=== PATIENT | male | born 1940 | race Caucasian/White ===

== ENCOUNTER 2023-12-04 11:04 | Inpatient (IN) | payer MEDICARE, OTHER, SELFPAY ==
[2023-12-04] VITALS (12 sets, daily range): BP systolic 99–134; BP diastolic 45–92; BMI 30.1
--- NOTE | 2023-12-04 07:52 | ED.GENMED ---
History of Present Illness
General
Chief Complaint: Change in Mental Status
Source: patient and ambulance crew
Exam Limitations: none
Time Seen by Provider: 12/04/23 07:31
Nursing documentation reviewed up to this point in time: agreed with
Travel History
Have you had any contact with someone who has COVID-19?: No
Do you have any symptoms of coronavirus? Fever > 100 degrees, chills, cough, shortness of breath, sore throat, loss of taste or smell, muscle aches, or headache?: No
History of Present Illness
History of Present Illness:
Patient presents to ED from home secondary to confusion noted by his upon waking up this morning. Upon arrival to ED, patient states that he 'feels better'. Denies fever. Denies recent illness. Denies coughing. Denies vomiting or diarrhea.
Denies sick contact. Denies recent travel or surgery. Patient has history of chronic urinary retention, for which he performs self-catheterization at home. In addition, patient takes Coumadin due to previous history of pulmonary embolism.
Past History
Past History
ED Past Medical History: CAD, HTN, Hypercholesterolemia, Seizures, Other (PE, DVT, UTI, BPH) and Other (Self catheterizes his bladder)
ED Past Surgical History: Appendectomy, Orthopedic, Tonsilectomy and Urological
Social History
Tobacco: Non-smoker
Alcohol: None
Drug: None
Personal:
Living: with family
Employment: Retired
Family History
Family History: Hypertension
Review of Systems
Review of Systems
Allergies reviewed?: Yes
All Other Systems: ROS reviewed and negative except as documented in HPI and ROS
Constitutional: Reports no symptoms
EENT: Reports no symptoms
Respiratory: Reports no symptoms
Cardiac: Reports no symptoms
ABD/GI: Reports no symptoms
: Reports no symptoms
Musculoskeletal: Reports no symptoms
Skin: Reports no symptoms
Neurological: Reports no symptoms
Phy Exam
Physical Exam
Physical Exam:
Physical Exam
General: no apparent distress, not acutely ill. afebrile
Head: nc/at. eomi
Neck: supple. no meningeal signs.
Heart: s1/s2 regular rate and rhythm, no murmur. equal radial pulses.
Lungs: no acute respiratory distress. clear bilaterally
Abdomen: normal bowel sounds. not tender.
Neuro: alert and oriented. no focal neurological deficits
Skin: ecchymosis noted over right posterior thigh. scab noted over left patella with surrounding erythema with warmth. no active drainage/bleeding.
Psychiatric: well kept. interactive and cooperative
Extremities: no edema. no calf tenderness.
Course
Orders/Labs/Results
Orders:
Orders
12/04/23 Breakfast
Regular
At Your Request: Full Participation
Does patient need a safe tray?: No
12/04/23 07:45
Straight cath- Treatment ONCE
12/04/23 07:48
Complete Blood Count/With Diff Urgent
Comprehensive Metabolic Panel Urgent
Urinalysis Reflex To Culture Urgent
Date Specimen was Collected: 12/04/23
Time Specimen was Collected: 07:47
Urine Microscopic Reflex Cult Urgent
Vitamin B12 Urgent
Comment: ADD ON
Urine Culture Urgent
SIMONE Source: U
Specimen Description:
Date Specimen was Collected: 12/04/23
Time Specimen was Collected: 07:47
12/04/23 07:56
Lactic Acid Q4H
Comment: CANCEL 2nd LACTIC ACID IF 1st LACTIC ACID IS LESS THAN 2
PTT Urgent
Prothrombin Time Urgent
Blood Culture Q30M
SIMONE Source: Blood/Venous
Specimen Description:
Blood Culture Q30M
SIMONE Source: Blood/Venous
Specimen Description:
12/04/23 08:31
Electrocardiogram (*1) Urgent
Reason for Study: QTc Monitoring
EKG- Treatment ONCE
12/04/23 08:33
0.9% Sodium Chloride 1000 ml [Nss] 1,000 ml IV BOLUS
12/04/23 08:35
CefTRIAXone [Rocephin] 1,000 mg IV NOW STA
12/04/23 08:37
Sodium Zirconium Cyclosilicate [Lokelma] 10 gram PO NOW STA
12/04/23 09:05
Vancomycin [Vancocin] 1,500 mg 0.9% Sodium Chloride [Nss] 20 ml 0.9% Sodium Chloride 250 ml [Nss] 250 ml IV NOW
12/04/23 10:41
Lamotrigine [Lamictal] 150 mg PO NOW STA
12/04/23 10:42
Admit/Transfer Patient As Directed
Co-Sign Provider:
Level of Care: Inpatient admission
Assign to:: Telemetry
Physician / Group: hospitalist
Diagnosis: Cellulitis, UTI
Reason for Telemetry: Other
Other Reason for Telemetry: Vimpat
Date to Stop Telemetry: 12/06/23
Time to Stop Telemetry: 11:00
Reason for Hospitalization: Cellulitis, UTI
Expected length of stay greater than two midnights?: Yes
ELOS- Estimated Length of Stay in days: 2
I certify the patient meets the requirements for IP care: Yes
Lacosamide [Vimpat] 50 mg PO NOW STA
12/04/23 10:45
Code Status As Directed
Resuscitation Status: Full Code
12/04/23 10:53
Straight Cath As Directed
Frequency: q6h
Patient may straight cath themselves: Yes: pls provide supplies and help
12/04/23 12:20
Lactic Acid Q4H
Comment: CANCEL 2nd LACTIC ACID IF 1st LACTIC ACID IS LESS THAN 2
12/04/23 15:08
Add On- LAB Routine
Tests Added?: b12
Activity As Directed
Activity Level: Ambulate
Precautions As Directed
Type of Precautions: Other
Comment: fall
Vital Signs As Directed
Frequency: Per unit guidelines
Ot Eval And Treat Routine
Pt Eval And Treat Routine
Activity Level: Encourage Progressive Amb
12/04/23 20:00
Carvedilol [Coreg] 25 mg PO BID
Lacosamide [Vimpat] 50 mg PO BID
Lamotrigine [Lamictal] 150 mg PO BID
12/04/23 22:00
Aspirin Low Dose EC [Aspir Low (Enteric Coated)] 81 mg PO HS
Atorvastatin [Lipitor] 40 mg PO HS
Warfarin [Coumadin] 2 mg PO SUTUWETHSA@0
12/05/23 07:02
Basic Metabolic Panel IN AM
Complete Blood Count/With Diff IN AM
Magnesium IN AM
12/05/23 08:00
Calcitriol [Rocaltrol] 0.5 mcg PO Q48H
ISOSORBIDE MONOnitrate ER [Imdur (Extended Release)] 30 mg PO DAILY
12/05/23 18:00
CefTRIAXone [Rocephin] 2,000 mg IV Q24H
12/06/23 11:00
DC Protocol for Telemetry ONCE
12/06/23 22:00
Warfarin [Coumadin] 1 mg PO MOFR@2199
Abnormal Lab Results
12/04/23 12/04/23
07:48 07:56
WBC 18.0 H 10^3/uL
(4.8-10.8)
MCHC 32.8 L g/dL
(33.0-37.0)
RDW 15.4 H %
(11.5-14.5)
Abs Immat Gran (auto) 0.1 H 10^3/uL
(0-0.05)
Absolute Neuts (auto) 16.4 H 10^3/uL
(1.4-6.5)
Absolute Lymphs (auto) 0.5 L 10^3/uL
(1.2-3.4)
Absolute Monos (auto) 0.8 H 10^3/uL
(0.1-0.6)
Immature Gran % 0.8 H %
(0-0.5)
Neutrophils % 91.4 H %
(42.2-75.2)
Lymphocytes % 2.9 L %
(20.5-51.1)
PT 24.5 H Sec
(11.4-14.6)
APTT 37.9 H Sec
(23.4-35.0)
Potassium 5.5 H mmol/L
(3.5-5.1)
BUN 43 H mg/dl
(9-20)
Creatinine 3.0 H mg/dL
(0.7-1.3)
Glucose 144 H mg/dl
(70-99)
Lactic Acid 2.4 H mmol/L
(0.7-2.0)
Ur Occult Blood Reflex 1+ A
(Negative)
Urine Nitrite (Reflex) Positive A
(Negative)
Leukocyte Esterase Rfl 2+ A
(Negative)
Urine WBC (Reflex) >100 A /HPF
(0-5)
Urine Bacteria (Reflex) Many A
(Negative)
12/04/23 07:48
12/04/23 07:48
Vital Signs
Initial and Last Documented VS:
Initial Vital Signs
Temp Pulse Resp BP Pulse Ox
97.6 F 84 18 114/45 96
12/04/23 07:34 12/04/23 07:34 12/04/23 07:34 12/04/23 07:34 12/04/23 07:34
Last Documented Vital Signs
Temp Pulse Resp BP Pulse Ox
98 F 87 17 128/68 98
12/05/23 08:17 12/05/23 09:05 12/05/23 08:17 12/05/23 09:05 12/05/23 08:17
MDM/Problems Addressed
MDM/Problems Addressed:
History and exam concerning for sepsis, likely secondary to lower leg cellulitis. Initial UA noted, which is also concerning for urinary tract infection as well. As such, patient will be admitted for iv abx and further evaluation, with concern for
development of bacteremia.
Blood cx and urine cx pending
Hyperkalemia noted, without EKG changes. Will start Lokelma only.
*Critical Care Note
Total Time (30-74mins, 75-104mins- exclusive of procedures): Not Applicable
ED Attending Note
-
Portions of this chart may have been created with voice recognition software.� Occasional wrong word or��sound alike� substitutions may have occurred due to the inherent limitations of voice recognition software.
Discharge Plan
Departure
Patient Disposition: Admit
Date of Disposition: 12/04/23
Time of Disposition: 08:36
Presentation/result/management discussed w/ accepting MD/DO: Hospitalist
Condition: Fair
Discharge Problem:
Sepsis, Cellulitis of leg, Acute UTI, Hyperkalemia
Interventions
Interventions:
*Risk Screen - Suicide Last Done: 12/04/23 07:34
*General Assessment Last Done: 12/04/23 07:34
*Neglect/Abuse Screening Last Done: 12/04/23 07:34
ED- Fall Risk Assessment Last Done: 12/04/23 15:41
*ED COVID-19 Vaccine History Last Done: 12/04/23 07:34
*Nursing Disposition Last Done: 12/04/23 15:41
ED- Pulmonary Assessment Last Done: 12/04/23 09:45
ED- Neurological Assessment Last Done: 12/04/23 09:45
ED- Cardiac Assessment Last Done: 12/04/23 09:45
ED Swallowing Screen Last Done: 12/04/23 09:45
Discharge Date and Time
Discharge Date/Time: 12/04/23 15:41
[2023-12-04 07:59] LABS: % Basophils 0.3 % (0-2); % Immature Granulocytes 0.8 % (0-0.5); % Lymphocytes 2.9 % (20.5-51.1); % Monocytes 4.6 % (1.7-9.3); % Neutrophils 91.4 % (42.2-75.2); Absolute Basophils 0.1 10^3/uL (0-0.2); Absolute Immature Granulocytes 0.1 10^3/uL (0-0.05); Absolute Lymphocytes 0.5 10^3/uL (1.2-3.4); Absolute Monocytes 0.8 10^3/uL (0.1-0.6); Absolute Neutrophils 16.4 10^3/uL (1.4-6.5); Hematocrit 40.2 % (39.0-52.0); Hemoglobin 13.2 g/dL (13.0-18.0); Mean Corp Hgb Conc. 32.8 g/dL (33.0-37.0); Mean Corpuscular Hgb 27.5 pg (27.0-31.0); Mean Corpuscular Volume 83.8 fL (80.0-94.0); Mean Platelet Volume 9.2 fL (7.4-10.4); Nucleated Red Blood Cells % 0 % (-); Platelet Count 227 10^3/uL (130-400); Red Cell Dist. Width 15.4 % (11.5-14.5)
[2023-12-04 08:16] LABS: Urine Albumin Trace (Neg - Trace); Urine Bilirubin Negative (Negative); Urine Character Slightly Cloudy (Clear); Urine Color Yellow; Urine Glucose Negative (Negative); Urine Ketone Negative (Negative); Urine Leukocyte 2+ (Negative); Urine Nitrite Positive (Negative); Urine Occult Blood 1+ (Negative); Urine Urobilinogen Negative (Neg - 1+)
[2023-12-04 08:23] LABS: APTT 37.9 Sec (23.4-35.0); INR 2.18; PT 24.5 Sec (11.4-14.6)
[2023-12-04 08:23] LABS: ALT (SGPT) 17 U/L (0-50); AST (SGOT) 24 U/L (17-59); Albumin 3.6 g/dl (3.5-5.0); Alkaline Phosphatase 72 U/L (38-126); Blood Urea Nitrogen 43 mg/dl (9-20); Calcium 8.7 mg/dl (8.4-10.2); Carbon Dioxide 25 mmol/L (22-30); Chloride 107 mmol/L (98-107); Estimated Creatinine Clearance 22 ml/min; Glucose 144 mg/dl (70-99); Potassium 5.5 mmol/L (3.5-5.1); Sodium 139 mmol/L (135-145); Total Bilirubin 1.2 mg/dl (0.2-1.3); Total Protein 6.6 g/dl (6.3-8.2); eGFR 19.98
[2023-12-04 08:24] LABS: Lactic Acid 2.4 mmol/L (0.7-2.0)
[2023-12-04] MEDS: NSS 1000 IV (09:15)
[2023-12-04] MEDS: ROCEPHIN 1000 MG IV ×2 (09:15→17:51)
[2023-12-04] MEDS: LOKELMA 10 GRAM PO (09:16)
[2023-12-04] MEDS: VANCOCIN 300 ML IV (09:18)
[2023-12-04] MEDS: VANCOCIN 300 MG IV (09:18)
[2023-12-04 09:30] LABS: Urine Mucus Moderate
[2023-12-04 09:33] LABS: Urine Red Blood Cell 0-2 /HPF (0-2); Urine Squamous Cell 0-2 /LPF (Few)
[2023-12-04 09:34] LABS: Urine Bacteria Many (Negative); Urine White Cell >100 /HPF (0-5)
--- NOTE | 2023-12-04 09:52 | HPS.HSE ---
Family Physician
-
Family Physician: Matthew Ingram
Chief Complaint
-
Mental status change
History of Present Illness
Patient was noted to have some confusion upon waking up this morning. noted. Does not have any vomiting or diarrhea. No cough or sick contacts. He self catheterizes at home patient also noticed that he had some redness in the left lower
extremity today. He had some falls at home that he had an ablation of this left knee and dorsal medial toes both sides.
He was not feeling well for the past few days and contacted Dr. Tobin who had cut back on the Vimpat from 100 twice daily to 50 mg twice daily which he started last night.
Medical History
Past Medical History
Past Medical History: Reports Other
Additional Past Medical History:
History of seizures, history of PE with RV thrombus 2010, history of DVT, hypertension hyperlipidemia, near syncope chronic urinary retention with self-catheterization, hyperparathyroidism, history of obstructive uropathy CKD stage IV benign
prostatic hypertrophy
Past Surgical History: Reports Other
Additional Past Surgical History:
IVC filter placement, history of wrist fracture, appendectomy, tonsillectomy, robotic prostatectomy, cardiac catheterization, pacemaker
Social History
Tobacco: Non-smoker
Alcohol: None
Drug: None
Personal:
Living: With Family
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
Family History
Family History: Not pertinent
Allergies / Home Medications
Allergies reflects when Allergies were last updated in [facility].
Home Medications with original date entered in [facility]
Allergy/Medication List:
Allergies
Allergy/AdvReac Type Severity Reaction Status Date / Time
furosemide [From Lasix] Allergy Unknown Verified 12/04/23 07:33
ciprofloxacin [From Cipro] AdvReac chills;general Verified 12/04/23 07:33
malaise
Home Medications
aspirin 81 mg tablet,delayed release 81 mg PO HS Blood clot prevention/tx 02/21/23
atorvastatin 40 mg tablet 40 mg PO HS High cholesterol 02/21/23
isosorbide mononitrate 30 mg tablet,extended release 24 hr 30 mg PO DAILY Heart disease/condition 02/21/23
calcitriol 0.5 mcg capsule 0.5 mcg PO Q48H@0800 Kidney Disease 08/14/23
lamotrigine 100 mg tablet 150 mg PO BID 11/06/23
warfarin 2 mg tablet 1 mg PO MOFR@219911/06/23
warfarin 2 mg tablet 2 mg PO SUTUWETHSA@219911/06/23
acetaminophen 325 mg tablet (Tylenol) 650 mg PO ONCE PRN mild pain 12/04/23
carvedilol 25 mg tablet 25 mg PO BID 12/04/23
lacosamide 50 mg tablet 50 mg PO BID 12/04/23
Review of Systems
-
A 12 point ROS was completed and negative except as noted: Yes
Constitutional: Reports Fatigue and Other (falls)
Respiratory: Denies Cough or Trouble Breathing
Cardiac: Denies Chest Pain
Abdomen/GI: Denies Abdominal Pain, Nausea or Vomiting
: Denies Dysuria
Skin: Reports See HPI and Other (redness)
Neurological: Reports Weakness; Denies Headache
Physical Exam
Vital Signs
Vital Signs
Temp Pulse Resp BP Pulse Ox
97.6 F 92 29 123/47 91
12/04/23 07:34 12/04/23 09:30 12/04/23 09:30 12/04/23 09:00 12/04/23 09:30
Physical Exam
General: No Apparent Distress and Conversant
Respiratory: Clear
Cardiac: S1/S2 and Regular Rhythm
GI: Soft, Non Tender and Normal Bowel Sounds
Musculoskeletal: Edema, Left Lower Extremity (With redness)
Skin: Other (Abrasion healing on the left knee, small abrasion/ulcers on the dorsal middle toes on bilateral feet. Redness whole left leg till knee)
Neuro: AO x 3 and No Motor Deficits
Psych: Intact Judgment/Insight
Laboratory Results
-
12/04/23 07:48
12/04/23 07:48
Laboratory Results
PT 24.5 Sec (11.4-14.6) H 12/04/23 07:56
INR 2.18 12/04/23 07:56
APTT 37.9 Sec (23.4-35.0) H 12/04/23 07:56
Lactic Acid 2.4 mmol/L (0.7-2.0) H 12/04/23 07:56
Total Bilirubin 1.2 mg/dl (0.2-1.3) 12/04/23 07:48
AST 24 U/L (17-59) 12/04/23 07:48
ALT 17 U/L (0-50) 12/04/23 07:48
Alkaline Phosphatase 72 U/L (38-126) 12/04/23 07:48
Data Reviewed
-
CT Scan: Report Reviewed by me (CT of the head no acute changes, mild atrophy, mild periventricular small vessel disease)
Medical Tests (Nuc Med, Echo, EKG etc): Image Personally Visualized and interpreted (EKG-normal sinus rhythm, right bundle branch block)
Impression/Plan
-
IMPRESSION/PLAN:
# TME
leukocytosis
likely has UTI secondary to self-catheterization
Also left lower extremity cellulitis as a source
Continue ceftriaxone and await cultures
# Ulcers are traumatic on the left knee, dorsal middle toes on bilateral feet
# Hyperkalemia-ordered Lokelma
# Mild lactic acidosis-follow
# CKD stage IV
continue calcitriol
# History of tachybradycardia syndrome with pacemaker placement
# History of seizures-Lamictal 150 twice daily, Vimpat 50 milligram twice daily
He was on Keppra at 1 point it was stopped because it was not working.
contacted Dr. Tobin recently and Vimpat was changed to 50 mg twice a day as of 12/03/2023 evening
Continue
# Hyperlipidemia-continue statin
# History of DVT, PE with RV thrombus 2010
History of IVC filter placement
# Neurogenic bladder with self-catheterization
# History of prostatic hypertrophy with TURP
# Hyperparathyroidism-on calcitriol
# DVT prophylaxis-on Coumadin
# CODE STATUS-full code
Discussed with at bedside
[2023-12-04] MEDS: LAMICTAL 150 MG PO ×2 (11:17→20:08)
[2023-12-04] MEDS: VIMPAT 50 MG PO ×2 (11:18→20:09)
[2023-12-04 12:46] LABS: Lactic Acid 2.2 mmol/L (0.7-2.0)
[2023-12-04] MEDS: ZOFRAN 4 MG IV (14:10)
--- NOTE | 2023-12-04 16:11 | PTCARENOTE ---
pt admitted from ed AOx1, at bedside to answer admission questions. Lungs diminished B/L on RA. Pacer present. +bs x4 abd soft non tender. pt cont of bowel but strictly straight caths QID. trace edema noted LLE. Left knee scab R/T recent fall,
left LE red and warm to the touch. +PP B/L
[2023-12-04 16:40] LABS: Lactic Acid 1.3 mmol/L (0.7-2.0)
[2023-12-04] MEDS: STERILE WATER FOR INJECTION 10 ML IV (17:51)
[2023-12-04 18:07] LABS: Vitamin B12 399 pg/ml (239-931)
[2023-12-04] MEDS: COREG 25 MG PO (20:08)
[2023-12-04] MEDS: ASPIR LOW (ENTERIC COATED) 81 MG PO (21:18)
[2023-12-04] MEDS: COUMADIN 2 MG PO (21:18)
[2023-12-04] MEDS: LIPITOR 40 MG PO (21:19)
[2023-12-05] VITALS (7 sets, daily range): BP systolic 101–134; BP diastolic 39–74; PULSE 79; O2SAT 94
[2023-12-05 07:37] LABS: % Basophils 0.3 % (0-2); % Immature Granulocytes 0.5 % (0-0.5); % Lymphocytes 4.7 % (20.5-51.1); % Monocytes 5.3 % (1.7-9.3); % Neutrophils 89.2 % (42.2-75.2); Absolute Basophils 0.1 10^3/uL (0-0.2); Absolute Immature Granulocytes 0.1 10^3/uL (0-0.05); Absolute Lymphocytes 0.8 10^3/uL (1.2-3.4); Absolute Monocytes 0.9 10^3/uL (0.1-0.6); Absolute Neutrophils 15.5 10^3/uL (1.4-6.5); Hematocrit 39.5 % (39.0-52.0); Hemoglobin 12.8 g/dL (13.0-18.0); Mean Corp Hgb Conc. 32.4 g/dL (33.0-37.0); Mean Corpuscular Hgb 27.5 pg (27.0-31.0); Mean Corpuscular Volume 84.8 fL (80.0-94.0); Mean Platelet Volume 9.5 fL (7.4-10.4); Nucleated Red Blood Cells % 0 % (-); Platelet Count 213 10^3/uL (130-400); Red Blood Cell Count 4.66 10^6/uL (4.70-6.10); Red Cell Dist. Width 15.8 % (11.5-14.5); White Blood Cell Count 17.4 10^3/uL (4.8-10.8)
[2023-12-05 07:42] LABS: Blood Urea Nitrogen 45 mg/dl (9-20); Calcium 7.9 mg/dl (8.4-10.2); Carbon Dioxide 24 mmol/L (22-30); Chloride 107 mmol/L (98-107); Estimated Creatinine Clearance 22 ml/min; Glucose 106 mg/dl (70-99); Magnesium 1.9 mg/dl (1.6-2.3); Potassium 4.6 mmol/L (3.5-5.1); Sodium 136 mmol/L (135-145); eGFR 19.21
[2023-12-05] MEDS: ROCALTROL 0.5 MCG PO (09:04)
[2023-12-05] MEDS: DESENEX/MITRAZOL/ZEASORB 1 APPLIC TOPICAL ×2 (09:05→20:58)
[2023-12-05] MEDS: COREG 25 MG PO ×2 (09:05→20:52)
[2023-12-05] MEDS: IMDUR (EXTENDED RELEASE) 30 MG PO (09:05)
[2023-12-05] MEDS: VIMPAT 50 MG PO ×2 (09:06→20:56)
[2023-12-05] MEDS: LAMICTAL 150 MG PO ×2 (09:06→20:56)
[2023-12-05] MEDS: NSS 1000 IV (13:10)
[2023-12-05] MEDS: ROCEPHIN 2000 MG IV (13:11)
[2023-12-05] MEDS: STERILE WATER FOR INJECTION 20 ML IV (13:11)
--- NOTE | 2023-12-05 13:13 | CON.NEURO4 ---
Consultation - Neurology 4
-
CONSULTING PHYSICIAN: Deejay Tobin
REFERRING PHYSICIAN: Hospitalist
DICTATED BY: Deejay Tobin
DATE/TIME OF REQUEST: 12/05/23
DATE/TIME OF CONSULTATION: 12/05/23
Reason for Consultation: Lethargy
History of Present Illness:
Patient is an 83-year-old man well-known to me for history of epilepsy presented to hospital because of lethargy and found to have bacteremia.
In discussions with the patient's over about the course of the past week the patient has had some lethargy for about the past 1 to 2 weeks, his is also noted some redness on the left leg, there has not been any obvious dysuria or
suprapubic or abdominal pain or vomiting.
Patient's last seizure was approximately 11/21. He was started on lacosamide on 11/21 at 50 mg twice a day and increase to 100 mg twice daily, but due to the lethargy I recommended decreasing him back to 50 mg twice daily over the phone earlier this
week.
Patient's current seizure medication regimen is lacosamide 50 mg twice daily and lamotrigine 150 mg twice daily.
At this time patient is drowsy but arousable, feels malaise, denies any headache or abdominal pain.
Past Medical History: Epilepsy, hyperlipidemia, history DVT/PE s/p IVC, neurogenic bladder, CKD
Surgical History: IVC filter placement, history of wrist fracture, appendectomy, tonsillectomy, robotic prostatectomy, cardiac catheterization, pacemaker
Family History: Non-contributory
Social History: and lives with his , has grown children, retired, no alcohol or tobacco
Allergies: Furosemide and Ciprofloxacin
Review of Symptoms:
Patient denies any fever, headache, chest pain, shortness of breath, GI or symptoms.
Physical Exam:
Elderly man, ill-appearing but no acute distress no signs of head or neck trauma eyes are clear and anicteric neck with no it is no neck masses oropharynx is dry, heart rate regular breathing unlabored abdomen soft nontender, left leg erythema at
the lower extremities noted no pain to palpation, very mild edema on left leg
Neurologic Examination:
Patient has eyes closed and will open them to voice and command and will obey simple commands and engage in short conversation but is drowsy. No aphasia is present.
Resting gaze is midline pupils are 3 mm equal round react light bilaterally extraocular's are full with no pathologic nystagmus seen, minimal dysarthria, smile symmetric, tongue is midline
No tremor or parkinsonism seen no pronator drift no rigidity normal muscle tone, strength is 4/5 bilaterally and arm abduction and flexion hip flexion
Intact to light touch and ox stimulation throughout
Reflexes diminished equal throughout
No ataxia on finger-nose testing bilateral
Gait examination deferred
Neuro Imaging: CT head non contrast no acute abnormalities
Impressions
1. Sepsis due to bacteremia suspected either due to cellulitis versus urinary tract infection
2. Toxic metabolic encephalopathy. Contributory factors are sepsis and bacteremia, additionally he is on 2 antiseizure medications which can produce drowsiness although I do not suspect overt lamotrigine or lacosamide toxicity based on his
examination and other factor explaining encephalopathy in the form of sepsis
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
Recommendations:
1. Although low yield we will check routine EEG given bacteremia and sepsis may lower seizure threshold
2. Will check lamotrigine blood level
3. Continue lamotrigine 150 mg twice a day and lacosamide 50 mg twice a day
4. Basic neurologic checks and seizure precaution
5. Noncontrast CT head is sufficient for brain imaging
6. Continue treating infection, antibiotics, follow blood cultures
7. Tylenol PRN for fever which may lower seizure threshold
Will follow peripherally call with questions or concerns
Discussed patient care with: Patient nad his
--- NOTE | 2023-12-05 13:38 | W.PN.HOSP.TC ---
Today's Communication/Plan
-
Head of bed elevation
IV fluids
Check INR
Continue antibiotics
ID evaluation
Repeat cultures ordered
Assessment / Plan
Assessment / Plan
Patient appears to be lethargic. Arousable
Left lower extremity redness not much better
Abrasions stable
Cardiovascular system S1-S2 appreciated
Chest clear to auscultation
Abdomen soft and nontender
Neuroexam-lethargic but nonfocal exam no neck stiffness
# TME
Cellulitis
Gram-positive bacteremia
Meets criteria for sepsis with a fever and source of infection white count
Gentle IV fluids with the patient CKD
Leukocytosis-slightly better
Sources left lower extremity cellulitis
Leg looks same
Continue ceftriaxone
ID evaluation requested
# Ulcers are traumatic on the left knee, dorsal middle toes on bilateral feet
Cellulitis of left lower extremity
# Abnormal urinalysis-unclear if this is colonization because of the patient's straight cath versus UTI
Continue antibiotics and follow cultures
# Hyperkalemia-ordered Lokelma
# Mild lactic acidosis-follow
# CKD stage IV
continue calcitriol
# History of tachybradycardia syndrome with pacemaker placement
# History of seizures-Lamictal 150 twice daily, Vimpat 50 milligram twice daily
He was on Keppra at 1 point it was stopped because it was not working.
contacted Dr. Tobin recently and Vimpat was changed to 50 mg twice a day as of 12/03/2023 evening
Continue
Requested neurology evaluation given patient's TME
Also get a CT of the head- No Bleed
# Hyperlipidemia-continue statin
# History of DVT, PE with RV thrombus 2010
History of IVC filter placement
Coumadin
Check INR
# Neurogenic bladder with self-catheterization
# History of prostatic hypertrophy with TURP
# Hyperparathyroidism-on calcitriol
# DVT prophylaxis-on Coumadin
# CODE STATUS-full code
Discussed with at bedside, all questions answered.
Discussed with nursing
Anticipated Discharge: > 48 hours
Subjective/Interval History
-
Date of Service: December 05, 2023
Objective Data
-
Labs:
Laboratory Results
12/05/23
07:02
WBC 17.4 H
Hgb 12.8 L
Hct 39.5
Plt Count 213
Sodium 136
Potassium 4.6
Chloride 107
Carbon Dioxide 24
BUN 45 H
Creatinine 3.1 H
Glucose 106 H
Calcium 7.9 L
Vital Signs:
Vital Signs
Temp Pulse Resp BP Pulse Ox
98.1 F 79 16 134/72 98
12/05/23 12:00 12/05/23 12:00 12/05/23 12:00 12/05/23 12:00 12/05/23 12:00
I&O
12/04/23 12/05/23 12/06/23
06:59 06:59 06:59
Intake Total 340 / 340
Output Total 1080 / 1080 300 / 300
Balance -740 / -740 -300 / -300
--- NOTE | 2023-12-05 14:40 | CM ---
Reviewed chart. Met with patient's who was in patient's room at bedside while patient was at a test. Patient's stated that patient lives with her in a two story home with one step to enter and a full flight between steps. Patient's
stated that she is thinking of getting a stair glide.
She described patient has in the past few weeks beeb, dependent/assist with all ADLs, personal care, dressing and bathing as he has been very weak. She supervises him in the shower.
Patient's does all the cooking, cleaning, medication technician and laundry. She stated that she is thinking of hiring some assistance. Her son lives in [place] and is coming in for the weekend. She described him as supportive.
Patient does not drive but his gets him to all his appointments and does all the shopping.
He has had VN services in the past through [facility]. He has been to [facility] in the past recently.
He has a prescription plan and uses the [facility] in [place] for all of his medications. His PCP is Dr. Matthew Nolan.
Patient's stated that she would like to take patient home when he is medically stable for discharge. She confirmed that she can accommodate the scope of patient's needs. Will make recommendations regarding discharge planning based on
indications of medical staff. She stated that she will remain agreeable.
Plan: Case management will continue to follow and assist with discharge planning. Very tentative plan is for patient to return home with his .
--- NOTE | 2023-12-05 15:01 | EEG.RPT ---
Electroencephalogram Report
Recording
Date of EE12/05/23
Type of EEG: Routine
Length of EEG recordin minutes
Patient Status: Inpatient
Recording Conditions: Awake and Drowsy
Hyperventilation Performed: No
Photic Stimulation Performed: Yes
Hand Dominance: Right
Report
LESS THAN 1 HOUR EEG REPORT
METHODS:
A 21 channel digitized electroencephalogram (EEG) was performed in the [facility]. The 10/20 international system of electrode placement was used with ECG and lateral/vertical eye movements recorded. �Video was recorded.
Study lasted 29 minutes.
ELECTROENCEPHALOGRAPHER IMPRESSION(S):
Quality of study
Good
Background
Unremarkable, well maintained, anterior-posterior voltage gradient
Mixed medium amplitude theta and alpha frequencies
Normal posterior dominant rhythm seen at 9 ahz
With eye opening the background activity changed to a low voltage mixture of frequencies.
Sleep
Drowsiness present
Hyperventilation
Not performed
Photic Stimulation
Failed to activate the record
ECG
Unremarkable
Abnormalities
Rare left temporal (T3 maximal) sharp waves are seen representing interictal epileptiform discharges, no seizures seen
LESS THAN 1 HOUR EEG INTERPRETATION:
Moderately abnormal EEG showing left temporal interictal epileptiform discharges, otherwise unremarkable
CLINICAL CORRELATION:
This EEG supports an area on the left temporal lobe with increased susceptibility to seizures, in correct clinical context may be compatible with diagnosis of focal epilepsy. No seizures seen.
--- NOTE | 2023-12-05 16:16 | CON.ID ---
Consultation
-
Date/Time Consultation Requested: 12/05/2023 1235
Date/Time Consultation Performed: 12/05/2023 1600
Requesting Provider: Dr. Katz
Performing Provider: Dr. Rhodes
Reason for Consultation: Bacteremia
Chief Complaint / Past History
History of Present Illness
Madhu Clements is an 83-year-old man with a significant past medical history of CAD and HTN being evaluated at the request of Dr. Katz regarding bacteremia. History is obtained from chart review, along with patient interview. The patient
presented to [facility] ER on 12/04/23 after he was found to be confused upon waking up yesterday morning. In the ER, he reported 'feeling better' denied any fevers or recent illness. According to history he has chronic urinary retention
and performs self-catheterization at home.
Workup in the ER included blood cultures, which are now positive for group A strep. Additionally a urine culture is growing Gram-Negative Rods. Infectious Diseases asked to manage further antibiotics.
At this time he denies any pain. He denies any current fevers or chills. He denies any cough. He denies any lower extremity pain. He denies any groin pain.
Past History
Additional Past Medical History:
CAD
HTN
Dyslipidemia
Seizure disorder
DVT/PE
Hx UTI
Urinary retention with chronic self-catheterization
BPH
Additional Past Surgical History:
Appendectomy
Tonsils surgery
Urologic surgery
Allergy History:
furosemide [From Lasix] Allergy (Verified 12/04/23 07:33)
Unknown
ciprofloxacin [From Cipro] Adverse Reaction (Verified 12/04/23 07:33)
chills;general malaise
Medications Reviewed: Yes
Current Antibiotics:
Rocephin
Social History
Tobacco: Non-Smoker
Alcohol: None
Drug: None
Personal:
Living: With Family
Employment: Retired
Family History
Family History: Not Pertinent
Review of Systems
Vital Signs
Temp Pulse Resp BP Pulse Ox
98.1 F 79 16 134/72 98
12/05/23 12:00 12/05/23 12:00 12/05/23 12:00 12/05/23 12:00 12/05/23 12:00
Physical Exam
Physical Exam
Constitutional: Comfortable, Acutely Ill, Chronically Ill and Non-toxic
Head: Normocephalic
Eyes: Pupils Equal, Pupils Round, No Conjunctival Hemorrhage and Sclera Anicteric
Oral: No Thrush and No Ulcers
Cardiovascular: Regular Rate and S1/S2; Negative S3/S4 or Murmur
Pulmonary: Clear; Negative Wheezes, Rales or Rhonchi
Gastrointestinal: Soft, Non Tender, Non Distended, Normal Bowel Sounds, No Rebound and No Guarding
Genito-Urinary: Negative Rendon
Extremities: Other (Left lower extremity with marked erythema, along with 2+ edema. Positive significant warmth.)
Musculoskeletal: Negative Joint Swelling or Joint Effusion
Neurological: Awake and Other (Lethargic); Negative Meningeal Signs
Psychological: Calm
.
Lab / Diagnostic Study Results
12/05/23 07:02
12/05/23 07:02
Abs Immat Gran (auto) 0.1 10^3/uL (0-0.05) H 12/05/23 07:02
Absolute Neuts (auto) 15.5 10^3/uL (1.4-6.5) H 12/05/23 07:02
Absolute Lymphs (auto) 0.8 10^3/uL (1.2-3.4) L 12/05/23 07:02
Absolute Monos (auto) 0.9 10^3/uL (0.1-0.6) H 12/05/23 07:02
Absolute Basos (auto) 0.1 10^3/uL (0-0.2) 12/05/23 07:02
Immature Gran % 0.5 % (0-0.5) 12/05/23 07:02
Neutrophils % 89.2 % (42.2-75.2) H 12/05/23 07:02
Lymphocytes % 4.7 % (20.5-51.1) L 12/05/23 07:02
Monocytes % 5.3 % (1.7-9.3) 12/05/23 07:02
Eosinophils % 0.0 % (0-6) 12/05/23 07:02
Basophils % 0.3 % (0-2) 12/05/23 07:02
PT 24.5 Sec (11.4-14.6) H 12/04/23 07:56
INR 2.18 12/04/23 07:56
Lactic Acid 1.3 mmol/L (0.7-2.0) 12/04/23 16:16
Ur Squamous Epith Cells 0-2 /LPF (Few) 12/04/23 07:48
Microbiology Results
Micro:
12/04/23 07:56 Blood Culture - Preliminary
Blood/Venous Streptococcus pyogenes
Gram Stain - Preliminary
12/04/23 07:56 Blood Culture - Preliminary
Blood/Venous Streptococcus pyogenes
Gram Stain - Final
12/05/23 12:43 Blood Culture - Pending
Blood/Venous
12/04/23 07:48 Urine Culture - Preliminary
Urine Gram negative bacilli
Assessment / Plan
Invasive group A strep infection (bacteremia)
Left lower extremity cellulitis; likely source of bacteremia
Bacteriuria
-Not clear if infection versus colonization, as patient performs self-catheterization and bacteriuria would not be unexpected.
Leukocytosis
Renal insufficiency
CAD
HTN
Dyslipidemia
Seizure disorder
DVT/PE
Hx UTI
Urinary retention with chronic self-catheterization
BPH
Recommendations:
Continue ceftriaxone.
Lower extremity elevation. Apply Tubigrip.
Repeat blood cultures have been ordered; follow to confirm clearance of bacteremia
Trend white count and temperature curve.
Await final culture data to guide further antimicrobial selection and de-escalation.
[2023-12-05 17:11] LABS: INR 3.19; PT 33.1 Sec (11.4-14.6)
[2023-12-05] MEDS: COUMADIN 2 MG PO (21:08)
[2023-12-05] MEDS: ASPIR LOW (ENTERIC COATED) 81 MG PO (21:08)
[2023-12-05] MEDS: LIPITOR 40 MG PO (21:10)
[2023-12-06 03:40] VITALS: BP 172/82
[2023-12-06] MEDS: NSS 1000 IV (06:09)
[2023-12-06 06:54] LABS: Hematocrit 37.3 % (39.0-52.0); Hemoglobin 12.2 g/dL (13.0-18.0); Mean Corp Hgb Conc. 32.7 g/dL (33.0-37.0); Mean Corpuscular Hgb 27.5 pg (27.0-31.0); Mean Platelet Volume 9.1 fL (7.4-10.4); Platelet Count 194 10^3/uL (130-400); Red Blood Cell Count 4.44 10^6/uL (4.70-6.10); Red Cell Dist. Width 15.8 % (11.5-14.5); White Blood Cell Count 14.4 10^3/uL (4.8-10.8)
[2023-12-06 07:05] LABS: INR 3.03; PT 31.8 Sec (11.4-14.6)
[2023-12-06 07:30] VITALS: BP 152/81
[2023-12-06 07:31] LABS: Blood Urea Nitrogen 52 mg/dl (9-20); Calcium 7.9 mg/dl (8.4-10.2); Carbon Dioxide 25 mmol/L (22-30); Chloride 105 mmol/L (98-107); Estimated Creatinine Clearance 22 ml/min; Glucose 111 mg/dl (70-99); Potassium 4.6 mmol/L (3.5-5.1); Sodium 140 mmol/L (135-145); eGFR 19.21
[2023-12-06] MEDS: LAMICTAL 150 MG PO ×2 (07:38→21:43)
[2023-12-06] MEDS: VIMPAT 50 MG PO ×2 (07:38→21:42)
[2023-12-06] MEDS: COREG 25 MG PO ×2 (07:38→21:42)
[2023-12-06] MEDS: IMDUR (EXTENDED RELEASE) 30 MG PO (07:38)
[2023-12-06] MEDS: DESENEX/MITRAZOL/ZEASORB 1 APPLIC TOPICAL ×2 (07:41→21:43)
[2023-12-06 11:25] VITALS: BP 147/72
--- NOTE | 2023-12-06 11:40 | W.PN.ID1 ---
Date of Service
Date of Service: December 06, 2023
Today's Communication
continue ceftriaxone
add linezolid x24 hours
Assessment / Plan
Invasive group A strep infection (bacteremia)
Left lower extremity cellulitis; likely source of bacteremia
Bacteriuria
-Not clear if infection versus colonization, as patient performs self-catheterization and bacteriuria would not be unexpected.
Leukocytosis
Renal insufficiency
CAD
HTN
Dyslipidemia
Seizure disorder
DVT/PE
Hx UTI
Urinary retention with chronic self-catheterization
BPH
Recommendations:
Continue ceftriaxone
Add linezolid x24 hrs
Lower extremity elevation. Apply Tubigrip.
Repeat blood cultures have been ordered; follow to confirm clearance of bacteremia - no growth to date
Trend white count and temperature curve.
Await final culture data to guide further antimicrobial selection and de-escalation.
Chief Complaint
-: Bacteremia
Subjective / Review of Systems
afebrile
bp stable
leukocytosis declining
cr stable
s pyogenes bacteremia
Vital Signs / Physical Exam
Vital Signs
Vital Signs
Temp Pulse Resp BP Pulse Ox
97.4 F 77 18 147/72 95
12/06/23 11:25 12/06/23 11:25 12/06/23 11:25 12/06/23 11:25 12/06/23 11:25
Physical Exam
Constitutional: No Acute Distress
Cardiovascular: Regular Rate and S1/S2; Negative Murmur or Rub
Pulmonary: Clear and Symmetric; Negative Wheezes or Rales
Gastrointestinal: Soft, Non Tender, Non Distended and Normal Bowel Sounds
Skin: Warm, Dry and Rash (persits, mildly warm); Negative Jaundice
Objective Data
Lab Data
Lab Results
12/06/23 06:43
02/02/24 06:43
PT 31.8 Sec (11.4-14.6) H 12/06/23 06:43
INR 3.03 12/06/23 06:43
APTT 37.9 Sec (23.4-35.0) H 12/04/23 07:56
Estimated Creat Clear 22 ml/min 12/06/23 06:43
Lactic Acid 1.3 mmol/L (0.7-2.0) 12/04/23 16:16
Total Bilirubin 1.2 mg/dl (0.2-1.3) 12/04/23 07:48
AST 24 U/L (17-59) 12/04/23 07:48
ALT 17 U/L (0-50) 12/04/23 07:48
Alkaline Phosphatase 72 U/L (38-126) 12/04/23 07:48
Most recent labs reviewed.
Micro Results:
12/04/23 07:48 Urine Culture - Final
Urine Klebsiella pneumoniae
12/06/23 06:43 Blood Culture - Pending
Blood/Venous
12/04/23 07:56 Blood Culture - Preliminary
Blood/Venous Streptococcus pyogenes
Gram Stain - Preliminary
12/04/23 07:56 Blood Culture - Preliminary
Blood/Venous Streptococcus pyogenes
Gram Stain - Final
12/05/23 12:43 Blood Culture - Pending
Blood/Venous
[2023-12-06 12:29] VITALS: BP 125/71
[2023-12-06] MEDS: ZYVOX 600 MG PO ×2 (12:50→21:42)
--- NOTE | 2023-12-06 12:51 | W.PN.HOSP.TC ---
Today's Communication/Plan
-
Continue IV AB
Await Repeat BC
PT OT
May need rehab
Assessment / Plan
Assessment / Plan
Patient appears to be lethargic. Arousable
Left lower extremity redness
Abrasions stable
Cardiovascular system S1-S2 appreciated
Chest clear to auscultation
Abdomen soft and nontender
Neuroexam-lethargic but nonfocal exam no neck stiffness
# TME
Cellulitis
Strep Pyogens bacteremia
Meets criteria for sepsis with a fever and source of infection white count
Leukocytosis-slightly better
Source left lower extremity cellulitis
Rpt Cx pnding
Continue ceftriaxone
ID evaluation requested
# Ulcers are traumatic on the left knee, dorsal middle toes on bilateral feet
Cellulitis of left lower extremity
# Abnormal urinalysis-unclear if this is colonization because of the patient's straight cath versus UTI
Continue antibiotics and follow cultures
# Hyperkalemia-ordered Lokelma
# Mild lactic acidosis-follow
# CKD stage IV
continue calcitriol
# History of tachybradycardia syndrome with pacemaker placement
# History of seizures-Lamictal 150 twice daily, Vimpat 50 milligram twice daily
He was on Keppra at 1 point it was stopped because it was not working.
contacted Dr. Tobin recently and Vimpat was changed to 50 mg twice a day as of 12/03/2023 evening
Continue
Neurology evaluation appreciated
CT of the head- No Bleed
# Hyperlipidemia-continue statin
# History of DVT, PE with RV thrombus 2010
History of IVC filter placement
Coumadin
INR 3.0
i mg Coumadin tonight
# Neurogenic bladder with self-catheterization
# History of prostatic hypertrophy with TURP
# Hyperparathyroidism-on calcitriol
# DVT prophylaxis-on Coumadin
# CODE STATUS-full code
Discussed with at bedside, all questions answered.
D/W Neurology
Discussed with nursing
Anticipated Discharge: > 48 hours
Subjective/Interval History
-
Date of Service: December 06, 2023
Objective Data
-
Labs:
Laboratory Results
12/06/23
06:43
WBC 14.4 H
Hgb 12.2 L
Hct 37.3 L
Plt Count 194
PT 31.8 H
INR 3.03
Sodium 140
Potassium 4.6
Chloride 105
Carbon Dioxide 25
BUN 52 H
Creatinine 3.1 H
Glucose 111 H
Calcium 7.9 L
Vital Signs:
Vital Signs
Temp Pulse Resp BP Pulse Ox
97.4 F 77 18 147/72 95
12/06/23 11:25 12/06/23 11:25 12/06/23 11:25 12/06/23 11:25 12/06/23 11:25
I&O
12/05/23 12/06/23 12/07/23
06:59 06:59 06:59
Intake Total 340 / 340 480 / 480
Output Total 1080 / 1080 1850 / 1850
Balance -740 / -740 -1370 / -1370
[2023-12-06] MEDS: STERILE WATER FOR INJECTION 20 ML IV (14:47)
[2023-12-06] MEDS: ROCEPHIN 2000 MG IV (14:47)
[2023-12-06 15:30] VITALS: BP 169/85
[2023-12-06 19:11] VITALS: BP 160/89
[2023-12-06] MEDS: ASPIR LOW (ENTERIC COATED) 81 MG PO (21:42)
[2023-12-06] MEDS: LIPITOR 40 MG PO (21:42)
[2023-12-06] MEDS: COUMADIN 1 MG PO (21:48)
[2023-12-07 00:11] VITALS: BP 134/69
[2023-12-07] MEDS: NSS 1000 IV (00:11)
[2023-12-07 03:28] VITALS: BP 114/63
[2023-12-07 07:12] VITALS: BP 170/93
[2023-12-07 07:31] LABS: Hematocrit 35.9 % (39.0-52.0); Hemoglobin 11.9 g/dL (13.0-18.0); Mean Corp Hgb Conc. 33.1 g/dL (33.0-37.0); Mean Corpuscular Hgb 27.7 pg (27.0-31.0); Mean Corpuscular Volume 83.5 fL (80.0-94.0); Mean Platelet Volume 9.9 fL (7.4-10.4); Platelet Count 212 10^3/uL (130-400); Red Cell Dist. Width 15.8 % (11.5-14.5); White Blood Cell Count 8.5 10^3/uL (4.8-10.8)
[2023-12-07 07:39] LABS: PT 38.3 Sec (11.4-14.6)
--- NOTE | 2023-12-07 07:39 | W.PN.HOSP.TC ---
Today's Communication/Plan
-
hold warfarin
daily INR
cont abx
follow cultures
Assessment / Plan
Assessment / Plan
Physical Exam
Genera: no acute distress appears comfortable at this time
Cardiovascular system S1-S2 appreciated
Chest clear to auscultation
Abdomen soft and nontender
Ext: LLE erythema significantly improved well below demarcation line
Neuro exam-AOx3
# TME
Cellulitis
Strep Pyogens bacteremia
Meets criteria for sepsis with a fever and source of infection white count
Leukocytosis- resolved
Source left lower extremity cellulitis
Rpt Cx NGTD
ID evaluation appreciated cont ceftriaxone and short course linezolid
# Ulcers are traumatic on the left knee, dorsal middle toes on bilateral feet
Cellulitis of left lower extremity
# Abnormal urinalysis-unclear if this is colonization because of the patient's straight cath versus UTI
Continue antibiotics and follow cultures
# Hyperkalemia-ordered Lokelma
# Mild lactic acidosis- resolved
# NAYLA on CKD stage IV
continue calcitriol
Cr improving from peak 3.1 to recent 2.5
# History of tachybradycardia syndrome with pacemaker placement
# History of seizures-Lamictal 150 twice daily, Vimpat 50 milligram twice daily
He was on Keppra at 1 point it was stopped because it was not working.
contacted Dr. Tobin recently and Vimpat was changed to 50 mg twice a day as of 12/03/2023 evening
Continue
Neurology evaluation appreciated
CT of the head- No Bleed
# Hyperlipidemia-continue statin
# History of DVT, PE with RV thrombus 2010
History of IVC filter placement
Coumadin
INR supratherapeutic >3, warfarin on hold for now
# Neurogenic bladder with self-catheterization
# History of prostatic hypertrophy with TURP
# Hyperparathyroidism-on calcitriol
# DVT prophylaxis-on Coumadin
# CODE STATUS-full code
PT/OT appreciated Acute vs SNF rehab
I spent a total of 55 minutes with the patient or on the floor. More than 50% of this time involved counseling and coordination of care.
Anticipated Discharge: > 48 hours
Subjective/Interval History
-
Date of Service: December 07, 2023
Cellulitis improving. Denies new acute issues at this time.
Objective Data
-
Labs:
Laboratory Results
12/07/23
06:57
WBC Pending
Hgb Pending
Hct Pending
Plt Count Pending
PT Pending
INR Pending
Sodium Pending
Potassium Pending
Chloride Pending
Carbon Dioxide Pending
BUN Pending
Creatinine Pending
Glucose Pending
Calcium Pending
Vital Signs:
Vital Signs
Temp Pulse Resp BP Pulse Ox
98.3 F 66 16 114/63 95
12/07/23 03:28 12/07/23 03:28 12/07/23 03:28 12/07/23 03:28 12/07/23 03:28
I&O
12/06/23 12/07/23 12/08/23
06:59 06:59 06:59
Intake Total 480 / 480 760 / 760
Output Total 1850 / 1850 2600 / 2600
Balance -1370 / -1370 -1840 / -1840
--- NOTE | 2023-12-07 07:51 | W.PN.NEURO.1 ---
Today's Communication / Plan
-
- Pending lamotrigine level this may take some time, unlikely patient has overt toxicity of lamotrigine based on his exam lack of nystagmus
-Continue lacosamide 50 mg twice daily and lamotrigine 150 mg twice daily
-Treating infection
-Minimize sedating medications
-Follow mental status, seizure precaution
Will follow peripherally
Neuro Assessment/Plan
Assessment
83-year-old male with a past medical history of epilepsy, DVT PE presented to hospital with lethargy and found to have bacteremia suspected either due to UTI chronic need for intermittent catheterization cellulitis of the left leg.
I have been managing the patient as an outpatient who has had difficult to control seizures, more recently was started on lacosamide 11/21 which she did show some response to last clear seizure event had been 11/21.
EEG here demonstrated left temporal interictal sharp waves similar to an ambulatory EEG done in the outpatient setting, both studies highly suggestive of a left temporal lobe source of seizures. EEG study here did not show nonconvulsive seizure
activity.
Combination of bacteremia and sepsis producing toxic metabolic encephalopathy in addition to some degree of to seizure medications producing drowsiness
Subjective/Objective
Subjective Data
Date of Service: December 07, 2023
No acute events, no typical seizure events seen, remains on antibiotics, feels like he looks a bit more wakeful and interactive
Objective Data
Vital Signs
Temp Pulse Resp BP Pulse Ox
98.3 F 66 16 114/63 95
12/07/23 03:28 12/07/23 03:28 12/07/23 03:28 12/07/23 03:28 12/07/23 03:28
PT 38.3 Sec (11.4-14.6) H 12/07/23 06:57
INR 3.90 12/07/23 06:57
APTT 37.9 Sec (23.4-35.0) H 12/04/23 07:56
Sodium 140 mmol/L (135-145) 12/06/23 06:43
Potassium 4.6 mmol/L (3.5-5.1) 12/06/23 06:43
BUN 52 mg/dl (9-20) H 12/06/23 06:43
Glucose 111 mg/dl (70-99) H 12/06/23 06:43
Calcium 7.9 mg/dl (8.4-10.2) L 12/06/23 06:43
Vitamin B12 399 pg/ml (239-931) 12/04/23 07:48
Patient Allergies
furosemide [From Lasix] Allergy (Verified 12/04/23 07:33)
Unknown
ciprofloxacin [From Cipro] Adverse Reaction (Verified 12/04/23 07:33)
chills;general malaise
Review of Systems
-
History Source: Patient
All other systems: Reviewed and negative
Constitutional: Fatigue
EENT: No Symptoms Reported
Respiratory: No Symptoms
Cardiac: No Symptoms
Abdomen/GI: No Symptoms
Musculoskeletal: No Symptoms
Skin: No Symptoms
Neuro: See existing Neuro Note
Endocrine: No Symptoms
Hematologic / Lymphatic: No Symptoms
Allergy / Immunology: No Symptoms
Physical Exam
-
General: No Apparent Distress, Comfortable and Appears Stated Age
Eyes: No Ptosis
HEENT: Atraumatic and Moist Mucous Membranes
Neck: Full Range of Motion
Respiratory: No Dyspnea
Cardiac: Regular Rhythm and No Murmur
GI: Soft and Non-tender
Skin: Unremarkable, Warm and Dry; Negative Rash
Extremities: No Edema
Extended Neurological Exam
Attention Span & Concentration: Other (Says its July 2020, knows melvi is president, asks where he is, recognizes , difficulty with complex tasks and inattentive)
Memory: Reduced
Tremor: Hand Tremor Absent
Involuntary Movement: None
Speech: Dysarthric; Negative Expressive Aphasia or Receptive Aphasia
Cranial Nerve II: Left Eye: Pupillary Reactivity Unremarkable and Pupillary Size Unremarkable
Cranial Nerve II: Right Eye: Pupillary Reactivity Unremarkable and Pupillary Size Unremarkable
Cranial Nerves III, IV, : Extraocular Movement: Extraocular Movement Full in all Directions
Cranial Nerve VII: Facial Symmetry: Normal Facial Symmetry
Cranial Nerve XII: Tongue Protusion: Midline
Muscle Strength, Overall: Full Throughout
Muscle Bulk & Tone: Bulk Unremarkable
Pronator Drift: No Drift in Upper Extremities
Deep Tendon Reflexes: Trace Throughout
Touch Sensation: Withdrawal to Pain
Coordination: Reaches for Objects without Difficulty
Babinski Sign: Absent Bilaterally
Modified Lily Score (MRS)
-
MRS Score:
Data Reviewed
-
CT Head: Report Reviewed and Image Reviewed
EEG: Report Reviewed
[2023-12-07 08:02] LABS: Blood Urea Nitrogen 43 mg/dl (9-20); Calcium 7.2 mg/dl (8.4-10.2); Carbon Dioxide 20 mmol/L (22-30); Chloride 110 mmol/L (98-107); Estimated Creatinine Clearance 27 ml/min; Glucose 89 mg/dl (70-99); Potassium 4.2 mmol/L (3.5-5.1); Sodium 139 mmol/L (135-145); eGFR 24.87
[2023-12-07] MEDS: LAMICTAL 150 MG PO ×2 (08:40→21:10)
[2023-12-07] MEDS: IMDUR (EXTENDED RELEASE) 30 MG PO (08:40)
[2023-12-07] MEDS: ZYVOX 600 MG PO (08:40)
[2023-12-07] MEDS: COREG 25 MG PO ×2 (08:40→21:09)
[2023-12-07] MEDS: ROCALTROL 0.5 MCG PO (08:40)
[2023-12-07] MEDS: VIMPAT 50 MG PO ×2 (08:41→21:10)
[2023-12-07] MEDS: DESENEX/MITRAZOL/ZEASORB 1 APPLIC TOPICAL ×2 (08:43→21:09)
--- NOTE | 2023-12-07 09:46 | W.PN.ID1 ---
Date of Service
Date of Service: December 07, 2023
Today's Communication
Continue ceftriaxone and shor course linezolid.
Assessment / Plan
Invasive group A strep infection (bacteremia)
Left lower extremity cellulitis; likely source of bacteremia
Bacteriuria
-Not clear if infection versus colonization, as patient performs self-catheterization and bacteriuria would not be unexpected.
Leukocytosis - [id number]
Renal insufficiency
CAD
HTN
Dyslipidemia
Seizure disorder
DVT/PE
Hx UTI
Urinary retention with chronic self-catheterization
BPH
Recommendations:
Continue ceftriaxone
Continue linezolid x24 hrs
Lower extremity elevation. Apply Tubigrip.
Repeat blood cultures - no growth to date
Chief Complaint
-: Bacteremia
Vital Signs / Physical Exam
Vital Signs
Vital Signs
Temp Pulse Resp BP Pulse Ox
98.7 F 78 17 170/93 98
12/07/23 07:12 12/07/23 07:12 12/07/23 07:12 12/07/23 07:12 12/07/23 07:12
Physical Exam
Constitutional: Comfortable
Pulmonary: Clear
Gastrointestinal: Soft, Non Tender and Non Distended
Extremities: Edema (LLE 2+) and Erythema (LLE patchy pink erythema armendariz past knee, + scab over knee)
Objective Data
Lab Data
Lab Results
12/07/23 06:57
12/07/23 06:57
PT 38.3 Sec (11.4-14.6) H 12/07/23 06:57
INR 3.90 12/07/23 06:57
APTT 37.9 Sec (23.4-35.0) H 12/04/23 07:56
Estimated Creat Clear 27 ml/min 12/07/23 06:57
Lactic Acid 1.3 mmol/L (0.7-2.0) 12/04/23 16:16
Total Bilirubin 1.2 mg/dl (0.2-1.3) 12/04/23 07:48
AST 24 U/L (17-59) 12/04/23 07:48
ALT 17 U/L (0-50) 12/04/23 07:48
Alkaline Phosphatase 72 U/L (38-126) 12/04/23 07:48
Most recent labs reviewed.
Micro Results:
12/04/23 07:56 Blood Culture - Preliminary
Blood/Venous Streptococcus pyogenes
Streptococcus species
Gram Stain - Final
12/04/23 07:56 Blood Culture - Preliminary
Blood/Venous Streptococcus pyogenes
Gram Stain - Preliminary
12/06/23 06:43 Blood Culture - Preliminary
Blood/Venous No Growth in 24 hours- Final report to follow
12/05/23 12:43 Blood Culture - Preliminary
Blood/Venous No Growth in 24 hours- Final report to follow
12/04/23 07:48 Urine Culture - Final
Urine Klebsiella pneumoniae
[2023-12-07 11:25] VITALS: BP 128/71
[2023-12-07] MEDS: NSS IV (11:39)
[2023-12-07] MEDS: STERILE WATER FOR INJECTION 20 ML IV (14:25)
[2023-12-07] MEDS: ROCEPHIN 2000 MG IV (14:25)
[2023-12-07 15:08] VITALS: BP 147/93
[2023-12-07] MEDS: ASPIR LOW (ENTERIC COATED) 81 MG PO (21:27)
[2023-12-07] MEDS: LIPITOR 40 MG PO (21:27)
[2023-12-07 21:59] LABS: Lamotrigine (Lamictal) 10.3 ug/mL (3.0-15.0)
[2023-12-07 23:46] VITALS: BP 141/75
[2023-12-08 07:00] VITALS: BP 192/112
[2023-12-08 07:45] LABS: Hematocrit 39.3 % (39.0-52.0); Hemoglobin 12.9 g/dL (13.0-18.0); Mean Corp Hgb Conc. 32.8 g/dL (33.0-37.0); Mean Corpuscular Hgb 26.5 pg (27.0-31.0); Mean Corpuscular Volume 80.9 fL (80.0-94.0); Mean Platelet Volume 9.3 fL (7.4-10.4); Platelet Count 208 10^3/uL (130-400); Red Blood Cell Count 4.86 10^6/uL (4.70-6.10); Red Cell Dist. Width 15.5 % (11.5-14.5); White Blood Cell Count 7.8 10^3/uL (4.8-10.8)
--- NOTE | 2023-12-08 07:50 | W.PN.HOSP.TC ---
Today's Communication/Plan
-
cont abx as per ID
PT/OT
PMR eval upcoming week
bowel regimen
Assessment / Plan
Assessment / Plan
Physical Exam
Genera: no acute distress appears comfortable at this time
Cardiovascular system S1-S2 appreciated
Chest clear to auscultation
Abdomen soft and nontender
Ext: LLE erythema significantly improved well below demarcation line
Neuro exam-AOx3
# TME
Cellulitis
Strep Pyogens bacteremia
Meets criteria for sepsis with a fever and source of infection white count
Leukocytosis- resolved
Source left lower extremity cellulitis
Rpt Cx NGTD
ID evaluation appreciated cont ceftriaxone, short course linezolid completed, clindamycin added 12/08
# Ulcers are traumatic on the left knee, dorsal middle toes on bilateral feet
Cellulitis of left lower extremity
# Abnormal urinalysis-unclear if this is colonization because of the patient's straight cath versus UTI
Continue antibiotics and follow cultures
# Hyperkalemia-ordered Lokelma
# Mild lactic acidosis- resolved
# NAYLA on CKD stage IV
continue calcitriol
Cr improving from peak 3.1 to recent 2.5
# History of tachybradycardia syndrome with pacemaker placement
# History of seizures-Lamictal 150 twice daily, Vimpat 50 milligram twice daily
He was on Keppra at 1 point it was stopped because it was not working.
contacted Dr. Tobin recently and Vimpat was changed to 50 mg twice a day as of 12/03/2023 evening
Continue
Neurology evaluation appreciated
CT of the head- No Bleed
# Hyperlipidemia-continue statin
# History of DVT, PE with RV thrombus 2010
History of IVC filter placement
Coumadin
INR supratherapeutic >3, warfarin on hold for now
#Constipation
bowel regimen miralax senna docusate
# Neurogenic bladder with self-catheterization
# History of prostatic hypertrophy with TURP
# Hyperparathyroidism-on calcitriol
# DVT prophylaxis-on Coumadin
# CODE STATUS-full code
PT/OT appreciated Acute vs SNF rehab will request PMR eval upcoming week (not available over weekend)
I spent a total of 55 minutes with the patient or on the floor. More than 50% of this time involved counseling and coordination of care.
Anticipated Discharge: 24 - 48 hours
Subjective/Interval History
-
Date of Service: December 08, 2023
No acute distress sitting up comfortably in bed. Denies any new acute issues at this time. present during evaluation
Objective Data
-
Labs:
Laboratory Results
12/08/23
07:13
WBC 7.8
Hgb 12.9 L
Hct 39.3
Plt Count 208
PT Pending
INR Pending
Sodium Pending
Potassium Pending
Chloride Pending
Carbon Dioxide Pending
BUN Pending
Creatinine Pending
Glucose Pending
Calcium Pending
Vital Signs:
Vital Signs
Temp Pulse Resp BP Pulse Ox
97.8 F 73 16 141/75 97
12/07/23 23:46 12/07/23 23:46 12/07/23 23:46 12/07/23 23:46 12/07/23 23:46
I&O
12/07/23 12/08/23 12/09/23
06:59 06:59 06:59
Intake Total 760 / 760 1860 / 1860
Output Total 2600 / 2600 3050 / 3050 710 / 710
Balance -1840 / -1840 -1190 / -1190 -710 / -710
[2023-12-08 07:55] LABS: INR 3.77; PT 37.2 Sec (11.4-14.6)
[2023-12-08] MEDS: IMDUR (EXTENDED RELEASE) 30 MG PO (07:58)
[2023-12-08] MEDS: LAMICTAL 150 MG PO ×2 (07:58→20:21)
[2023-12-08] MEDS: COREG 25 MG PO ×2 (07:59→20:19)
[2023-12-08] MEDS: VIMPAT 50 MG PO ×2 (07:59→20:22)
[2023-12-08] MEDS: DESENEX/MITRAZOL/ZEASORB 1 APPLIC TOPICAL ×2 (08:06→20:20)
[2023-12-08 08:20] LABS: Blood Urea Nitrogen 37 mg/dl (9-20); Carbon Dioxide 22 mmol/L (22-30); Chloride 108 mmol/L (98-107); Estimated Creatinine Clearance 29 ml/min; Glucose 103 mg/dl (70-99); Sodium 140 mmol/L (135-145); eGFR 27.49
--- NOTE | 2023-12-08 09:40 | W.PN.ID1 ---
Date of Service
Date of Service: December 08, 2023
Today's Communication
Add clindamycin to ceftriaxone.
Assessment / Plan
Invasive group A strep infection (bacteremia)
Left lower extremity cellulitis; likely source of bacteremia
Bacteriuria
-Not clear if infection versus colonization, as patient performs self-catheterization and bacteriuria would not be unexpected.
Leukocytosis - resolved
Renal insufficiency
CAD
HTN
Dyslipidemia
Seizure disorder
DVT/PE
Hx UTI
Urinary retention with chronic self-catheterization
BPH
Recommendations:
LLE cellulitis without improvement despite ceftriaxone (d4) and s/p 24h linezolid.
Add clindamycin 900mg IV q8 x 6 doses as toxin inhibitor.
Continue ceftriaxone
Lower extremity elevation and Tubigrip.
Repeat blood cultures - no growth to date
Chief Complaint
-: Bacteremia
Subjective / Review of Systems
Pt wants to go home. bedside.
Vital Signs / Physical Exam
Vital Signs
Vital Signs
Temp Pulse Resp BP Pulse Ox
97.5 F 84 18 192/112 96
12/08/23 07:00 12/08/23 07:00 12/08/23 07:00 12/08/23 07:00 12/08/23 07:00
Physical Exam
Constitutional: Comfortable
Extremities: Edema (LLE 3+ ) and Erythema (LLE distal armendariz still with significant erythema and warmth, pink erythema over knee and thigh stable)
Objective Data
Lab Data
Lab Results
12/08/23 07:13
12/08/23 07:13
PT 37.2 Sec (11.4-14.6) H 12/08/23 07:13
INR 3.77 12/08/23 07:13
APTT 37.9 Sec (23.4-35.0) H 12/04/23 07:56
Estimated Creat Clear 29 ml/min 12/08/23 07:13
Lactic Acid 1.3 mmol/L (0.7-2.0) 12/04/23 16:16
Total Bilirubin 1.2 mg/dl (0.2-1.3) 12/04/23 07:48
AST 24 U/L (17-59) 12/04/23 07:48
ALT 17 U/L (0-50) 12/04/23 07:48
Alkaline Phosphatase 72 U/L (38-126) 12/04/23 07:48
Most recent labs reviewed.
Micro Results:
12/06/23 06:43 Blood Culture - Preliminary
Blood/Venous No Growth in 48 hours- Final report to follow
12/05/23 12:43 Blood Culture - Preliminary
Blood/Venous No Growth in 48 hours- Final report to follow
12/04/23 07:56 Blood Culture - Preliminary
Blood/Venous Streptococcus pyogenes
Streptococcus species
Gram Stain - Final
12/04/23 07:56 Blood Culture - Preliminary
Blood/Venous Streptococcus pyogenes
Gram Stain - Preliminary
12/04/23 07:48 Urine Culture - Final
Urine Klebsiella pneumoniae
[2023-12-08] MEDS: CLEOCIN 50 IV ×2 (10:28→17:47)
[2023-12-08] MEDS: MIRALAX 17 GRAMS PO (13:14)
[2023-12-08] MEDS: SENOKOT-S 1 TABLET PO ×2 (13:14→20:22)
[2023-12-08] MEDS: STERILE WATER FOR INJECTION 20 ML IV (13:42)
[2023-12-08] MEDS: ROCEPHIN 2000 MG IV (13:42)
[2023-12-08 15:00] VITALS: BP 166/84
[2023-12-08] MEDS: ASPIR LOW (ENTERIC COATED) 81 MG PO (21:28)
[2023-12-08] MEDS: LIPITOR 40 MG PO (21:28)
[2023-12-08 21:40] VITALS: BP 120/67
[2023-12-08 23:10] VITALS: BP 149/72
[2023-12-09] MEDS: CLEOCIN 50 IV ×3 (02:09→17:00)
[2023-12-09 06:46] LABS: Hematocrit 40.4 % (39.0-52.0); Hemoglobin 13.2 g/dL (13.0-18.0); Mean Corp Hgb Conc. 32.7 g/dL (33.0-37.0); Mean Corpuscular Hgb 26.9 pg (27.0-31.0); Mean Corpuscular Volume 82.3 fL (80.0-94.0); Mean Platelet Volume 8.9 fL (7.4-10.4); Platelet Count 231 10^3/uL (130-400); Red Blood Cell Count 4.91 10^6/uL (4.70-6.10); Red Cell Dist. Width 15.4 % (11.5-14.5); White Blood Cell Count 7.2 10^3/uL (4.8-10.8)
[2023-12-09 06:59] LABS: INR 4.28; PT 41.2 Sec (11.4-14.6)
[2023-12-09 07:00] VITALS: BP 180/101
--- NOTE | 2023-12-09 07:01 | W.PN.HOSP.TC ---
Today's Communication/Plan
-
cont IV abx as per ID
PMR eval for potential benefit Acute rehab
monitor orthostatic vitals
cont bowel regimen
Assessment / Plan
Assessment / Plan
Physical Exam
Genera: no acute distress appears comfortable at this time
Cardiovascular system S1-S2 appreciated
Chest clear to auscultation
Abdomen soft and nontender
Ext: LLE erythema significantly improved well below demarcation line
Neuro exam- Lethargic but arousable oriented x 3
# TME
Cellulitis
Strep Pyogens bacteremia
Meets criteria for sepsis with a fever and source of infection white count
Leukocytosis- resolved
Source left lower extremity cellulitis
Rpt Cx NGTD
ID evaluation appreciated cont ceftriaxone, short course linezolid completed, clindamycin added 12/08
#Episode hypotension systolic 80's 12/09 following activity with PT and sitting up in chair with associate lethargy
resolved with 500 cc bolus and bedrest
monitor Orthostatic vitals
# Ulcers are traumatic on the left knee, dorsal middle toes on bilateral feet
Cellulitis of left lower extremity
# Abnormal urinalysis-unclear if this is colonization because of the patient's straight cath versus UTI
Continue antibiotics and follow cultures
# Hyperkalemia-ordered Lokelma
# Mild lactic acidosis- resolved
# NAYLA on CKD stage IV
continue calcitriol
Cr improving from peak 3.1 to recent 2.5
# History of tachybradycardia syndrome with pacemaker placement
# History of seizures-Lamictal 150 twice daily, Vimpat 50 milligram twice daily
He was on Keppra at 1 point it was stopped because it was not working.
contacted Dr. Tobin recently and Vimpat was changed to 50 mg twice a day as of 12/03/2023 evening
Continue
Neurology evaluation appreciated
CT of the head- No Bleed
# Hyperlipidemia-continue statin
# History of DVT, PE with RV thrombus 2010
History of IVC filter placement
Coumadin
INR supratherapeutic >3, warfarin on hold for now
#Constipation
bowel regimen miralax senna docusate
# Neurogenic bladder with self-catheterization
# History of prostatic hypertrophy with TURP
# Hyperparathyroidism-on calcitriol
# DVT prophylaxis-on Coumadin
# CODE STATUS-full code
PT/OT appreciated Acute vs SNF rehab will request PMR eval upcoming week (not available over weekend)
discussed with patient and his Jessica
I spent a total of 55 minutes with the patient or on the floor. More than 50% of this time involved counseling and coordination of care.
Anticipated Discharge: > 48 hours
Subjective/Interval History
-
Date of Service: December 09, 2023
Hypotensive this morning after activity with physical therapy and sitting up in chair with associate lethargy. Resolved with rest and small IVF bolus.
Objective Data
-
Labs:
Laboratory Results
12/09/23
06:23
WBC 7.2
Hgb 13.2
Hct 40.4
Plt Count 231
PT 41.2 H
INR 4.28
Sodium Pending
Potassium Pending
Chloride Pending
Carbon Dioxide Pending
BUN Pending
Creatinine Pending
Glucose Pending
Calcium Pending
Vital Signs:
Vital Signs
Temp Pulse Resp BP Pulse Ox
98.2 F 72 17 149/72 98
12/08/23 23:10 12/08/23 23:10 12/08/23 23:10 12/08/23 23:10 12/08/23 23:10
I&O
12/08/23 12/09/23 12/10/23
06:59 06:59 06:59
Intake Total 1860 / 1860 1410 / 1410
Output Total 3050 / 3050 2835 / 2835
Balance -1190 / -1190 -1425 / -1425
[2023-12-09 07:08] LABS: Blood Urea Nitrogen 30 mg/dl (9-20); Calcium 7.7 mg/dl (8.4-10.2); Carbon Dioxide 26 mmol/L (22-30); Chloride 107 mmol/L (98-107); Estimated Creatinine Clearance 29 ml/min; Glucose 98 mg/dl (70-99); Magnesium 2.2 mg/dl (1.6-2.3); Phosphorus 3.9 mg/dl (2.5-4.5); Sodium 139 mmol/L (135-145); eGFR 27.49
[2023-12-09] MEDS: LAMICTAL 150 MG PO ×2 (07:49→19:41)
[2023-12-09] MEDS: COREG 25 MG PO ×2 (07:53→19:42)
[2023-12-09] MEDS: VIMPAT 50 MG PO ×2 (07:54→19:41)
[2023-12-09] MEDS: ROCALTROL 0.5 MCG PO (07:54)
[2023-12-09] MEDS: MIRALAX 17 GRAMS PO (07:54)
[2023-12-09] MEDS: IMDUR (EXTENDED RELEASE) 30 MG PO (07:54)
[2023-12-09] MEDS: SENOKOT-S 1 TABLET PO ×2 (07:56→19:41)
[2023-12-09] MEDS: DESENEX/MITRAZOL/ZEASORB 1 APPLIC TOPICAL ×2 (08:02→19:44)
[2023-12-09 09:44] VITALS: BP 108/57; BP 120/59; PULSE 71
[2023-12-09 09:46] VITALS: BP 108/57; BP 120/59; PULSE 71; O2SAT 96
[2023-12-09] MEDS: NSS 500 IV (10:49)
--- NOTE | 2023-12-09 12:01 | CM ---
Spoke with Tyra in admissions at [facility] who stated that she may be able to accept patient if he is not on abx (IV) at discharge. TT attending to ask if he will switch to PO.
Attending stated that he has to await final ID decision and that at the moment patient is being recommended for acute. PMR to evaluate patient. Will review notes and make subsequent referrals based on advisements.
Plan: Case management will continue to follow and assist with discharge planning. Acute vrs SNF rehab at discharge.
[2023-12-09 12:31] VITALS: BP 135/78
--- NOTE | 2023-12-09 13:10 | W.PN.ID1 ---
Date of Service
Date of Service: December 09, 2023
Today's Communication
Continue current antibiotics.
Assessment / Plan
Invasive group A strep infection (bacteremia)
Left lower extremity cellulitis; likely source of bacteremia
Bacteriuria
-Not clear if infection versus colonization, as patient performs self-catheterization and bacteriuria would not be unexpected.
Leukocytosis - resolved
Renal insufficiency
CAD
HTN
Dyslipidemia
Seizure disorder
DVT/PE
Hx UTI
Urinary retention with chronic self-catheterization
BPH
Recommendations:
LLE cellulitis without improvement despite ceftriaxone (d4) and s/p 24h linezolid.
Add clindamycin 900mg IV q8 x 6 doses as toxin inhibitor.
Continue ceftriaxone
Lower extremity elevation + Tubigrip + CAILIN.
Repeat blood cultures - no growth to date
Chief Complaint
-: Bacteremia
Subjective / Review of Systems
Patient seen and examined. Denies leg pain. Denies fevers or chills.
Review of Systems: No Fever and No Chills
Vital Signs / Physical Exam
Vital Signs
Vital Signs
Temp Pulse Resp BP Pulse Ox
97.8 F 68 17 135/78 97
12/09/23 07:00 12/09/23 12:31 12/09/23 07:00 12/09/23 12:31 12/09/23 07:00
Physical Exam
Constitutional: No Acute Distress, Comfortable and Non-toxic
Eyes: Sclera Anicteric
Pulmonary: Non Labored
Extremities: Other (Left leg with continued erythema. Tubigrip in place, but still with some edema. No tenderness.)
Neurological: Awake and Alert
Psychological: Calm
Objective Data
Lab Data
Lab Results
12/09/23 06:23
12/09/23 06:23
PT 41.2 Sec (11.4-14.6) H 12/09/23 06:23
INR 4.28 12/09/23 06:23
APTT 37.9 Sec (23.4-35.0) H 12/04/23 07:56
Estimated Creat Clear 29 ml/min 12/09/23 06:23
Lactic Acid 1.3 mmol/L (0.7-2.0) 12/04/23 16:16
Total Bilirubin 1.2 mg/dl (0.2-1.3) 12/04/23 07:48
AST 24 U/L (17-59) 12/04/23 07:48
ALT 17 U/L (0-50) 12/04/23 07:48
Alkaline Phosphatase 72 U/L (38-126) 12/04/23 07:48
Most recent labs reviewed.
Micro Results:
12/05/23 12:43 Blood Culture - Preliminary
Blood/Venous No Growth in 4 days- Final report to follow
12/06/23 06:43 Blood Culture - Preliminary
Blood/Venous No Growth in 72 hours- Final report to follow
12/04/23 07:56 Blood Culture - Preliminary
Blood/Venous Streptococcus pyogenes
Gram Stain - Preliminary
12/04/23 07:56 Blood Culture - Final
Blood/Venous Streptococcus pyogenes
Streptococcus species
Gram Stain - Final
12/04/23 07:48 Urine Culture - Final
Urine Klebsiella pneumoniae
[2023-12-09] MEDS: ROCEPHIN 2000 MG IV (13:55)
[2023-12-09] MEDS: STERILE WATER FOR INJECTION 20 ML IV (13:55)
[2023-12-09 15:00] VITALS: BP 116/81
--- NOTE | 2023-12-09 17:45 | CON.MD ---
Documented by User: Tiffanie Vallejo PA-C 12/12/23 13:48
Consultation - Medical
-
Referring Provider:
Chief Complaint: Debility, Sepsis
History of Present Illness: 83-year-old male with PMH of (seizures, history of PE with RV thrombus 2010, history of DVT, hypertension hyperlipidemia, near syncope, CAD, chronic urinary retention with self-catheterization, hyperparathyroidism,
history of obstructive uropathy CKD stage IV, BPH, Tachybradycardia syndrome with pacemaker placement) with prior admission to for episodes of seizures presented to the ED on 12/04/2023 secondary to confusion noted by his . Patient has history
of chronic urinary retention, for which he performs self-catheterization at home.�Patient on Coumadin for history of pulmonary embolism. He was admitted to the hospital for IV antibiotics for further evaluation for concern of sepsis, likely
secondary to lower leg cellulitis and urinary tract infection. Being treated with Keflex. Patient with labile blood pressure. Had an episode of unresponsiveness in PT due to hypotension. Corrected with IV fluid.
EK12/04/23 Right bundle branch block. Abnormal EKG, when compared with EKG from 11-20-2023 nonspecific T wave abnormality no longer evident in lateral leads.
TTE- 12/10/2023: Normal biventricular size and systolic function without regional wall motion abnormality. Estimated LVEF 55-60%.
�Mild concentric left ventricular hypertrophy. Aortic sclerosis without stenosis. Compared to 08/19/23: no significant change.
Past Medical History: seizures, history of PE with RV thrombus 2010, history of DVT, hypertension hyperlipidemia, near syncope, CAD, chronic urinary retention with self-catheterization, hyperparathyroidism, history of obstructive uropathy CKD stage
IV, BPH
Procedure History: IVC filter placement, history of wrist fracture, appendectomy, tonsillectomy, robotic prostatectomy, cardiac catheterization, pacemaker
Family History: non contributory
Social History:
Functional Level Premorbidly: Assisted, PLOF independent with ADLs and functional mobility with rolling walker
Functional Level Currently: Max assist with bed mobility, blood bank assistant needed for legs and trunk, cues needed for technique to log roll to assist with sitting on side of bed, static supported sitting�supervision once feet flat on floor and when cued to
lean forward as patient has tendency for posterior lean, transfer�max assist of 2, ambulation not assessed due to safety issues
Tobacco: Denies
Alcohol: Denies
Drug use: Denies
Lives with: Family
24-hour assistance available:
Number of floors: 2
# steps to enter: -
# steps to second floor: Has been staying on the 2nd floor due to mobility
Potential First floor set up:
Driving: no
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
�
Allergies:
Allergy/AdvReac Type Severity Reaction Status Date / Time
furosemide [From Lasix] Allergy Unknown Verified 12/04/23 07:33
ciprofloxacin [From Cipro] AdvReac chills;general Verified 12/04/23 07:33
malaise
Review of Systems:
Constitutional: (x) Normal _
Eye: (x) Normal _
Ear/Nose/Throat: (x) Normal _
Respiratory: (x) Normal _
Cardiovascular: (x) Normal _
Gastrointestinal: (x) Normal _
Genitourinary: (x) self catheterization, UTI
Musculoskeletal: (x) Normal _
Integumentary: (x) Cellulitis
Neurologic: (x) seizure
Psychiatric: (x) Normal _
Endocrine: (x) Normal _
Hematologic/Lymphatic: (x) Normal _
Allergic/Immunologic: (x) Normal _
Medications:
Active Current Visit Medication List
Category Date Time Status
Aspirin Low Dose EC [Aspir Low (Enteric Coated)] Med 12/04/23 22:00 Active
81 mg PO HS
Atorvastatin [Lipitor] Med 12/04/23 22:00 Active
40 mg PO HS
Calcitriol [Rocaltrol] Med 12/05/23 08:00 Active
0.5 mcg PO Q48H
Carvedilol [Coreg] Med 12/04/23 20:00 Active
25 mg PO BID
Cephalexin Monohydrate [Keflex] Med 12/11/23 16:00 Active
500 mg PO TID
Docusate W/Senna [Senokot-S] Med 12/08/23 13:00 Active
1 tablet PO BID
Flush (0.9% Sodium Chloride) [Flush (Nss)] Med 12/04/23 15:00 Active
See Dose Instructions IV PER PROTOCOL
HydrALAZINE [Apresoline] Med 12/12/23 10:54 Once
25 mg PO NOW ONE
HydrALAZINE [Apresoline] Med 12/12/23 16:00 Ordered
25 mg PO TID
HydrALAZINE [Apresoline] Med 12/07/23 21:16 Active
5 mg IV Q4HPRN PRN
ISOSORBIDE MONOnitrate ER [Imdur (Extended Release)] Med 12/05/23 08:00 Active
30 mg PO DAILY
Lacosamide [Vimpat] Med 12/04/23 20:00 Active
50 mg PO BID
Lamotrigine [Lamictal] Med 12/04/23 20:00 Active
150 mg PO BID
Miconazole Nitrate [Desenex/Mitrazol/Zeasorb] Med 12/05/23 08:00 Active
See Dose Instructions TOPICAL BID
Ondansetron Injectable [Zofran] Med 12/04/23 13:56 Active
4 mg IV Q6HPRN PRN
Polyethylene Glycol Powder [Miralax] Med 12/12/23 10:57 Ordered
17 grams PO DAILYPRN PRN
Vitals:
Temp Pulse Resp BP Pulse Ox
97.8 F 85 17 170/80 97
12/12/23 07:00 12/12/23 07:00 12/12/23 07:00 12/12/23 08:45 12/12/23 07:00
Height 5 ft 11 in
Actual Weight 98 kg
Body Mass Index (BMI) 30.1
Physical Exam:
General Appearance/Observation: Well-developed, well-nourished individual in no apparent distress.
Pain/Comfort Assessment: Denies
Mood/Affect: Appropriate
Integumentary/Operative Site:
�� Pressure Ulcer Evaluation: absent over heels. Has heel pad bilaterally, dry skin
��
�� Other Type of Wound: cellulitis of LLE. Scab over left knee
��
Eyes: Conjunctiva/Lids: normal ��� Pupils: pupils equal round and reactive to light and Accommodation
Ears/Nose/Throat: oral mucosa moist,� throat clear.������������ Lips/Teeth/Gums: normal
Neck: No muscle spasm or tenderness
Cardiovascular: Heart: regular, no murmur
Pulses: dorsalis pedis 1+ bilaterally
Respiratory: Respiratory Effort/Chest Expansion: normal ������ Auscultation: Clear to auscultation bilaterally
Gastrointestinal: abdomen not tender, no distension, hyperactive abdominal bowel sounds
Genitourinary: No Rendon
Extremities: Edema: LLE with redness Cyanosis: None Trophic changes: None
Neurology Exam:
Orientation: Alert, Oriented to self, not place, year or season
Memory: Impaired
Higher cortical function
Repetition: Intact. Able to count to 10, name months in order
Comprehension: slow processing
Two step command: Intact
Naming: impaired
Cranial Nerves:
�� CNII: Pupillary light reflex: Intact���
�� CN III, IV, : Extraocular muscles: Intact
�� CN V: Facial Sensation at Forehead: Intact, Maxilla: Intact, Mandible: Intact
�� CN VII: Facial movement: Symmetric
�� CN VIII: Hearing: Normal
�� CN IX/X: Speech & swallow: Normal, Position of Uvula: Midline
�� CN XI: Shoulder shrug: Symmetric
�� CN XII: Tongue protrusion: Midline
Sensory:
�� Light touch: Intact in bilateral upper and lower extremities
��
Reflexes:
�� Biceps: 2+ bilaterally
�� Brachioradialis: 2+ bilaterally
�� Triceps: 2+ bilaterally
�� Patellar: 2+ bilaterally
�� Achilles: absent bilaterally
�� Babinski: Down going bilaterally
�� Christi: Negative bilaterally
Musculoskeletal:
Motor: (Manual muscle scale 0-5)
Muscle SA EF WE EE FF FA HF KE DF EHL PF
Right� 5 5 5 5 5 5 5 5 5
Left 5 5 5 5 5 5 5 5 5
Tone: Normal in all extremities
Range of Motion: Passively within normal limits in all extremities
Lab Results
Labs
WBC 8.2 10^3/uL (4.8-10.8) 12/10/23 07:14
RBC 4.92 10^6/uL (4.70-6.10) 12/10/23 07:14
Hgb 13.3 g/dL (13.0-18.0) 12/10/23 07:14
Hct 40.8 % (39.0-52.0) 12/10/23 07:14
MCV 82.9 fL (80.0-94.0) 12/10/23 07:14
MCH 27.0 pg (27.0-31.0) 12/10/23 07:14
MCHC 32.6 g/dL (33.0-37.0) L 12/10/23 07:14
RDW 15.3 % (11.5-14.5) H 12/10/23 07:14
Plt Count 264 10^3/uL (130-400) 12/10/23 07:14
MPV 9.3 fL (7.4-10.4) 12/10/23 07:14
Abs Immat Gran (auto) 0.1 10^3/uL (0-0.05) H 12/05/23 07:02
Absolute Neuts (auto) 15.5 10^3/uL (1.4-6.5) H 12/05/23 07:02
Absolute Lymphs (auto) 0.8 10^3/uL (1.2-3.4) L 12/05/23 07:02
Absolute Monos (auto) 0.9 10^3/uL (0.1-0.6) H 12/05/23 07:02
Absolute Eos (auto) 0.0 10^3/uL (0-0.7) 12/05/23 07:02
Absolute Basos (auto) 0.1 10^3/uL (0-0.2) 12/05/23 07:02
Immature Gran % 0.5 % (0-0.5) 12/05/23 07:02
Neutrophils % 89.2 % (42.2-75.2) H 12/05/23 07:02
Lymphocytes % 4.7 % (20.5-51.1) L 12/05/23 07:02
Monocytes % 5.3 % (1.7-9.3) 12/05/23 07:02
Eosinophils % 0.0 % (0-6) 12/05/23 07:02
Basophils % 0.3 % (0-2) 12/05/23 07:02
Nucleated RBC % 0 % (-) 12/05/23 07:02
PT 31.2 Sec (11.4-14.6) H 12/10/23 07:14
INR 3.01 12/10/23 07:14
APTT 37.9 Sec (23.4-35.0) H 12/04/23 07:56
Sodium 138 mmol/L (135-145) 12/10/23 07:14
Potassium 4.1 mmol/L (3.5-5.1) 12/10/23 07:14
Chloride 105 mmol/L (98-107) 12/10/23 07:14
Carbon Dioxide 26 mmol/L (22-30) 12/10/23 07:14
BUN 29 mg/dl (9-20) H 12/10/23 07:14
Creatinine 2.3 mg/dL (0.7-1.3) H 12/10/23 07:14
Estimated Creat Clear 29 ml/min 02/06/24 07:14
eGFR 27.49 12/10/23 07:14
Glucose 99 mg/dl (70-99) 12/10/23 07:14
Lactic Acid 1.3 mmol/L (0.7-2.0) 12/04/23 16:16
Calcium 7.5 mg/dl (8.4-10.2) L 12/10/23 07:14
Phosphorus 3.8 mg/dl (2.5-4.5) 12/10/23 07:14
Magnesium 2.1 mg/dl (1.6-2.3) 12/10/23 07:14
Total Bilirubin 1.2 mg/dl (0.2-1.3) 12/04/23 07:48
AST 24 U/L (17-59) 12/04/23 07:48
ALT 17 U/L (0-50) 12/04/23 07:48
Alkaline Phosphatase 72 U/L (38-126) 12/04/23 07:48
Total Protein 6.6 g/dl (6.3-8.2) 12/04/23 07:48
Albumin 3.6 g/dl (3.5-5.0) 12/04/23 07:48
Vitamin B12 399 pg/ml (239-931) 12/04/23 07:48
Urine Color Yellow 12/04/23 07:48
Urine Clarity Slightly cloudy (Clear) 12/04/23 07:48
Urine pH 5.0 (5.0-9.0) 12/04/23 07:48
Ur Specific [place] 1.010 (<1.030) 12/04/23 07:48
Urine Ketones Negative (Negative) 12/04/23 07:48
Ur Occult Blood Reflex 1+ (Negative) A 12/04/23 07:48
Urine Nitrite (Reflex) Positive (Negative) A 12/04/23 07:48
Urine Bilirubin Negative (Negative) 12/04/23 07:48
Urine Urobilinogen Negative (Neg - 1+) 12/04/23 07:48
Leukocyte Esterase Rfl 2+ (Negative) A 12/04/23 07:48
Urine RBC 0-2 /HPF (0-2) 12/04/23 07:48
Urine WBC (Reflex) >100 /HPF (0-5) A 12/04/23 07:48
Ur Squamous Epith Cells 0-2 /LPF (Few) 12/04/23 07:48
Urine Bacteria (Reflex) Many (Negative) A 12/04/23 07:48
Urine Mucus Moderate 12/04/23 07:48
Urine Glucose Negative (Negative) 12/04/23 07:48
Urine Albumin (Reflex) Trace (Neg - Trace) 12/04/23 07:48
Lamotrigine 10.3 ug/mL (3.0-15.0) 12/06/23 06:43
POC Glucose 98 mg/dl (70-99) 12/10/23 07:56
�
Diagnostic Results: as per HPI
Assessment 83-year-old male with PMH of (seizures, history of PE with RV thrombus 2010, history of DVT, hypertension hyperlipidemia, near syncope, CAD, chronic urinary retention with self-catheterization, hyperparathyroidism, history of obstructive
uropathy CKD stage IV, BPH, Tachybradycardia syndrome with pacemaker placement) He was admitted to the hospital secondary to lower leg cellulitis and urinary tract infection. Being treated with Keflex. Patient with labile blood pressure. Had an
episode of unresponsiveness in PT due to hypotension. Corrected with IV fluid.
Plan
PT/OT to increase independence with ADLs, improve balance, coordination, endurance, strength, mobility, community reintegration, decreased burden of care on others and family education.
Debility/cognitive impairment: due to UTI/Sepsis. Would benefit from PT/OT once stable
Seizures: Continue Vimpat 50 mg bid, Lamictal 150 mg twice daily. monitor. seizure precautions
Sepsis: Streptococcus pyogenes cellulitis/bacteremia. ABX per ID. cephalexin.
UTI: Invasive group A strep infection (bacteremia). Cont Keflex 500mg tid
HTN: Carvedilol 25mg bid, Imdur 30mg qd, Hydralazine IV prn.Monitor for hypotension
CKD: Monitor. Creatinine and bun increasing
HLD: Atorvastatin 40mg
Hyperparathyroidism: calcitriol
Coronary artery disease : Aspirin, statin, beta-jennifer
Psych: Psychology consult.� Monitor mood, adjust medications as needed.
Skin: monitor for pressure sores/rashes/lesions.
Pain: acetaminophen as needed.
Bowel: Colace and Senna, PRN bisacodyl.
Bladder: Time void, PVRs, PRN straight cath. (self cath at home due to complications from prostatectomy)
GI Prophylaxis: Pantoprazole
DVT Prophylaxis: Mechanical. Warfarin was placed on hold due to elevated INR. Resume when indicated
h/o PE:Lupus anticoagulant (hypercoagulable state) with DVT/PE,-currently not on warfarin
Pulmonary: Incentive spirometry
Safety: Continue to reinforce assistance with all transfers.
Code Status:� Full code
Dispo (date/plan/equipment needs): Home with family care.� Social history reviewed.
Functional and Medical Goals: Modified Independent with ADL�s, ambulation, transfers
Discharge Destination: Acute Inpatient Rehabilitation once medically and blood pressure stable
Summary of recommendations: Would benefit from PT/OT to increase independence with ADLs back to baseline, improve balance, coordination, endurance, strength, mobility, community reintegration, decreased burden of care on others and family.
Discharge Destination: Acute Inpatient Rehabilitation once medically and blood pressure stable
Debility/cognitive impairment: being treated for UTI/Sepsis. Would benefit from PT/OT once medically stable
Seizures: Continue Vimpat 50 mg bid, Lamictal 150 mg twice daily per neurology protocol. monitor. seizure precautions
Sepsis: Streptococcus pyogenes cellulitis/bacteremia. ABX per ID. cephalexin.
UTI: Invasive group A strep infection (bacteremia). Cont Keflex 500mg tid
HTN: Carvedilol 25mg bid, Imdur 30mg qd, Hydralazine IV prn. Blood pressure needs to be stable. Blood pressure must be less than 180 systolic and 100 diastolic for 24 hours before being stable for transfer to acute rehab and IV
medicine need to be converted to PO.
CKD: Monitor. Creatinine and bun increasing
Pulmonary: Incentive spirometry
DVT Prophylaxis: Mechanical, aspirin. Currently not on anticoagulation. Warfarin was held due to elevated INR. INR as of (12/12) 2.00. To resume by primary team if no contraindications
Thank you for allowing me to care for your patient. Please contact me with any questions or concerns.
This note was dictated using a voice recognition system. Please excuse any typographical errors from accounting reconciliation clerk. If you believe there are any discrepancies, please notify our office.

Documented by User: Madhu Joseph MD 12/12/23 20:00
Consultation - Medical
-
Referring Provider: Tracy Gamboa
Chief Complaint: Debility, Sepsis
History of Present Illness: 83-year-old male with PMH of (seizures, history of PE with RV thrombus 2010, history of DVT, hypertension hyperlipidemia, near syncope, CAD, chronic urinary retention with self-catheterization, hyperparathyroidism,
history of obstructive uropathy CKD stage IV, BPH, Tachybradycardia syndrome with pacemaker placement) with prior admission to for episodes of seizures presented to the ED on 12/04/2023 secondary to confusion noted by his . Patient has history
of chronic urinary retention, for which he performs self-catheterization at home.�Patient on Coumadin for history of pulmonary embolism. He was admitted to the hospital for IV antibiotics for further evaluation for concern of sepsis, likely
secondary to lower leg cellulitis and urinary tract infection. Being treated with Keflex. Patient with labile blood pressure. Had an episode of unresponsiveness in PT due to hypotension. Corrected with IV fluid.
EK12/04/23 Right bundle branch block. Abnormal EKG, when compared with EKG from 11-20-2023 nonspecific T wave abnormality no longer evident in lateral leads.
TTE- 12/10/2023: Normal biventricular size and systolic function without regional wall motion abnormality. Estimated LVEF 55-60%.
�Mild concentric left ventricular hypertrophy. Aortic sclerosis without stenosis. Compared to 08/19/23: no significant change.
Past Medical History: seizures, history of PE with RV thrombus 2010, history of DVT, hypertension hyperlipidemia, near syncope, CAD, chronic urinary retention with self-catheterization, hyperparathyroidism, history of obstructive uropathy CKD stage
IV, BPH
Procedure History: IVC filter placement, history of wrist fracture, appendectomy, tonsillectomy, robotic prostatectomy, cardiac catheterization, pacemaker
Family History: non contributory
Social History:
Functional Level Premorbidly: Assisted, PLOF independent with ADLs and functional mobility with rolling walker
Functional Level Currently: Max assist with bed mobility, blood bank assistant needed for legs and trunk, cues needed for technique to log roll to assist with sitting on side of bed, static supported sitting�supervision once feet flat on floor and when cued to
lean forward as patient has tendency for posterior lean, transfer�max assist of 2, ambulation not assessed due to safety issues
Tobacco: Denies
Alcohol: Denies
Drug use: Denies
Lives with: Family
24-hour assistance available:
Number of floors: 2
# steps to enter: Full flight
# steps to second floor: Has been staying on the 2nd floor due to mobility
Potential First floor set up:
Driving: no
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
�
Allergies:
Allergy/AdvReac Type Severity Reaction Status Date / Time
furosemide [From Lasix] Allergy Unknown Verified 12/04/23 07:33
ciprofloxacin [From Cipro] AdvReac chills;general Verified 12/04/23 07:33
malaise
Review of Systems:
Constitutional: (x) Normal _
Eye: (x) Normal _
Ear/Nose/Throat: (x) Normal _
Respiratory: (x) Normal _
Cardiovascular: (x) Normal _
Gastrointestinal: (x) Normal _
Genitourinary: (x) self catheterization, UTI
Musculoskeletal: (x) Normal _
Integumentary: (x) Cellulitis
Neurologic: (x) seizure
Psychiatric: (x) Normal _
Endocrine: (x) Normal _
Hematologic/Lymphatic: (x) Normal _
Allergic/Immunologic: (x) Normal _
Medications:
Active Current Visit Medication List
Category Date Time Status
Aspirin Low Dose EC [Aspir Low (Enteric Coated)] Med 12/04/23 22:00 Active
81 mg PO HS
Atorvastatin [Lipitor] Med 12/04/23 22:00 Active
40 mg PO HS
Calcitriol [Rocaltrol] Med 12/05/23 08:00 Active
0.5 mcg PO Q48H
Carvedilol [Coreg] Med 12/04/23 20:00 Active
25 mg PO BID
Cephalexin Monohydrate [Keflex] Med 12/11/23 16:00 Active
500 mg PO TID
Docusate W/Senna [Senokot-S] Med 12/08/23 13:00 Active
1 tablet PO BID
Flush (0.9% Sodium Chloride) [Flush (Nss)] Med 12/04/23 15:00 Active
See Dose Instructions IV PER PROTOCOL
HydrALAZINE [Apresoline] Med 12/12/23 10:54 Once
25 mg PO NOW ONE
HydrALAZINE [Apresoline] Med 12/12/23 16:00 Ordered
25 mg PO TID
HydrALAZINE [Apresoline] Med 12/07/23 21:16 Active
5 mg IV Q4HPRN PRN
ISOSORBIDE MONOnitrate ER [Imdur (Extended Release)] Med 12/05/23 08:00 Active
30 mg PO DAILY
Lacosamide [Vimpat] Med 12/04/23 20:00 Active
50 mg PO BID
Lamotrigine [Lamictal] Med 12/04/23 20:00 Active
150 mg PO BID
Miconazole Nitrate [Desenex/Mitrazol/Zeasorb] Med 12/05/23 08:00 Active
See Dose Instructions TOPICAL BID
Ondansetron Injectable [Zofran] Med 12/04/23 13:56 Active
4 mg IV Q6HPRN PRN
Polyethylene Glycol Powder [Miralax] Med 12/12/23 10:57 Ordered
17 grams PO DAILYPRN PRN
Vitals:
Temp Pulse Resp BP Pulse Ox
97.8 F 85 17 170/80 97
12/12/23 07:00 12/12/23 07:00 12/12/23 07:00 12/12/23 08:45 12/12/23 07:00
Height 5 ft 11 in
Actual Weight 98 kg
Body Mass Index (BMI) 30.1
Physical Exam:
General Appearance/Observation: Well-developed, well-nourished individual in no apparent distress.
Pain/Comfort Assessment: Denies
Mood/Affect: Appropriate
Integumentary/Operative Site:
�� Pressure Ulcer Evaluation: absent over heels. Has heel pad bilaterally, dry skin
��
�� Other Type of Wound: cellulitis of LLE. Scab over left knee
��
Eyes: Conjunctiva/Lids: normal ��� Pupils: pupils equal round and reactive to light and Accommodation
Ears/Nose/Throat: oral mucosa moist,� throat clear.������������ Lips/Teeth/Gums: normal
Neck: No muscle spasm or tenderness
Cardiovascular: Heart: regular, no murmur
Pulses: dorsalis pedis 1+ bilaterally
Respiratory: Respiratory Effort/Chest Expansion: normal ������ Auscultation: Clear to auscultation bilaterally
Gastrointestinal: abdomen not tender, no distension, hyperactive abdominal bowel sounds
Genitourinary: No Rendon
Extremities: Edema: LLE with redness Cyanosis: None Trophic changes: None
Neurology Exam:
Orientation: Alert, Oriented to self, not place, year or season
Memory: Impaired
Repetition: Intact. Able to count to 10, name months in order
Comprehension: slow processing
Two step command: Intact
Naming: impaired
Cranial Nerves:
�� CNII: Pupillary light reflex: Intact���
�� CN III, IV, : Extraocular muscles: Intact
�� CN V: Facial Sensation at Forehead: Intact, Maxilla: Intact, Mandible: Intact
�� CN VII: Facial movement: Symmetric
�� CN VIII: Hearing: Normal
�� CN IX/X: Speech & swallow: Normal, Position of Uvula: Midline
�� CN XI: Shoulder shrug: Symmetric
�� CN XII: Tongue protrusion: Midline
Sensory:
�� Light touch: Intact in bilateral upper and lower extremities
��
Reflexes:
�� Biceps: 2+ bilaterally
�� Brachioradialis: 2+ bilaterally
�� Triceps: 2+ bilaterally
�� Patellar: 2+ bilaterally
�� Achilles: absent bilaterally
�� Babinski: Down going bilaterally
�� Christi: Negative bilaterally
Musculoskeletal: Motor: (Manual muscle scale 0-5)
Muscle SA EF WE EE FF FA HF KE DF EHL PF
Right� 5 5 5 5 5 5 5 5 5 5
Left 5 5 5 5 5 5 5 5 5 5
Tone: Normal in all extremities
Range of Motion: Passively within normal limits in all extremities
Lab Results
Labs
WBC 8.2 10^3/uL (4.8-10.8) 12/10/23 07:14
RBC 4.92 10^6/uL (4.70-6.10) 12/10/23 07:14
Hgb 13.3 g/dL (13.0-18.0) 12/10/23 07:14
Hct 40.8 % (39.0-52.0) 12/10/23 07:14
MCV 82.9 fL (80.0-94.0) 12/10/23 07:14
MCH 27.0 pg (27.0-31.0) 12/10/23 07:14
MCHC 32.6 g/dL (33.0-37.0) L 12/10/23 07:14
RDW 15.3 % (11.5-14.5) H 12/10/23 07:14
Plt Count 264 10^3/uL (130-400) 12/10/23 07:14
MPV 9.3 fL (7.4-10.4) 12/10/23 07:14
Abs Immat Gran (auto) 0.1 10^3/uL (0-0.05) H 12/05/23 07:02
Absolute Neuts (auto) 15.5 10^3/uL (1.4-6.5) H 12/05/23 07:02
Absolute Lymphs (auto) 0.8 10^3/uL (1.2-3.4) L 12/05/23 07:02
Absolute Monos (auto) 0.9 10^3/uL (0.1-0.6) H 12/05/23 07:02
Absolute Eos (auto) 0.0 10^3/uL (0-0.7) 12/05/23 07:02
Absolute Basos (auto) 0.1 10^3/uL (0-0.2) 12/05/23 07:02
Immature Gran % 0.5 % (0-0.5) 12/05/23 07:02
Neutrophils % 89.2 % (42.2-75.2) H 12/05/23 07:02
Lymphocytes % 4.7 % (20.5-51.1) L 12/05/23 07:02
Monocytes % 5.3 % (1.7-9.3) 12/05/23 07:02
Eosinophils % 0.0 % (0-6) 12/05/23 07:02
Basophils % 0.3 % (0-2) 12/05/23 07:02
Nucleated RBC % 0 % (-) 12/05/23 07:02
PT 31.2 Sec (11.4-14.6) H 12/10/23 07:14
INR 3.01 12/10/23 07:14
APTT 37.9 Sec (23.4-35.0) H 12/04/23 07:56
Sodium 138 mmol/L (135-145) 12/10/23 07:14
Potassium 4.1 mmol/L (3.5-5.1) 12/10/23 07:14
Chloride 105 mmol/L (98-107) 12/10/23 07:14
Carbon Dioxide 26 mmol/L (22-30) 12/10/23 07:14
BUN 29 mg/dl (9-20) H 12/10/23 07:14
Creatinine 2.3 mg/dL (0.7-1.3) H 12/10/23 07:14
Estimated Creat Clear 29 ml/min 12/10/23 07:14
eGFR 27.49 12/10/23 07:14
Glucose 99 mg/dl (70-99) 12/10/23 07:14
Lactic Acid 1.3 mmol/L (0.7-2.0) 12/04/23 16:16
Calcium 7.5 mg/dl (8.4-10.2) L 12/10/23 07:14
Phosphorus 3.8 mg/dl (2.5-4.5) 12/10/23 07:14
Magnesium 2.1 mg/dl (1.6-2.3) 12/10/23 07:14
Total Bilirubin 1.2 mg/dl (0.2-1.3) 12/04/23 07:48
AST 24 U/L (17-59) 12/04/23 07:48
ALT 17 U/L (0-50) 12/04/23 07:48
Alkaline Phosphatase 72 U/L (38-126) 12/04/23 07:48
Total Protein 6.6 g/dl (6.3-8.2) 12/04/23 07:48
Albumin 3.6 g/dl (3.5-5.0) 12/04/23 07:48
Vitamin B12 399 pg/ml (239-931) 12/04/23 07:48
Urine Color Yellow 12/04/23 07:48
Urine Clarity Slightly cloudy (Clear) 12/04/23 07:48
Urine pH 5.0 (5.0-9.0) 12/04/23 07:48
Ur Specific [place] 1.010 (<1.030) 12/04/23 07:48
Urine Ketones Negative (Negative) 12/04/23 07:48
Ur Occult Blood Reflex 1+ (Negative) A 12/04/23 07:48
Urine Nitrite (Reflex) Positive (Negative) A 12/04/23 07:48
Urine Bilirubin Negative (Negative) 12/04/23 07:48
Urine Urobilinogen Negative (Neg - 1+) 12/04/23 07:48
Leukocyte Esterase Rfl 2+ (Negative) A 12/04/23 07:48
Urine RBC 0-2 /HPF (0-2) 12/04/23 07:48
Urine WBC (Reflex) >100 /HPF (0-5) A 12/04/23 07:48
Ur Squamous Epith Cells 0-2 /LPF (Few) 12/04/23 07:48
Urine Bacteria (Reflex) Many (Negative) A 12/04/23 07:48
Urine Mucus Moderate 12/04/23 07:48
Urine Glucose Negative (Negative) 12/04/23 07:48
Urine Albumin (Reflex) Trace (Neg - Trace) 12/04/23 07:48
Lamotrigine 10.3 ug/mL (3.0-15.0) 12/06/23 06:43
POC Glucose 98 mg/dl (70-99) 12/10/23 07:56
�
Diagnostic Results: as per HPI
Assessment 83-year-old male with PMH of (seizures, history of PE with RV thrombus 2010, history of DVT, hypertension hyperlipidemia, near syncope, CAD, chronic urinary retention with self-catheterization, hyperparathyroidism, history of obstructive
uropathy CKD stage IV, BPH, Tachybradycardia syndrome with pacemaker placement) He was admitted to the hospital secondary to lower leg cellulitis and urinary tract infection. Being treated with Keflex. Patient with labile blood pressure. Had an
episode of unresponsiveness in PT due to hypotension. Corrected with IV fluid.
Plan
PT/OT to increase independence with ADLs, improve balance, coordination, endurance, strength, mobility, community reintegration, decreased burden of care on others and family education.
Debility/cognitive impairment: due to UTI/Sepsis. Would benefit from PT/OT once stable
Seizures: Continue Vimpat 50 mg bid, Lamictal 150 mg twice daily. monitor. seizure precautions
Sepsis: Streptococcus pyogenes cellulitis/bacteremia. ABX per ID. cephalexin.
UTI: Invasive group A strep infection (bacteremia). Cont Keflex 500mg tid
HTN: Carvedilol 25mg bid, Imdur 30mg qd, Hydralazine IV prn.Monitor for hypotension
CKD: Monitor. Creatinine and bun increasing
HLD: Atorvastatin 40mg
Hyperparathyroidism: calcitriol
Coronary artery disease : Aspirin, statin, beta-jennifer
Psych: Psychology consult.� Monitor mood, adjust medications as needed.
Skin: monitor for pressure sores/rashes/lesions.
Pain: acetaminophen as needed.
Bowel: Colace and Senna, PRN bisacodyl.
Bladder: self cath at home due to complications from prostatectomy
GI Prophylaxis: Pantoprazole
DVT Prophylaxis: Mechanical. Warfarin was placed on hold due to elevated INR. Resume when indicated
h/o PE:Lupus anticoagulant (hypercoagulable state) with DVT/PE,-currently not on warfarin
Pulmonary: Incentive spirometry
Safety: Continue to reinforce assistance with all transfers.
Code Status:� Full code
Dispo (date/plan/equipment needs): Home with family care.� Social history reviewed.
Functional and Medical Goals: Modified Independent with ADL�s, ambulation, transfers
Discharge Destination: Acute Inpatient Rehabilitation once medically and blood pressure stable
Summary of recommendations:
Discharge Destination: Acute Inpatient Rehabilitation once medically and blood pressure stable
Debility/cognitive impairment: being treated for UTI/Sepsis. Would benefit from PT/OT once medically stable
Seizures: Continue Vimpat 50 mg bid, Lamictal 150 mg twice daily per neurology protocol. monitor. seizure precautions
Sepsis: Streptococcus pyogenes cellulitis/bacteremia. ABX per ID. cephalexin.
UTI: Invasive group A strep infection (bacteremia). Cont Keflex 500mg tid
HTN: Carvedilol 25mg bid, Imdur 30mg qd, Hydralazine IV prn. Blood pressure needs to be stable. Blood pressure must be less than 180 systolic and 100 diastolic for 24 hours before being stable for transfer to acute rehab and IV
medicine need to be converted to PO.
CKD: Monitor. Creatinine and bun increasing
Pulmonary: Incentive spirometry
DVT Prophylaxis: Mechanical, aspirin. Currently not on anticoagulation. Warfarin was held due to elevated INR. INR as of (12/12) 2.00. To resume by primary team if no contraindications
Attending Statement:
I saw and examined the patient today.� Reviewed care plan with patient, therapy, nursing, and physician blood bank assistant.� I agree with the above subjective and physical exam, and plan as documented.
Thank you for allowing me to care for your patient. Please contact me with any questions or concerns.
[2023-12-09 22:01] LABS: Glucose - Point of Care 90 mg/dl (70-99)
[2023-12-09] MEDS: LIPITOR 40 MG PO (22:35)
[2023-12-09] MEDS: ASPIR LOW (ENTERIC COATED) 81 MG PO (22:35)
[2023-12-09 23:15] VITALS: BP 143/93
[2023-12-10] VITALS (9 sets, daily range): BP systolic 75–204; BP diastolic 51–111
[2023-12-10] MEDS: CLEOCIN 50 IV (02:18)
--- NOTE | 2023-12-10 06:54 | PTCARENOTE ---
Pt became very forgetful, agitated and uncooperative overnight and needed to be restraints. Pt was making threats towards RN's including trying to punch and kick RN's for trying to calm him and administer his antibiotics. ASSET ANALYST contacted for restraint
order due to patient being a risk to himself as well as others. Pt placed on BL soft wrist restraints at 03:01, and by 05:30 was able to apologize and assured RN he would 'behave'. RN took pt off restraints around 05:30, and pt cooperative/pleasant
since.
--- NOTE | 2023-12-10 07:09 | W.PN.HOSP.TC ---
Today's Communication/Plan
-
hold imdur
bedrest for today 12/10
Cardio eval
cont abx as per ID
Assessment / Plan
Assessment / Plan
Physical Exam
Genera: no acute distress appears comfortable at this time
Cardiovascular system S1-S2 appreciated
Chest clear to auscultation
Abdomen soft and nontender
Ext: LLE erythema significantly improved well below demarcation line
Neuro exam- Lethargic but arousable oriented x 2 disoriented to time
# TME
Cellulitis
Strep Pyogens bacteremia
Meets criteria for sepsis with a fever and source of infection white count
Leukocytosis- resolved
Source left lower extremity cellulitis
Rpt Cx NGTD
ID evaluation appreciated cont ceftriaxone, short course linezolid completed, clindamycin added 12/08
#Episode hypotension systolic 80's 12/09 following activity with PT and sitting up in chair with associate lethargy
resolved with 500 cc bolus and bedrest
monitor Orthostatic vitals
#Repeat episode 12/10 following morning meds more severe with associate unresponsiveness minimal reaction to sternal rub prompting rapid response
Eventually resolved with trendelenburg and IVF bolus 500 cc x2
Suspect Imdur Side effect, placed on hold and cardio eval requested
environmental monitoring specialist started
recommending bedrest for rest of today 12/10 discussed with patient, his , and nurse
# Ulcers are traumatic on the left knee, dorsal middle toes on bilateral feet
Cellulitis of left lower extremity
# Abnormal urinalysis-unclear if this is colonization because of the patient's straight cath versus UTI
Continue antibiotics and follow cultures
# Hyperkalemia-ordered Lokelma
# Mild lactic acidosis- resolved
# NAYLA on CKD stage IV
continue calcitriol
Cr improved from peak 3.1 to recent 2.5
# History of tachybradycardia syndrome with pacemaker placement
# History of seizures-Lamictal 150 twice daily, Vimpat 50 milligram twice daily
He was on Keppra at 1 point it was stopped because it was not working.
contacted Dr. Tobin recently and Vimpat was changed to 50 mg twice a day as of 12/03/2023 evening
Continue
Neurology evaluation appreciated
CT of the head- No Bleed
# Hyperlipidemia-continue statin
# History of DVT, PE with RV thrombus 2010
History of IVC filter placement
Coumadin
INR supratherapeutic >3, warfarin on hold for now
#Constipation
bowel regimen miralax senna docusate
# Neurogenic bladder with self-catheterization
# History of prostatic hypertrophy with TURP
# Hyperparathyroidism-on calcitriol
# DVT prophylaxis-supratherapeutic INR Coumadin on hold
# CODE STATUS-full code
PT/OT appreciated Acute vs SNF rehab PMR eval requested
discussed with patient and his Jessica
I spent a total of 65 minutes with the patient or on the floor. More than 50% of this time involved counseling and coordination of care.
Anticipated Discharge: 24 - 48 hours
Subjective/Interval History
-
Date of Service: December 10, 2023
Rapid response this morning due to hypotension unresponsiveness, minimal reaction to sternal rub, following morning meds. Suspect Imdur side effect since placed on hold. Patient eventually improved with Trendelenburg and IVF bolus 500 cc x2. AOx2
disoriented to time hypotension resolved from systolic 70s 60s to recent 110s
Objective Data
-
Labs:
Laboratory Results
12/10/23
06:00
WBC Pending
Hgb Pending
Hct Pending
Plt Count Pending
PT Pending
INR Pending
Sodium Pending
Potassium Pending
Chloride Pending
Carbon Dioxide Pending
BUN Pending
Creatinine Pending
Glucose Pending
Calcium Pending
Vital Signs:
Vital Signs
Temp Pulse Resp BP Pulse Ox
97.7 F 71 18 143/93 97
12/09/23 23:15 12/09/23 23:15 12/09/23 23:15 12/09/23 23:15 12/09/23 23:15
I&O
12/09/23 12/10/23 12/11/23
06:59 06:59 06:59
Intake Total 1410 / 1410 1050 / 1050
Output Total 2835 / 2835 2049 / 2049
Balance -1425 / -1425 -1000 / -1000
[2023-12-10] MEDS: VIMPAT 50 MG PO ×2 (07:55→20:19)
[2023-12-10] MEDS: LAMICTAL 150 MG PO ×2 (07:56→20:19)
[2023-12-10] MEDS: DESENEX/MITRAZOL/ZEASORB 1 APPLIC TOPICAL ×2 (07:56→20:20)
[2023-12-10] MEDS: COREG 25 MG PO ×2 (07:56→20:19)
[2023-12-10] MEDS: SENOKOT-S 1 TABLET PO ×2 (07:56→20:19)
[2023-12-10] MEDS: MIRALAX 17 GRAMS PO (07:56)
[2023-12-10] MEDS: IMDUR (EXTENDED RELEASE) 30 MG PO (07:56)
[2023-12-10 07:58] LABS: Glucose - Point of Care 98 mg/dl (70-99)
[2023-12-10 08:18] LABS: Hematocrit 40.8 % (39.0-52.0); Hemoglobin 13.3 g/dL (13.0-18.0); Mean Corp Hgb Conc. 32.6 g/dL (33.0-37.0); Mean Corpuscular Volume 82.9 fL (80.0-94.0); Mean Platelet Volume 9.3 fL (7.4-10.4); Platelet Count 264 10^3/uL (130-400); Red Blood Cell Count 4.92 10^6/uL (4.70-6.10); Red Cell Dist. Width 15.3 % (11.5-14.5); White Blood Cell Count 8.2 10^3/uL (4.8-10.8)
[2023-12-10 08:31] LABS: INR 3.01; PT 31.2 Sec (11.4-14.6)
[2023-12-10 08:46] LABS: Blood Urea Nitrogen 29 mg/dl (9-20); Calcium 7.5 mg/dl (8.4-10.2); Carbon Dioxide 26 mmol/L (22-30); Chloride 105 mmol/L (98-107); Estimated Creatinine Clearance 29 ml/min; Glucose 99 mg/dl (70-99); Magnesium 2.1 mg/dl (1.6-2.3); Phosphorus 3.8 mg/dl (2.5-4.5); Potassium 4.1 mmol/L (3.5-5.1); Sodium 138 mmol/L (135-145); eGFR 27.49
[2023-12-10] MEDS: NSS 500 IV ×2 (09:04→09:35)
[2023-12-10 09:20] LABS: Glucose - Point of Care 168 mg/dl (70-99)
[2023-12-10 09:46] LABS: B.E. -1.8 mmol/L; HCO3 21.9 mmol/L (21-28); O2 Saturation % 99.7 % (94-98); PCO2 33 mmHg (35-48); PO2 171 mmHg (83-108); pH 7.43 (7.35-7.45)
--- NOTE | 2023-12-10 09:52 | RR ---
A Rapid Response was called on this patient, please see Rapid Response form.
Pt found to be lethargic. bp 75/51. bolus ordered and given. pt now only responsive to sternal rub. doctor notified and arrived at pt bedside. rapid called. another bolus given. labs drawn, ekg and blood sugar obtained. pt becoming more alert and bp
normalizing. (see MAR and vitals). Pt placed on tele will continue to monitor.
--- NOTE | 2023-12-10 09:59 | CON.CAR ---
Addendum entered and electronically signed by Jesse Vizcaino MD 12/10/23 12:26:
83 yo male with PMH of CAD, HTN, CKD4 admitted with sepsis. Had episode of hypotension/syncope after PT. Responded to IVF. Feels better today: no chest pain.Exam with RRR, no murmurs, no edema. Cr 2.3.
Hypotension. Perhaps related to his sepsis. Imdur is on hold: will assess to resume tomorrow. Check echo.
Original Note:
Consultation
Consultation Request
Date/Time Consultation Requested: 12/10/23 09:45
Date/Time Consultation Performed: 12/10/23 10:30
Requesting Provider: Dr. Gamboa
Performing Provider: NERI Orellana for Dr. Vizcaino
Reason for Consultation: Hypotension
Medical History
-
Chief Complaint: Confusion
History of Present Illness:
Madhu Clements is an 83-year-old male (known to Dr. Domínguez, his primary help desk associate), with CAD (unamenable to PCI), hypertension, dyslipidemia, CKD IV, seizure disorder, hyperparathyroidism, and lupus anticoagulant (on warfarin), who presented to
the emergency department with a chief complaint of confusion. He woke up on 12/04/2023 and his noted confusion. She reports he also had some falls at home. He endorsed not feeling well and prior to admission his Vimpat was decreased by his
neurologist, Dr. Tobin. Since admission, he was found to have Klebsiella in his urine but he self catheterizes. He had 2 blood cultures positive for Streptococcus pyogenes. The source of his bacteremia is believed to be left lower extremity
cellulitis. Yesterday, he had an episode of hypotension after physical therapy. He had some lethargy with his systolic in the 80s. He was given a 500 mL bolus with improvement. Today he had an episode of unresponsiveness with minimal reaction to
sternal rub. A rapid response was called by the nursing staff. He was placed in Trendelenburg and received 500 mL x 2. Cardiology was consulted.
Past Medical History
Past Medical History: CAD, HTN, Hypercholesterolemia and Renal Failure (CKD4)
Past Surgical History: Appendectomy, Orthopedic and Tonsilectomy
Social History
Tobacco: Non-Smoker
Alcohol: None
Drug: None
Personal:
Living: With Family
Employment: Retired
Family History
Family History: Reviewed & Not Pertinent
Allergies / Home Medications
Allergy/AdvReac Type Severity Reaction Status Date / Time
furosemide [From Lasix] Allergy Unknown Verified 12/04/23 07:33
ciprofloxacin [From Cipro] AdvReac chills;general Verified 12/04/23 07:33
malaise
Medication Instructions Recorded Confirmed Type
aspirin 81 mg tablet,delayed 81 mg PO HS Blood clot 02/21/23 12/04/23 History
release prevention/tx
atorvastatin 40 mg tablet 40 mg PO HS High cholesterol 02/21/23 12/04/23 History
isosorbide mononitrate 30 mg 30 mg PO DAILY Heart 02/21/23 12/04/23 History
tablet,extended release 24 hr disease/condition
calcitriol 0.5 mcg capsule 0.5 mcg PO Q48H@0800 Kidney Disease 08/14/23 12/04/23 History
lamotrigine 100 mg tablet 150 mg PO BID Seizures 11/06/23 12/04/23 History
warfarin 2 mg tablet 1 mg PO MOFR@2200 Blood Clot 11/06/23 12/04/23 History
Prevention/Tx
warfarin 2 mg tablet 2 mg PO SUTUWETHSA@2200 Blood Clot 11/06/23 12/04/23 History
Prevention/Tx
acetaminophen 325 mg tablet 650 mg PO ONCE PRN mild pain 12/04/23 12/04/23 History
(Tylenol)
carvedilol 25 mg tablet 25 mg PO BID Blood Pressure 12/04/23 12/04/23 History
lacosamide 50 mg tablet 50 mg PO BID Seizures 12/04/23 12/04/23 History
Review of Systems
-
History Source: Patient
All other systems: Negative unless noted
Respiratory: No Symptoms
Cardiac: No Symptoms
Neurological: Other (confusion)
Physical Exam
Vital Signs
Temp Pulse Resp BP Pulse Ox
97.5 F 69 20 116/62 100
12/10/23 08:05 12/10/23 09:42 12/10/23 08:05 12/10/23 09:42 12/10/23 09:42
Lab Results
12/10/23 07:14
12/10/23 07:14
Physical Exam
General: Well Developed, Well Nourished, No Apparent Distress and Comfortable
HEENT: Normocephalic, Anicteric and Moist Mucous Membranes
Respiratory: Clear and Non Labored Respirations
Cardiac: S1/S2 and Regular Rhythm
Breast: Deferred by me
GI: Soft, Non Tender, Non Distended and Normal Bowel Sounds
Rectal: Deferred by Provider
Genito-urinary: No Costovertebral Tender
Musculoskeletal: No Clubbing and No Cyanosis
Skin: Warm and Dry
Neuro: AO x 3
Hematologic/Lymphatic: No Lymphadenopathy
Psych: Calm and Confused
Impression / Plan
-
Sepsis, in the setting of strep pyogenes bacteremia
-Meets crtieria with lactic acidosis, febrile, & leukocytosis
-Source appears to be LLE cellulitis
TME, in the setting of sepsis
Hypertension, now with hypotension
-Hypotensive episode post PT 12/09 then unresponsiveness in bed this morning with resolution S/P IVF 500mL x 2
-Imdur on hold
CAD, stable without chest pain, LAD with stenosis & ASSISTANT GROCERY to RCA, unamenable to PCI
HFpEF, chronic, he does not appear to be in acute/decompensated HF
Symptomatic sinus node dysfunction s/p PPM, followed in device clinic, stable on most recent device check
CKD stage IV
Seizure disorder
Neurogenic bladder with self-catheterization
Lupus anticoagulant (hypercoagulable state) with DVT/PE, on warfarin
Dyslipidemia, on atorvastatin
Hyperparathyroidism, on calcitriol
Data Reviewed
-
EKG: Report Reviewed by me (Sinus rhythm, RBBB, rate 74)
CT Scan: Report Reviewed by me (Head: No acute intracranial abnormalities. Findings again seen compatible with diffuse cortical atrophy with nonspecific white matter changes.)
Medical Tests (Nuc Med, Echo etc): Report Reviewed by me (TTE 08/2023: LV ejection fraction is 60-65% . Trace mitral regurgitation. Trace tricuspid regurgitation. Aortic sclerosis without stenosis.)
Labs: Labs Reviewed by me
Old Records: Reviewed
[2023-12-10 11:03] LABS: Troponin I 0.013 ng/ml
[2023-12-10 12:26] LABS: Glucose - Point of Care 92 mg/dl (70-99)
[2023-12-10] MEDS: ROCEPHIN 2000 MG IV (13:25)
[2023-12-10] MEDS: STERILE WATER FOR INJECTION 20 ML IV (13:26)
--- NOTE | 2023-12-10 14:34 | W.PN.ID1 ---
Date of Service
Date of Service: December 10, 2023
Today's Communication
Continue antibiotics.
Assessment / Plan
Invasive group A strep infection (bacteremia)
Severe left lower extremity cellulitis (likely source of bacteremia)
Bacteriuria
-Not clear if infection versus colonization, as patient performs self-catheterization and bacteriuria would not be unexpected.
Leukocytosis - resolved
Renal insufficiency
CAD
HTN
Dyslipidemia
Seizure disorder
DVT/PE
Hx UTI
Urinary retention with chronic self-catheterization
BPH
Recommendations:
Leg overall looks somewhat improved today.
Continue ceftriaxone. If continued improvement, may be able to transition to an oral regimen in the next 24 to 48 hours.
Lower extremity elevation + Tubigrip + CAILIN.
Repeat blood cultures - no growth to date
����������������������������������������������������������
Chief Complaint
-: Bacteremia
Subjective / Review of Systems
Review of Systems: No Fever and No Chills
Vital Signs / Physical Exam
Vital Signs
Vital Signs
Temp Pulse Resp BP Pulse Ox
97.4 F 64 14 158/88 100
12/10/23 11:28 12/10/23 11:28 12/10/23 11:28 12/10/23 11:28 12/10/23 09:42
Physical Exam
Constitutional: No Acute Distress, Comfortable and Non-toxic
Eyes: Sclera Anicteric
Cardiovascular: S1/S2; Negative S3/S4
Pulmonary: Non Labored
Gastrointestinal: Soft, Non Tender and Non Distended
Extremities: Other (Left lower extremity with slightly decreased erythema. Overall decreased edema. Little tenderness with palpation.)
Neurological: Awake and Alert
Psychological: Calm
Objective Data
Lab Data
Lab Results
12/10/23 07:14
12/10/23 07:14
PT 31.2 Sec (11.4-14.6) H 12/10/23 07:14
INR 3.01 12/10/23 07:14
APTT 37.9 Sec (23.4-35.0) H 12/04/23 07:56
Estimated Creat Clear 29 ml/min 12/10/23 07:14
Lactic Acid 1.3 mmol/L (0.7-2.0) 12/04/23 16:16
Total Bilirubin 1.2 mg/dl (0.2-1.3) 12/04/23 07:48
AST 24 U/L (17-59) 12/04/23 07:48
ALT 17 U/L (0-50) 12/04/23 07:48
Alkaline Phosphatase 72 U/L (38-126) 12/04/23 07:48
Most recent labs reviewed.
Micro Results:
12/05/23 12:43 Blood Culture - Final
Blood/Venous No Growth - Final Report
12/06/23 06:43 Blood Culture - Preliminary
Blood/Venous No Growth in 4 days- Final report to follow
12/04/23 07:56 Blood Culture - Preliminary
Blood/Venous Streptococcus pyogenes
Gram Stain - Preliminary
12/04/23 07:56 Blood Culture - Final
Blood/Venous Streptococcus pyogenes
Streptococcus species
Gram Stain - Final
12/04/23 07:48 Urine Culture - Final
Urine Klebsiella pneumoniae
[2023-12-10] MEDS: LIPITOR 40 MG PO (20:19)
[2023-12-10] MEDS: ASPIR LOW (ENTERIC COATED) PO (20:20)
[2023-12-11] VITALS (10 sets, daily range): BP systolic 98–181; BP diastolic 42–114; PULSE 69–115; O2SAT 97
[2023-12-11 06:56] LABS: Hemoglobin 13.3 g/dL (13.0-18.0); Mean Corp Hgb Conc. 32.4 g/dL (33.0-37.0); Mean Corpuscular Hgb 27.1 pg (27.0-31.0); Mean Corpuscular Volume 83.5 fL (80.0-94.0); Mean Platelet Volume 8.7 fL (7.4-10.4); Platelet Count 278 10^3/uL (130-400); Red Blood Cell Count 4.91 10^6/uL (4.70-6.10); Red Cell Dist. Width 15.3 % (11.5-14.5); White Blood Cell Count 8.3 10^3/uL (4.8-10.8)
[2023-12-11 07:02] LABS: INR 3.31; PT 33.6 Sec (11.4-14.6)
[2023-12-11 07:17] LABS: Blood Urea Nitrogen 26 mg/dl (9-20); Calcium 7.6 mg/dl (8.4-10.2); Carbon Dioxide 27 mmol/L (22-30); Chloride 108 mmol/L (98-107); Estimated Creatinine Clearance 29 ml/min; Glucose 95 mg/dl (70-99); Magnesium 2.1 mg/dl (1.6-2.3); Phosphorus 4.1 mg/dl (2.5-4.5); Potassium 4.4 mmol/L (3.5-5.1); Sodium 139 mmol/L (135-145); eGFR 27.49
--- NOTE | 2023-12-11 07:26 | W.PN.HOSP.TC ---
Today's Communication/Plan
-
antibiotics converted to Keflex as per ID
PT/OT
PMR eval pending
discharge planning Acute Rehab
Assessment / Plan
Assessment / Plan
Physical Exam
Genera: no acute distress appears comfortable at this time
Cardiovascular system S1-S2 appreciated
Chest clear to auscultation
Abdomen soft and nontender
Ext: LLE erythema significantly improved well below demarcation line
Neuro exam- Lethargic but arousable oriented x 2 disoriented to time
# TME
Cellulitis
Strep Pyogens bacteremia
Meets criteria for sepsis with a fever and source of infection white count
Leukocytosis- resolved
Source left lower extremity cellulitis
Rpt Cx NGTD
ID evaluation appreciated cont ceftriaxone, short course linezolid completed, clindamycin added 12/08 with subsequent improvement 8 days of abx, switched to PO Keflex 500 mg Q8H for 7 more days
#Episode hypotension systolic 80's 12/09 following activity with PT and sitting up in chair with associate lethargy
resolved with 500 cc bolus and bedrest
monitor Orthostatic vitals
#Repeat episode 12/10 following morning meds more severe with associate unresponsiveness minimal reaction to sternal rub prompting rapid response
Eventually resolved with trendelenburg and IVF bolus 500 cc x2
Suspect Imdur Side effect
cardio eval appreciated
monitor on telemetry
No further hypotensive episodes so far
# Ulcers are traumatic on the left knee, dorsal middle toes on bilateral feet
Cellulitis of left lower extremity
# Abnormal urinalysis-unclear if this is colonization because of the patient's straight cath versus UTI
Continue antibiotics and follow cultures
# Hyperkalemia-ordered Lokelma, since resolved
# Mild lactic acidosis- resolved
# NAYLA on CKD stage IV
continue calcitriol
Cr improved from peak 3.1 to 2.3 and remains stable
# History of tachybradycardia syndrome with pacemaker placement
# History of seizures-Lamictal 150 twice daily, Vimpat 50 milligram twice daily
He was on Keppra at 1 point it was stopped because it was not working.
contacted Dr. Tobin recently and Vimpat was changed to 50 mg twice a day as of 12/03/2023 evening
Continue
Neurology evaluation appreciated
CT of the head- No Bleed
# Hyperlipidemia-continue statin
# History of DVT, PE with RV thrombus 2010
History of IVC filter placement
Coumadin
INR supratherapeutic >3, warfarin on hold for now
#Constipation
bowel regimen miralax senna docusate
# Neurogenic bladder with self-catheterization
# History of prostatic hypertrophy with TURP
# Hyperparathyroidism-on calcitriol
# DVT prophylaxis-supratherapeutic INR Coumadin on hold
# CODE STATUS-full code
PT/OT appreciated Acute vs SNF rehab PMR eval requested
discussed with patient and his Jessica
I spent a total of 50 minutes with the patient or on the floor. More than 50% of this time involved counseling and coordination of care.
Anticipated Discharge: 24 - 48 hours
Subjective/Interval History
-
Date of Service: December 11, 2023
No acute distress sitting up comfortably in bed. comfortable. Labile blood pressures but asymptomatic
Objective Data
-
Labs:
Laboratory Results
12/11/23
06:40
WBC 8.3
Hgb 13.3
Hct 41.0
Plt Count 278
PT 33.6 H
INR 3.31
Sodium 139
Potassium 4.4
Chloride 108 H
Carbon Dioxide 27
BUN 26 H
Creatinine 2.3 H
Glucose 95
Calcium 7.6 L
Vital Signs:
Vital Signs
Temp Pulse Resp BP Pulse Ox
97.5 F 74 18 168/114 99
12/11/23 03:00 12/11/23 03:00 12/11/23 03:00 12/11/23 03:00 12/11/23 03:00
I&O
12/10/23 12/11/23 12/12/23
06:59 06:59 06:59
Intake Total 1050 / 1050 1020 / 1020
Output Total 2049 2675 / 2675
Balance -1000 / -1000 -1655 / -1655
[2023-12-11] MEDS: MIRALAX 17 GRAMS PO (08:09)
[2023-12-11] MEDS: COREG 25 MG PO ×2 (08:10→19:44)
[2023-12-11] MEDS: LAMICTAL 150 MG PO ×2 (08:10→19:44)
[2023-12-11] MEDS: VIMPAT 50 MG PO ×2 (08:10→19:44)
[2023-12-11] MEDS: SENOKOT-S 1 TABLET PO ×2 (08:10→19:44)
[2023-12-11] MEDS: DESENEX/MITRAZOL/ZEASORB 1 APPLIC TOPICAL ×2 (08:19→19:50)
[2023-12-11] MEDS: ROCALTROL 0.5 MCG PO (08:19)
--- NOTE | 2023-12-11 08:41 | W.PN.CD ---
Today's Communication / Plan
-
Blood pressure control.
Consider hydralazine 25 mg TID if BP control needed. I would favor letting his BP run on the higher side as he recovers from sepsis. BP can be treated as an outpatient.
Currently compensated from a heart failure perspective.
Impression / Plan
-
Impression/Plan: 83 y/o male with CAD, history of HFpEF, HTN, CKD4, HLD and hypercoagulable state (lupus anticoagulant) admitted with LLE cellulitis and group A streptococcus bacteremia, complicated by orthostatic hypotension after PT.
#Sepsis
-Febrile to 38.2 on 12/05/2023.
-In the setting of streptococcus pyogenes cellulitis/bacteremia.
-Meets criteria with lactic acidosis, febrile, & leukocytosis.
-ABX per ID.
-Echo does not show any significant valvulopathy.
-Currently stable from a cardiovascular perspective.
#Toxic metabolic encephalopathy
-Acute in the setting of sepsis.
-Improving.
#Hypertension
-Chronic, uncontrolled.
-Hypotensive episode post PT 12/09 then unresponsiveness in bed this morning with resolution S/P IVF 500mL x 2.
-Continue carvedilol 25 mg BID.
-Restart isosorbide mononitrate.
-Consider hydralazine if needed (would be potentially beneficial for HF in combination with isosorbide mononitrate in the context of CKD4).
#CAD
-Stable without chest pain, LAD with stenosis & COPPER MINER to RCA, unamenable to PCI.
#HFpEF
-Chronic, compensated.
#Symptomatic sinus node dysfunction s/p PPM.
#CKD stage IV (back at baseline Cr of 2.3).
#Seizure disorder
#Neurogenic bladder with self-catheterization
#Lupus anticoagulant (hypercoagulable state) with DVT/PE, on warfarin
#Dyslipidemia, on atorvastatin
#Hyperparathyroidism, on calcitriol
Subjective/Interval History:
Weight (none since 12/04/2023) is down 7 kg from prior.
Rapid response called yesterday for hypotension after PT. Antihypertensive medications held.
Volume resuscitated with improved BP.
BP has now become hypertensive (one episode of 204/111).
BCx positive for Streptococcus pyogenes on 12/04/2023, negative on 12/05/2023.
DATA:
TTE, 12/10/2023:
CONCLUSIONS
�Normal biventricular size and systolic function without regional wall motion
�abnormality. Estimated LVEF 55-60%.
�Mild concentric left ventricular hypertrophy.
�Aortic sclerosis without stenosis.
�
�Compared to 08/19/23: no significant change.
Physical Exam
Vital Signs/Labs
Vital Signs
Temp Pulse Resp BP Pulse Ox
36.7 C 80 18 181/104 97
12/11/23 07:00 12/11/23 08:10 12/11/23 07:00 12/11/23 08:10 12/11/23 07:00
12/11/23 06:40
12/11/23 06:40
PT 33.6 Sec (11.4-14.6) H 12/11/23 06:40
INR 3.31 12/11/23 06:40
APTT 37.9 Sec (23.4-35.0) H 12/04/23 07:56
Magnesium 2.1 mg/dl (1.6-2.3) 12/11/23 06:40
LAB Results
12/10/23
09:45
Troponin I 0.013
Physical Exam
Constitutional: No acute distress and Comfortable
EENT: Anicteric and Moist mucous membranes
Cardiovascular: Rhythm & rate is regular, Pedal edema is absent, JVD pressure is normal, S1S2 is normal and Murmur/rub/gallop absent
Respiratory: Respiratory effort normal, Lungs clear to auscul., Wheeze Absent, Crackles Absent and Rhonchi Absent
GI: Soft, Distention absent, Flat, Non tender and Normal bowel sounds
Neuro/Psych: AO x 3
Data Reviewed
-
Date of Service: December 11, 2023
Medical Decision Making: Reviewed Test Results, Independent Historian Assessment, Test Interpretation and Review of Case with other Provider
EKG: Tracing Personally Visualized and interpreted and Report Reviewed by me
Echo: Tracing Personally Visualized and interpreted and Report Reviewed by me
X-Ray/CT/US/MRI/NUC/PET: Image Personally Visualized and interpreted and Report Reviewed by me
Medical Tests (PFT, Pathology etc): Image Personally Visualized and interpreted and Report Reviewed by me
Labs: Labs Reviewed by me
Old Records: Reviewed
--- NOTE | 2023-12-11 10:08 | CM ---
Reviewed chart, patient was a rapid yesterday. Patient still in need of acute care. Spoke with family yesterday who are all agreeable to [place] at discharge.
Plan: Case management will continue to follow and assist with discharge planning. PRHC when stable.
--- NOTE | 2023-12-11 10:56 | PTCARENOTE ---
Called into pt's room @ this time by [email or web address] who saw pt slumped over in chair. at bedside. Pt very drowsy, arousable to loud auditory stimuli, opens his eyes and able to state his name when asked and follow simple commands, but then appears
to fall asleep. BP 112/42 HR 67, w/ assistance pt able to stand pivot back to bed w/ max assist. Pt states, 'oh that's better' when back to bed. Will plan to recheck VS. Pt appears comfortable.
[2023-12-11] MEDS: STERILE WATER FOR INJECTION 20 ML IV (13:30)
[2023-12-11] MEDS: ROCEPHIN 2000 MG IV (13:30)
--- NOTE | 2023-12-11 14:16 | W.PN.ID1 ---
Date of Service
Date of Service: December 11, 2023
Today's Communication
Change to oral cephalexin.
Assessment / Plan
Invasive group A strep infection (bacteremia)
Severe left lower extremity cellulitis (likely source of bacteremia)
Bacteriuria
-Not clear if infection versus colonization, as patient performs self-catheterization and bacteriuria would not be unexpected.
Leukocytosis - resolved
Renal insufficiency
CAD
HTN
Dyslipidemia
Seizure disorder
DVT/PE
Hx UTI
Urinary retention with chronic self-catheterization
BPH
Recommendations:
Improved in appearance of leg today. Currently day #8 of antibiotics.
Can switch to oral Keflex 500 mg q8h for an additional 7 days.
Continue with lower extremity elevation + Tubigrip + CAILIN.
����������������������������������������������������������
Chief Complaint
-: Cellulitis and Bacteremia
Subjective / Review of Systems
Review of Systems: No Fever and No Chills
Vital Signs / Physical Exam
Vital Signs
Vital Signs
Temp Pulse Resp BP Pulse Ox
98.3 F 64 18 123/63 99
12/11/23 11:52 12/11/23 11:30 12/11/23 11:30 12/11/23 11:34 12/11/23 11:30
Physical Exam
Constitutional: No Acute Distress, Comfortable and Non-toxic
Eyes: Sclera Anicteric
Cardiovascular: S1/S2; Negative S3/S4
Pulmonary: Non Labored
Gastrointestinal: Non Tender
Extremities: Edema (Left lower extremity; decreased) and Erythema (Left lower extremity; decreased)
Neurological: Awake and Alert
Psychological: Calm
Objective Data
Lab Data
Lab Results
12/11/23 06:40
12/11/23 06:40
PT 33.6 Sec (11.4-14.6) H 12/11/23 06:40
INR 3.31 12/11/23 06:40
APTT 37.9 Sec (23.4-35.0) H 12/04/23 07:56
Estimated Creat Clear 29 ml/min 12/11/23 06:40
Lactic Acid 1.3 mmol/L (0.7-2.0) 12/04/23 16:16
Total Bilirubin 1.2 mg/dl (0.2-1.3) 12/04/23 07:48
AST 24 U/L (17-59) 12/04/23 07:48
ALT 17 U/L (0-50) 12/04/23 07:48
Alkaline Phosphatase 72 U/L (38-126) 12/04/23 07:48
Most recent labs reviewed.
Micro Results:
12/04/23 07:56 Blood Culture - Final
Blood/Venous Streptococcus pyogenes
Gram Stain - Final
12/06/23 06:43 Blood Culture - Final
Blood/Venous No Growth - Final Report
12/05/23 12:43 Blood Culture - Final
Blood/Venous No Growth - Final Report
12/04/23 07:56 Blood Culture - Final
Blood/Venous Streptococcus pyogenes
Streptococcus species
Gram Stain - Final
12/04/23 07:48 Urine Culture - Final
Urine Klebsiella pneumoniae
Care Review
Plan reviewed with: Physician (Hospitalist)
[2023-12-11] MEDS: KEFLEX 500 MG PO ×2 (16:07→21:16)
[2023-12-11] MEDS: LIPITOR 40 MG PO (21:16)
[2023-12-11] MEDS: ASPIR LOW (ENTERIC COATED) 81 MG PO (21:16)
[2023-12-11] MEDS: APRESOLINE 5 MG IV (23:33)
[2023-12-12] VITALS (12 sets, daily range): BP systolic 72–191; BP diastolic 45–110; PULSE 70–77
[2023-12-12 06:57] LABS: Hematocrit 42.9 % (39.0-52.0); Hemoglobin 14.5 g/dL (13.0-18.0); Mean Corp Hgb Conc. 33.8 g/dL (33.0-37.0); Mean Corpuscular Hgb 27.6 pg (27.0-31.0); Mean Corpuscular Volume 81.6 fL (80.0-94.0); Mean Platelet Volume 8.8 fL (7.4-10.4); Platelet Count 307 10^3/uL (130-400); Red Blood Cell Count 5.26 10^6/uL (4.70-6.10); Red Cell Dist. Width 15.2 % (11.5-14.5); White Blood Cell Count 9.1 10^3/uL (4.8-10.8)
[2023-12-12 07:03] LABS: PT 22.8 Sec (11.4-14.6)
--- NOTE | 2023-12-12 07:25 | W.PN.HOSP.TC ---
Today's Communication/Plan
-
Hold Imdur given associate hypotensive unresponsive events (12/10 and 12/12)
Hydralazine as per Cardio, maintain holding parameters SBP<120
cont abx as per ID
cont sz medications as per neuro
PMR eval pending
Assessment / Plan
Assessment / Plan
Physical Exam
Genera: no acute distress appears comfortable at this time
Cardiovascular system S1-S2 appreciated
Chest clear to auscultation
Abdomen soft and nontender
Ext: LLE erythema significantly improved well below demarcation line
Neuro exam- Lethargic but arousable oriented x 2 disoriented to time
# TME
Cellulitis
Strep Pyogens bacteremia
Meets criteria for sepsis with a fever and source of infection white count
Leukocytosis- resolved
Source left lower extremity cellulitis
Rpt Cx NGTD
ID evaluation appreciated cont ceftriaxone, short course linezolid completed, clindamycin added 12/08 with subsequent improvement 8 days of abx, switched to PO Keflex 500 mg Q8H for 7 more days
#Episode hypotension systolic 80's 12/09 following activity with PT and sitting up in chair with associate lethargy
resolved with 500 cc bolus and bedrest
monitor Orthostatic vitals
#Repeat episode 12/10 following morning meds more severe with associate unresponsiveness minimal reaction to sternal rub prompting rapid response
Eventually resolved with trendelenburg and IVF bolus 500 cc x2
Suspect Imdur Side effect
cardio eval appreciated
monitor on telemetry
No further hypotensive episodes 12/11
12/12 Imdur resumed, again patient had hypotensive unresponsive episode 74/45 slowly responded to trendelenburg and 500 cc IVF bolus once
consideration possible post-ictal sz related, unlikely as per neuro, no change in sz medication recommended or EEG
suggested possible delirium related however does not explain severe hypotension as above
Would continue to hold imdur at this time and observe
#HTN
cont home Coreg with holding parameters
Hydralazine prn, 25mg TID added as per cardio, maintain holding parameters SBP<120
# Ulcers are traumatic on the left knee, dorsal middle toes on bilateral feet
Cellulitis of left lower extremity
# Abnormal urinalysis-unclear if this is colonization because of the patient's straight cath versus UTI
Continue antibiotics and follow cultures
# Hyperkalemia-ordered Lokelma, since resolved
# Mild lactic acidosis- resolved
# NAYLA on CKD stage IV
continue calcitriol
Cr improved from peak 3.1 to 2.3 and remains stable
# History of tachybradycardia syndrome with pacemaker placement
# History of seizures-Lamictal 150 twice daily, Vimpat 50 milligram twice daily
He was on Keppra at 1 point it was stopped because it was not working.
contacted Dr. Tobin recently and Vimpat was changed to 50 mg twice a day as of 12/03/2023 evening
Continue
Neurology evaluation appreciated
CT of the head- No Bleed
# Hyperlipidemia-continue statin
# History of DVT, PE with RV thrombus 2010
History of IVC filter placement
Coumadin
INR supratherapeutic >3, warfarin on hold for now
#Constipation
bowel regimen miralax senna docusate
# Neurogenic bladder with self-catheterization
# History of prostatic hypertrophy with TURP
# Hyperparathyroidism-on calcitriol
# DVT prophylaxis-supratherapeutic INR Coumadin on hold
# CODE STATUS-full code
PT/OT appreciated Acute vs SNF rehab PMR eval requested/remains pending
discussed with patient and his Jessica
I spent a total of 50 minutes with the patient or on the floor. More than 50% of this time involved counseling and coordination of care.
Anticipated Discharge: 24 - 48 hours
Subjective/Interval History
-
Date of Service: December 12, 2023
Imdur resumed. Repeat episode hypotension unresponsiveness eventually resolved slowly with trendelenburg and one IVF bolus.
Objective Data
-
Labs:
Laboratory Results
12/12/23
06:45
WBC 9.1
Hgb 14.5
Hct 42.9
Plt Count 307
PT 22.8 H
INR 2.00
Sodium Pending
Potassium Pending
Chloride Pending
Carbon Dioxide Pending
BUN Pending
Creatinine Pending
Glucose Pending
Calcium Pending
Vital Signs:
Vital Signs
Temp Pulse Resp BP Pulse Ox
98.4 F 70 18 149/94 99
12/12/23 03:00 12/12/23 03:00 12/12/23 03:00 12/12/23 04:29 12/12/23 03:00
I&O
12/11/23 12/12/23 12/13/23
06:59 06:59 06:59
Intake Total 1020 / 1020 960 / 960
Output Total 2675 / 2675 2300 / 2300
Balance -1655 / -1655 -1340 / -1340
[2023-12-12 08:15] LABS: Blood Urea Nitrogen 28 mg/dl (9-20); Calcium 7.8 mg/dl (8.4-10.2); Carbon Dioxide 26 mmol/L (22-30); Chloride 104 mmol/L (98-107); Estimated Creatinine Clearance 28 ml/min; Glucose 97 mg/dl (70-99); Phosphorus 3.7 mg/dl (2.5-4.5); Potassium 4.5 mmol/L (3.5-5.1); Sodium 137 mmol/L (135-145); eGFR 26.12
[2023-12-12] MEDS: LAMICTAL 150 MG PO ×2 (08:44→20:17)
[2023-12-12] MEDS: MIRALAX PO (08:45)
[2023-12-12] MEDS: KEFLEX 500 MG PO ×3 (08:45→22:21)
[2023-12-12] MEDS: SENOKOT-S PO ×2 (08:45→20:17)
[2023-12-12] MEDS: IMDUR (EXTENDED RELEASE) 30 MG PO (08:45)
[2023-12-12] MEDS: COREG 25 MG PO ×2 (08:45→20:16)
[2023-12-12] MEDS: VIMPAT 50 MG PO ×2 (08:46→20:18)
[2023-12-12] MEDS: DESENEX/MITRAZOL/ZEASORB 1 APPLIC TOPICAL ×2 (08:46→20:17)
--- NOTE | 2023-12-12 09:35 | W.PN.CD ---
Addendum entered and electronically signed by Trevor Chavez MD 12/12/23 14:05:
I saw and examined the patient.
The [employer]'s note was reviewed and I agree with the note.
Comment: he is feeling well, c/f possible seizure this am, but being evauated by neuro and medicine. Meanwhile, no cp or pressure. BP has remained elevated with prn hydral dose. RRR no n/r/g/, lungs cta. Agree with adding a standing hydralizine.
Remaining as below.
Original Note:
Today's Communication / Plan
-
BP remains elevated and patient required a dose of IV hydralazine overnight- add standing PO hydralazine and monitor
Impression / Plan
-
Impression/Plan: 83 y/o male with CAD, history of HFpEF, HTN, CKD4, HLD and hypercoagulable state (lupus anticoagulant) admitted with LLE cellulitis and group A streptococcus bacteremia, complicated by orthostatic hypotension after PT.
#Sepsis:
-In the setting of streptococcus pyogenes cellulitis/bacteremia.
-ABX per ID
#Toxic metabolic encephalopathy
-in the setting of sepsis.
-Improved
#Hypertension
-Chronic, uncontrolled.
-Hypotensive episode post PT 12/09 then unresponsiveness in bed 12/10/23 with resolution S/P IVF 500mL x 2.
-Continue carvedilol 25 mg BID and imdur 30 mg daily.
-may add hydralazine if needed
#CAD
-Stable without chest pain
#HFpEF
-Chronic, compensated.
#Symptomatic sinus node dysfunction s/p PPM.
#CKD stage IV (back at baseline Cr of 2.3).
#Seizure disorder
#Neurogenic bladder with self-catheterization
#Lupus anticoagulant (hypercoagulable state) with DVT/PE, on warfarin
#Dyslipidemia, on atorvastatin
#Hyperparathyroidism, on calcitriol
Subjective/Interval History:
Feeling improved
Denies any CP, SOB, dizziness, or palpitations
DATA:
TTE, 12/10/2023:
CONCLUSIONS
�Normal biventricular size and systolic function without regional wall motion
�abnormality. Estimated LVEF 55-60%.
�Mild concentric left ventricular hypertrophy.
�Aortic sclerosis without stenosis.
�
�Compared to 08/19/23: no significant change.
Physical Exam
Vital Signs/Labs
Vital Signs
Temp Pulse Resp BP Pulse Ox
97.8 F 85 17 170/80 97
12/12/23 07:00 12/12/23 07:00 12/12/23 07:00 12/12/23 08:45 12/12/23 07:00
12/12/23 06:45
12/12/23 06:45
PT 22.8 Sec (11.4-14.6) H 12/12/23 06:45
INR 2.00 12/12/23 06:45
APTT 37.9 Sec (23.4-35.0) H 12/04/23 07:56
Magnesium 2.0 mg/dl (1.6-2.3) 12/12/23 06:45
LAB Results
12/10/23
09:45
Troponin I 0.013
Physical Exam
Constitutional: No acute distress
EENT: Anicteric
Cardiovascular: Rhythm & rate is regular
Respiratory: Respiratory effort normal and Lungs clear to auscul.
GI: Soft, Non tender and Normal bowel sounds
Neuro/Psych: AO x 3
Other: Skin (warm and dry)
Data Reviewed
-
Date of Service: December 12, 2023
EKG: Other (tele, SR PAC's)
[2023-12-12] MEDS: NSS 500 IV (11:30)
--- NOTE | 2023-12-12 14:22 | W.PN.ID1 ---
Date of Service
Date of Service: December 12, 2023
Today's Communication
Continue abx.
Assessment / Plan
Invasive group A strep infection (bacteremia)
Severe left lower extremity cellulitis (likely source of bacteremia)
Bacteriuria
-Not clear if infection versus colonization, as patient performs self-catheterization and bacteriuria would not be unexpected.
Leukocytosis - resolved
Renal insufficiency
CAD
HTN
Dyslipidemia
Seizure disorder
DVT/PE
Hx UTI
Urinary retention with chronic self-catheterization
BPH
Recommendations:
Continue Keflex 500 mg q8h for an additional 6 days.
Continue with lower extremity elevation + Tubigrip + CAILIN.
����������������������������������������������������������
Chief Complaint
-: Cellulitis and Bacteremia
Subjective / Review of Systems
Patient seen and examined. Denies left lower extremity pain
Review of Systems: No Fever and No Chills
Vital Signs / Physical Exam
Vital Signs
Vital Signs
Temp Pulse Resp BP Pulse Ox
97.6 F 74 18 108/64 100
12/12/23 12:10 12/12/23 12:10 12/12/23 12:10 12/12/23 12:23 12/12/23 12:10
Physical Exam
Constitutional: No Acute Distress, Comfortable and Non-toxic
Pulmonary: Non Labored
Extremities: Edema (2+ left lower extremity edema) and Erythema (Slightly decreased left lower extremity erythema)
Neurological: Awake and Alert
Psychological: Calm
Objective Data
Lab Data
Lab Results
12/12/23 06:45
12/12/23 06:45
PT 22.8 Sec (11.4-14.6) H 12/12/23 06:45
INR 2.00 12/12/23 06:45
APTT 37.9 Sec (23.4-35.0) H 12/04/23 07:56
Estimated Creat Clear 28 ml/min 12/12/23 06:45
Lactic Acid 1.3 mmol/L (0.7-2.0) 12/04/23 16:16
Total Bilirubin 1.2 mg/dl (0.2-1.3) 12/04/23 07:48
AST 24 U/L (17-59) 12/04/23 07:48
ALT 17 U/L (0-50) 12/04/23 07:48
Alkaline Phosphatase 72 U/L (38-126) 12/04/23 07:48
Most recent labs reviewed.
Micro Results:
12/04/23 07:56 Blood Culture - Final
Blood/Venous Streptococcus pyogenes
Gram Stain - Final
12/06/23 06:43 Blood Culture - Final
Blood/Venous No Growth - Final Report
12/05/23 12:43 Blood Culture - Final
Blood/Venous No Growth - Final Report
12/04/23 07:56 Blood Culture - Final
Blood/Venous Streptococcus pyogenes
Streptococcus species
Gram Stain - Final
12/04/23 07:48 Urine Culture - Final
Urine Klebsiella pneumoniae
[2023-12-12] MEDS: APRESOLINE PO ×2 (16:07→22:21)
--- NOTE | 2023-12-12 16:08 | W.PN.NEURO.1 ---
Today's Communication / Plan
-
-Would keep the existing seizure regimen the same given this morning's events did not have his typical signs of seizure (yawning) and may reflect still some persistent delirium
-Notify us if further events occur
-Not seeing indication for repeated EEG or continous EEG with mental status on my exam
Will follow as needed call with questions and concerns
Neuro Assessment/Plan
Assessment
83-year-old male with a past medical history of epilepsy, DVT PE presented to hospital with lethargy and found to have bacteremia suspected either due to UTI chronic need for intermittent catheterization cellulitis of the left leg.
I have been managing the patient as an outpatient who has had difficult to control seizures, more recently was started on lacosamide 11/21 which she did show some response to last clear seizure event had been 11/21.
EEG here demonstrated left temporal interictal sharp waves similar to an ambulatory EEG done in the outpatient setting, both studies highly suggestive of a left temporal lobe source of seizures. EEG study here did not show nonconvulsive seizure
activity.
Combination of bacteremia and sepsis producing toxic metabolic encephalopathy in addition to some degree of to seizure medications producing drowsiness
Event on 12/12 does not seem clearly to be a seizure as he did not have the typical yawning but generally proceed to seizure where he has yawning and then aphasia. Strong possibility this is a manifestation of still some lasting delirium producing
difficult to arouse. Cannot completely rule out seizure but it does seem that his seizure frequency has significantly improved with recent medication changes.
Subjective/Objective
Subjective Data
Date of Service: December 12, 2023
Patient noted by hospitalist to have lethargy, hospitalist concerned over potential post ictal state. had witnessed this, she did not see the typical yawning that usually preceeds his seizures. No overt convulsive movements seen.
Objective Data
Vital Signs
Temp Pulse Resp BP Pulse Ox
97.7 F 51 18 94/55 96
12/12/23 15:00 12/12/23 15:00 12/12/23 15:00 12/12/23 15:00 12/12/23 15:00
Lab Results
12/12/23 06:45
12/12/23 06:45
PT 22.8 Sec (11.4-14.6) H 12/12/23 06:45
INR 2.00 12/12/23 06:45
APTT 37.9 Sec (23.4-35.0) H 12/04/23 07:56
Sodium 137 mmol/L (135-145) 12/12/23 06:45
Potassium 4.5 mmol/L (3.5-5.1) 12/12/23 06:45
BUN 28 mg/dl (9-20) H 12/12/23 06:45
Glucose 97 mg/dl (70-99) 12/12/23 06:45
Calcium 7.8 mg/dl (8.4-10.2) L 12/12/23 06:45
Phosphorus 3.7 mg/dl (2.5-4.5) 12/12/23 06:45
Vitamin B12 399 pg/ml (239-931) 12/04/23 07:48
Patient Allergies
furosemide [From Lasix] Allergy (Verified 12/04/23 07:33)
Unknown
ciprofloxacin [From Cipro] Adverse Reaction (Verified 12/04/23 07:33)
chills;general malaise
Review of Systems
-
History Source: Patient
All other systems: Reviewed and negative
Constitutional: No Symptoms
EENT: No Symptoms Reported
Respiratory: No Symptoms
Cardiac: No Symptoms
Abdomen/GI: No Symptoms
Genitourinary: No Symptoms
Musculoskeletal: No Symptoms
Skin: No Symptoms
Neuro: See existing Neuro Note
Endocrine: No Symptoms
Hematologic / Lymphatic: No Symptoms
Allergy / Immunology: No Symptoms
Physical Exam
-
General: Comfortable
Eyes: No Ptosis
HEENT: Normocephalic
Neck: No Bruits Bilaterally
Respiratory: Clear to Auscultation
Cardiac: Regular Rhythm
GI: Normal Bowel Sounds
Skin: Unremarkable
Extremities: No Clubbing
Psych: Confused
Extended Neurological Exam
Attention Span & Concentration: Awake, Alert, Interactive and Other (Disoriented, difficulty with multi step commands, mild drowsiness but awake and conversational, impaired attention)
Memory: Reduced
Tremor: Hand Tremor Absent
Involuntary Movement: None
Speech: Negative Expressive Aphasia, Receptive Aphasia or Dysarthric
Cranial Nerve II: Left Eye: Pupillary Reactivity Unremarkable and Pupillary Size Unremarkable
Cranial Nerve II: Right Eye: Pupillary Reactivity Unremarkable and Pupillary Size Unremarkable
Cranial Nerves III, IV, : Extraocular Movement: Extraocular Movement Full in all Directions
Muscle Strength, Overall: Full Throughout
Modified Lily Score (MRS)
-
MRS Score:
Data Reviewed
-
EEG: Report Reviewed
[2023-12-12] MEDS: ASPIR LOW (ENTERIC COATED) 81 MG PO (22:21)
[2023-12-12] MEDS: LIPITOR 40 MG PO (22:21)
[2023-12-12] MEDS: NSS 250 IV (22:25)
[2023-12-13] VITALS (9 sets, daily range): BP systolic 111–204; BP diastolic 59–103; PULSE 74; BMI 31.0
[2023-12-13 06:51] LABS: Hemoglobin 11.9 g/dL (13.0-18.0); Mean Corp Hgb Conc. 33.1 g/dL (33.0-37.0); Mean Corpuscular Hgb 27.4 pg (27.0-31.0); Mean Corpuscular Volume 82.9 fL (80.0-94.0); Mean Platelet Volume 8.6 fL (7.4-10.4); Platelet Count 283 10^3/uL (130-400); Red Blood Cell Count 4.34 10^6/uL (4.70-6.10); Red Cell Dist. Width 15.3 % (11.5-14.5); White Blood Cell Count 7.4 10^3/uL (4.8-10.8)
[2023-12-13 07:01] LABS: INR 1.75; PT 20.6 Sec (11.4-14.6)
[2023-12-13 07:14] LABS: Blood Urea Nitrogen 34 mg/dl (9-20); Calcium 7.5 mg/dl (8.4-10.2); Carbon Dioxide 27 mmol/L (22-30); Chloride 104 mmol/L (98-107); Estimated Creatinine Clearance 26 ml/min; Glucose 91 mg/dl (70-99); Phosphorus 4.6 mg/dl (2.5-4.5); Potassium 4.3 mmol/L (3.5-5.1); Sodium 137 mmol/L (135-145); eGFR 23.73
[2023-12-13] MEDS: SENOKOT-S PO (08:22)
[2023-12-13] MEDS: LAMICTAL 150 MG PO ×2 (08:23→19:51)
[2023-12-13] MEDS: COREG 25 MG PO ×2 (08:23→19:52)
[2023-12-13] MEDS: ROCALTROL 0.5 MCG PO (08:23)
[2023-12-13] MEDS: VIMPAT 50 MG PO ×2 (08:23→19:53)
[2023-12-13] MEDS: DESENEX/MITRAZOL/ZEASORB 1 APPLIC TOPICAL ×2 (08:24→19:54)
[2023-12-13] MEDS: KEFLEX 500 MG PO ×3 (08:24→22:41)
--- NOTE | 2023-12-13 10:05 | W.PN.CD ---
Today's Communication / Plan
-
- cont hydralazine and coreg BPs appear more stable
- component of autonomic dysfunction?
Impression / Plan
-
Impression/Plan: 83 y/o male with CAD, history of HFpEF, HTN, CKD4, HLD and hypercoagulable state (lupus anticoagulant) admitted with LLE cellulitis and group A streptococcus bacteremia, complicated by orthostatic hypotension after PT. He has
labile BPs and I wonder if there is a component of autonomic dysfunction.
#Sepsis:
-In the setting of streptococcus pyogenes cellulitis/bacteremia.
-ABX per ID
#Toxic metabolic encephalopathy
-in the setting of sepsis.
-Improved
#Hypertension
-Chronic, better controlled yesterday, although this AM was high --> component of autonomic dysfunction?
-Hypotensive episode post PT 12/09 then unresponsiveness in bed 12/10/23 with resolution S/P IVF 500mL x 2.
-Continue carvedilol 25 mg BID and imdur 30 mg now on hold given 2 episodes of hypotension
-Hydralazine 25 mg tid appears to better control it
#CAD
-Stable without chest pain
#HFpEF
-Chronic, compensated.
#Symptomatic sinus node dysfunction s/p PPM.
#CKD stage IV (back at baseline Cr of 2.3).
#Seizure disorder
#Neurogenic bladder with self-catheterization
#Lupus anticoagulant (hypercoagulable state) with DVT/PE, on warfarin
#Dyslipidemia, on atorvastatin
#Hyperparathyroidism, on calcitriol
Subjective/Interval History:
continues to feel improved
Denies any CP, SOB, dizziness, or palpitations
DATA:
TTE, 12/10/2023:
CONCLUSIONS
�Normal biventricular size and systolic function without regional wall motion
�abnormality. Estimated LVEF 55-60%.
�Mild concentric left ventricular hypertrophy.
�Aortic sclerosis without stenosis.
�
�Compared to 08/19/23: no significant change.
Physical Exam
Vital Signs/Labs
Vital Signs
Temp Pulse Resp BP Pulse Ox
97.8 F 76 14 148/76 97
12/13/23 07:35 12/13/23 09:45 12/13/23 07:35 12/13/23 09:45 12/13/23 07:35
12/13/23 06:35
12/13/23 06:35
PT 20.6 Sec (11.4-14.6) H 12/13/23 06:35
INR 1.75 12/13/23 06:35
APTT 37.9 Sec (23.4-35.0) H 12/04/23 07:56
Magnesium 2.0 mg/dl (1.6-2.3) 12/13/23 06:35
LAB Results
12/10/23
09:45
Troponin I 0.013
Physical Exam
Constitutional: No acute distress
EENT: Anicteric
Cardiovascular: Rhythm & rate is regular
Respiratory: Respiratory effort normal and Lungs clear to auscul.
GI: Soft
Neuro/Psych: Alert and Oriented
Data Reviewed
-
Date of Service: December 13, 2023
EKG: Report Reviewed by me
Echo: Report Reviewed by me
Labs: Labs Reviewed by me
[2023-12-13] MEDS: APRESOLINE 25 MG PO ×3 (10:08→22:42)
--- NOTE | 2023-12-13 12:53 | W.PN.ID1 ---
Date of Service
Date of Service: December 13, 2023
Today's Communication
Continue current course of Keflex.
Assessment / Plan
Invasive group A strep infection (bacteremia)
Severe left lower extremity cellulitis (likely source of bacteremia)
Bacteriuria
-Not clear if infection versus colonization, as patient performs self-catheterization and bacteriuria would not be unexpected.
Leukocytosis - resolved
Renal insufficiency
CAD
HTN
Dyslipidemia
Seizure disorder
DVT/PE
Hx UTI
Urinary retention with chronic self-catheterization
BPH
Recommendations:
Continue Keflex 500 mg q8h for an additional 5 days.
Continue with lower extremity elevation + Tubigrip + CAILIN.
����������������������������������������������������������
Chief Complaint
-: Cellulitis and Bacteremia
Subjective / Review of Systems
Review of Systems: No Fever and No Chills
Vital Signs / Physical Exam
Vital Signs
Vital Signs
Temp Pulse Resp BP Pulse Ox
98.1 F 67 16 114/63 96
12/13/23 11:48 12/13/23 11:48 12/13/23 11:48 12/13/23 11:48 12/13/23 11:48
Physical Exam
Constitutional: No Acute Distress, Comfortable and Non-toxic
Eyes: Sclera Anicteric
Pulmonary: Non Labored
Extremities: Edema (2+ left lower extremity), Erythema (Mild) and Other (No significant left lower extremity tenderness.)
Neurological: Awake and Alert
Psychological: Calm
Objective Data
Lab Data
Lab Results
12/13/23 06:35
12/13/23 06:35
PT 20.6 Sec (11.4-14.6) H 12/13/23 06:35
INR 1.75 12/13/23 06:35
APTT 37.9 Sec (23.4-35.0) H 12/04/23 07:56
Estimated Creat Clear 26 ml/min 12/13/23 06:35
Lactic Acid 1.3 mmol/L (0.7-2.0) 12/04/23 16:16
Total Bilirubin 1.2 mg/dl (0.2-1.3) 12/04/23 07:48
AST 24 U/L (17-59) 12/04/23 07:48
ALT 17 U/L (0-50) 12/04/23 07:48
Alkaline Phosphatase 72 U/L (38-126) 12/04/23 07:48
Most recent labs reviewed.
Micro Results:
12/04/23 07:56 Blood Culture - Final
Blood/Venous Streptococcus pyogenes
Gram Stain - Final
12/06/23 06:43 Blood Culture - Final
Blood/Venous No Growth - Final Report
12/05/23 12:43 Blood Culture - Final
Blood/Venous No Growth - Final Report
12/04/23 07:56 Blood Culture - Final
Blood/Venous Streptococcus pyogenes
Streptococcus species
Gram Stain - Final
12/04/23 07:48 Urine Culture - Final
Urine Klebsiella pneumoniae
--- NOTE | 2023-12-13 14:40 | W.PN.HOSP.TC ---
Today's Communication/Plan
-
Adjust antihypertensives
Seperate Coreg and Hydralazine
Or consider changing hydralazine to alternate meds
Imdur remains on hold
Assessment / Plan
Assessment / Plan
CVS: S1-S2 normal
Chest: CTA B/L
Abdomen: Soft, NT / Bowel sounds present
Extremities: No edema, redness much better LLE. Only brown discoloration
BEDSPREAD FOLDER: Non focal exam
# TME
Cellulitis
Strep Pyogens bacteremia
Meets criteria for sepsis with a fever and source of infection white count
Leukocytosis- resolved
Source left lower extremity cellulitis
Rpt Cx NGTD
ID evaluation appreciated cont ceftriaxone, short course linezolid completed, clindamycin added 12/08 with subsequent improvement 8 days of abx, switched to PO Keflex 500 mg Q8H for 7 more days
#Episode hypotension systolic 80's 12/09 following activity with PT and sitting up in chair with associate lethargy
resolved with 500 cc bolus and bedrest
monitor Orthostatic vitals
-Repeat episode 12/10 following morning meds more severe with associate unresponsiveness minimal reaction to sternal rub prompting rapid response
Eventually resolved with trendelenburg and IVF bolus 500 cc x2
Suspect Imdur Side effect
cardio eval appreciated
monitor on telemetry
No further hypotensive episodes 12/11
12/12 Imdur resumed, again patient had hypotensive unresponsive episode 74/45 slowly responded to trendelenburg and 500 cc IVF bolus once
consideration possible post-ictal sz related, unlikely as per neuro, no change in sz medication recommended or EEG
suggested possible delirium related however does not explain severe hypotension as above
Would continue to hold Imdur at this time
Got Coreg and Hydralazine today as BP stable
Renal eval requested.
#HTN
cont home Coreg with holding parameters
Hydralazine prn, 25mg TID added as per cardio, maintain holding parameters SBP<120
# Ulcers are traumatic on the left knee, dorsal middle toes on bilateral feet
Cellulitis of left lower extremity
# Abnormal urinalysis-unclear if this is colonization because of the patient's straight cath versus UTI
Continue antibiotics and follow cultures
# Hyperkalemia-ordered Lokelma, since resolved
# Mild lactic acidosis- resolved
# NAYLA on CKD stage IV
continue calcitriol
Cr improved from peak 3.1 to 2.3 and remains stable
# History of tachybradycardia syndrome with pacemaker placement
# History of seizures-Lamictal 150 twice daily, Vimpat 50 milligram twice daily
He was on Keppra at 1 point it was stopped because it was not working.
contacted Dr. Tobin recently and Vimpat was changed to 50 mg twice a day as of 12/03/2023 evening
Continue
Neurology evaluation appreciated
CT of the head- No Bleed
# Hyperlipidemia-continue statin
# History of DVT, PE with RV thrombus 2010
History of IVC filter placement
INR subtherapeutic
Coumadin 2.5 mg today
#Constipation
bowel regimen miralax senna docusate
# Neurogenic bladder with self-catheterization
# History of prostatic hypertrophy with TURP
# Hyperparathyroidism-on calcitriol
# DVT prophylaxis-supratherapeutic INR Coumadin on hold
# CODE STATUS-full code
discussed with patient and his Jessica
D/W Cards
D/W Renal
Anticipated Discharge: 24 - 48 hours
Subjective/Interval History
-
Date of Service: December 13, 2023
Objective Data
-
Labs:
Laboratory Results
12/13/23
06:35
WBC 7.4
Hgb 11.9 L
Hct 36.0 L
Plt Count 283
PT 20.6 H
INR 1.75
Sodium 137
Potassium 4.3
Chloride 104
Carbon Dioxide 27
BUN 34 H
Creatinine 2.6 H
Glucose 91
Calcium 7.5 L
Vital Signs:
Vital Signs
Temp Pulse Resp BP Pulse Ox
98.1 F 67 16 114/63 96
12/13/23 11:48 12/13/23 11:48 12/13/23 11:48 12/13/23 11:48 12/13/23 11:48
I&O
12/12/23 12/13/23 12/14/23
06:59 06:59 06:59
Intake Total 960 / 960 720 / 720
Output Total 2300 / 2300 1300 / 1300 300 / 300
Balance -1340 / -1340 -580 / -580 -300 / -300
--- NOTE | 2023-12-13 15:13 | CM ---
Reviewed chart, patient will most likely be here through the weekend per attending note. Bed is still available at [facility]. Will call to update and confirm that they can still take patient, no auth is needed for transfer.
Plan: Case management will continue to follow and assist with discharge planning/transfer to [place] when stable.
--- NOTE | 2023-12-13 16:49 | PTCARENOTE ---
Pt is alert and oriented x2-3 today. Denies any pain. Tolerating diet well. Pt continues to be straight cath'd q 6 hours as ordered. Blood pressures have been stable today. Pt up to sit on the side of the bed and on the commode heavy assist of 2-3.
Pt with no other complaints at this time. Bed alarm on. Medsitter on. Call burciaga is within reach.
[2023-12-13] MEDS: COUMADIN 2.5 MG PO (17:18)
--- NOTE | 2023-12-13 17:49 | W.CON.NEPH ---
Consultation
-
Date/Time Consultation Requested: 12/13/2307/28/1750
Date/Time Consultation Performed: 12/13/2023 1600
Requesting Provider: Dr. Katz
Performing Provider: Dr. Flannery
Reason for Consultation: Hypertension
Medical History
-
Chief Complaint: Hypertension
History of Present Illness:
This is a 83-year-old gentleman who was seen by Dr. Brian Zayas in our office for CKD 4. His baseline creatinine runs approximately 2.5 at baseline. He has known atrophic right kidney likely due to obstructive uropathy in the past. He has had
well-controlled hypertension for the most part controlled with 2 medications. He has known secondary hyperparathyroidism on calcitriol therapy which is stable. He also has history of DVT due to hypercoagulable state from lupus anticoagulant on
Coumadin therapy. He was admitted at the end of November with confusion. There is also report of falls at home. More recently during his hospitalization, he was noted to have variable blood pressures as high as 200 systolic and as low as 78
systolic. Is for this and we are asked to assist with management of. Reportedly, he had symptoms with the low blood pressure and did respond to saline infusion.
Past Medical History
Pulmonary embolism, hyperlipidemia, hypertension, right ventricular thrombus, IVC filter, DVT bilateral, lupus anticoagulant, hypercoagulable state, CKD 4, ischemic nephropathy with right atrophic kidney, hypertension, secondary hyperparathyroidism,
history of obstructive uropathy, BPH, adynamic bladder, osteoarthritis, BPH, coronary artery disease, pacemaker, seizure disorder, TURP, robotic prostatectomy, appendectomy, tonsillectomy, right wrist fracture repair
Social History
No tobacco, negligible alcohol
Family History
Coronary artery disease, breast cancer
Allergies / Home Medications
Allergy/AdvReac Type Severity Reaction Status Date / Time
furosemide [From Lasix] Allergy Unknown Verified 12/04/23 07:33
ciprofloxacin [From Cipro] AdvReac chills;general Verified 12/04/23 07:33
malaise
Medication Instructions Recorded Confirmed Type
aspirin 81 mg tablet,delayed 81 mg PO HS Blood clot 02/21/23 12/04/23 History
release prevention/tx
atorvastatin 40 mg tablet 40 mg PO HS High cholesterol 02/21/23 12/04/23 History
isosorbide mononitrate 30 mg 30 mg PO DAILY Heart 02/21/23 12/04/23 History
tablet,extended release 24 hr disease/condition
calcitriol 0.5 mcg capsule 0.5 mcg PO Q48H@0800 Kidney Disease 08/14/23 12/04/23 History
lamotrigine 100 mg tablet 150 mg PO BID Seizures 11/06/23 12/04/23 History
warfarin 2 mg tablet 1 mg PO MOFR@2200 Blood Clot 11/06/23 12/04/23 History
Prevention/Tx
warfarin 2 mg tablet 2 mg PO SUTUWETHSA@2200 Blood Clot 11/06/23 12/04/23 History
Prevention/Tx
acetaminophen 325 mg tablet 650 mg PO ONCE PRN mild pain 12/04/23 12/04/23 History
(Tylenol)
carvedilol 25 mg tablet 25 mg PO BID Blood Pressure 12/04/23 12/04/23 History
lacosamide 50 mg tablet 50 mg PO BID Seizures 12/04/23 12/04/23 History
Review of Systems
-
No chest pain or shortness of breath. No abdominal pain. No issues with urine output. No vision change. No headache. The remainder of the complete review of systems was negative.
Physical Exam
Vital Signs
Vital Signs
Temp Pulse Resp BP Pulse Ox
97.8 F 81 16 154/64 96
12/13/23 15:11 12/13/23 15:26 12/13/23 15:11 12/13/23 15:26 12/13/23 15:11
Lab Results
WBC 7.4 10^3/uL (4.8-10.8) 02/09/24 06:35
RBC 4.34 10^6/uL (4.70-6.10) L 12/13/23 06:35
Hgb 11.9 g/dL (13.0-18.0) L 12/13/23 06:35
Hct 36.0 % (39.0-52.0) L 12/13/23 06:35
Plt Count 283 10^3/uL (130-400) 12/13/23 06:35
Sodium 137 mmol/L (135-145) 12/13/23 06:35
Potassium 4.3 mmol/L (3.5-5.1) 12/13/23 06:35
Chloride 104 mmol/L (98-107) 12/13/23 06:35
Carbon Dioxide 27 mmol/L (22-30) 12/13/23 06:35
BUN 34 mg/dl (9-20) H 12/13/23 06:35
Creatinine 2.6 mg/dL (0.7-1.3) H 12/13/23 06:35
eGFR 23.73 12/13/23 06:35
Glucose 91 mg/dl (70-99) 12/13/23 06:35
Calcium 7.5 mg/dl (8.4-10.2) L 12/13/23 06:35
Phosphorus 4.6 mg/dl (2.5-4.5) H 12/13/23 06:35
Albumin 3.6 g/dl (3.5-5.0) 12/04/23 07:48
Physical Exam
General: AOx3
HEENT: PERRL, EOMI, Ear/Nose Intact, Hearing Normal, Oropharynx Clear/Moist, Neck Supple, Trachea Midline and No Thyromegaly
Respiratory: Clear
Cardiac: Regular Rate/Rhythm
Abdomen: Soft, Nontender, Normal Bowel Sounds and No Hepatosplenomegaly
Skin: No Rash and Normal Turgor
Psych: Mood/afflect pleasant and Insight/judgement good
Assessment/Plan
-
Assessment:
-Hypertension, labile
-CKD 4
-Seizure disorder
-Hypercoagulable state
-Hyperlipidemia
-BPH with urinary retention history
Plan
-Check blood pressures and right arm sitting only.
-Secondary hypertensive workup ordered. This includes ARR, evaluation for pheochromocytoma, renal artery duplex
-Follow BMP, his CKD is otherwise stable.
-We will leave his antihypertensive regimen the same for the time being until more blood pressure readings are obtained.
-This was discussed with the patient as well as his on the phone.
Data Reviewed
-
CT Scan: Report Reviewed by me
Medical Tests (Nuc Med, Echo etc): Image Personally Visualized and interpreted (EKG on 12/10/2023 by my reading shows normal sinus rhythm with right bundle branch block)
Labs: Labs Reviewed by me (WBC 7.4, hemoglobin 11.9, platelets 283, INR 1.75, sodium 137, potassium 4.3, BUN 34, creatinine 2.6, magnesium 2.0, calcium 7.5)
Old Records: Reviewed (Records reviewed in [facility])
[2023-12-13] MEDS: SENOKOT-S 1 TABLET PO (19:53)
[2023-12-13] MEDS: LIPITOR 40 MG PO (22:41)
[2023-12-13] MEDS: ASPIR LOW (ENTERIC COATED) 81 MG PO (22:41)
[2023-12-14] VITALS (11 sets, daily range): BP systolic 85–170; BP diastolic 42–91; PULSE 86–90
[2023-12-14 06:58] LABS: Hematocrit 39.3 % (39.0-52.0); Hemoglobin 12.9 g/dL (13.0-18.0); Mean Corp Hgb Conc. 32.8 g/dL (33.0-37.0); Mean Corpuscular Hgb 27.6 pg (27.0-31.0); Mean Platelet Volume 8.9 fL (7.4-10.4); Platelet Count 313 10^3/uL (130-400); Red Blood Cell Count 4.68 10^6/uL (4.70-6.10); Red Cell Dist. Width 15.4 % (11.5-14.5)
[2023-12-14 07:08] LABS: INR 1.57; PT 18.6 Sec (11.4-14.6)
[2023-12-14 07:13] LABS: Blood Urea Nitrogen 33 mg/dl (9-20); Calcium 7.8 mg/dl (8.4-10.2); Carbon Dioxide 26 mmol/L (22-30); Chloride 106 mmol/L (98-107); Estimated Creatinine Clearance 27 ml/min; Glucose 94 mg/dl (70-99); Magnesium 1.9 mg/dl (1.6-2.3); Phosphorus 4.2 mg/dl (2.5-4.5); Potassium 4.6 mmol/L (3.5-5.1); Sodium 137 mmol/L (135-145); eGFR 24.87
[2023-12-14] MEDS: DESENEX/MITRAZOL/ZEASORB 1 APPLIC TOPICAL ×2 (08:59→19:44)
[2023-12-14] MEDS: COREG 25 MG PO (08:59)
[2023-12-14] MEDS: KEFLEX 500 MG PO ×3 (08:59→21:50)
[2023-12-14] MEDS: SENOKOT-S 1 TABLET PO ×2 (08:59→19:45)
[2023-12-14] MEDS: VIMPAT 50 MG PO ×2 (09:06→19:45)
[2023-12-14] MEDS: LAMICTAL 150 MG PO ×2 (09:06→19:45)
--- NOTE | 2023-12-14 10:13 | W.PN.CD ---
Addendum entered and electronically signed by Jesse Vizcaino MD 12/14/23 13:23:
BP dropped again after imdur resumed: stop this medication permanently
continue coreg and hydralazine
Original Note:
Today's Communication / Plan
-
resume imdur 30mg daily
continue hydralazine 25mg tid and coreg 25mg bid
please call us back with additional questions
Impression / Plan
-
Impression/Plan: 83 y/o male with CAD, history of HFpEF, HTN, CKD4, HLD and hypercoagulable state (lupus anticoagulant) admitted with LLE cellulitis and group A streptococcus bacteremia, complicated by orthostatic hypotension after PT. He has
labile BPs and I wonder if there is a component of autonomic dysfunction.
#Sepsis: improved
-In the setting of streptococcus pyogenes cellulitis/bacteremia.
-ABX per ID
#Hypertension
-labile
-resume imdur 30mg daily
-continue hydralazine 25mg tid and coreg 25mg bid
#CAD
-Stable without chest pain
#HFpEF
-Chronic, compensated.
#Symptomatic sinus node dysfunction s/p PPM.
#CKD stage IV
#Seizure disorder
#Neurogenic bladder with self-catheterization
#Lupus anticoagulant (hypercoagulable state) with DVT/PE, on warfarin
#Dyslipidemia, on atorvastatin
#Hyperparathyroidism, on calcitriol
Subjective/Interval History:
No CP/SOB/dizziness.
DATA:
TTE, 12/10/2023:
CONCLUSIONS
�Normal biventricular size and systolic function without regional wall motion
�abnormality. Estimated LVEF 55-60%.
�Mild concentric left ventricular hypertrophy.
�Aortic sclerosis without stenosis.
�
�Compared to 08/19/23: no significant change.
Physical Exam
Vital Signs/Labs
Vital Signs
Temp Pulse Resp BP Pulse Ox
98.1 F 77 18 142/72 98
12/14/23 07:00 12/14/23 07:00 12/14/23 07:00 12/14/23 08:58 12/14/23 07:00
12/13/23 12/14/23 12/15/23
06:59 06:59 06:59
Actual Weight 100.839 kg
12/14/23 06:42
12/14/23 06:42
PT 18.6 Sec (11.4-14.6) H 12/14/23 06:42
INR 1.57 12/14/23 06:42
APTT 37.9 Sec (23.4-35.0) H 12/04/23 07:56
Magnesium 1.9 mg/dl (1.6-2.3) 12/14/23 06:42
Physical Exam
Constitutional: No acute distress and Comfortable
EENT: Moist mucous membranes
Cardiovascular: Rhythm & rate is regular, Pedal edema is absent, JVD pressure is normal and Systolic murmur absent
Respiratory: Respiratory effort normal and Lungs clear to auscul.
GI: Soft, Distention absent and Flat
Neuro/Psych: AO x 3
Data Reviewed
-
Date of Service: December 14, 2023
EKG: Other (Tele: SR 70s)
Labs: Labs Reviewed by me
[2023-12-14] MEDS: APRESOLINE 25 MG PO ×2 (10:36→22:16)
[2023-12-14] MEDS: IMDUR (EXTENDED RELEASE) 30 MG PO (10:36)
--- NOTE | 2023-12-14 12:34 | W.PN.NEPH.PH ---
Today's Communication / Plan
-
observe on current anti-htns
secondary work up in progress
Assessment/Plan
-
Assessment:
-Hypertension, labile
-CKD 4
-Seizure disorder
-Hypercoagulable state
-Hyperlipidemia
-BPH with urinary retention history
-right renal atrophy
Plan
-Check blood pressures and right arm sitting only.
-Secondary hypertensive workup ordered. This includes ARR, evaluation for pheochromocytoma, renal artery duplex
-Follow BMP, his CKD is otherwise stable.
-We will leave his antihypertensive regimen the same for the time being until more blood pressure readings are obtained.
-This was discussed with the patient as well as his on the phone.
-
-
Date of Service: December 14, 2023
CC / HPI / ROS
-
Chief Complaint:
HTN/CKD
History of Present Illness:
bp reasonable stable over past 24hr
creatinine at baseline 2.5
Review of Systems:
Labs
-
Labs:
Sodium 137 mmol/L (135-145) 12/14/23 06:42
Potassium 4.6 mmol/L (3.5-5.1) 12/14/23 06:42
Chloride 106 mmol/L (98-107) 12/14/23 06:42
Carbon Dioxide 26 mmol/L (22-30) 12/14/23 06:42
BUN 33 mg/dl (9-20) H 12/14/23 06:42
Creatinine 2.5 mg/dL (0.7-1.3) H 12/14/23 06:42
eGFR 24.87 12/14/23 06:42
Glucose 94 mg/dl (70-99) 12/14/23 06:42
Calcium 7.8 mg/dl (8.4-10.2) L 12/14/23 06:42
Phosphorus 4.2 mg/dl (2.5-4.5) 12/14/23 06:42
Albumin 3.6 g/dl (3.5-5.0) 12/04/23 07:48
Physical Exam
-
Vital Signs:
Vital Signs
Temp Pulse Resp BP Pulse Ox
98.2 F 68 18 149/69 96
12/14/23 11:00 12/14/23 11:00 12/14/23 11:00 12/14/23 11:00 12/14/23 11:00
Cardiovascular:: Regular rate and rhythm
Respiratory:: Bilateral: Coarse
Lung Excursion:: Normal
Abdomen:: Nontender and Soft
Bowel Sounds:: Normal
Extremity Edema:: None: Bilateral:
Rendon Catheter: No
--- NOTE | 2023-12-14 13:18 | W.PN.HOSP.TC ---
Today's Communication/Plan
-
Watch closely
Bolus
Stop Imdur
Heparin gtt
Coumadin 3 mg
Assessment / Plan
Assessment / Plan
CVS: S1-S2 normal
Chest: CTA B/L
Abdomen: Soft, NT / Bowel sounds present
Extremities: No edema, redness much better LLE. Only brown discoloration
2 visits to the room today earlier when I visited the patient patient was bright awake alert and oriented and on her send
Went back to see him as he was drowsy lethargic after half an hour.
# Episode of drowsiness and unresponsiveness
Suspect secondary to Imdur.
Imdur stopped
Cardiology made aware
blood pressure low give 250 mL of fluid bolus
IF BP doesn't improve give another bolus
# TME
Cellulitis
Strep Pyogens bacteremia
Meets criteria for sepsis with a fever and source of infection white count
Leukocytosis- resolved
Source left lower extremity cellulitis
Rpt Cx NGTD
ID evaluation appreciated cont ceftriaxone, short course linezolid completed, clindamycin added 12/08 with subsequent improvement 8 days of abx, switched to PO Keflex 500 mg Q8H for 7 more days
#Episode hypotension systolic 80's 12/09 following activity with PT and sitting up in chair with associate lethargy
resolved with 500 cc bolus and bedrest
monitor Orthostatic vitals
-Repeat episode 12/10 following morning meds more severe with associate unresponsiveness minimal reaction to sternal rub prompting rapid response
Eventually resolved with trendelenburg and IVF bolus 500 cc x2
Suspect Imdur Side effect
cardio eval appreciated
monitor on telemetry
No further hypotensive episodes 12/11
12/12 Imdur resumed, again patient had hypotensive unresponsive episode 74/45 slowly responded to trendelenburg and 500 cc IVF bolus once
consideration possible post-ictal sz related, unlikely as per neuro, no change in sz medication recommended or EEG
suggested possible delirium related however does not explain severe hypotension as above
Imdur Restarted today with same presentation
Got Coreg and Hydralazine today with holding parameters
#HTN
cont home Coreg with holding parameters
Hydralazine prn, 25mg TID added as per cardio, maintain holding parameters SBP<120
Stop Imdur and do not resume
# Ulcers are traumatic on the left knee, dorsal middle toes on bilateral feet
Cellulitis of left lower extremity
# Abnormal urinalysis-unclear if this is colonization because of the patient's straight cath versus UTI
Continue antibiotics and follow cultures
# Hyperkalemia-ordered Lokelma, since resolved
# Mild lactic acidosis- resolved
# NAYLA on CKD stage IV
continue calcitriol
Cr improved from peak 3.1 to 2.5 and remains stable
# History of tachybradycardia syndrome with pacemaker placement
# History of seizures-Lamictal 150 twice daily, Vimpat 50 milligram twice daily
He was on Keppra at 1 point it was stopped because it was not working.
contacted Dr. Tobin recently and Vimpat was changed to 50 mg twice a day as of 12/03/2023 evening
Continue
Neurology evaluation appreciated
CT of the head- No Bleed
# Hyperlipidemia-continue statin
# History of DVT, PE with RV thrombus 2010
History of IVC filter placement
INR subtherapeutic
Coumadin 3 mg today
Heparin gtt
#Constipation
bowel regimen miralax senna docusate
# Neurogenic bladder with self-catheterization
# History of prostatic hypertrophy with TURP
# Hyperparathyroidism-on calcitriol
# DVT prophylaxis-supratherapeutic INR Coumadin on hold
# CODE STATUS-full code
discussed with patient and his Jessica at bed side
D/W Cards
D/W Renal
D/W RN
Total time with 2 visits 55 min
Anticipated Discharge: 24 - 48 hours
Subjective/Interval History
-
Date of Service: December 14, 2023
Objective Data
-
Labs:
Laboratory Results
12/14/23 12/14/23
06:42 12:22
WBC 9.0 Cancelled
Hgb 12.9 L Cancelled
Hct 39.3 Cancelled
Plt Count 313 Cancelled
PT 18.6 H
INR 1.57
APTT 41.0 H
Sodium 137
Potassium 4.6
Chloride 106
Carbon Dioxide 26
BUN 33 H
Creatinine 2.5 H
Glucose 94
Calcium 7.8 L
Vital Signs:
Vital Signs
Temp Pulse Resp BP Pulse Ox
98.2 F 68 18 149/69 96
12/14/23 11:00 12/14/23 11:00 12/14/23 11:00 12/14/23 11:00 12/14/23 11:00
I&O
12/13/23 12/14/23 12/15/23
06:59 06:59 06:59
Intake Total 720 / 720 1160 / 1160
Output Total 1300 / 1300 2825 / 2825
Balance -580 / -580 -1665 / -1665
[2023-12-14] MEDS: HEPARIN 25000 UNITS/250 ML IV (14:33)
[2023-12-14] MEDS: NSS 500 IV (14:38)
--- NOTE | 2023-12-14 15:11 | CM ---
Patient seen with also at bedside. Patient asking about patient going to [facility]. CM sent referral via all scripts. CM will continue to follow for discharge planning needs.
Plan;[facility]
[2023-12-14] MEDS: APRESOLINE PO (15:13)
[2023-12-14] MEDS: NSS 250 IV (15:29)
[2023-12-14] MEDS: COUMADIN 3 MG PO (18:02)
[2023-12-14] MEDS: COREG PO (20:12)
[2023-12-14 21:32] LABS: APTT > 200 Sec (23.4-35.0)
[2023-12-14] MEDS: LIPITOR 40 MG PO (21:50)
[2023-12-14] MEDS: ASPIR LOW (ENTERIC COATED) 81 MG PO (21:50)
[2023-12-15] VITALS (12 sets, daily range): BP systolic 123–203; BP diastolic 59–104; PULSE 80–86; O2SAT 96
[2023-12-15 04:27] LABS: Hematocrit 35.8 % (39.0-52.0); Mean Corp Hgb Conc. 33.5 g/dL (33.0-37.0); Mean Corpuscular Hgb 27.6 pg (27.0-31.0); Mean Corpuscular Volume 82.3 fL (80.0-94.0); Platelet Count 314 10^3/uL (130-400); Red Blood Cell Count 4.35 10^6/uL (4.70-6.10); Red Cell Dist. Width 15.6 % (11.5-14.5); White Blood Cell Count 8.3 10^3/uL (4.8-10.8)
[2023-12-15 04:52] LABS: Blood Urea Nitrogen 35 mg/dl (9-20); Calcium 7.6 mg/dl (8.4-10.2); Carbon Dioxide 24 mmol/L (22-30); Chloride 109 mmol/L (98-107); Estimated Creatinine Clearance 26 ml/min; Glucose 86 mg/dl (70-99); Potassium 4.8 mmol/L (3.5-5.1); Sodium 136 mmol/L (135-145); eGFR 23.73
[2023-12-15] MEDS: HEPARIN 25000 UNITS/250 ML IV (07:25)
[2023-12-15] MEDS: VIMPAT 50 MG PO ×2 (07:46→20:16)
[2023-12-15] MEDS: DESENEX/MITRAZOL/ZEASORB 1 APPLIC TOPICAL ×2 (07:46→20:22)
[2023-12-15] MEDS: ROCALTROL 0.5 MCG PO (07:46)
[2023-12-15] MEDS: LAMICTAL 150 MG PO ×2 (07:46→20:16)
[2023-12-15] MEDS: SENOKOT-S 1 TABLET PO ×2 (07:46→20:16)
[2023-12-15] MEDS: COREG 25 MG PO ×2 (07:46→20:16)
[2023-12-15] MEDS: KEFLEX 500 MG PO ×2 (07:49→17:19)
[2023-12-15] MEDS: APRESOLINE PO (10:21)
[2023-12-15 10:41] LABS: INR 1.97; PT 22.3 Sec (11.4-14.6)
[2023-12-15 10:48] LABS: APTT 179.9 Sec (23.4-35.0)
--- NOTE | 2023-12-15 11:34 | W.PN.NEPH.PH ---
Today's Communication / Plan
-
follow bmp
monitor bp
Assessment/Plan
-
Assessment:
-Hypertension, labile
-CKD 4
-Seizure disorder
-Hypercoagulable state
-Hyperlipidemia
-BPH with urinary retention history( straight cath chronic)
-right renal atrophy
Plan
-Check blood pressures and right arm sitting only.
-bp remains labile
-Secondary hypertensive workup ordered. This includes ARR, evaluation for pheochromocytoma, renal artery duplex
-creatinine up to 2.6
-Imdur discontinued by cardiology remains on carvedilol hydralazine
-This was discussed with the patient as well as his on the phone.
-
-
Date of Service: December 15, 2023
CC / HPI / ROS
-
Chief Complaint:
HTN/CKD
History of Present Illness:
bp reasonable labile over past 24hr
creatinine at baseline 2.6
Review of Systems:
Labs
-
Labs:
WBC 8.3 10^3/uL (4.8-10.8) 12/15/23 04:04
RBC 4.35 10^6/uL (4.70-6.10) L 12/15/23 04:04
Hgb 12.0 g/dL (13.0-18.0) L 12/15/23 04:04
Hct 35.8 % (39.0-52.0) L 12/15/23 04:04
Plt Count 314 10^3/uL (130-400) 12/15/23 04:04
Sodium 136 mmol/L (135-145) 12/15/23 04:04
Potassium 4.8 mmol/L (3.5-5.1) 12/15/23 04:04
Chloride 109 mmol/L (98-107) H 12/15/23 04:04
Carbon Dioxide 24 mmol/L (22-30) 12/15/23 04:04
BUN 35 mg/dl (9-20) H 12/15/23 04:04
Creatinine 2.6 mg/dL (0.7-1.3) H 12/15/23 04:04
eGFR 23.73 12/15/23 04:04
Glucose 86 mg/dl (70-99) 12/15/23 04:04
Calcium 7.6 mg/dl (8.4-10.2) L 12/15/23 04:04
Phosphorus 4.2 mg/dl (2.5-4.5) 12/14/23 06:42
Albumin 3.6 g/dl (3.5-5.0) 12/04/23 07:48
Physical Exam
-
Vital Signs:
Vital Signs
Temp Pulse Resp BP Pulse Ox
99.0 F 84 16 115/64 97
12/15/23 07:20 12/15/23 07:20 12/15/23 07:20 12/15/23 10:21 12/15/23 07:20
Cardiovascular:: Regular rate and rhythm
Respiratory:: Bilateral: Coarse
Lung Excursion:: Normal
Abdomen:: Nontender and Soft
Bowel Sounds:: Normal
Extremity Edema:: +1: Bilateral:
Rendon Catheter: No
--- NOTE | 2023-12-15 15:19 | W.PN.HOSP.TC ---
Today's Communication/Plan
-
Discharge planning
Change Hydralazine to 25 BID
Assessment / Plan
Assessment / Plan
CVS: S1-S2 normal
Chest: CTA B/L
Abdomen: Soft, NT / Bowel sounds present
Extremities: No edema, redness much better LLE. Only brown discoloration
2 visits to the room today earlier when I visited the patient patient was bright awake alert and oriented and on her send
Went back to see him as he was drowsy lethargic after half an hour.
# Episode of drowsiness and unresponsiveness
Suspect secondary to Imdur.
Imdur stopped
No more episodes
# TME
Cellulitis
Strep Pyogens bacteremia
Meets criteria for sepsis with a fever and source of infection white count
Leukocytosis- resolved
Source left lower extremity cellulitis
Rpt Cx NGTD
ID evaluation appreciated cont ceftriaxone, short course linezolid completed, clindamycin added 12/08 with subsequent improvement 8 days of abx, switched to PO Keflex 500 mg Q8H for 7 more days
#Episode hypotension systolic 80's 12/09 following activity with PT and sitting up in chair with associate lethargy
resolved with 500 cc bolus and bedrest
monitor Orthostatic vitals
-Repeat episode 12/10 following morning meds more severe with associate unresponsiveness minimal reaction to sternal rub prompting rapid response
Eventually resolved with trendelenburg and IVF bolus 500 cc x2
Suspect Imdur Side effect
cardio eval appreciated
monitor on telemetry
No further hypotensive episodes 12/11
12/12 Imdur resumed, again patient had hypotensive unresponsive episode 74/45 slowly responded to trendelenburg and 500 cc IVF bolus once
consideration possible post-ictal sz related, unlikely as per neuro, no change in sz medication recommended or EEG
suggested possible delirium related however does not explain severe hypotension as above
Imdur Restarted today with same presentation
Got Coreg and Hydralazine today with holding parameters
#HTN
cont home Coreg with holding parameters
Hydralazine prn, 25mg TID added as per cardio, maintain holding parameters SBP<120
Stopped Imdur and do not resume
# Ulcers are traumatic on the left knee, dorsal middle toes on bilateral feet
Cellulitis of left lower extremity
# Abnormal urinalysis-unclear if this is colonization because of the patient's straight cath versus UTI
Continue antibiotics and follow cultures
# Hyperkalemia-ordered Lokelma, since resolved
# Mild lactic acidosis- resolved
# NAYLA on CKD stage IV
continue calcitriol
Cr improved from peak 3.1 to 2.6 and remains stable
# History of tachybradycardia syndrome with pacemaker placement
# History of seizures-Lamictal 150 twice daily, Vimpat 50 milligram twice daily
He was on Keppra at 1 point it was stopped because it was not working.
contacted Dr. Tobin recently and Vimpat was changed to 50 mg twice a day as of 12/03/2023 evening
Continue
Neurology evaluation appreciated
CT of the head- No Bleed
# Hyperlipidemia-continue statin
# History of DVT, PE with RV thrombus 2010
History of IVC filter placement
INR subtherapeutic
Coumadin 2.5 mg today
Heparin gtt
#Constipation
bowel regimen miralax senna docusate
# Neurogenic bladder with self-catheterization
# History of prostatic hypertrophy with TURP
# Hyperparathyroidism-on calcitriol
# DVT prophylaxis-supratherapeutic INR Coumadin on hold
# CODE STATUS-full code
D/W RN
D/W PT
D/W Cards
D/W Renal
Anticipated Discharge: Within 24 hours
Subjective/Interval History
-
Date of Service: December 15, 2023
Objective Data
-
Labs:
Laboratory Results
12/15/23 12/15/23 12/15/23
04:04 10:24 10:24
WBC 8.3
Hgb 12.0 L
Hct 35.8 L
Plt Count 314
PT Cancelled 22.3 H
INR Cancelled
APTT 121.0 H
Sodium 136
Potassium 4.8
Chloride 109 H
Carbon Dioxide 24
BUN 35 H
Creatinine 2.6 H
Glucose 86
Calcium 7.6 L
12/15/23 12/15/23
10:24 19:00
WBC
Hgb
Hct
Plt Count
PT
INR 1.97
APTT 179.9 H* Pending
Sodium
Potassium
Chloride
Carbon Dioxide
BUN
Creatinine
Glucose
Calcium
Vital Signs:
Vital Signs
Temp Pulse Resp BP Pulse Ox
97.7 F 68 16 123/59 97
12/15/23 11:39 12/15/23 11:39 12/15/23 11:39 12/15/23 11:39 12/15/23 11:39
I&O
12/14/23 12/15/23 12/16/23
06:59 06:59 06:59
Intake Total 1160 / 1160 720 / 720
Output Total 2825 / 2825 1600 / 1600 500 / 500
Balance -1665 / -1665 -880 / -880 -500 / -500
[2023-12-15] MEDS: COUMADIN 2.5 MG PO (17:19)
[2023-12-15 19:34] LABS: APTT 89.7 Sec (23.4-35.0)
[2023-12-15] MEDS: APRESOLINE 25 MG PO (21:16)
--- NOTE | 2023-12-15 21:50 | PTCARENOTE ---
Pt became combative and uncooperative taking off IV and getting off bed. After educating pt of the importance of keeping IV running and risk fall, pt became verbally and physically aggressive toward staff. MILITARY TECHNICIAN made aware and renew order for soft
limb restrains - L&R wrist/four rails. IV Lorazepam 0.5 mg is ordered and given too. Pt is now resting comfortably. Will continue to monitor.
[2023-12-15] MEDS: ATIVAN 0.5 MG IV (22:18)
[2023-12-15] MEDS: LIPITOR PO (22:54)
[2023-12-15] MEDS: ASPIR LOW (ENTERIC COATED) PO (22:54)
[2023-12-15] MEDS: KEFLEX PO (22:54)
[2023-12-16] VITALS (8 sets, daily range): BP systolic 93–217; BP diastolic 48–115; BMI 30.7
[2023-12-16 01:33] LABS: Hematocrit 36.1 % (39.0-52.0); Hemoglobin 12.2 g/dL (13.0-18.0); Mean Corp Hgb Conc. 33.8 g/dL (33.0-37.0); Mean Corpuscular Hgb 27.7 pg (27.0-31.0); Mean Platelet Volume 8.7 fL (7.4-10.4); Platelet Count 293 10^3/uL (130-400); Red Cell Dist. Width 15.5 % (11.5-14.5)
[2023-12-16 01:44] LABS: INR 2.13; PT 23.7 Sec (11.4-14.6)
[2023-12-16 01:46] LABS: APTT 101.8 Sec (23.4-35.0)
--- NOTE | 2023-12-16 01:50 | W.PN.UPDATE ---
Update Note
Progress Note Update
At 2200 RN notified NUTRITION TECHNICIAN patient is very agitated, trying to get out of bed and unable to redirect. stable Vs. Ativan given, Advised to Bladder scan. Bladder scan done and straight cath'd 900CC. Patient resting in bed at present. Agitation likely due
to urinary retention/bladder spasm
[2023-12-16 01:57] LABS: Blood Urea Nitrogen 33 mg/dl (9-20); Calcium 7.8 mg/dl (8.4-10.2); Carbon Dioxide 26 mmol/L (22-30); Chloride 106 mmol/L (98-107); Estimated Creatinine Clearance 26 ml/min; Glucose 96 mg/dl (70-99); Potassium 4.7 mmol/L (3.5-5.1); Sodium 136 mmol/L (135-145); eGFR 23.73
[2023-12-16] MEDS: APRESOLINE 5 MG IV (05:02)
[2023-12-16 06:42] LABS: APTT 70.9 Sec (23.4-35.0)
[2023-12-16] MEDS: HEPARIN 4000 UNITS IV (07:36)
[2023-12-16] MEDS: LAMICTAL 150 MG PO ×2 (07:50→20:01)
[2023-12-16] MEDS: SENOKOT-S 1 TABLET PO ×2 (07:50→20:02)
[2023-12-16] MEDS: KEFLEX 500 MG PO (07:51)
[2023-12-16] MEDS: VIMPAT 50 MG PO ×2 (07:52→20:03)
[2023-12-16] MEDS: COREG 25 MG PO ×2 (07:52→20:00)
[2023-12-16] MEDS: DESENEX/MITRAZOL/ZEASORB 1 APPLIC TOPICAL ×2 (09:31→20:04)
[2023-12-16] MEDS: APRESOLINE PO ×4 (10:00→22:33)
--- NOTE | 2023-12-16 11:49 | W.PN.NEPH.PH ---
Today's Communication / Plan
-
- initiate nifedipine with hold parameters (hold for systolic <120s)
Assessment/Plan
-
Assessment:
-Hypertension, labile
-CKD 4
-Seizure disorder
-Hypercoagulable state
-Hyperlipidemia
-BPH with urinary retention history( straight cath chronic)
-right renal atrophy
Plan
-Check blood pressures while sitting and on R arm only
-bp remains labile
-Secondary hypertensive workup ordered. This includes ARR, evaluation for pheochromocytoma, renal artery duplex (labs and report pending)
-creatinine up to 2.6 (baseline 2.4)
-Imdur discontinued by cardiology remains on carvedilol hydralazine
-initiate nifedipine 30mg daily
-monitor I/Os if patient continues to retain, will need placement of Rendon
-discussed with patient
-
-
Date of Service: December 16, 2023
CC / HPI / ROS
-
Chief Complaint:
HTN/CKD
History of Present Illness:
bp labile over past 24hr
creatinine at baseline 2.6
initiated nifedipine 30mg daily today
Review of Systems:
Labs
-
Labs:
WBC 9.0 10^3/uL (4.8-10.8) 12/16/23 01:21
RBC 4.40 10^6/uL (4.70-6.10) L 12/16/23 01:21
Hgb 12.2 g/dL (13.0-18.0) L 12/16/23 01:21
Hct 36.1 % (39.0-52.0) L 12/16/23 01:21
Plt Count 293 10^3/uL (130-400) 12/16/23 01:21
Sodium 136 mmol/L (135-145) 12/16/23 01:21
Potassium 4.7 mmol/L (3.5-5.1) 12/16/23 01:21
Chloride 106 mmol/L (98-107) 12/16/23 01:21
Carbon Dioxide 26 mmol/L (22-30) 12/16/23 01:21
BUN 33 mg/dl (9-20) H 12/16/23 01:21
Creatinine 2.6 mg/dL (0.7-1.3) H 12/16/23 01:21
eGFR 23.73 12/16/23 01:21
Glucose 96 mg/dl (70-99) 12/16/23 01:21
Calcium 7.8 mg/dl (8.4-10.2) L 12/16/23 01:21
Phosphorus 4.2 mg/dl (2.5-4.5) 12/14/23 06:42
Albumin 3.6 g/dl (3.5-5.0) 12/04/23 07:48
Physical Exam
-
Vital Signs:
Vital Signs
Temp Pulse Resp BP Pulse Ox
97.4 F 72 16 89/49 96
12/16/23 07:30 12/16/23 10:01 12/16/23 07:30 12/16/23 10:01 12/16/23 07:30
Cardiovascular:: Regular rate and rhythm
Respiratory:: Bilateral: CTA
Lung Excursion:: Normal
Abdomen:: Nontender and Soft
Bowel Sounds:: Normal
Extremity Edema:: None: Bilateral:
Rendon Catheter: No
[2023-12-16] MEDS: PROCARDIA XL (EXTENDED RELEASE) 30 MG PO (12:22)
--- NOTE | 2023-12-16 13:40 | W.PN.HOSP.TC ---
Today's Communication/Plan
-
Duplex - Non diagnostic
If renal OK will discharge pt tomorrow
Case management working on rehab placement.
Assessment / Plan
Assessment / Plan
CVS: S1-S2 normal
Chest: CTA B/L
Abdomen: Soft, NT / Bowel sounds present
Extremities: No edema, redness much better LLE. Only brown discoloration
ACCOUNTS RECEIVABLE BOOKKEEPER AA, following directions
# TME
Resolved.
Cellulitis
Strep Pyogens bacteremia
Meets criteria for sepsis with a fever and source of infection white count
Leukocytosis- resolved
Source left lower extremity cellulitis
Rpt Cx NGTD
ID evaluation appreciated cont ceftriaxone, short course linezolid completed, clindamycin added 12/08 with subsequent improvement 8 days of abx, switched to PO Keflex 500 mg Q8H for 7 more days till 12/18/23.
#Episode hypotension systolic 80's 12/09 following activity with PT and sitting up in chair with associate lethargy
resolved with 500 cc bolus and bedrest
monitor Orthostatic vitals
-Repeat episode 12/10 following morning meds more severe with associate unresponsiveness minimal reaction to sternal rub prompting rapid response
Eventually resolved with trendelenburg and IVF bolus 500 cc x2
Suspect Imdur Side effect
cardio eval appreciated
monitor on telemetry
No further hypotensive episodes 12/11
12/12 Imdur resumed, again patient had hypotensive unresponsive episode 74/45 slowly responded to trendelenburg and 500 cc IVF bolus once
consideration possible post-ictal sz related, unlikely as per neuro, no change in sz medication recommended or EEG
suggested possible delirium related however does not explain severe hypotension as above
Imdur Restarted today with same presentation
Got Coreg and Hydralazine today with holding parameters
#HTN
cont home Coreg with holding parameters
Hydralazine prn, 25mg TID added as per cardio, maintain holding parameters SBP<120
Stopped Imdur and do not resume
# Ulcers are traumatic on the left knee, dorsal middle toes on bilateral feet
Cellulitis of left lower extremity
# Abnormal urinalysis-unclear if this is colonization because of the patient's straight cath versus UTI
Continue antibiotics and follow cultures
# Hyperkalemia-ordered Lokelma, since resolved
# Mild lactic acidosis- resolved
# NAYLA on CKD stage IV
continue calcitriol
Cr improved from peak 3.1 to 2.6 and remains stable
# History of tachybradycardia syndrome with pacemaker placement
# History of seizures-Lamictal 150 twice daily, Vimpat 50 milligram twice daily
He was on Keppra at 1 point it was stopped because it was not working.
contacted Dr. Tobin recently and Vimpat was changed to 50 mg twice a day as of 12/03/2023 evening
Continue
Neurology evaluation appreciated
CT of the head- No Bleed
# Hyperlipidemia-continue statin
# History of DVT, PE with RV thrombus 2010
History of IVC filter placement
INR therapeutic
Coumadin 2 mg today
Stopped Heparin gtt
#Constipation
bowel regimen miralax senna docusate
# Neurogenic bladder with self-catheterization
# History of prostatic hypertrophy with TURP
# Hyperparathyroidism-on calcitriol
# DVT prophylaxis-coumadin
# CODE STATUS-full code
D/W RN
D/W case management
D/W at bed side
D/W
Anticipated Discharge: Within 24 hours
Subjective/Interval History
-
Date of Service: December 16, 2023
Objective Data
-
Labs:
Laboratory Results
12/16/23 12/16/23 12/16/23
01:21 01:21 01:21
PT 23.7 H Cancelled
INR 2.13 Cancelled
APTT 101.8 H
Sodium 136
Potassium 4.7
Chloride 106
Carbon Dioxide 26
BUN 33 H
Creatinine 2.6 H
Glucose 96
Calcium 7.8 L
12/16/23 12/16/23
06:14 12:14
PT
INR
APTT 70.9 H Cancelled
Sodium
Potassium
Chloride
Carbon Dioxide
BUN
Creatinine
Glucose
Calcium
Vital Signs:
Vital Signs
Temp Pulse Resp BP Pulse Ox
97.4 F 76 18 143/88 96
12/16/23 12:21 12/16/23 12:22 12/16/23 12:21 12/16/23 12:22 12/16/23 12:21
I&O
12/15/23 12/16/23 12/17/23
06:59 06:59 06:59
Intake Total 720 / 720 600 / 600
Output Total 1600 / 1600 2300 / 2300 950 / 950
Balance -880 / -880 -1700 / -1700 -950 / -950
--- NOTE | 2023-12-16 14:08 | W.PN.ID1 ---
Date of Service
Date of Service: December 16, 2023
Today's Communication
Sign off.
Assessment / Plan
Invasive group A strep infection (bacteremia)
Severe left lower extremity cellulitis (likely source of bacteremia)
Bacteriuria
-Not clear if infection versus colonization, as patient performs self-catheterization and bacteriuria would not be unexpected.
Leukocytosis - resolved
Renal insufficiency
CAD
HTN
Dyslipidemia
Seizure disorder
DVT/PE
Hx UTI
Urinary retention with chronic self-catheterization
BPH
Recommendations:
D/C further abx.
Continue with lower extremity elevation + Tubigrip + CAILIN.
Little more to offer from an Infectious Disease standpoint.
Will see again at your request.
����������������������������������������������������������
Chief Complaint
-: Cellulitis and Bacteremia
Subjective / Review of Systems
Review of Systems: No Fever
Vital Signs / Physical Exam
Vital Signs
Vital Signs
Temp Pulse Resp BP Pulse Ox
97.4 F 76 18 143/88 96
12/16/23 12:21 12/16/23 12:22 12/16/23 12:21 12/16/23 12:22 12/16/23 12:21
Physical Exam
Constitutional: No Acute Distress, Comfortable and Non-toxic
Cardiovascular: S1/S2; Negative S3/S4
Pulmonary: Non Labored
Gastrointestinal: Non Distended
Extremities: Edema (1+ LE's) and Erythema (mild LLE erythema)
Skin: Warm and Dry; Negative Rash or Jaundice
Objective Data
Lab Data
Lab Results
12/16/23 01:21
12/16/23 01:21
PT 23.7 Sec (11.4-14.6) H 12/16/23 01:21
PT Cancelled 12/16/23 01:21
INR 2.13 02/12/24 01:21
INR Cancelled 12/16/23 01:21
APTT Cancelled 12/16/23 12:14
Estimated Creat Clear 26 ml/min 12/16/23 01:21
Lactic Acid 1.3 mmol/L (0.7-2.0) 12/04/23 16:16
Total Bilirubin 1.2 mg/dl (0.2-1.3) 12/04/23 07:48
AST 24 U/L (17-59) 12/04/23 07:48
ALT 17 U/L (0-50) 12/04/23 07:48
Alkaline Phosphatase 72 U/L (38-126) 12/04/23 07:48
Most recent labs reviewed.
Micro Results:
12/04/23 07:56 Blood Culture - Final
Blood/Venous Streptococcus pyogenes
Gram Stain - Final
12/06/23 06:43 Blood Culture - Final
Blood/Venous No Growth - Final Report
12/05/23 12:43 Blood Culture - Final
Blood/Venous No Growth - Final Report
12/04/23 07:56 Blood Culture - Final
Blood/Venous Streptococcus pyogenes
Streptococcus species
Gram Stain - Final
12/04/23 07:48 Urine Culture - Final
Urine Klebsiella pneumoniae
--- NOTE | 2023-12-16 14:30 | CM ---
Addendum entered by VENTURA Louis 12/16/23 16:48:
Received return call from Marylu who stated that once patient is seen by Physiatry and rehab one more time, she will accept patient. Will send notes as they become available.
Original Note:
Placed a call to Marylu at [facility] in admissions to determine potential acceptance. Had to leave a voice mail message. Will await return call.
Plan: Case management will continue to follow and assist with discharge planning. Hopeful transition to acute rehab or SNF
[2023-12-16] MEDS: COUMADIN 2 MG PO (17:17)
[2023-12-16] MEDS: ASPIR LOW (ENTERIC COATED) 81 MG PO (22:33)
[2023-12-16] MEDS: LIPITOR 40 MG PO (22:33)
[2023-12-17] VITALS (8 sets, daily range): BP systolic 78–145; BP diastolic 49–95; PULSE 80–88; O2SAT 95; BMI 30.4
[2023-12-17 07:17] LABS: INR 2.96; PT 30.8 Sec (11.4-14.6)
[2023-12-17] MEDS: PROCARDIA XL (EXTENDED RELEASE) 30 MG PO (08:31)
[2023-12-17] MEDS: VIMPAT 50 MG PO ×2 (08:32→20:39)
[2023-12-17] MEDS: ROCALTROL 0.5 MCG PO (08:32)
[2023-12-17] MEDS: SENOKOT-S 1 TABLET PO ×2 (08:32→20:39)
[2023-12-17] MEDS: DESENEX/MITRAZOL/ZEASORB 1 APPLIC TOPICAL ×2 (08:32→20:41)
[2023-12-17] MEDS: COREG 25 MG PO (08:32)
[2023-12-17] MEDS: LAMICTAL 150 MG PO ×2 (08:32→20:41)
[2023-12-17 09:55] LABS: Aldosterone, Serum 10.5 ng/dL; Aldosterone/Renin Activ Ratio 52.5 ratio (<=25.0); Renin Activity Results 0.2 ng/mL/hr
[2023-12-17] MEDS: APRESOLINE 25 MG PO (10:11)
[2023-12-17 11:25] LABS: Glucose - Point of Care 112 mg/dl (70-99)
--- NOTE | 2023-12-17 11:42 | W.PN.NEPH.PH ---
Addendum entered and electronically signed by Isabel Harris MD 12/17/23 11:46:
okay for d/c from nephrology perspective
please decrease oral hydralazine to 10mg TID
Original Note:
Today's Communication / Plan
-
- continue to trend blood pressures and Cr
Assessment/Plan
-
Assessment:
-Hypertension, labile
-CKD 4
-Seizure disorder
-Hypercoagulable state
-Hyperlipidemia
-BPH with urinary retention history( straight cath chronic)
-right renal atrophy
Plan
-Check blood pressures while sitting and on R arm only
-bp improved with nifedipine administration, some instances of hypotension noted but patient asx
-Secondary hypertensive workup ordered. This includes ARR, evaluation for pheochromocytoma
- renal artery duplex was difficult to read --> inconclusive
-creatinine up to 2.6 (baseline 2.4)
-Imdur discontinued by cardiology remains on carvedilol hydralazine nifedipine
-monitor I/Os if patient continues to retain, will need placement of Rendon
-discussed with patient
-
-
Date of Service: December 17, 2023
CC / HPI / ROS
-
Chief Complaint:
HTN/CKD
History of Present Illness:
bp labile over past 24hr
creatinine at baseline 2.6
initiated nifedipine 30mg daily on 12/16
Review of Systems:
Labs
-
Labs:
WBC 9.0 10^3/uL (4.8-10.8) 12/16/23 01:21
RBC 4.40 10^6/uL (4.70-6.10) L 12/16/23 01:21
Hgb 12.2 g/dL (13.0-18.0) L 12/16/23 01:21
Hct 36.1 % (39.0-52.0) L 12/16/23 01:21
Plt Count 293 10^3/uL (130-400) 12/16/23 01:21
Sodium 136 mmol/L (135-145) 12/16/23 01:21
Potassium 4.7 mmol/L (3.5-5.1) 12/16/23 01:21
Chloride 106 mmol/L (98-107) 12/16/23 01:21
Carbon Dioxide 26 mmol/L (22-30) 12/16/23 01:21
BUN 33 mg/dl (9-20) H 12/16/23 01:21
Creatinine 2.6 mg/dL (0.7-1.3) H 12/16/23 01:21
eGFR 23.73 12/16/23 01:21
Glucose 96 mg/dl (70-99) 12/16/23 01:21
Calcium 7.8 mg/dl (8.4-10.2) L 12/16/23 01:21
Phosphorus 4.2 mg/dl (2.5-4.5) 12/14/23 06:42
Albumin 3.6 g/dl (3.5-5.0) 12/04/23 07:48
Physical Exam
-
Vital Signs:
Vital Signs
Temp Pulse Resp BP Pulse Ox
97.9 F 74 18 105/49 92
12/17/23 11:29 12/17/23 11:29 12/17/23 11:29 12/17/23 11:29 12/17/23 11:29
Cardiovascular:: Regular rate and rhythm
Respiratory:: Bilateral: CTA
Lung Excursion:: Normal
Abdomen:: Nontender and Soft
Bowel Sounds:: Normal
Extremity Edema:: None: Bilateral: (wrapped)
Rendon Catheter: No
--- NOTE | 2023-12-17 13:19 | W.PN.HOSP.TC ---
Today's Communication/Plan
-
Blood pressure drop with physical therapy
Watch another day hopefully blood pressure will be stable with hydralazine being decreased
Needs rehab
Assessment / Plan
Assessment / Plan
CVS: S1-S2 normal
Chest: CTA B/L
Abdomen: Soft, NT / Bowel sounds present
Extremities: No edema, redness much better LLE. Only brown discoloration
NIGHT MONITOR AA, following directions
# TME
Resolved.
Cellulitis
Strep Pyogens bacteremia
Meets criteria for sepsis with a fever and source of infection white count
Leukocytosis- resolved
Source left lower extremity cellulitis
Rpt Cx NGTD
ID evaluation appreciated cont ceftriaxone, short course linezolid completed, clindamycin added 12/08 with subsequent improvement 8 days of abx, switched to PO Keflex 500 mg Q8H for 7 more days till 12/18/23.
#Episode hypotension systolic 80's 12/09 following activity with PT and sitting up in chair with associate lethargy
resolved with 500 cc bolus and bedrest
monitor Orthostatic vitals
-Repeat episode 12/10 following morning meds more severe with associate unresponsiveness minimal reaction to sternal rub prompting rapid response
Eventually resolved with trendelenburg and IVF bolus 500 cc x2
Suspect Imdur Side effect
cardio eval appreciated
monitor on telemetry
No further hypotensive episodes 12/11
12/12 Imdur resumed, again patient had hypotensive unresponsive episode 74/45 slowly responded to trendelenburg and 500 cc IVF bolus once
consideration possible post-ictal sz related, unlikely as per neuro, no change in sz medication recommended or EEG
suggested possible delirium related however does not explain severe hypotension as above
Imdur Restarted with same presentation
#HTN
cont home Coreg with holding parameters
Hydralazine prn, 25mg TID added as per cardio, maintain holding parameters SBP<120
Orthostatic hypotension makes it difficult to treat supine hypertension
Started on nifedipine. Decreasing hydralazine
Stopped Imdur and do not resume
# Ulcers are traumatic on the left knee, dorsal middle toes on bilateral feet
Cellulitis of left lower extremity
# Abnormal urinalysis-unclear if this is colonization because of the patient's straight cath versus UTI
Continue antibiotics and follow cultures
# Hyperkalemia-ordered Lokelma, since resolved
# Mild lactic acidosis- resolved
# NAYLA on CKD stage IV
continue calcitriol
Cr improved from peak 3.1 to 2.6 and remains stable
# History of tachybradycardia syndrome with pacemaker placement
# History of seizures-Lamictal 150 twice daily, Vimpat 50 milligram twice daily
He was on Keppra at 1 point it was stopped because it was not working.
contacted Dr. Tobin recently and Vimpat was changed to 50 mg twice a day as of 12/03/2023 evening
Continue
Neurology evaluation appreciated
CT of the head- No Bleed
# Hyperlipidemia-continue statin
# History of DVT, PE with RV thrombus 2010
History of IVC filter placement
INR therapeutic
Coumadin 2 mg today
Stopped Heparin gtt
#Constipation
bowel regimen miralax senna docusate
# Neurogenic bladder with self-catheterization
# History of prostatic hypertrophy with TURP
# Hyperparathyroidism-on calcitriol
# DVT prophylaxis-Coumadin
# CODE STATUS-full code
D/W RN
Discussed with nephrology
Anticipated Discharge: Within 24 hours
Subjective/Interval History
-
Date of Service: December 17, 2023
Objective Data
-
Labs:
Laboratory Results
12/17/23
06:34
PT 30.8 H
INR 2.96
Vital Signs:
Vital Signs
Temp Pulse Resp BP Pulse Ox
97.9 F 74 18 105/49 92
12/17/23 11:29 12/17/23 11:29 12/17/23 11:29 12/17/23 11:29 12/17/23 11:29
I&O
12/16/23 12/17/23 12/18/23
06:59 06:59 06:59
Intake Total 600 / 600 240 / 240
Output Total 2300 / 2300 1870 / 1870
Balance -1700 / -1700 -1630 / -1630
[2023-12-17] MEDS: COUMADIN 1 MG PO (17:12)
[2023-12-17] MEDS: APRESOLINE 10 MG PO ×2 (17:13→21:58)
[2023-12-17] MEDS: COREG PO (20:12)
[2023-12-17] MEDS: ASPIR LOW (ENTERIC COATED) 81 MG PO (21:57)
[2023-12-17] MEDS: LIPITOR 40 MG PO (21:57)
[2023-12-18] VITALS (9 sets, daily range): BP systolic 95–179; BP diastolic 50–94; PULSE 76–81; O2SAT 96; BMI 30.3
[2023-12-18 07:11] LABS: INR 2.59; PT 27.6 Sec (11.4-14.6)
[2023-12-18 08:05] LABS: Blood Urea Nitrogen 32 mg/dl (9-20); Calcium 8.5 mg/dl (8.4-10.2); Carbon Dioxide 26 mmol/L (22-30); Chloride 106 mmol/L (98-107); Estimated Creatinine Clearance 23 ml/min; Glucose 103 mg/dl (70-99); Sodium 136 mmol/L (135-145); eGFR 20.81
[2023-12-18 08:50] LABS: Potassium 5.1 mmol/L (3.5-5.1)
[2023-12-18] MEDS: LAMICTAL 150 MG PO ×2 (09:15→20:09)
[2023-12-18] MEDS: COREG 25 MG PO (09:15)
[2023-12-18] MEDS: PROCARDIA XL (EXTENDED RELEASE) 30 MG PO (09:15)
[2023-12-18] MEDS: SENOKOT-S 1 TABLET PO ×2 (09:15→20:09)
[2023-12-18] MEDS: VIMPAT 50 MG PO ×2 (09:16→20:09)
--- NOTE | 2023-12-18 09:49 | CM ---
Reviewed chart, spoke with Marylu in admissions at [facility] this am who confirmed acceptance for patient upon medical clearance.
Plan: Case management will continue to follow and assist with discharge planning. Transfer to [facility] when patient is medically stable.
--- NOTE | 2023-12-18 10:01 | W.PN.NEPH.PH ---
Today's Communication / Plan
-
place gunn to see if creatinine improves given ongoing urinary retention
Assessment/Plan
-
Assessment:
-Hypertension, labile
-CKD 4
-Seizure disorder
-Hypercoagulable state
-Hyperlipidemia
-BPH with urinary retention history( straight cath chronic)
-right renal atrophy
Plan
-Check blood pressures while sitting and on R arm only
-bp improved with nifedipine administration, some instances of hypotension noted but patient asx
-Secondary hypertensive workup ordered. This includes ARR, evaluation for pheochromocytoma
- renal artery duplex was difficult to read --> inconclusive
-creatinine up to 2.6 (baseline 2.4)
-Imdur discontinued by cardiology remains on carvedilol hydralazine nifedipine
-monitor I/Os if patient continues to retain, will need placement of Gunn
-aldosterone renin ratio elevated to 52,unfortunately K always elevated
-renal artery duplex negative for renal artery stenosis
-
-
-
Date of Service: December 18, 2023
CC / HPI / ROS
-
Chief Complaint:
HTN/CKD
History of Present Illness:
bp labile over past 24hr
creatinine up to 2.9
initiated nifedipine 30mg daily on 12/16
Review of Systems:
no chest pain or sob
chronic urinary retention with self cath
Labs
-
Labs:
WBC 9.0 10^3/uL (4.8-10.8) 12/16/23 01:21
RBC 4.40 10^6/uL (4.70-6.10) L 12/16/23 01:21
Hgb 12.2 g/dL (13.0-18.0) L 12/16/23 01:21
Hct 36.1 % (39.0-52.0) L 12/16/23 01:21
Plt Count 293 10^3/uL (130-400) 12/16/23 01:21
Sodium 136 mmol/L (135-145) 12/18/23 06:38
Potassium 5.1 mmol/L (3.5-5.1) 12/18/23 06:38
Chloride 106 mmol/L (98-107) 12/18/23 06:38
Carbon Dioxide 26 mmol/L (22-30) 12/18/23 06:38
BUN 32 mg/dl (9-20) H 12/18/23 06:38
Creatinine 2.9 mg/dL (0.7-1.3) H 12/18/23 06:38
eGFR 20.81 12/18/23 06:38
Glucose 103 mg/dl (70-99) H 12/18/23 06:38
Calcium 8.5 mg/dl (8.4-10.2) 12/18/23 06:38
Phosphorus 4.2 mg/dl (2.5-4.5) 12/14/23 06:42
Albumin 3.6 g/dl (3.5-5.0) 12/04/23 07:48
Physical Exam
-
Vital Signs:
Vital Signs
Temp Pulse Resp BP Pulse Ox
98.2 F 100 17 132/76 96
12/18/23 07:59 12/18/23 09:15 12/18/23 07:59 12/18/23 09:15 12/18/23 07:59
Cardiovascular:: Regular rate and rhythm
Respiratory:: Bilateral: Coarse
Lung Excursion:: Normal
Abdomen:: Nontender
Bowel Sounds:: Normal
Extremity Edema:: None: Bilateral:
Gunn Catheter: No
[2023-12-18] MEDS: APRESOLINE PO ×3 (10:22→21:19)
--- NOTE | 2023-12-18 13:48 | W.PN.HOSP.TC ---
Today's Communication/Plan
-
Please make sure that patient gets catheterized every 6 hours or as needed if he feels he needs it.
If creatinine trending down will discharge to rehab tomorrow
Assessment / Plan
Assessment / Plan
CVS: S1-S2 normal
Chest: CTA B/L
Abdomen: Soft, NT / Bowel sounds present
Extremities: No edema, redness much better LLE. Only brown discoloration
SAND TECHNICIAN Awake alert, following directions
# TME
Resolved.
Cellulitis
Strep Pyogens bacteremia
Meets criteria for sepsis with a fever and source of infection white count
Leukocytosis- resolved
Source left lower extremity cellulitis
Rpt Cx NGTD
ID evaluation appreciated cont ceftriaxone, short course linezolid completed, clindamycin added 12/08 with subsequent improvement 8 days of abx, switched to PO Keflex 500 mg Q8H for 7 more days till 12/18/23.
#Episode hypotension systolic 80's 12/09 following activity with PT and sitting up in chair with associate lethargy
resolved with 500 cc bolus and bedrest
monitor Orthostatic vitals
-Repeat episode 12/10 following morning meds more severe with associate unresponsiveness minimal reaction to sternal rub prompting rapid response
Eventually resolved with trendelenburg and IVF bolus 500 cc x2
Suspect Imdur Side effect
cardio eval appreciated
monitor on telemetry
No further hypotensive episodes 12/11
12/12 Imdur resumed, again patient had hypotensive unresponsive episode 74/45 slowly responded to trendelenburg and 500 cc IVF bolus once
consideration possible post-ictal sz related, unlikely as per neuro, no change in sz medication recommended or EEG
suggested possible delirium related however does not explain severe hypotension as above
Imdur Restarted with same presentation
Stopped
#HTN
cont home Coreg with holding parameters
Hydralazine prn, 25mg TID added as per cardio, maintain holding parameters SBP<120
Orthostatic hypotension makes it difficult to treat supine hypertension
Started on nifedipine. Decreasing hydralazine
Stopped Imdur and do not resume
# Ulcers are traumatic on the left knee, dorsal middle toes on bilateral feet
Cellulitis of left lower extremity
# Abnormal urinalysis-unclear if this is colonization because of the patient's straight cath versus UTI
Continue antibiotics and follow cultures
# Hyperkalemia-ordered Lokelma, since resolved
# Mild lactic acidosis- resolved
# NAYLA on CKD stage IV
continue calcitriol
Cr improved from peak 3.1 to 2.6 then upto 2.9
# History of tachybradycardia syndrome with pacemaker placement
# History of seizures-Lamictal 150 twice daily, Vimpat 50 milligram twice daily
He was on Keppra at 1 point it was stopped because it was not working.
contacted Dr. Tobin recently and Vimpat was changed to 50 mg twice a day as of 12/03/2023 evening
Continue
Neurology evaluation appreciated
CT of the head- No Bleed
# Hyperlipidemia-continue statin
# History of DVT, PE with RV thrombus 2010
History of IVC filter placement
INR therapeutic
#Constipation
bowel regimen miralax senna docusate
# Neurogenic bladder with self-catheterization
# History of prostatic hypertrophy with TURP
# Hyperparathyroidism-on calcitriol
# DVT prophylaxis-Coumadin
# CODE STATUS-full code
D/W RN
Discussed with nephrology
Anticipated Discharge: Within 24 hours
Subjective/Interval History
-
Date of Service: December 18, 2023
Objective Data
-
Labs:
Laboratory Results
12/18/23
06:38
PT 27.6 H
INR 2.59
Sodium 136
Potassium 5.1
Chloride 106
Carbon Dioxide 26
BUN 32 H
Creatinine 2.9 H
Glucose 103 H
Calcium 8.5
Vital Signs:
Vital Signs
Temp Pulse Resp BP Pulse Ox
98.1 F 70 18 104/50 98
12/18/23 12:11 12/18/23 12:11 12/18/23 12:11 12/18/23 12:11 12/18/23 12:11
I&O
12/17/23 12/18/23 12/19/23
06:59 06:59 06:59
Intake Total 240 / 240 1440 / 1440
Output Total 1870 / 1870 1700 / 1700 500 / 500
Balance -1630 / -1630 -260 / -260 -500 / -500
[2023-12-18] MEDS: DESENEX/MITRAZOL/ZEASORB TOPICAL (15:47)
[2023-12-18] MEDS: COUMADIN 2 MG PO (17:13)
[2023-12-18] MEDS: COREG PO (20:10)
[2023-12-18] MEDS: DESENEX/MITRAZOL/ZEASORB 1 APPLIC TOPICAL (20:11)
[2023-12-18] MEDS: ASPIR LOW (ENTERIC COATED) 81 MG PO (21:19)
[2023-12-18] MEDS: LIPITOR 40 MG PO (21:19)
[2023-12-19 04:00] VITALS: BP 145/75
[2023-12-19 05:35] VITALS: BMI 30.4
[2023-12-19 06:46] LABS: INR 3.14; PT 32.3 Sec (11.4-14.6)
[2023-12-19 07:07] LABS: Blood Urea Nitrogen 39 mg/dl (9-20); Calcium 8.4 mg/dl (8.4-10.2); Carbon Dioxide 27 mmol/L (22-30); Chloride 102 mmol/L (98-107); Estimated Creatinine Clearance 22 ml/min; Glucose 95 mg/dl (70-99); Potassium 5.2 mmol/L (3.5-5.1); Sodium 138 mmol/L (135-145); eGFR 19.98
[2023-12-19 07:39] VITALS: BP 129/88
[2023-12-19] MEDS: ROCALTROL 0.5 MCG PO (08:56)
[2023-12-19] MEDS: PROCARDIA XL (EXTENDED RELEASE) 30 MG PO (08:57)
[2023-12-19] MEDS: COREG 25 MG PO ×2 (08:57→20:22)
[2023-12-19] MEDS: SENOKOT-S 1 TABLET PO ×2 (08:57→20:21)
[2023-12-19] MEDS: LAMICTAL 150 MG PO ×2 (08:57→20:21)
[2023-12-19] MEDS: DESENEX/MITRAZOL/ZEASORB 1 APPLIC TOPICAL ×2 (08:59→20:22)
[2023-12-19] MEDS: VIMPAT 50 MG PO ×2 (08:59→20:22)
[2023-12-19] MEDS: APRESOLINE PO (09:03)
[2023-12-19 11:40] VITALS: BP 124/80
--- NOTE | 2023-12-19 13:36 | W.PN.HOSP.TC ---
Today's Communication/Plan
-
Rendon
Hold coumadin tonight
Labs in am
Assessment / Plan
Assessment / Plan
CVS: S1-S2 normal
Chest: CTA B/L
Abdomen: Soft, NT / Bowel sounds present
Extremities: No edema, redness much better LLE. Only brown discoloration
CT SCAN TECHNICIAN Awake alert, following directions
# TME
Resolved.
Cellulitis
Strep Pyogens bacteremia
Meets criteria for sepsis with a fever and source of infection white count
Leukocytosis- resolved
Source left lower extremity cellulitis
Rpt Cx NGTD
ID evaluation appreciated cont ceftriaxone, short course linezolid completed, clindamycin added 12/08 with subsequent improvement 8 days of abx, switched to PO Keflex 500 mg Q8H for 7 till 12/18/23.
#Episode hypotension systolic 80's 12/09 following activity with PT and sitting up in chair with associate lethargy
resolved with 500 cc bolus and bedrest
monitor Orthostatic vitals
-Repeat episode 12/10 following morning meds more severe with associate unresponsiveness minimal reaction to sternal rub prompting rapid response
Eventually resolved with trendelenburg and IVF bolus 500 cc x2
Suspect Imdur Side effect
cardio eval appreciated
monitor on telemetry
No further hypotensive episodes 12/11
12/12 Imdur resumed, again patient had hypotensive unresponsive episode 74/45 slowly responded to trendelenburg and 500 cc IVF bolus once
consideration possible post-ictal sz related, unlikely as per neuro, no change in sz medication recommended or EEG
suggested possible delirium related however does not explain severe hypotension as above
Imdur Restarted with same presentation -Stopped
# NAYLA on CKD stage IV
continue calcitriol
Cr improved from peak 3.1 to 2.5 then upto 3.0
Rendon placed per D/W Renal
#HTN
cont home Coreg with holding parameters
Hydralazine prn,
Started on nifedipine. Stop PO Hydralazine
Stopped Imdur and do not resume
# Ulcers are traumatic on the left knee, dorsal middle toes on bilateral feet
Cellulitis of left lower extremity
# Abnormal urinalysis-unclear if this is colonization because of the patient's straight cath versus UTI
# Hyperkalemia-ordered Lokelma, since resolved
# Mild lactic acidosis- resolved
# History of tachybradycardia syndrome with pacemaker placement
# History of seizures-Lamictal 150 twice daily, Vimpat 50 milligram twice daily
He was on Keppra at 1 point it was stopped because it was not working.
contacted Dr. Tobin recently and Vimpat was changed to 50 mg twice a day as of 12/03/2023 evening
Continue
Neurology evaluation appreciated
CT of the head- No Bleed
# Hyperlipidemia-continue statin
# History of DVT, PE with RV thrombus 2010
History of IVC filter placement
INR therapeutic
Hold Coumadin 12/19/23
#Constipation
bowel regimen miralax senna docusate
# Neurogenic bladder with self-catheterization
# History of prostatic hypertrophy with TURP
# Hyperparathyroidism-on calcitriol
# DVT prophylaxis-Coumadin
# CODE STATUS-full code
D/W RN
D/W at bed side
Discussed with nephrology
Anticipated Discharge: Within 24 hours
Subjective/Interval History
-
Date of Service: December 19, 2023
Objective Data
-
Labs:
Laboratory Results
12/19/23
06:13
PT 32.3 H
INR 3.14
Sodium 138
Potassium 5.2 H
Chloride 102
Carbon Dioxide 27
BUN 39 H
Creatinine 3.0 H
Glucose 95
Calcium 8.4
Vital Signs:
Vital Signs
Temp Pulse Resp BP Pulse Ox
98 F 84 16 124/80 97
12/19/23 11:40 12/19/23 11:40 12/19/23 11:40 12/19/23 11:40 12/19/23 11:40
I&O
12/18/23 12/19/23 12/20/23
06:59 06:59 06:59
Intake Total 1440 / 1440 840 / 840
Output Total 1700 / 1700 1350 / 1350
Balance -260 / -260 -510 / -510
--- NOTE | 2023-12-19 14:54 | W.PN.NEPH.PH ---
Today's Communication / Plan
-
Rendon catheter placed
Follow BMP
Assessment/Plan
-
Assessment:
-Hypertension, labile
-CKD 4
-Seizure disorder
-Hypercoagulable state
-Hyperlipidemia
-BPH with urinary retention history( straight cath chronic)
-right renal atrophy
Plan
-Check blood pressures while sitting and on R arm only
-bp improved with nifedipine administration, some instances of hypotension noted but patient asx
-Remains on carvedilol
-Secondary hypertensive workup ordered. This includes ARR, evaluation for pheochromocytoma
- renal artery duplex was difficult to read --> inconclusive
-creatinine up to 3 (baseline 2.4) , Rendon catheter placed today to rule out obstructive process
-Imdur discontinued by cardiology remains on carvedilol hydralazine nifedipine
-aldosterone renin ratio elevated to 52,unfortunately K always elevated
-renal artery duplex negative for renal artery stenosis
-
-
-
Date of Service: December 19, 2023
CC / HPI / ROS
-
Chief Complaint:
HTN/CKD
History of Present Illness:
bp labile over past 24hr
creatinine up to 3
initiated nifedipine 30mg daily on 12/16
Review of Systems:
no chest pain or sob
chronic urinary retention with self cath
Labs
-
Labs:
WBC 9.0 10^3/uL (4.8-10.8) 12/16/23 01:21
RBC 4.40 10^6/uL (4.70-6.10) L 12/16/23 01:21
Hgb 12.2 g/dL (13.0-18.0) L 12/16/23 01:21
Hct 36.1 % (39.0-52.0) L 12/16/23 01:21
Plt Count 293 10^3/uL (130-400) 12/16/23 01:21
Sodium 138 mmol/L (135-145) 12/19/23 06:13
Potassium 5.2 mmol/L (3.5-5.1) H 12/19/23 06:13
Chloride 102 mmol/L (98-107) 12/19/23 06:13
Carbon Dioxide 27 mmol/L (22-30) 12/19/23 06:13
BUN 39 mg/dl (9-20) H 12/19/23 06:13
Creatinine 3.0 mg/dL (0.7-1.3) H 12/19/23 06:13
eGFR 19.98 12/19/23 06:13
Glucose 95 mg/dl (70-99) 12/19/23 06:13
Calcium 8.4 mg/dl (8.4-10.2) 12/19/23 06:13
Phosphorus 4.2 mg/dl (2.5-4.5) 12/14/23 06:42
Albumin 3.6 g/dl (3.5-5.0) 12/04/23 07:48
Physical Exam
-
Vital Signs:
Vital Signs
Temp Pulse Resp BP Pulse Ox
98 F 84 16 124/80 97
12/19/23 11:40 12/19/23 11:40 12/19/23 11:40 12/19/23 11:40 12/19/23 11:40
Cardiovascular:: Regular rate and rhythm
Respiratory:: Bilateral: Coarse
Lung Excursion:: Normal
Abdomen:: Nontender and Soft
Bowel Sounds:: Normal
Extremity Edema:: +1: Bilateral:
Rendon Catheter: Yes
[2023-12-19 16:09] VITALS: BP 123/67
[2023-12-19] MEDS: LIPITOR 40 MG PO (21:14)
[2023-12-19] MEDS: ASPIR LOW (ENTERIC COATED) 81 MG PO (21:14)
[2023-12-19 23:25] VITALS: BP 112/56; BP 118/65; PULSE 72; PULSE 73
[2023-12-20 00:34] VITALS: BMI 30.4
[2023-12-20 06:41] LABS: Hematocrit 41.8 % (39.0-52.0); Hemoglobin 13.2 g/dL (13.0-18.0); Mean Corp Hgb Conc. 31.6 g/dL (33.0-37.0); Mean Corpuscular Hgb 26.8 pg (27.0-31.0); Mean Corpuscular Volume 84.8 fL (80.0-94.0); Mean Platelet Volume 8.6 fL (7.4-10.4); Platelet Count 359 10^3/uL (130-400); Red Blood Cell Count 4.93 10^6/uL (4.70-6.10); Red Cell Dist. Width 15.5 % (11.5-14.5); White Blood Cell Count 8.7 10^3/uL (4.8-10.8)
[2023-12-20 06:56] LABS: PT 29.1 Sec (11.4-14.6)
[2023-12-20 07:00] VITALS: BP 109/94
[2023-12-20 07:07] LABS: Blood Urea Nitrogen 43 mg/dl (9-20); Calcium 8.8 mg/dl (8.4-10.2); Carbon Dioxide 29 mmol/L (22-30); Chloride 102 mmol/L (98-107); Estimated Creatinine Clearance 22 ml/min; Glucose 109 mg/dl (70-99); Potassium 5.4 mmol/L (3.5-5.1); Sodium 140 mmol/L (135-145); eGFR 19.21
[2023-12-20] MEDS: VIMPAT 50 MG PO ×2 (07:44→19:21)
[2023-12-20] MEDS: SENOKOT-S 1 TABLET PO ×2 (07:44→19:21)
[2023-12-20] MEDS: LAMICTAL 150 MG PO ×2 (07:44→19:20)
[2023-12-20] MEDS: PROCARDIA XL (EXTENDED RELEASE) 30 MG PO (07:54)
[2023-12-20] MEDS: COREG PO (07:54)
[2023-12-20] MEDS: DESENEX/MITRAZOL/ZEASORB 1 APPLIC TOPICAL ×2 (07:54→19:21)
[2023-12-20] MEDS: LOKELMA 5 GRAM PO (10:01)
--- NOTE | 2023-12-20 12:20 | W.PN.HOSP.TC ---
Today's Communication/Plan
-
Has a Rendon now
If patient 's creat coming down will discharge
U/A and urine eosinophil pending.
Assessment / Plan
Assessment / Plan
CVS: S1-S2 normal
Chest: CTA B/L
Abdomen: Soft, NT / Bowel sounds present
Extremities: No edema, redness much better LLE. Only brown discoloration
MID LEVEL PRACTITIONER Awake alert, following directions
# TME
Resolved.
Cellulitis
Strep Pyogens bacteremia
Meets criteria for sepsis with a fever and source of infection white count
Leukocytosis- resolved
Source left lower extremity cellulitis
Rpt Cx NGTD
ID evaluation appreciated cont ceftriaxone, short course linezolid completed, clindamycin added 12/08 with subsequent improvement 8 days of abx, switched to PO Keflex 500 mg Q8H for 7 till 12/18/23.
#Episode hypotension systolic 80's 12/09 following activity with PT and sitting up in chair with associate lethargy
resolved with 500 cc bolus and bedrest
monitor Orthostatic vitals
Repeat episode 12/10 following morning meds more severe with associate unresponsiveness minimal reaction to sternal rub prompting rapid response
Eventually resolved with trendelenburg and IVF bolus 500 cc x2
Suspect Imdur Side effect
cardio eval appreciated
monitor on telemetry
No further hypotensive episodes 12/11
12/12 Imdur resumed, again patient had hypotensive unresponsive episode 74/45 slowly responded to trendelenburg and 500 cc IVF bolus once
consideration possible post-ictal sz related, unlikely as per neuro, no change in sz medication recommended or EEG
suggested possible delirium related however does not explain severe hypotension as above
Imdur Restarted with same presentation -Stopped
# NAYLA on CKD stage IV
continue calcitriol
Cr improved from peak 3.1 to 2.5 then upto 3.0
Rendon placed per D/W Renal
#HTN
Cont home Coreg with holding parameters
Hydralazine prn,
Started on nifedipine. Stopped PO Hydralazine
Stopped Imdur and do not resume
# Ulcers are traumatic on the left knee, dorsal middle toes on bilateral feet
Cellulitis of left lower extremity
# Abnormal urinalysis-unclear if this is colonization because of the patient's straight cath versus UTI
# Hyperkalemia-ordered Lokelma, since resolved
# Mild lactic acidosis- resolved
# History of tachybradycardia syndrome with pacemaker placement
# History of seizures-Lamictal 150 twice daily, Vimpat 50 milligram twice daily
He was on Keppra at 1 point it was stopped because it was not working.
contacted Dr. Tobin recently and Vimpat was changed to 50 mg twice a day as of 12/03/2023 evening
Continue
Neurology evaluation appreciated
CT of the head- No Bleed
# Hyperlipidemia-continue statin
# History of DVT, PE with RV thrombus 2010
History of IVC filter placement
INR therapeutic
Coumadin 1 mg
#Constipation
bowel regimen miralax senna docusate
# Neurogenic bladder with self-catheterization
# History of prostatic hypertrophy with TURP
# Hyperparathyroidism-on calcitriol
# DVT prophylaxis-Coumadin
# CODE STATUS-full code
D/W RN
D/W at bed side
Discussed with nephrology
Anticipated Discharge: Within 24 hours
Subjective/Interval History
-
Date of Service: December 20, 2023
Objective Data
-
Labs:
Laboratory Results
12/20/23
06:28
WBC 8.7
Hgb 13.2
Hct 41.8
Plt Count 359 D
PT 29.1 H
INR 2.70
Sodium 140
Potassium 5.4 H
Chloride 102
Carbon Dioxide 29
BUN 43 H
Creatinine 3.1 H
Glucose 109 H
Calcium 8.8
Vital Signs:
Vital Signs
Temp Pulse Resp BP Pulse Ox
97.8 F 82 16 109/94 96
12/20/23 07:00 12/20/23 07:54 12/20/23 07:00 12/20/23 07:54 12/20/23 07:00
I&O
12/19/23 12/20/23 12/21/23
06:59 06:59 06:59
Intake Total 840 / 840 1020 / 1020
Output Total 1350 / 1350 1275 / 1275
Balance -510 / -510 -255 / -255
[2023-12-20 12:51] LABS: Urine Albumin Trace (Neg - Trace); Urine Bilirubin Negative (Negative); Urine Character Clear (Clear); Urine Color Yellow; Urine Glucose Negative (Negative); Urine Ketone Negative (Negative); Urine Leukocyte 1+ (Negative); Urine Nitrite Negative (Negative); Urine Occult Blood Trace (Negative); Urine Urobilinogen Negative (Neg - 1+)
--- NOTE | 2023-12-20 12:58 | CM ---
Spoke with attending who stated that patient will most likely be cleared for discharge tomorrow 12/21. Placed a call to Marylu in admissions who stated that they can accept patient tomorrow, # for report [phone] and fax# [phone].
Plan: Case management will continue to follow and assist with discharge planning. Miguel when stable.
[2023-12-20 13:05] LABS: Urine Red Blood Cell 0-2 /HPF (0-2); Urine Squamous Cell 0-2 /LPF (Few)
[2023-12-20 13:06] LABS: Urine Bacteria Few (Negative)
[2023-12-20 13:17] VITALS: BP 112/56; BP 116/75; BP 136/85; PULSE 77; O2SAT 97
[2023-12-20 13:50] LABS: Body Fluid for Eosinophils No Eosinophils seen
--- NOTE | 2023-12-20 14:09 | W.PN.NEPH.PH ---
Today's Communication / Plan
-
- continue to trend BMP
- lokelma
- pending UA and urine eos
Assessment/Plan
-
Assessment:
-Hypertension, labile
-CKD 4
-Seizure disorder
-Hypercoagulable state
-Hyperlipidemia
-BPH with urinary retention history( straight cath chronic)
-right renal atrophy
Plan
-Check blood pressures while sitting and on R arm only
-bp improved with nifedipine administration, some instances of hypotension noted but overall patient doing well
-Remains on carvedilol
-Secondary hypertensive workup ordered. This includes ARR, evaluation for pheochromocytoma
- renal artery duplex was difficult to read --> inconclusive
- ARR elevated but K always elevated, unlikely to be hyperaldo
-creatinine up to 3.1 (baseline 2.4) , Rendon catheter in place. Making excellent urine, hopefully this is just ATN from hemodynamic shifts
-Imdur discontinued by cardiology remains on carvedilol, nifedipine
- noted to have worsening hyperK --> given one dose lokelma on 12/20
-
-
-
Date of Service: December 20, 2023
CC / HPI / ROS
-
Chief Complaint:
HTN/CKD
History of Present Illness:
bp labile over past 24hr
creatinine up to 3.1
initiated nifedipine 30mg daily on 12/16
Review of Systems:
no chest pain or sob
chronic urinary retention with self cath
Labs
-
Labs:
WBC 8.7 10^3/uL (4.8-10.8) 12/20/23 06:28
RBC 4.93 10^6/uL (4.70-6.10) 12/20/23 06:28
Hgb 13.2 g/dL (13.0-18.0) 12/20/23 06:28
Hct 41.8 % (39.0-52.0) 12/20/23 06:28
Plt Count 359 10^3/uL (130-400) D 12/20/23 06:28
Sodium 140 mmol/L (135-145) 12/20/23 06:28
Potassium 5.4 mmol/L (3.5-5.1) H 12/20/23 06:28
Chloride 102 mmol/L (98-107) 12/20/23 06:28
Carbon Dioxide 29 mmol/L (22-30) 12/20/23 06:28
BUN 43 mg/dl (9-20) H 12/20/23 06:28
Creatinine 3.1 mg/dL (0.7-1.3) H 12/20/23 06:28
eGFR 19.21 12/20/23 06:28
Glucose 109 mg/dl (70-99) H 12/20/23 06:28
Calcium 8.8 mg/dl (8.4-10.2) 12/20/23 06:28
Phosphorus 4.2 mg/dl (2.5-4.5) 12/14/23 06:42
Albumin 3.6 g/dl (3.5-5.0) 12/04/23 07:48
Physical Exam
-
Vital Signs:
Vital Signs
Temp Pulse Resp BP Pulse Ox
97.8 F 82 16 109/94 96
12/20/23 07:00 12/20/23 07:54 12/20/23 07:00 12/20/23 07:54 12/20/23 07:00
Cardiovascular:: Regular rate and rhythm
Respiratory:: Bilateral: CTA
Lung Excursion:: Normal
Abdomen:: Distended, Nontender and Soft
Bowel Sounds:: Normal
Extremity Edema:: None: Bilateral:
Rendon Catheter: Yes
[2023-12-20 15:00] VITALS: BP 120/63
[2023-12-20] MEDS: COUMADIN 1 MG PO (17:24)
[2023-12-20] MEDS: COREG 25 MG PO (19:21)
[2023-12-20] MEDS: ASPIR LOW (ENTERIC COATED) 81 MG PO (21:04)
[2023-12-20] MEDS: LIPITOR 40 MG PO (21:04)
[2023-12-20 23:08] VITALS: BP 132/62
[2023-12-21 06:00] VITALS: BMI 29.9
[2023-12-21 07:00] VITALS: BP 153/77
[2023-12-21] MEDS: ROCALTROL 0.5 MCG PO (07:28)
[2023-12-21] MEDS: VIMPAT 50 MG PO (07:28)
[2023-12-21] MEDS: SENOKOT-S 1 TABLET PO (07:29)
[2023-12-21] MEDS: LAMICTAL 150 MG PO (07:29)
[2023-12-21] MEDS: DESENEX/MITRAZOL/ZEASORB 1 APPLIC TOPICAL (07:29)
[2023-12-21] MEDS: COREG 25 MG PO (07:29)
[2023-12-21] MEDS: PROCARDIA XL (EXTENDED RELEASE) 30 MG PO (07:29)
[2023-12-21 08:21] LABS: INR 1.93; PT 21.9 Sec (11.4-14.6)
[2023-12-21 08:42] LABS: Blood Urea Nitrogen 38 mg/dl (9-20); Calcium 8.2 mg/dl (8.4-10.2); Carbon Dioxide 27 mmol/L (22-30); Chloride 104 mmol/L (98-107); Estimated Creatinine Clearance 21 ml/min; Glucose 91 mg/dl (70-99); Potassium 4.9 mmol/L (3.5-5.1); Sodium 136 mmol/L (135-145); eGFR 20.81
[2023-12-21 11:14] VITALS: BP 106/62; BP 95/59; PULSE 67; PULSE 69
--- NOTE | 2023-12-21 11:28 | W.PN.NEPH.PH ---
Today's Communication / Plan
-
- Cr improved
- dispo planning
Assessment/Plan
-
Assessment:
-Hypertension, labile
-CKD 4
-Seizure disorder
-Hypercoagulable state
-Hyperlipidemia
-BPH with urinary retention history( straight cath chronic)
-right renal atrophy
Plan
-Check blood pressures while sitting and on R arm only
-bp improved with nifedipine administration, some instances of hypotension noted but overall patient doing well
-Secondary hypertensive workup ordered. This includes ARR, evaluation for pheochromocytoma
- renal artery duplex was difficult to read --> inconclusive
- ARR elevated but K always elevated, unlikely to be hyperaldo
-creatinine improved to 2.9 (peak 3.1, baseline 2.4) , Rendon catheter in place. Making excellent urine, hopefully this is just ATN from hemodynamic shifts
-Imdur discontinued by cardiology remains on carvedilol, nifedipine
-noted to have worsening hyperK --> given one dose lokelma on 12/20. now resolved
-
-
Date of Service: December 21, 2023
CC / HPI / ROS
-
Chief Complaint:
HTN/CKD
History of Present Illness:
bps stabilizing over last 24 hours
creatinine improved to 2.9
initiated nifedipine 30mg daily on 12/16
Review of Systems:
no chest pain or sob
chronic urinary retention with self cath
Labs
-
Labs:
WBC 8.7 10^3/uL (4.8-10.8) 12/20/23 06:28
RBC 4.93 10^6/uL (4.70-6.10) 12/20/23 06:28
Hgb 13.2 g/dL (13.0-18.0) 12/20/23 06:28
Hct 41.8 % (39.0-52.0) 12/20/23 06:28
Plt Count 359 10^3/uL (130-400) D 12/20/23 06:28
Sodium 136 mmol/L (135-145) 12/21/23 07:40
Potassium 4.9 mmol/L (3.5-5.1) 12/21/23 07:40
Chloride 104 mmol/L (98-107) 12/21/23 07:40
Carbon Dioxide 27 mmol/L (22-30) 12/21/23 07:40
BUN 38 mg/dl (9-20) H 12/21/23 07:40
Creatinine 2.9 mg/dL (0.7-1.3) H 12/21/23 07:40
eGFR 20.81 12/21/23 07:40
Glucose 91 mg/dl (70-99) 12/21/23 07:40
Calcium 8.2 mg/dl (8.4-10.2) L 12/21/23 07:40
Phosphorus 4.2 mg/dl (2.5-4.5) 12/14/23 06:42
Albumin 3.6 g/dl (3.5-5.0) 12/04/23 07:48
Physical Exam
-
Vital Signs:
Vital Signs
Temp Pulse Resp BP Pulse Ox
97.9 F 75 19 153/77 98
12/21/23 07:00 12/21/23 07:29 12/21/23 07:00 12/21/23 07:29 12/21/23 07:00
Cardiovascular:: Regular rate and rhythm
Respiratory:: Bilateral: CTA
Lung Excursion:: Normal
Abdomen:: Nontender and Soft
Bowel Sounds:: Normal
Extremity Edema:: None: Bilateral:
Rendon Catheter: Yes
--- NOTE | 2023-12-21 13:48 | W.PN.HOSP.TC ---
Addendum entered and electronically signed by Jayce Katz MD 12/21/23 14:33:
Correction Lamictal 150 BID
Vimpat 50 BID
Addendum entered and electronically signed by Jayce Katz MD 12/21/23 14:31:
Clarification Vimpat 200 MG BID
Original Note:
Today's Communication/Plan
-
Discharge
Assessment / Plan
Assessment / Plan
CVS: S1-S2 normal
Chest: CTA B/L
Abdomen: Soft, NT / Bowel sounds present
Extremities: No edema, redness much better LLE. Only brown discoloration
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
# TME
Resolved.
Cellulitis
Strep Pyogens bacteremia
Meets criteria for sepsis with a fever and source of infection white count
Leukocytosis- resolved
Source left lower extremity cellulitis
Rpt Cx NGTD
ID evaluation appreciated cont ceftriaxone, short course linezolid completed, clindamycin added 12/08 with subsequent improvement 8 days of abx, switched to PO Keflex 500 mg Q8H for 7 till 12/18/23.
#Episode hypotension systolic 80's 12/09 following activity with PT and sitting up in chair with associate lethargy
resolved with 500 cc bolus and bedrest
monitor Orthostatic vitals
Repeat episode 12/10 following morning meds more severe with associate unresponsiveness minimal reaction to sternal rub prompting rapid response
Eventually resolved with trendelenburg and IVF bolus 500 cc x2
Suspect Imdur Side effect
cardio eval appreciated
monitor on telemetry
No further hypotensive episodes 12/11
12/12 Imdur resumed, again patient had hypotensive unresponsive episode 74/45 slowly responded to trendelenburg and 500 cc IVF bolus once
consideration possible post-ictal sz related, unlikely as per neuro, no change in sz medication recommended or EEG
suggested possible delirium related however does not explain severe hypotension as above
Imdur Restarted with same presentation -Stopped
# NAYLA on CKD stage IV
continue calcitriol
Cr improved from peak 3.1 to 2.5 then upto 3.0
Rendon placed per D/W Renal
#HTN
Cont home Coreg and nifedipine.
Stopped PO Hydralazine
Stopped Imdur and do not resume
# Ulcers are traumatic on the left knee, dorsal middle toes on bilateral feet
Cellulitis of left lower extremity
# Abnormal urinalysis-unclear if this is colonization because of the patient's straight cath versus UTI
# Hyperkalemia-ordered Lokelma, since resolved
# Mild lactic acidosis- resolved
# History of tachybradycardia syndrome with pacemaker placement
# History of seizures-Lamictal 150 twice daily, Vimpat 50 milligram twice daily
He was on Keppra at 1 point it was stopped because it was not working.
contacted Dr. Tobin recently and Vimpat was changed to 50 mg twice a day as of 12/03/2023 evening
Continue
Neurology evaluation appreciated
CT of the head- No Bleed
# Hyperlipidemia-continue statin
# History of DVT, PE with RV thrombus 2010
History of IVC filter placement
INR 1.9
Coumadin 2.5 mg tonight
#Constipation
bowel regimen miralax senna docusate
# Neurogenic bladder with self-catheterization
# History of prostatic hypertrophy with TURP
# Hyperparathyroidism-on calcitriol
# DVT prophylaxis-Coumadin
# CODE STATUS-full code
D/W RN
D/W at bed side
Discussed with nephrology
D/W Case management
Discontinue Rendon catheter and go back to chronic intermittent catheterization
Discharge the patient to [facility]
Discharge time 32 min
Anticipated Discharge: Today
Subjective/Interval History
-
Date of Service: December 21, 2023
Objective Data
-
Labs:
Laboratory Results
12/21/23 12/21/23
07:40 07:41
PT 21.9 H
INR 1.93
Sodium 136
Potassium 4.9
Chloride 104
Carbon Dioxide 27
BUN 38 H
Creatinine 2.9 H
Glucose 91
Calcium 8.2 L
Vital Signs:
Vital Signs
Temp Pulse Resp BP Pulse Ox
97.9 F 75 19 153/77 98
12/21/23 07:00 12/21/23 07:29 12/21/23 07:00 12/21/23 07:29 12/21/23 07:00
I&O
12/20/23 12/21/23 12/22/23
06:59 06:59 06:59
Intake Total 1020 / 1020 1480 / 1480
Output Total 1275 / 1275 1100 / 1100
Balance -255 / -255 380 / 380
--- NOTE | 2023-12-21 13:50 | W.DS.TRANS ---
Addendum entered and electronically signed by Jayce Katz MD 12/21/23 14:32:
Dictation-[id number]
Original Note:
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
-
Discharge Instructions:
Discharge Diagnosis/Procedures TME secondary to blood pressure fluctuations,
hypotension after Imdur, cellulitis,
hypertension, CKD stage IV, pacemaker, seizures,
hyperlipidemia, history of DVT and PE,
neurogenic bladder with self-catheterization,
history of prostatic hypertrophy with TURP,
hyperparathyroidism
Diet As tolerated
Activity As tolerated,With assistance
Driving Restrictions No driving
Blood Work inr and BMP 2 days,
Other Services PT,OT
Stop these medications: Stop Imdur
Instructions:
Stand-Alone Forms:
Changes to Home Medications: Yes
Discharge Medications:
DC Medications w/original date entered in [facility]
aspirin 81 mg tablet,delayed release 81 mg PO HS Blood clot prevention/tx 02/21/23
atorvastatin 40 mg tablet 40 mg PO HS High cholesterol 02/21/23
calcitriol 0.5 mcg capsule 0.5 mcg PO Q48H@0800 Kidney Disease 08/14/23
lamotrigine 100 mg tablet 150 mg PO BID Seizures 11/06/23
warfarin 2 mg tablet 1 mg PO MOFR@2200 Blood Clot Prevention/Tx 11/06/23
warfarin 2 mg tablet 2 mg PO SUTUWETHSA@2200 Blood Clot Prevention/Tx 11/06/23
acetaminophen 325 mg tablet (Tylenol) 650 mg PO ONCE PRN mild pain 12/04/23
carvedilol 25 mg tablet 25 mg PO BID Blood Pressure 12/04/23
lacosamide 50 mg tablet 50 mg PO BID Seizures 12/04/23
polyethylene glycol 3350 17 gram oral powder packet (HealthyLax) 17 g PO DAILYPRN PRN constipation #0 ea 12/15/23
nifedipine 30 mg tablet,extended release 30 mg PO DAILY Blood pressure #0 tabs 12/21/23
sennosides 8.6 mg-docusate sodium 50 mg tablet (Stool Softener-Stimulant Laxative) 1 tab PO BID Constipation #0 tabs 12/21/23
warfarin 2.5 mg tablet (Jantoven) 2.5 mg PO ONCE@1800 give on 12/21/23 #0 tabs 12/21/23
Home Medication Changes
Imdur stopped
New Nifedipine
Pending Results: No
--- NOTE | 2023-12-21 14:39 | CM ---
Addendum entered by Ailin Wilson RN 12/21/23 16:02:
Met with patient and ; IMM done in person with . Patient agrees with d/c to [facility].
Original Note:
Patient with Dx TME,cellulitis. PT recommends acute rehab. OT recommends Acute vs SNF. Per nurse assessment; confused.
Spoke with Jessica; she agrees to d/c today to [facility]. IMM completed and copy sent to her email at [email or web address].
As per prior CM notes, patient accepted by [facility] for admission today. for report [phone] and fax# [phone].
Plan [facility] today.
[2023-12-21 15:00] VITALS: BP 141/74
== END 2023-12-21 15:45 | DRG 871 ==
LOC: 3 WEST ACU 11:04
PROVIDERS: Internal Medicine; Specialist; ADMITTING PHYSICIAN Hospitalist; CONSULT PHYSICIAN Internal Medicine; CONSULT PHYSICIAN Internal Medicine Infectious Disease; CONSULT PHYSICIAN Physical Medicine & Rehabilitation; CONSULT PHYSICIAN Student in an Organized Health Care Education/Training Program; EMERGENCY PHYSICIAN Emergency Medicine; FAMILY PHYSICIAN Family Medicine; OTHER PHYSICIAN Specialist
DX: A40.0 Sepsis due to streptococcus, group A (principal); G92.8 Other toxic encephalopathy; N39.0 Urinary tract infection, site not specified; L03.116 Cellulitis of left lower limb; E87.20 Acidosis, unspecified; N18.4 Chronic kidney disease, stage 4 (severe); N17.9 Acute kidney failure, unspecified; D68.62 Lupus anticoagulant syndrome; I50.32 Chronic diastolic (congestive) heart failure; N25.81 Secondary hyperparathyroidism of renal origin; E87.5 Hyperkalemia; L97.519 Non-pressure chronic ulcer of other part of right foot with unspecified severity; L97.529 Non-pressure chronic ulcer of other part of left foot with unspecified severity; N31.9 Neuromuscular dysfunction of bladder, unspecified; E78.00 Pure hypercholesterolemia, unspecified; I25.10 Atherosclerotic heart disease of native coronary artery without angina pectoris; I95.9 Hypotension, unspecified; I12.9 Hypertensive chronic kidney disease with stage 1 through stage 4 chronic kidney disease, or unspecified chronic kidney disease; Z79.01 Long term (current) use of anticoagulants
CPT/HCPCS: 36600; 51701; 70450; 80048; 80053; 80175; 81003; 81015; 81099; 82088; 82384; 82607; 82805; 82962; 83605; 83735; 83835; 84100; 84244; 84484; 85025; 85027; 85610; 85730; 87040; 87077; 87086; 87149; 87186; 87205; 93005; 93306; 93975; 95816; 96374; 96375; 97110; 97112; 97116; 97162; 97167; 97530; 97535; 99285

== ENCOUNTER 2023-12-22 15:35 | Observation (INO) | payer MEDICARE, OTHER, SELFPAY ==
[2023-12-22] VITALS (35 sets, daily range): BP systolic 78–153; BP diastolic 42–100; BMI 34.8; BMI 32.2
--- NOTE | 2023-12-22 09:25 | ED.GENMED ---
History of Present Illness
<Ari Villa PA-C - Last Filed: 12/22/23 13:42>
General
Chief Complaint: Fainting/Passed Out
Source: patient
Exam Limitations: none
Time Seen by Provider: 12/22/23 09:03
Travel History
Have you had any contact with someone who has COVID-19?: No
Do you have any symptoms of coronavirus? Fever > 100 degrees, chills, cough, shortness of breath, sore throat, loss of taste or smell, muscle aches, or headache?: No
History of Present Illness
History of Present Illness:
83-year-old male presents from [facility] as a rapid response. Patient was noted by physician and nurse to have a rightward gaze he was staring went unresponsive and noticed to have right-sided weakness. This lasted a minute or 2 and he seemed to
be waking up from that and the deficits had been resolved. Patient from the hospital yesterday for toxic metabolic encephalopathy secondary to urinary infections and blood pressure fluctuation after administration of blood pressure medication.
Patient has a history of seizures. Patient denies headache chest pain or shortness of breath. He is not sure why he is here. I spoke with the staff at [facility] to get this information.
Past History
<Ari Villa PA-C - Last Filed: 12/22/23 13:42>
Past History
ED Past Medical History: CAD, HTN, Hypercholesterolemia, Seizures, Other (PE, DVT, UTI, BPH) and Other (Self catheterizes his bladder)
ED Past Surgical History: Appendectomy, Orthopedic, Tonsilectomy and Urological
Social History
Tobacco: Non-smoker
Alcohol: None
Drug: None
Personal:
Living: with family
Employment: Retired
Family History
Family History: Hypertension
Phy Exam
<Ari Villa PA-C - Last Filed: 12/22/23 13:42>
Physical Exam
Physical Exam:
General: Well-appearing male no acute respiratory distress
HEENT: Normocephalic no facial asymmetry pupils equal round reactive to light mucosa moist small bite anusha noted in the right dorsal aspect of the tongue
Heart: Regular rate and rhythm no murmurs
Lungs: Clear to auscultation bilaterally no wheezing
Neurologic exam: Alert and oriented to person only. No drift on exam no facial asymmetry. Able to identify and name objects clearly however when asked to read sentences he has trouble reading the sentences.
Extremities: No cyanosis
Course
<Ari Villa PA-C - Last Filed: 12/22/23 13:42>
Orders/Labs/Results
Orders:
Orders
12/22/23
Electrocardiogram (*1) Stat
Comment: ALREADY DONE
12/22/23 08:[address] [CT Head W/o Iv Contrast] Urgent
Comment:
Reason For Exam: syncope
12/22/23 09:15
Complete Blood Count/With Diff Urgent
Comprehensive Metabolic Panel Urgent
PT/INR [Prothrombin Time] Urgent
12/22/23 13:03
Urinalysis Reflex To Culture Urgent
CR Chest - 2 Views Urgent
Comment:
Reason For Exam: hypotension
Abnormal Lab Results
12/22/23
09:15
MCHC 31.8 L g/dL
(33.0-37.0)
RDW 15.1 H %
(11.5-14.5)
Absolute Monos (auto) 0.7 H 10^3/uL
(0.1-0.6)
PT 19.6 H Sec
(11.4-14.6)
BUN 38 H mg/dl
(9-20)
Creatinine 3.0 H mg/dL
(0.7-1.3)
Glucose 122 H mg/dl
(70-99)
Calcium 8.3 L mg/dl
(8.4-10.2)
12/22/23 09:15
12/22/23 09:15
Vital Signs
Initial and Last Documented VS:
Initial Vital Signs
Pulse Resp Pulse Ox
64 20 100
12/22/23 08:54 12/22/23 08:54 12/22/23 08:54
Last Documented Vital Signs
Temp Pulse Resp BP Pulse Ox
97.5 F 66 19 128/51 97
12/22/23 09:00 12/22/23 11:15 12/22/23 11:15 12/22/23 11:15 12/22/23 11:15
<Chapincito H. Moises DO - Last Filed: 12/22/23 14:00>
Orders/Labs/Results
Orders:
Orders
12/22/23
Electrocardiogram (*1) Stat
Comment: ALREADY DONE
12/22/23 08:[address] [CT Head W/o Iv Contrast] Urgent
Comment:
Reason For Exam: syncope
12/22/23 09:15
Complete Blood Count/With Diff Urgent
Comprehensive Metabolic Panel Urgent
PT/INR [Prothrombin Time] Urgent
12/22/23 13:03
Urinalysis Reflex To Culture Urgent
CR Chest - 2 Views Urgent
Comment:
Reason For Exam: hypotension
Abnormal Lab Results
12/22/23
09:15
MCHC 31.8 L g/dL
(33.0-37.0)
RDW 15.1 H %
(11.5-14.5)
Absolute Monos (auto) 0.7 H 10^3/uL
(0.1-0.6)
PT 19.6 H Sec
(11.4-14.6)
BUN 38 H mg/dl
(9-20)
Creatinine 3.0 H mg/dL
(0.7-1.3)
Glucose 122 H mg/dl
(70-99)
Calcium 8.3 L mg/dl
(8.4-10.2)
12/22/23 09:15
12/22/23 09:15
Vital Signs
Initial and Last Documented VS:
Initial Vital Signs
Pulse Resp Pulse Ox
64 20 100
12/22/23 08:54 12/22/23 08:54 12/22/23 08:54
Last Documented Vital Signs
Temp Pulse Resp BP Pulse Ox
97.5 F 66 19 128/51 97
12/22/23 09:00 12/22/23 11:15 12/22/23 11:15 12/22/23 11:15 12/22/23 11:15
<Ari Villa PA-C - Last Filed: 12/22/23 13:42>
MDM/Problems Addressed
Differential Diagnosis Includes:
Episode of unresponsiveness. Differential could include seizure versus syncope versus TIA versus CVA
Patient now hypotensive in the ER. Fluids ordered. He was given carvedilol and nifedipine at [address] this morning[address] Will check CT of head coags and labs otherwise. Not a TNK candidate secondary to anticoagulated state
<Ari Vlila PA-C - Last Filed: 12/22/23 13:42>
*Critical Care Note
Total Time (30-74mins, 75-104mins- exclusive of procedures): Not Applicable
<Ari Villa PA-C - Last Filed: 12/22/23 13:42>
Update Note
Update Note:
Patient reevaluated multiple times. Family now in the room. Patient a complicated case. Was recently here and discharged. Has had ongoing episodes similar to this. Given hypotensive episode will decide to keep in hospital. Discussed with
admitting team who requested neurology involvement. Neurology recommended imaging however patient cannot undergo CTA secondary to his poor renal functions. Will need further imaging as an inpatient. Check urine and chest x-ray as well
ED Attending Note
<Ari Villa PA-C - Last Filed: 12/22/23 13:42>
-
Portions of this chart may have been created with voice recognition software.� Occasional wrong word or��sound alike� substitutions may have occurred due to the inherent limitations of voice recognition software.
<Chapincito De Leon DO - Last Filed: 12/22/23 14:00>
ED Attending Note
Patient seen and examined by attending physician: Yes
I performed the substantive portion of visit, reviewed & personally made and approve the management plan that is documented in note by myself or YUNIEL.: Yes
ED Attending Note:
I agree with Ernesto's note.
Patient sent from [place] after having a period of unresponsiveness followed by right-sided weakness and gaze preference. Symptom was relatively brief lasting 1 minute. At the time of my evaluation the patient seems to be back to his baseline and
does not have any complaints.
General: Awake, Alert, Oriented X3. No acute distress.
Vitals: unremarkable
Head: Atraumatic
Eyes: Pupils equal, EOMI
Throat: Airway intact, no exudates
Neck: Trachea midline
Lungs: Clear and equal b/l
Heart: Regular rate, no murmurs
Abd: Soft, Nontender, No pulsatile mass
Neuro: Cranial nerves intact, muscle strength equal bilaterally, cerebellar exam normal
Skin: Warm, dry, no rash
Extremities: pulses equal b/l, no edema
Patient suffered a episode of decreased responsiveness with focal neurologic findings. Differential includes seizure with Damon's paralysis, TIA, migraine equivalent, orthostatic hypotension.
Etiology of the patient's symptoms is not entirely clear. He has been stable here in the emergency room. Patient will require further evaluation by neurology, hospitalist to exclude a central neurologic event.
Discharge Plan
Departure
Patient Disposition: Admit
Date of Disposition: 12/22/23
Time of Disposition: 13:41
Admit to: Telemetry
Presentation/result/management discussed w/ accepting MD/DO: Hospitalist
Discharge Problem:
Hypotension
Prescriptions:
No Action
aspirin 81 mg Tablet,Delayed Release (Dr/Ec)
81 mg PO HS
atorvastatin 40 MG tablet
40 mg PO HS
calcitriol 0.5 mcg capsule
0.5 mcg PO Q48H@0800
Rx Instructions:
next dose 12/23 at 8 am
warfarin 2 mg tablet
1 mg PO MOFR@2200
warfarin 2 mg tablet
2 mg PO SUTUWETHSA@2200
lamotrigine 100 mg tablet
150 mg PO BID
carvedilol 25 mg Tablet
25 mg PO BID
acetaminophen [Tylenol] 325 mg Tablet
650 mg PO ONCE PRN (Reason: mild pain)
lacosamide 50 mg Tablet
50 mg PO BID
polyethylene glycol 3350 [HealthyLax] 17 gram Powder In Packet
17 g PO DAILYPRN PRN (Reason: constipation) Qty: 0 0RF
nifedipine 30 mg Tablet Extended Release
30 mg PO DAILY Qty: 0 0RF
sennosides-docusate sodium [Stool Softener-Stimulant Laxat] 8.6-50 mg Tablet
1 tab PO BID Qty: 0 0RF
warfarin [Jantoven] 2.5 mg Tablet
2.5 mg PO ONCE@1800 Qty: 0 0RF
Referrals:
Artis Tobin MD [Family Provider] -
Interventions
Interventions:
*Risk Screen - Suicide Last Done: 12/22/23 09:33
*General Assessment Last Done: 12/22/23 09:33
*Neglect/Abuse Screening Last Done: 12/22/23 09:33
*ED COVID-19 Vaccine History Last Done: 12/22/23 09:33
ED- Cardiac Assessment Last Done: 12/22/23 09:00
ED- Neurological Assessment Last Done: 12/22/23 09:00
[2023-12-22 09:26] LABS: % Basophils 1.7 % (0-2); % Eosinophils 5.5 % (0-6); % Immature Granulocytes 0.2 % (0-0.5); % Lymphocytes 29.4 % (20.5-51.1); % Monocytes 8.6 % (1.7-9.3); % Neutrophils 54.6 % (42.2-75.2); Absolute Basophils 0.1 10^3/uL (0-0.2); Absolute Eosinophils 0.4 10^3/uL (0-0.7); Absolute Lymphocytes 2.4 10^3/uL (1.2-3.4); Absolute Monocytes 0.7 10^3/uL (0.1-0.6); Absolute Neutrophils 4.4 10^3/uL (1.4-6.5); Hematocrit 41.8 % (39.0-52.0); Hemoglobin 13.3 g/dL (13.0-18.0); Mean Corp Hgb Conc. 31.8 g/dL (33.0-37.0); Mean Corpuscular Hgb 27.4 pg (27.0-31.0); Nucleated Red Blood Cells % 0 % (-); Platelet Count 384 10^3/uL (130-400); Red Blood Cell Count 4.86 10^6/uL (4.70-6.10); Red Cell Dist. Width 15.1 % (11.5-14.5); White Blood Cell Count 8.1 10^3/uL (4.8-10.8)
[2023-12-22 09:33] LABS: INR 1.68; PT 19.6 Sec (11.4-14.6)
[2023-12-22 09:45] LABS: ALT (SGPT) 26 U/L (0-50); AST (SGOT) 27 U/L (17-59); Albumin 3.6 g/dl (3.5-5.0); Alkaline Phosphatase 73 U/L (38-126); Blood Urea Nitrogen 38 mg/dl (9-20); Calcium 8.3 mg/dl (8.4-10.2); Carbon Dioxide 26 mmol/L (22-30); Chloride 103 mmol/L (98-107); Glucose 122 mg/dl (70-99); Sodium 136 mmol/L (135-145); Total Bilirubin 0.8 mg/dl (0.2-1.3); Total Protein 6.8 g/dl (6.3-8.2); eGFR 19.98
--- NOTE | 2023-12-22 14:14 | HPS.HSE ---
Family Physician
<NERI Ford - Last Filed: 12/22/23 15:39>
-
Family Physician: Artis Tobin MD
Chief Complaint
<NERI Ford - Last Filed: 12/22/23 15:39>
-
syncope , hypotension
History of Present Illness
83-year-old [facility] who was walking towards the shower with the nurse when he became lightheaded had syncopal episode but was lowered to the shower chair seat. He was noted to be hypotensive. He was given fluid bolus with BP going
from 95/46> 135/66. He is currently awake alert oriented with no complaints. He denies headache, dizziness, chest pain, palpitations, shortness of breath, cough, abdominal pain, nausea, vomiting, diarrhea, urinary symptoms. He has past medical
history of recent recurrent hypotension during PT, right subclavian stenosis, essential HTN, recent right lower extremity cellulitis with TME, strep pyogenes bacteremia completed Keflex 12/18/2023, UTI, hyperkalemia, tachybradycardia syndrome with
permanent pacemaker placement 2022, seizure disorder, hyperlipidemia, DVT, PE with RV thrombus 2010, IVC filter placement, chronic constipation, neurogenic bladder with self-catheterization, BPH with TURP, hyperparathyroidism.
Medical History
<NERI Ford - Last Filed: 12/22/23 15:39>
Past Medical History
Past Medical History: Reports Other
Additional Past Medical History:
History of Recurrent hypotension, seizures, history of PE with RV thrombus 2010, history of DVT, hypertension hyperlipidemia, near syncope chronic urinary retention with self-catheterization, hyperparathyroidism, history of obstructive uropathy CKD
stage IV benign prostatic hypertrophy
Past Surgical History: Reports Other
Additional Past Surgical History:
IVC filter placement, history of wrist fracture, appendectomy, tonsillectomy, robotic prostatectomy, cardiac catheterization, pacemaker
Social History
Tobacco: Non-smoker
Alcohol: None
Drug: None
Personal:
Living: With Family
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
Family History
Family History: Not pertinent
Allergies / Home Medications
Allergies reflects when Allergies were last updated in [employer].
Home Medications with original date entered in [employer]
Allergy/Medication List:
Allergies
Allergy/AdvReac Type Severity Reaction Status Date / Time
furosemide [From Lasix] Allergy Unknown Verified 12/22/23 09:00
ciprofloxacin [From Cipro] AdvReac chills;general Verified 12/22/23 09:00
malaise
Home Medications
aspirin 81 mg tablet,delayed release 81 mg PO HS Blood clot prevention/tx 02/21/23
atorvastatin 40 mg tablet 40 mg PO HS High cholesterol 02/21/23
calcitriol 0.5 mcg capsule 0.5 mcg PO Q48H@0800 Kidney Disease 08/14/23
lamotrigine 100 mg tablet 150 mg PO BID Seizures 11/06/23
warfarin 2 mg tablet 1 mg PO MOFR@2200 Blood Clot Prevention/Tx 11/06/23
warfarin 2 mg tablet 2 mg PO SUTUWETHSA@2200 Blood Clot Prevention/Tx 11/06/23
acetaminophen 325 mg tablet (Tylenol) 650 mg PO ONCE PRN mild pain 12/04/23
carvedilol 25 mg tablet 25 mg PO BID Blood Pressure 12/04/23
lacosamide 50 mg tablet 50 mg PO BID Seizures 12/04/23
polyethylene glycol 3350 17 gram oral powder packet (HealthyLax) 17 g PO DAILYPRN PRN constipation #0 ea 12/15/23
nifedipine 30 mg tablet,extended release 30 mg PO DAILY Blood pressure #0 tabs 12/21/23
sennosides 8.6 mg-docusate sodium 50 mg tablet (Stool Softener-Stimulant Laxative) 1 tab PO BID Constipation #0 tabs 12/21/23
warfarin 2.5 mg tablet (Jantoven) 2.5 mg PO ONCE@1800 give on 12/21/23 #0 tabs 12/21/23
Review of Systems
<NERI Ford - Last Filed: 12/22/23 15:39>
-
History Source: Patient and Family ( and son at bedside)
A 12 point ROS was completed and negative except as noted: Yes
Constitutional: Denies Fever, Fatigue or Chills
EENT: Denies Sore Throat or Runny Nose
Respiratory: Denies Cough or Trouble Breathing
Cardiac: Reports Syncope; Denies Chest Pain, Diaphoresis or Palpitations
Abdomen/GI: Denies Abdominal Pain, Nausea, Vomiting, Diarrhea, Constipated, Bloody Stools or Black Stools
: Denies Dysuria, Frequency, Flank Pain, Incontinence or Difficulty Voiding
Musculoskeletal: Reports Other (Dry flaking skin to left lower extremity, cellulitis prior resolved); Denies Joint Pain or Edema
Skin: Denies Itching or Rash
Neurological: Denies Dizzy, Headache or Weakness
Endocrine: Reports No Symptoms
Hematologic/Lymphatic: Reports No Symptoms
Psych: Reports Calm
Physical Exam
<NERI Ford - Last Filed: 12/22/23 15:39>
Vital Signs
Vital Signs
Temp Pulse Resp BP Pulse Ox
97.5 F 66 19 128/51 97
12/22/23 09:00 12/22/23 11:15 12/22/23 11:15 12/22/23 11:15 12/22/23 11:15
Physical Exam
General: No Apparent Distress, Comfortable and Conversant; No Pain, Fever or Chills
HEENT: NormoCephalic, Anicteric, Moist mucous membranes and PERRLA
Respiratory: Clear; No Wheezes, Rales or Rhonchi
Cardiac: S1/S2, Regular Rhythm and Other (Pacemaker left upper chest wall present); No Murmur, Rub, Gallop or Peripheral Edema
Breast: Deferred by me
GI: Soft, Non Tender, Non Distended, Normal Bowel Sounds and No Hepatosplenomegaly
Rectal: Deferred by Provider
Genito-urinary: Deferred by me
Musculoskeletal: No Clubbing, No Cyanosis and No Edema
Skin: Warm and Dry (Dry flaking skin to left lower extremity, cellulitis prior resolved); No Rash, Jaundice or Ulcers
Neuro: AO x 3, No Motor Deficits and No Sensory Deficits; No Slurred Speech, Facial Droop or Tremors
Psych: Calm
Laboratory Results
<NERI Ford - Last Filed: 12/22/23 15:39>
-
12/22/23 09:15
12/22/23 09:15
Laboratory Results
PT 19.6 Sec (11.4-14.6) H 12/22/23 09:15
INR 1.68 12/22/23 09:15
Total Bilirubin 0.8 mg/dl (0.2-1.3) 12/22/23 09:15
AST 27 U/L (17-59) 12/22/23 09:15
ALT 26 U/L (0-50) 12/22/23 09:15
Alkaline Phosphatase 73 U/L (38-126) 12/22/23 09:15
Data Reviewed
<NERI Ford - Last Filed: 12/22/23 15:39>
-
CT Scan: Report Reviewed by me
Lab Data: Labs Reviewed by me
Impression/Plan
<NERI Ford - Last Filed: 12/22/23 15:39>
-
Impression/Plan:
OBS TELE
#Syncope 2/2 Recurrent Hypotension in PT/Essential HTN concern related to Right subclavian Stenosis
Had recent hypotension 74/45 during admit that improved with 500 cc bolus
Stopped PO Hydralazine
Imdur Was stopped recent admit and� do not resume
-HOLD Coreg and nifedipine.
-COnsult Vasc Surgery concern Right subclavian Stenosis
- Consult NEURO
-Pt/OT/case mmgt consult
-Medtronic pacemaker conditonal type
-NO MRI brain needed per neuro
Ct head: no acute intracranial abn
Ct HEad/Neck 06/22/23:High-grade stenosis or short segment occlusion of the right subclavian vein as it passes superior to the right first rib.
Resultant prominent collateral veins within the neck and upper chest.
#Subtherapeutic INR on Coumadin
# History of DVT, PE with RV thrombus 2010
#History of IVC filter placement
INR 1.68,
Coumadin 3 mg tonight, follow daily INR for Coumadin dosing
# NAYLA on CKD stage IV
-continue calcitriol
Cr 3.0 baseline is 2.4
- Iv NSS 500 cc bolus x 1
-Follow BMP
#Recent Cellulitis LLE with TME-resolved
#Strep Pyogens bacteremia- completed short course linezolid completed, clindamycin added 12/08 with subsequent improvement 8 days of abx, switched to PO Keflex 500 mg Q8H for 7 till 12/18/23.
# Ulcers are traumatic on the left knee, dorsal middle toes on bilateral feet hx of - resolved
#Cellulitis of left lower extremity-resolved
# HX Hyperkalemia-
K 5.0 did require lokelma last admit
# History of tachybradycardia syndrome with pacemaker placement 10/2023 MRI Conditional
Medtronic; Model# W1DR01; Serial# [id number].
RA Lead: Medtronic; Model# 5076-45cm; Serial# [id number].
RV Lead: Medtronic; Model# 5076-52cm; Serial# [id number].
# History of seizures
cont -Lamictal 150 twice daily, Vimpat 50 milligram twice daily
He was on Keppra at 1 point it was stopped because it was not working.
contacted Dr. Tobin recently and Vimpat was changed to 50 mg twice a day as of 12/03/2023 evening
# Hyperlipidemia-continue statin
#Constipation
-bowel regimen miralax senna docusate
# Neurogenic bladder with self-catheterization
# History of prostatic hypertrophy with TURP
# Hyperparathyroidism-on calcitriol
# DVT prophylaxis-Coumadin
# CODE STATUS-full code
<Jayce Katz MD - Last Filed: 12/22/23 16:21>
-
This sherry 83-year-old man was admitted here with streptococcal bacteremia from cellulitis. During the admission he developed Hypotension and had a rapid response. Cardiology was consulted. It was observed that patient developed hypotension
after doses of Imdur. Hydralazine was initiated. Every time patient got on Imdur dose he dropped his blood pressure, became unresponsive and became better after bolus of fluid. Blood pressure was high and low therefore nephrology was also
consulted. His creatinine but was also went up slightly. Patient has a neurogenic bladder and gets catheterization 4 times a day at home. Rendon catheter was placed but nephrology which was discontinued on the day of admission as the creatinine is
trending down. Imdur was discontinued. Hydralazine was also discontinued patient was discharged on nifedipine and carvedilol. He was seen by neurology last admission and continued on lacosamide 50 mg twice daily and lamotrigine 150 mg twice
daily. Coumadin level went subtherapeutic which he takes for DVT/PE history, patient needed bridging heparin last admission. Patient was discharged to [facility] where he had a similar episode where he dropped his blood pressure sitting in the chair.
Was brought to the ER. Was seen by neurology who recommended admission and vascular evaluation.
When I evaluated the patient in the ER he was awake alert and back to his baseline. Blood pressure was also stable. Creatinine slightly up from this morning-unclear if it is a true reading given it was only 2 hours apart.
On examination awake and alert
Cardiovascular system S1-S2 appreciated
Chest clear to auscultation
Abdomen soft and nontender
Extremities no edema no redness in the left lower extremity
Neuro exam is essentially nonfocal
Patient has mild confusion-which is not new from last admission.
Admit the patient. Watch blood pressure closely vascular evaluation requested Per neurology
IV fluids for elevated creatinine follow
Heparin drip-subtherapeutic INR to bridge Coumadin
Discussed with neurology
No concern for CVA per discussion with neurology
Discussed with the ER staff
Discussed with neurology
Discussed with patient's
Impression/Plan:
OBS TELE
#Syncope 2/2 Recurrent Hypotension in PT/Essential HTN concern related to Right subclavian Stenosis
Had recent hypotension 74/45 during admit that improved with 500 cc bolus
Stopped PO Hydralazine
Imdur Was stopped recent admit and� do not resume
-HOLD Coreg and nifedipine.
-COnsult Vasc Surgery concern Right subclavian Stenosis
- Consult NEURO
-Pt/OT/case mmgt consult
-Medtronic pacemaker conditonal type
-NO MRI brain needed per neuro
Ct head: no acute intracranial abn
Ct HEad/Neck 06/22/23:High-grade stenosis or short segment occlusion of the right subclavian vein as it passes superior to the right first rib.
Resultant prominent collateral veins within the neck and upper chest.
#Subtherapeutic INR on Coumadin
# History of DVT, PE with RV thrombus 2010
#History of IVC filter placement
INR 1.68,
Coumadin 3 mg tonight, follow daily INR for Coumadin dosing
# NAYLA on CKD stage IV
-continue calcitriol
Cr 3.0 baseline is 2.4
- Iv NSS 500 cc bolus x 1
-Follow BMP
#Recent Cellulitis LLE with TME-resolved
#Strep Pyogens bacteremia- completed short course linezolid completed, clindamycin added 12/08 with subsequent improvement 8 days of abx, switched to PO Keflex 500 mg Q8H for 7 till 12/18/23.
# Ulcers are traumatic on the left knee, dorsal middle toes on bilateral feet hx of - resolved
#Cellulitis of left lower extremity-resolved
# HX Hyperkalemia-
K 5.0 did require lokelma last admit
# History of tachybradycardia syndrome with pacemaker placement 10/2023 MRI Conditional
Medtronic; Model# W1DR01; Serial# [id number].
RA Lead: Medtronic; Model# 5076-45cm; Serial# [id number].
RV Lead: Medtronic; Model# 5076-52cm; Serial# [id number].
# History of seizures
cont -Lamictal 150 twice daily, Vimpat 50 milligram twice daily
He was on Keppra at 1 point it was stopped because it was not working.
contacted Dr. Tobin recently and Vimpat was changed to 50 mg twice a day as of 12/03/2023 evening
# Hyperlipidemia-continue statin
#Constipation
-bowel regimen miralax senna docusate
# Neurogenic bladder with self-catheterization
# History of prostatic hypertrophy with TURP
# Hyperparathyroidism-on calcitriol
# DVT prophylaxis-Coumadin
# CODE STATUS-full code
[2023-12-22] MEDS: NSS 500 IV (16:00)
--- NOTE | 2023-12-22 17:33 | CON.NEURO ---
Consultation
Order
Date of Consultation: 12/22/23
Reason for Consult: spell
CC: none
HPI: This is an 83-year-old right-handed male who was transferred from [facility]to [facility] ER on 12/22/2023. According to EMR patient had witnessed right eye deviation with associated right-sided
speech arrest lasting for 1-2 minutes with associated fatigue and confusion.
Mr. Clements has history of focal epilepsy(2021), managed with Lamictal 150 mg once a day and Vimpat 50 mg twice daily.
ER VS: 146/68-79/50, 78, afebrile.
Labs: INR 1.68, gluc 112.
Brain MRI wo erlinda(08/15/2023)5 small foci of decreased signal intensity on susceptibility weighted images, compatible with small foci of old microhemorrhage. Mild to moderate diffuse atrophy. Moderate T2 and FLAIR white matter hyperintensities,
commonly seen with aging and usually attributed to small vessel ischemic disease. 2 mm focus of CSF signal intensity in the right thalamus, which could represent old lacunar infarct versus a prominent perivascular space. Tortuosity of the basilar
artery resulting in mild to moderate compression of the central and left anterior aspect of the larisa.
A EEG(11/21/2023)-left temporal lobe sharps. No EEG correlates to captured event of yawning and poor responsiveness.
PMH: DVT/PE, lupus anticoagulant, protein C deficiency, SSS, CAD, orthostatic hypotension, DLP, CKD, BPH/obstructive uropathy, ambulatory dysfunction
PSH: PPM, appendectomy, tonsillectomy,TURP
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
FH: Not contributory to current presenting
All: Furosemide, ciprofloxacin
ROS:Constitutional: Negative. Negative for chills, fever and unexpected weight change.
HENT: Positive for hearing impairment
Eyes: Negative. Negative for photophobia, pain and visual disturbance.
Respiratory: Negative for cough, choking and shortness of breath.
Cardiovascular: Negative for chest pain, palpitations and leg swelling.
Gastrointestinal: Negative for abdominal pain and vomiting.
Endocrine: Negative. Negative for cold intolerance.
Genitourinary: Negative for dysuria, flank pain and urgency.
Musculoskeletal: Negative for back pain, gait problem, neck pain and neck stiffness.
Skin: Negative for rash.
Allergic/Immunologic: Negative. Negative for immunocompromised state.
Neurological: Positive for recurrent spells, confusion
Psychiatric/Behavioral: Negative for behavioral problems, confusion and hallucinations.
General: Well developed. In no acute distress.
Cardio: Regular rate and rhythm without murmur. Extremities are without cyanosis or edema.
Neuro:
Mental Status: Alert, oriented to person only. Follows simple requests intermittently. Poor attention and impaired comprehension. No hemineglect. Nonfluent
Cranial Nerves: Pupils are equally round. EOMs full. BTT BL No ptosis. No nystagmus. V1-V3 intact to light touch and pinprick bilaterally, symmetric. Face symmetric. Poor hearing AU. The palate elevated well. SCMs and traps 5/5. Tongue
midline. No dysarthria.
Motor: Increased motor tone in lower extremities. No pronator or arm drift. Strength 5/5 throughout. No clonus.
Reflexes: Limited exam due to cooperation
Sensory: Limited exam due to poor attention
Coordination: No dysmetria or tremor.
Gait: deferred
Assessment and Plan:
I. Probable unprovoked seizure
II. Focal epilepsy
III. Multifactorial encephalopathy (postictal, vascular, metabolic, ? Neurodegenerative)
-Seizure precautions
-Avoid cerebral hypoperfusion
-Please check Mg, Lamictal level, CK,TFTs
-EMU referral
-Please increase Vimpat to 50 mg in the morning and 100 mg nightly and continue Lamictal 50 mg twice daily
-Outpatient neurology follow-up in 2-3 weeks
I personally reviewed all radiology and labs along with past medical records pertinent to current medical problems. Total time spent in patient care is 60 minutes.
Thank you for allowing us to participate in the care of this patient. We will continue to follow. Please do not hesitate to contact us with any questions or concerns.
Subjective/Objective
Subjective Data
Date of Service: December 22, 2023
Objective Data
Vital Signs
Temp Pulse Resp BP Pulse Ox
36.4 C 73 32 134/67 97
12/22/23 09:00 12/22/23 14:30 12/22/23 14:30 12/22/23 14:00 12/22/23 13:57
Lab Results
12/22/23 09:15
12/22/23 09:15
PT 19.6 Sec (11.4-14.6) H 12/22/23 09:15
INR 1.68 12/22/23 09:15
Sodium 136 mmol/L (135-145) 12/22/23 09:15
Potassium 5.0 mmol/L (3.5-5.1) 12/22/23 09:15
BUN 38 mg/dl (9-20) H 12/22/23 09:15
Glucose 122 mg/dl (70-99) H 12/22/23 09:15
Calcium 8.3 mg/dl (8.4-10.2) L 12/22/23 09:15
Patient Allergies
furosemide [From Lasix] Allergy (Verified 12/22/23 09:00)
Unknown
ciprofloxacin [From Cipro] Adverse Reaction (Verified 12/22/23 09:00)
chills;general malaise
Medications
-
Active Medications
Generic Name Dose Route Start Last Admin
Trade Name Freq PRN Reason Stop Dose Admin
Pharmacy Profile Note 0 unit 12/22/23 16:[address] 1 Unit PO 12/22/23 16:11
NOW STA
Protocol
Warfarin Sodium 3 mg 12/22/23 18:00
Warfarin 3 Mg Tablet PO 12/22/23 18:01
ONCE@1800 ONE
Home Medications
Medication Instructions Recorded
aspirin 81 mg tablet,delayed 81 mg PO HS Blood clot 02/21/23
release prevention/tx
atorvastatin 40 mg tablet 40 mg PO HS High cholesterol 02/21/23
calcitriol 0.5 mcg capsule 0.5 mcg PO Q48H@0800 Kidney Disease 08/14/23
lamotrigine 100 mg tablet 150 mg PO BID Seizures 11/06/23
warfarin 2 mg tablet 1 mg PO MOFR@2200 Blood Clot 11/06/23
Prevention/Tx
warfarin 2 mg tablet 2 mg PO SUTUWETHSA@2200 Blood Clot 11/06/23
Prevention/Tx
carvedilol 25 mg tablet 25 mg PO BID Blood Pressure 12/04/23
lacosamide 50 mg tablet 50 mg PO BID Seizures 12/04/23
Vital Signs and Labs
-
Vital Signs and Labs:
Vital Signs
Temp Pulse Resp BP Pulse Ox
36.4 C 71 18 148/76 98
12/22/23 09:00 12/22/23 17:30 12/22/23 17:30 12/22/23 17:30 12/22/23 16:01
Lab Results
12/22/23 09:15
12/22/23 09:15
PT 19.6 Sec (11.4-14.6) H 12/22/23 09:15
INR 1.68 12/22/23 09:15
Sodium 136 mmol/L (135-145) 12/22/23 09:15
Potassium 5.0 mmol/L (3.5-5.1) 12/22/23 09:15
BUN 38 mg/dl (9-20) H 12/22/23 09:15
Glucose 122 mg/dl (70-99) H 12/22/23 09:15
Calcium 8.3 mg/dl (8.4-10.2) L 12/22/23 09:15
Home Medications
-
Home Medications
aspirin 81 mg tablet,delayed release 81 mg PO HS Blood clot prevention/tx 02/21/23
atorvastatin 40 mg tablet 40 mg PO HS High cholesterol 02/21/23
calcitriol 0.5 mcg capsule 0.5 mcg PO Q48H@0800 Kidney Disease 08/14/23
lamotrigine 100 mg tablet 150 mg PO BID Seizures 11/06/23
warfarin 2 mg tablet 1 mg PO MOFR@2200 Blood Clot Prevention/Tx 11/06/23
warfarin 2 mg tablet 2 mg PO SUTUWETHSA@2200 Blood Clot Prevention/Tx 11/06/23
carvedilol 25 mg tablet 25 mg PO BID Blood Pressure 12/04/23
lacosamide 50 mg tablet 50 mg PO BID Seizures 12/04/23
Medications
-
Medications:
Generic Name Dose Route Start Last Admin
Trade Name Freq PRN Reason Stop Dose Admin
Pharmacy Profile Note 0 unit 12/22/23 16:[address] 1 Unit PO 12/22/23 16:11
NOW STA
Protocol
Warfarin Sodium 3 mg 12/22/23 18:00
Warfarin 3 Mg Tablet PO 12/22/23 18:01
ONCE@1800 ONE
[2023-12-22 18:22] LABS: Urine Albumin 1+ (Neg - Trace); Urine Bilirubin Negative (Negative); Urine Character Very Cloudy (Clear); Urine Color Yellow; Urine Glucose Negative (Negative); Urine Ketone Negative (Negative); Urine Leukocyte 2+ (Negative); Urine Nitrite Positive (Negative); Urine Occult Blood 2+ (Negative); Urine Specific Gravity 1.015 (<1.030); Urine Urobilinogen Negative (Neg - 1+)
[2023-12-22 18:31] LABS: Urine White Cell >100 /HPF (0-5)
[2023-12-22 19:06] LABS: Hematocrit 38.2 % (39.0-52.0); Hemoglobin 12.5 g/dL (13.0-18.0); Mean Corp Hgb Conc. 32.7 g/dL (33.0-37.0); Mean Corpuscular Hgb 27.2 pg (27.0-31.0); Mean Platelet Volume 8.7 fL (7.4-10.4); Platelet Count 344 10^3/uL (130-400); Red Cell Dist. Width 15.2 % (11.5-14.5); White Blood Cell Count 7.5 10^3/uL (4.8-10.8)
[2023-12-22 19:18] LABS: APTT 39.6 Sec (23.4-35.0)
[2023-12-22] MEDS: HEPARIN 25000 UNITS/250 ML IV (19:19)
[2023-12-22] MEDS: LAMICTAL 150 MG PO (19:22)
[2023-12-22] MEDS: SENOKOT-S 1 TABLET PO (19:22)
[2023-12-22] MEDS: VIMPAT 50 MG PO (19:22)
[2023-12-22] MEDS: COUMADIN 3 MG PO (19:23)
[2023-12-22] MEDS: LIPITOR 40 MG PO (21:36)
[2023-12-23] VITALS (8 sets, daily range): BP systolic 124–165; BP diastolic 71–101; PULSE 72–97; O2SAT 98; BMI 30.6
[2023-12-23 01:33] LABS: APTT > 200 Sec (23.4-35.0)
[2023-12-23] MEDS: SENOKOT-S 1 TABLET PO (08:15)
[2023-12-23] MEDS: LAMICTAL 150 MG PO (08:15)
[2023-12-23] MEDS: VIMPAT 50 MG PO (08:15)
[2023-12-23] MEDS: ROCALTROL 0.5 MCG PO (08:15)
--- NOTE | 2023-12-23 10:01 | W.PN.HOSP.TC ---
Today's Communication/Plan
-
-Seizure precautions
-Avoid cerebral hypoperfusion
-Please check Mg, Lamictal level, CK,TFTs
-EMU referral
-Please increase Vimpat to 50 mg in the morning and 100 mg nightly and continue Lamictal 50 mg twice daily
-Outpatient neurology follow-up in 2-3 weeks
�
Assessment / Plan
Assessment / Plan
Conditions prior to admission
Toxic-metabolic encephalopathy secondary to blood pressure fluctuations.
Hypotension after Imdur.
Cellulitis.
Hypertension.
Chronic kidney disease stage IV.
Pacemaker.
Seizures.
Hyperlipidemia.
History of deep vein thrombosis and pulmonary embolism.� � � � �
Neurogenic bladder with self-catheterization. �
History of prostatic hypertrophy with transurethral resection of the prostate.
Hyperparathyroidism.
Plan
-Seizure precautions
-Avoid cerebral hypoperfusion
-Please check Mg, Lamictal level, CK,TFTs
-EMU referral
-Please increase Vimpat to 50 mg in the morning and 100 mg nightly and continue Lamictal 50 mg twice daily
-Outpatient neurology follow-up in 2-3 weeks
#Syncope 2/2 Recurrent Hypotension in PT/Essential HTN concern related to� Right subclavian Stenosis
Had recent hypotension 74/45 during admit that improved with 500 cc bolus�
Stopped PO Hydralazine
Imdur� Was stopped recent admit and� do not resume
-HOLD Coreg and nifedipine.
-COnsult Vasc Surgery concern Right subclavian Stenosis
- Consult NEURO
-Pt/OT/case mmgt consult
-Medtronic pacemaker conditonal type
-NO MRI�brain needed� per neuro
-Ct head:�no acute intracranial abn
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
�Resultant prominent collateral veins within the neck and upper chest.
#Subtherapeutic INR on Coumadin
# History of DVT, PE with RV thrombus 2010
#History of IVC filter placement
INR 1.68,
# NAYLA on CKD stage IV
-continue calcitriol
-Cr 3.0 baseline is 2.4
-Iv NSS 500 cc bolus x 1
-Follow BMP
#Recent Cellulitis LLE with TME-resolved
#Strep Pyogens bacteremia- completed short course linezolid completed, clindamycin added 12/08 with subsequent improvement 8 days of abx, switched to PO Keflex 500 mg Q8H for 7 till 12/18/23.
# Ulcers are traumatic on the left knee, dorsal middle toes on bilateral feet hx of - resolved
#Cellulitis of left lower extremity-resolved
# HX Hyperkalemia-
K 5.0 did require lokelma last admit
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
�Medtronic; Model# [id number]; Serial# [id number].
RA Lead: Medtronic; Model# 5076-45cm; Serial# [id number].
RV Lead: Medtronic; Model# 5076-52cm; Serial# [id number].
# History of seizures
�cont -Lamictal 150 twice daily, Vimpat 50 milligram twice daily
He was on Keppra at 1 point it was stopped because it was not working.
contacted Dr. Tobin recently and Vimpat was changed to 50 mg twice a day as of 12/03/2023 evening
# Hyperlipidemia-continue statin
#Constipation
-bowel regimen miralax senna docusate
# Neurogenic bladder with self-catheterization
# History of prostatic hypertrophy with TURP
# Hyperparathyroidism-on calcitriol
# DVT prophylaxis-Coumadin
Anticipated Discharge: Today
Subjective/Interval History
-
Date of Service: December 23, 2023
83-year-old male with PMH of�recurrent seizures, Tachybradycardia syndrome with pacemaker placement 2022, PE with RV thrombus 2010 on Coumadin, DVT, hypertension, right subclavian stenosis,recent right lower extremity cellulitis with TME, strep
pyogenes bacteremia completed Keflex 12/18/2023, hyperlipidemia, CAD, chronic UTI with toxic metabolic encephalopathy, hyperparathyroidism, obstructive uropathy CKD stage IV, and BPH. He was recently admitted for concerns of sepsis secondary to
lower extremity cellulitis and UTI. Patient also has history of episodic hypotension and episodes of unresponsiveness in PT and after blood pressure medication administration. Patient presents again from [facility] to [facility] ED
yesterday with concerns of lightheadedness, hypotension, and syncopal episode while at the rehab center. He was given fluid bolus with BP improving from 95/46> 135/66. Right gaze palsy, right-sided weakness
He denies headache, dizziness, chest pain, palpitations, shortness of breath, cough, abdominal pain, nausea, vomiting, diarrhea, urinary symptoms.
Objective Data
-
Labs:
Laboratory Results
12/23/23 12/23/23 12/23/23
01:02 09:38 09:39
WBC Pending
Hgb Pending
Hct Pending
Plt Count Pending
PT Pending
INR Pending
APTT > 200 H* Pending
Sodium Pending
Potassium Pending
Chloride Pending
Carbon Dioxide Pending
BUN Pending
Creatinine Pending
Glucose Pending
Calcium Pending
Total Bilirubin Pending
AST Pending
ALT Pending
Alkaline Phosphatase Pending
12/23/23
09:39
WBC
Hgb
Hct
Plt Count
PT
INR
APTT Cancelled
Sodium
Potassium
Chloride
Carbon Dioxide
BUN
Creatinine
Glucose
Calcium
Total Bilirubin
AST
ALT
Alkaline Phosphatase
Vital Signs:
Vital Signs
Temp Pulse Resp BP Pulse Ox
97.8 F 97 18 161/101 99
12/23/23 07:00 12/23/23 07:00 12/23/23 07:00 12/23/23 07:00 12/23/23 07:00
I&O
12/22/23 12/23/23 12/24/23
06:59 06:59 06:59
Intake Total 200 / 200
Balance 200 / 200
Physical Exam
-
General: Well Developed, Well Nourished and No Apparent Distress
HEENT: Normocephalic and Atraumatic
Respiratory: Rhonchi
Cardiac: S1/S2
GI: Soft
[2023-12-23 10:11] LABS: % Basophils 1.8 % (0-2); % Eosinophils 5.3 % (0-6); % Immature Granulocytes 0.1 % (0-0.5); % Lymphocytes 29.7 % (20.5-51.1); % Monocytes 8.4 % (1.7-9.3); % Neutrophils 54.7 % (42.2-75.2); Absolute Basophils 0.1 10^3/uL (0-0.2); Absolute Eosinophils 0.4 10^3/uL (0-0.7); Absolute Lymphocytes 2.2 10^3/uL (1.2-3.4); Absolute Monocytes 0.6 10^3/uL (0.1-0.6); Hemoglobin 13.5 g/dL (13.0-18.0); Mean Corp Hgb Conc. 32.1 g/dL (33.0-37.0); Mean Corpuscular Hgb 27.4 pg (27.0-31.0); Mean Corpuscular Volume 85.4 fL (80.0-94.0); Mean Platelet Volume 9.1 fL (7.4-10.4); Nucleated Red Blood Cells % 0 % (-); Platelet Count 359 10^3/uL (130-400); Red Blood Cell Count 4.92 10^6/uL (4.70-6.10); White Blood Cell Count 7.4 10^3/uL (4.8-10.8)
--- NOTE | 2023-12-23 10:19 | W.PN.NEURO.1 ---
Addendum entered and electronically signed by Artis Tobin MD 12/23/23 11:44:
Discussed with family my thoughts at bedside
Seems like his 3 different seizure types
1 starts out with a yawn and then has short lasting aphasia 5 to 15 minutes, focal seizure without impaired awareness
Another type includes confusion and then sleeping with abnormal snoring and breathing lasting around 25 to 30 minutes then waking up confused this appears to be focal seizure with impaired awareness
Another type with right-sided gaze deviation and right arm tonic during an alteration of awareness, focal seizure with impaired awareness
I do not feel that he would need continued hospital monitor, EEG or MRI testing. Discussed with patient and family the small increase in lacosamide.
Okay for going back to [facility] from my standpoint.
Original Note:
Today's Communication / Plan
-
-Check orthostatic vital signs
-Minimize sedating medications
-Follow BP
-Continue Lamotrigine at his previous dose 150 mg BID
-Small increase in Lacosamide to 50 mg in the morning and 100 mg at night
-Patient has upcoming appointment at [facility] epilepsy center
-Not recommending further brain or head/neck vessel imaging
-No changes recommended to antithrombotic regimen
Will follow as needed call with questions and concerns
Neuro Assessment/Plan
Assessment
Patient is an 83-year-old man well-known to me for history of left temporal lobe epilepsy, history of DVT/PE on Coumadin, permanent pacemaker, hypertension, chronic urinary retention requiring intermittent catheterization, CKD, BPH in the hospital
from [facility] with episode of lightheadedness and presyncope to syncope when he moved towards the shower. He was noted to have low blood pressure of 95/46 with improved after IV fluid bolus.
There did seem to be witnessed right eye deviation with staring and unresponsiveness and noted to have right-sided weakness as well as confusion all of these resolved after 1 to 2 minutes.
Patient had recent hospitalization for sepsis due to either UTI versus lower extremity cellulitis accompanied by toxic metabolic encephalopathy.
Most recent lamotrigine level in 12/06 was 10.3.
The episode at [facility] I feel was most likely a focal seizure originally from the left side which would explain speech abnormality as well as right-sided weakness and the right-sided gaze deviation. Right-sided gaze deviation and speech arrest
and right-sided weakness would not make sense for a TIA. Differential diagnosis would include orthostatic hypotension and syncope which can occasionally result in gaze deviation and focal neurologic findings.
I do continue to feel that the patient has focal epilepsy originating from the left temporal lobe. He has clear left-sided temporal interictal epileptiform discharges and does have stereotyped episodes of yawning with then poor responsiveness and
aphasia sometimes lasting up to 30 to 60 minutes. Patient had had a typical episode of these captured on ambulatory EEG although it simply showed slowing without epileptiform changes. It is important to recall that not every seizure (generally
focal seizures involving one side of sandra brain) will show up on EEG as some seizure foci are too deep and/or too small to show up on scalp EEG.
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
Previous CTA of the head and neck on 06/22 showed high-grade stenosis versus short-term occlusion of the right subclavian VEIN. As this is not an arterial subclavian stenosis it does not seem possible that this can produce a subclavian steal
syndrome, as such I do not feel that the subclavian pathology is related to the episode of altered consciousness and abnormal behavior seen at [facility].
Most likely has an element of toxic metabolic encephalopathy still present from the recent hospitalization for sepsis but this appears improving. Difficult to tell whether or not he has a separate mild cognitive impairment or not, anti seizure
medications may also play a role as they commonly cause cognitive issues.
Subjective/Objective
Subjective Data
Date of Service: December 23, 2023
No acute events, patient can't recall much of before getting to ER, remembers being in ER recently
Objective Data
Vital Signs
Temp Pulse Resp BP Pulse Ox
97.8 F 97 18 161/101 99
12/23/23 07:00 12/23/23 07:00 12/23/23 07:00 12/23/23 07:00 12/23/23 07:00
PT 19.6 Sec (11.4-14.6) H 12/22/23 09:15
INR 1.68 12/22/23 09:15
APTT Cancelled 12/23/23 09:39
Sodium 136 mmol/L (135-145) 12/22/23 09:15
Potassium 5.0 mmol/L (3.5-5.1) 12/22/23 09:15
BUN 38 mg/dl (9-20) H 12/22/23 09:15
Glucose 122 mg/dl (70-99) H 12/22/23 09:15
Calcium 8.3 mg/dl (8.4-10.2) L 12/22/23 09:15
Patient Allergies
furosemide [From Lasix] Allergy (Verified 12/22/23 09:00)
Unknown
ciprofloxacin [From Cipro] Adverse Reaction (Verified 12/22/23 09:00)
chills;general malaise
Review of Systems
-
History Source: Patient
All other systems: Reviewed and negative
Constitutional: No Symptoms
EENT: No Symptoms Reported
Respiratory: No Symptoms
Cardiac: No Symptoms
Abdomen/GI: No Symptoms
Genitourinary: No Symptoms
Musculoskeletal: No Symptoms
Skin: No Symptoms
Neuro: See existing Neuro Note
Endocrine: No Symptoms
Hematologic / Lymphatic: No Symptoms
Allergy / Immunology: No Symptoms
Physical Exam
-
General: No Apparent Distress
Eyes: No Ptosis
HEENT: Normocephalic
Neck: No Bruits Bilaterally
Respiratory: Clear to Auscultation
Cardiac: Regular Rhythm
GI: Normal Bowel Sounds
Skin: Unremarkable
Extremities: No Clubbing
Psych: Negative Agitated
Extended Neurological Exam
Mood & Affect: Mood Unremarkable and Affect Unremarkable
Attention Span & Concentration: Awake, Alert and Interactive
Memory: Reduced
Tremor: Hand Tremor Absent
Involuntary Movement: None
Speech: Quality Unremarkable and Quantity Unremarkable; Negative Expressive Aphasia, Receptive Aphasia or Dysarthric
Cranial Nerve II: Left Eye: Pupillary Reactivity Unremarkable and Pupillary Size Unremarkable
Cranial Nerve II: Right Eye: Pupillary Reactivity Unremarkable and Pupillary Size Unremarkable
Cranial Nerves III, IV, : Extraocular Movement: Extraocular Movement Full in all Directions
Muscle Strength, Overall: Full Throughout
Muscle Bulk & Tone: Bulk Unremarkable
Pronator Drift: No Drift in Upper Extremities
Vibration Sensation: Unremarkable
Touch Sensation: Unremarkable
Coordination: [id number] Testing Unremarkable
Data Reviewed
-
CT Head: Image Reviewed
Carotid Ultrasound: Report Reviewed
Labs: Report Reviewed
[2023-12-23 10:23] LABS: INR 2.27; PT 24.9 Sec (11.4-14.6)
[2023-12-23 10:23] LABS: ALT (SGPT) 26 U/L (0-50); AST (SGOT) 28 U/L (17-59); Albumin 3.6 g/dl (3.5-5.0); Alkaline Phosphatase 78 U/L (38-126); Blood Urea Nitrogen 37 mg/dl (9-20); Calcium 8.5 mg/dl (8.4-10.2); Carbon Dioxide 25 mmol/L (22-30); Chloride 105 mmol/L (98-107); Estimated Creatinine Clearance 27 ml/min; HDL Cholesterol 54 mg/dl; LDL Cholesterol, Calculated 67 mg/dl; Potassium 5.3 mmol/L (3.5-5.1); Sodium 135 mmol/L (135-145); Total Bilirubin 0.7 mg/dl (0.2-1.3); Total Cholesterol 134 mg/dl (50-199); Triglyceride 69 mg/dl (10-149); Very Low Density Lipoprotein 13 mg/dl (0-30); eGFR 24.87
[2023-12-23 10:34] LABS: Glucose 100 mg/dl (70-99)
[2023-12-23 10:35] LABS: APTT 154.5 Sec (23.4-35.0)
--- NOTE | 2023-12-23 11:27 | CM ---
Addendum entered by Lavern Cullen 12/23/23 13:21:
Physician requested CM determine if patient would be able to return to [facility] today. CM sent referral via all scripts and updated Liaison. CM awaiting response.
Original Note:
Patient seen at bedside with and son also present. Patient was transferred to from [facility]. CM [facility] with [facility] and [facility] are willing to accept patient back pending bed availability. Patient reviewed OBS/Le form
and patient family completed form. CM will continue to follow for discharge planning needs.
Plan; [facility] when medically appropriate.
--- NOTE | 2023-12-23 15:05 | W.DS.TRANS ---
DC Summary - Transplant Registered Nurse
-
Discharge Instructions:
Discharge Diagnosis/Procedures Seizure
Diet Regular
Blood Work INR daily
Instructions:
Stand-Alone Forms:
Changes to Home Medications: Yes
Discharge Medications:
DC Medications w/original date entered in [employer]
aspirin 81 mg tablet,delayed release 81 mg PO HS Blood clot prevention/tx 02/21/23
atorvastatin 40 mg tablet 40 mg PO HS High cholesterol 02/21/23
calcitriol 0.5 mcg capsule 0.5 mcg PO Q48H@0800 Kidney Disease 08/14/23
lamotrigine 100 mg tablet 150 mg PO BID Seizures 11/06/23
warfarin 2 mg tablet 1 mg PO MOFR@2200 Blood Clot Prevention/Tx 11/06/23
warfarin 2 mg tablet 2 mg PO SUTUWETHSA@2200 Blood Clot Prevention/Tx 11/06/23
carvedilol 25 mg tablet 25 mg PO BID Blood Pressure 12/04/23
acetaminophen 325 mg tablet 650 mg PO ONCE PRN PRN mild pain #30 tabs 12/23/23
lacosamide 100 mg tablet 100 mg PO HS@2100 #30 tabs 12/23/23
lacosamide 50 mg tablet 50 mg PO DAILY #30 tabs 12/23/23
sennosides 8.6 mg-docusate sodium 50 mg tablet (Stool Softener-Stimulant Laxative) 1 tab PO BID #30 tabs 12/23/23
Home Medication Changes
Vimpat dose increased
Pending Results: No
== END 2023-12-23 16:55 ==
LOC: 3 WEST ACU 15:35
PROVIDERS: Clinical Nurse Specialist Family Health; Physician Assistant; ADMITTING PHYSICIAN Hospitalist; ATTENDING PHYSICIAN Internal Medicine; CONSULT PHYSICIAN Psychiatry & Neurology Neurology; EMERGENCY PHYSICIAN Emergency Medicine; FAMILY PHYSICIAN Student in an Organized Health Care Education/Training Program
DX: G40.109 Localization-related (focal) (partial) symptomatic epilepsy and epileptic syndromes with simple partial seizures, not intractable, without status epilepticus (principal); R55 Syncope and collapse; R53.1 Weakness; I95.9 Hypotension, unspecified; I25.10 Atherosclerotic heart disease of native coronary artery without angina pectoris; N31.9 Neuromuscular dysfunction of bladder, unspecified; E21.3 Hyperparathyroidism, unspecified; D68.9 Coagulation defect, unspecified; N17.9 Acute kidney failure, unspecified; I12.9 Hypertensive chronic kidney disease with stage 1 through stage 4 chronic kidney disease, or unspecified chronic kidney disease; K59.00 Constipation, unspecified; N18.4 Chronic kidney disease, stage 4 (severe); N40.0 Benign prostatic hyperplasia without lower urinary tract symptoms; E78.00 Pure hypercholesterolemia, unspecified; Z86.718 Personal history of other venous thrombosis and embolism; Z82.49 Family history of ischemic heart disease and other diseases of the circulatory system; Z87.440 Personal history of urinary (tract) infections; Z86.711 Personal history of pulmonary embolism; Z79.82 Long term (current) use of aspirin; Z79.01 Long term (current) use of anticoagulants; Z95.0 Presence of cardiac pacemaker; Z95.9 Presence of cardiac and vascular implant and graft, unspecified; Z90.49 Acquired absence of other specified parts of digestive tract; Z90.79 Acquired absence of other genital organ(s); Z88.1 Allergy status to other antibiotic agents; Z88.8 Allergy status to other drugs, medicaments and biological substances
CPT/HCPCS: 70450; 71046; 80053; 80061; 81003; 81015; 82962; 84484; 85025; 85027; 85610; 85730; 87077; 87086; 87186; 93005; 93880; 97163; 97167; 99285; G0378

== ENCOUNTER 2023-12-23 20:00 | Emergency (ER) | payer MEDICARE, OTHER, SELFPAY ==
[2023-12-23 20:03] VITALS: BP 146/70
[2023-12-23 20:04] VITALS: BP 146/70
[2023-12-23 20:08] LABS: Glucose - Point of Care 73 mg/dl (70-99)
[2023-12-23 20:17] LABS: % Basophils 1.4 % (0-2); % Eosinophils 3.4 % (0-6); % Immature Granulocytes 0.3 % (0-0.5); % Lymphocytes 26.5 % (20.5-51.1); % Monocytes 11.3 % (1.7-9.3); % Neutrophils 57.1 % (42.2-75.2); Absolute Basophils 0.1 10^3/uL (0-0.2); Absolute Eosinophils 0.3 10^3/uL (0-0.7); Absolute Monocytes 0.8 10^3/uL (0.1-0.6); Absolute Neutrophils 4.2 10^3/uL (1.4-6.5); Hematocrit 40.4 % (39.0-52.0); Hemoglobin 13.1 g/dL (13.0-18.0); Mean Corp Hgb Conc. 32.4 g/dL (33.0-37.0); Mean Corpuscular Hgb 27.2 pg (27.0-31.0); Mean Corpuscular Volume 83.8 fL (80.0-94.0); Mean Platelet Volume 8.9 fL (7.4-10.4); Nucleated Red Blood Cells % 0 % (-); Platelet Count 348 10^3/uL (130-400); Red Blood Cell Count 4.82 10^6/uL (4.70-6.10); Red Cell Dist. Width 15.1 % (11.5-14.5); White Blood Cell Count 7.4 10^3/uL (4.8-10.8)
--- NOTE | 2023-12-23 20:20 | ED.GENMED ---
History of Present Illness
General
Chief Complaint: Change Level of Consciousness
Time Seen by Provider: 12/23/23 20:16
Travel History
Have you had any contact with someone who has COVID-19?: No
Do you have any symptoms of coronavirus? Fever > 100 degrees, chills, cough, shortness of breath, sore throat, loss of taste or smell, muscle aches, or headache?: No
History of Present Illness
History of Present Illness:
HPI: Patient presents from [facility] after a rapid response. He had an episode of unresponsiveness with his eyes closed and he did have shaking of the extremities. There is no report of any postictal state. As I evaluate the patient initially he
has no specific complaints.
EXAM:
GENERAL: Appears somewhat chronically ill
HEENT: Moist oral mucosa
CARDIOVASCULAR: No murmurs, normal heart rate and rhythm, No chest wall tenderness
PULMONARY: No respiratory distress, breath sounds are clear and equal
ABDOMEN: Soft with no peritoneal signs, no tenderness
NEUROLOGIC: Excellent strength all extremities, no coordination deficits
PSYCHIATRIC: He has slightly impaired insight and judgment, he became confused when he went me to call his son but initially said brother, he thought it was September (it is December), he knows he is at [facility]
EXTREMITIES: Nontender, no edema, moves all extremities equally
SKIN: No rash, no lesions
ED COURSE:
8:20 PM: I initially evaluated patient
NUMBER AND COMPLEXITY OF PROBLEMS ADDRESSED AT THE ENCOUNTER
� Chronic conditions affecting care: Seizure disorder on Lamictal and Vimpat, DVT, high blood pressure, hyperlipidemia, renal insufficiency, history of tachybradycardia syndrome
� Acute Exacerbation and/or Progression of Chronic Illness: This may be an acute exacerbation of chronic seizure disorder
� Differential Diagnosis includes: Acute seizure, hypoglycemia, electrolyte abnormality, dysrhythmia
AMOUNT AND/OR COMPLEXITY OF DATA TO BE REVIEWED AND ANALYZED
� I performed an independent evaluation of and my interpretation is:
EKG: Sinus 94, normal axis, right bundle branch block
CT: I personally reviewed CT imaging and agree with radiologist interpretation of old lacunar infarct
X-rays:
Laboratory Studies: CBC unremarkable, INR 2.57, CKD noted with mild hyperkalemia
Other:
� Review of other/old records: The patient was admitted after seizure/hypotension yesterday discharged today to [facility], his Vimpat dosing was increased and his Lamictal was maintained. He was not orthostatic at that time.
He did have recent strep pyogenes bacteremia.
� Clinical information was obtained by an independent historian: I spoke to the nurse who spoke to staff at [facility]
� Prescriptions/Medications Considered but not given:
� Further testing considered but not performed:
RISK OF COMPLICATIONS AND/OR MORBIDITY OR MORTALITY OF PATIENT MANAGEMENT
� Social determinants of health affecting care: Currently staying at [facility]
� Discussion with other providers:
� Escalation of care including admission/observation vs risk of discharge considered: Blood sugar upon arrival was 73, CKD noted, will give a dose of Lokelma due to slight hyperkalemia. CT brain unchanged. I tried to update the
son, I called his cell phone but it went straight to voicemail at 10:39 p.m. The patient's overall status has remained unchanged. No clear indication for readmission to the hospital. He was just discharged today.
Past History
Past History
ED Past Medical History: CAD, HTN, Hypercholesterolemia, Seizures, Other (PE, DVT, UTI, BPH) and Other (Self catheterizes his bladder)
ED Past Surgical History: Appendectomy, Orthopedic, Tonsilectomy and Urological
Social History
Tobacco: Non-smoker
Alcohol: None
Drug: None
Personal:
Living: with family
Employment: Retired
Family History
Family History: Hypertension
Phy Exam
Physical Exam
Physical Exam:
See HPI
Course
Orders/Labs/Results
Orders:
Orders
12/23/23 20:10
Electrocardiogram (*1) Urgent
Reason for Study: Other
Other Reason for Exam: change in mental status
CT Head W/o Iv Contrast Urgent
Comment:
Reason For Exam: change in mental status
EKG- Treatment ONCE
12/23/23 20:12
CMP [Comprehensive Metabolic Panel] Urgent
Complete Blood Count/With Diff Urgent
PT/INR [Prothrombin Time] Urgent
Troponin I Urgent
12/23/23 20:34
0.9% Sodium Chloride 500 ml [Nss] 500 ml IV BOLUS
12/23/23 22:38
Sodium Zirconium Cyclosilicate [Lokelma] 10 gram PO NOW STA
Abnormal Lab Results
12/23/23
20:12
MCHC 32.4 L g/dL
(33.0-37.0)
RDW 15.1 H %
(11.5-14.5)
Absolute Monos (auto) 0.8 H 10^3/uL
(0.1-0.6)
Monocytes % 11.3 H %
(1.7-9.3)
PT 27.5 H Sec
(11.4-14.6)
Potassium 5.3 H mmol/L
(3.5-5.1)
BUN 43 H mg/dl
(9-20)
Creatinine 2.6 H mg/dL
(0.7-1.3)
12/23/23 20:12
12/23/23 20:12
Vital Signs
Initial and Last Documented VS:
Initial Vital Signs
Temp Pulse Resp BP Pulse Ox
98.2 F 96 20 146/70 98
12/23/23 20:03 12/23/23 20:03 12/23/23 20:03 12/23/23 20:03 12/23/23 20:03
Last Documented Vital Signs
Temp Pulse Resp BP Pulse Ox
98.2 F 85 19 105/89 95
12/23/23 20:03 12/23/23 21:30 12/23/23 21:30 12/23/23 21:00 12/23/23 21:30
*Critical Care Note
Total Time (30-74mins, 75-104mins- exclusive of procedures): Not Applicable
ED Attending Note
-
Portions of this chart may have been created with voice recognition software.� Occasional wrong word or��sound alike� substitutions may have occurred due to the inherent limitations of voice recognition software.
Discharge Plan
Departure
Prescriptions:
No Action
atorvastatin 40 mg Tablet
40 mg PO HS
lamotrigine 150 mg Tablet
150 mg PO BID
carvedilol 25 mg Tablet
25 mg PO BID
sennosides [senna] 8.6 mg Tablet
8.6 mg PO BID
calcitriol 0.5 mcg Capsule
0.5 mcg PO Q OTHER DAY
warfarin 2 mg Tablet
2 mg PO SUTUWETHSA
Rx Instructions:
SATURDAY,SATURDAY,SATURDAY,SATURDAY,SATURDAY AT 10PM.
aspirin 81 mg Tablet,Chewable
81 mg PO HS
warfarin 1 mg Tablet
1 mg PO MOFR
Rx Instructions:
at hs
lacosamide 50 mg Tablet
50 mg PO DAILY
lacosamide 100 mg Tablet
100 mg PO HS
acetaminophen 325 mg tablet
650 mg PO R DAILYPRN PRN (Reason: mild pain)
Referrals:
Matthew Ingram MD [Family Provider] -
Interventions
Interventions:
*Risk Screen - Suicide Last Done: 12/23/23 20:03
*General Assessment Last Done: 12/23/23 20:03
*Neglect/Abuse Screening Last Done: 12/23/23 20:03
ED- Fall Risk Assessment Last Done: 12/23/23 20:30
ED- Cardiac Assessment Last Done: 12/23/23 20:30
ED- Neurological Assessment Last Done: 12/23/23 20:30
ED-Psychological Assessment Last Done: 12/23/23 20:30
ED- Pulmonary Assessment Last Done: 12/23/23 20:30
[2023-12-23 20:27] LABS: INR 2.57; PT 27.5 Sec (11.4-14.6)
[2023-12-23 20:33] VITALS: BMI 31.4
[2023-12-23 20:36] LABS: ALT (SGPT) 29 U/L (0-50); AST (SGOT) 32 U/L (17-59); Albumin 3.8 g/dl (3.5-5.0); Alkaline Phosphatase 92 U/L (38-126); Blood Urea Nitrogen 43 mg/dl (9-20); Calcium 8.4 mg/dl (8.4-10.2); Carbon Dioxide 28 mmol/L (22-30); Chloride 103 mmol/L (98-107); Estimated Creatinine Clearance 26 ml/min; Glucose 71 mg/dl (70-99); Sodium 136 mmol/L (135-145); Total Bilirubin 0.5 mg/dl (0.2-1.3); Total Protein 6.9 g/dl (6.3-8.2); eGFR 23.73
[2023-12-23 20:42] LABS: Potassium 5.3 mmol/L (3.5-5.1)
[2023-12-23 20:46] LABS: Troponin I < 0.012 ng/ml
[2023-12-23 21:00] VITALS: BP 105/89
[2023-12-23] MEDS: NSS 500 IV (21:08)
--- NOTE | 2023-12-23 22:42 | EDRN ---
Dr. Almanza at bedside going over results and talking to family
[2023-12-23] MEDS: LOKELMA 10 GRAM PO (23:08)
[2023-12-23 23:25] VITALS: BP 156/75
--- NOTE | 2023-12-23 23:29 | EDRN ---
Gave report to nurse in [place] on patient
== END 2023-12-23 23:53 | disposition home or self-care (01) ==
LOC: EMR 20:00
PROVIDERS: Emergency Medicine; EMERGENCY PHYSICIAN Emergency Medicine; FAMILY PHYSICIAN Family Medicine
DX: G40.909 Epilepsy, unspecified, not intractable, without status epilepticus (principal)
CPT/HCPCS: 99284; 96360; 51701; 70450; 80053; 82962; 84484; 85025; 85610; 93005

== ENCOUNTER 2024-02-06 02:10 | Emergency (ER) | payer MEDICARE, OTHER, SELFPAY ==
[2024-02-06 02:13] VITALS: BP 129/76
[2024-02-06 02:14] VITALS: BMI 29.5
[2024-02-06 02:52] LABS: % Basophils 0.5 % (0-2); % Eosinophils 3.3 % (0-6); % Immature Granulocytes 0.3 % (0-0.5); % Lymphocytes 20.5 % (20.5-51.1); % Monocytes 8.5 % (1.7-9.3); % Neutrophils 66.9 % (42.2-75.2); Absolute Basophils 0.1 10^3/uL (0-0.2); Absolute Eosinophils 0.4 10^3/uL (0-0.7); Absolute Lymphocytes 2.3 10^3/uL (1.2-3.4); Absolute Monocytes 0.9 10^3/uL (0.1-0.6); Absolute Neutrophils 7.4 10^3/uL (1.4-6.5); Hematocrit 39.6 % (39.0-52.0); Hemoglobin 13.1 g/dL (13.0-18.0); Mean Corp Hgb Conc. 33.1 g/dL (33.0-37.0); Mean Corpuscular Hgb 26.5 pg (27.0-31.0); Mean Platelet Volume 8.8 fL (7.4-10.4); Nucleated Red Blood Cells % 0 % (-); Platelet Count 331 10^3/uL (130-400); Red Blood Cell Count 4.95 10^6/uL (4.70-6.10); Red Cell Dist. Width 13.7 % (11.5-14.5)
[2024-02-06 03:02] LABS: ALT (SGPT) < 10 U/L (0-50); AST (SGOT) 25 U/L (17-59); Albumin 4.1 g/dl (3.5-5.0); Alkaline Phosphatase 86 U/L (38-126); Blood Urea Nitrogen 32 mg/dl (9-20); Calcium 9.2 mg/dl (8.4-10.2); Carbon Dioxide 26 mmol/L (22-30); Chloride 105 mmol/L (98-107); Estimated Creatinine Clearance 22 ml/min; Glucose 105 mg/dl (70-99); Potassium 4.6 mmol/L (3.5-5.1); Sodium 138 mmol/L (135-145); Total Bilirubin 0.6 mg/dl (0.2-1.3); Total Protein 7.2 g/dl (6.3-8.2); eGFR 22.68
--- NOTE | 2024-02-06 03:13 | ED.GENMED ---
History of Present Illness
General
Chief Complaint: Fainting/Passed Out
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 Transition to [facility] due to chronic debility)
Exam Limitations: none
Time Seen by Provider: 02/06/24 02:20
Nursing documentation reviewed up to this point in time: agreed with
Travel History
Have you had any contact with someone who has COVID-19?: No
Do you have any symptoms of coronavirus? Fever > 100 degrees, chills, cough, shortness of breath, sore throat, loss of taste or smell, muscle aches, or headache?: No
History of Present Illness
History of Present Illness:
This is an 83-year-old gentleman who resides at home with his . He has complex past medical history including seizure disorder, history of PE, chronically maintained on Coumadin, hypertension, hyperlipidemia, tachybradycardia syndrome status
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 Chronic kidney disease stage IV, BPH, CAD. Last hospitalized November of this year due to confusion, treated for sepsis related to UTI and left lower extremity
cellulitis. Transition to [facility] due to continued debility and eventually discharged to home.
He continues with significant disabilities requiring home health nurse, moderate assisted equipment including bedside commode.
He complains of several day history of constipation and wall sitting up on bedside commode straining to pass a bowel movement he became lightheaded, diaphoretic with near syncopal episode. He did not lose consciousness, did not fall off of the
commode and there was no seizure activity. Episode was witnessed by home health nurse as well as .
He arrives via EMS, prehospital EKG unremarkable and reported vital signs unremarkable.
Promptly upon arrival to the ED he developed nausea and dry heaves which has since resolved. He denies dizziness nor lightheadedness, no chest pain or palpitations, no headache, no abdominal pain.
He has not had a fever nor chills.
Rendon catheter has been functioning normally.
Past History
Past History
ED Past Medical History: CAD, HTN, Hypercholesterolemia, Seizures, Other (PE, DVT, UTI, BPH) and Other (Self catheterizes his bladder)
ED Past Surgical History: Appendectomy, Orthopedic, Tonsilectomy and Urological
Social History
Tobacco: Non-smoker
Alcohol: None
Drug: None
Personal:
Living: with family
Employment: Retired
Family History
Family History: Hypertension
Phy Exam
Physical Exam
Physical Exam:
GENERAL: Alert , in no apparent distress. 83-year-old gentleman appears his stated age, bright and alert, pleasant, appears in no acute distress.
EYE: pupils equal and reactive. anicteric. The head is normocephalic, atraumatic.
NECK: Supple, nontender, no meningismus, no significant adenopathy.
ENT: oral mucosa is moist. No rhinorrhea.
CARDIAC: Regular rate and rhythm. no murmur.
LUNGS: Clear breath sounds bilaterally, no acute respiratory distress, no wheezes/rales/rhonchi
ABDOMEN: Soft, nondistended, without focal tenderness, no r/g, no cvat. normoactive BS. Rendon catheter draining clear cady urine.
NEUROLOGICAL: Alert and oriented x3, no focal neuro deficits.
SKIN: Warm and dry, normal color, skin intact. No rash.
MUSCULOSKELETAL: No C/C/E. peripheral pulses are full and equal b/l. No palpable tenderness.
PSYCH: Normal and appropriate interaction.
Course
Orders/Labs/Results
Orders:
Orders
02/06/24 02:20
Electrocardiogram (*1) Urgent
Reason for Study: Abdominal Pain
EKG- Treatment ONCE
02/06/24 02:25
Complete Blood Count/With Diff Urgent
Comprehensive Metabolic Panel Urgent
Troponin I Urgent
02/06/24 02:36
CR Obstruct Series W/pa Chest Urgent
Comment:
Reason For Exam: constipation x few days, near syncope-N/V tonight
02/06/24 04:04
Enema- Treatment ONCE
Type: Milk of Molasses
Abnormal Lab Results
02/06/24
02:25
WBC 11.0 H 10^3/uL
(4.8-10.8)
MCH 26.5 L pg
(27.0-31.0)
Absolute Neuts (auto) 7.4 H 10^3/uL
(1.4-6.5)
Absolute Monos (auto) 0.9 H 10^3/uL
(0.1-0.6)
BUN 32 H mg/dl
(9-20)
Creatinine 2.7 H mg/dL
(0.7-1.3)
Glucose 105 H mg/dl
(70-99)
02/06/24 02:25
02/06/24 02:25
Vital Signs
Initial and Last Documented VS:
Initial Vital Signs
BP
129/76
02/06/24 02:13
Last Documented Vital Signs
Temp Pulse Resp BP Pulse Ox
98.4 F 96 21 105/54 94
02/06/24 02:24 02/06/24 04:00 02/06/24 04:00 02/06/24 03:18 02/06/24 03:45
MDM/Problems Addressed
Differential Diagnosis Includes:
Patient presents after near syncopal event while sitting on a commode, admits to straining to pass a bowel movement. History concerning for vasovagal episode. Must also consider arrhythmia thus will interrogate pacemaker.
Other consideration is early onset gastroenteritis. He denies chest pain nor prodrome of palpitations thus ACS is unlikely.
EKG shows normal sinus rhythm, right bundle branch block, similar and unchanged from previous EKG December 2023.
Vital signs within normal limits.
Will check labs along with obstruction series. Patient may benefit from an enema if obstruction series shows significant constipation.
Episode was witnessed and the report no seizure activity. There was no fall off of the commode, no trauma.
Chronic conditions affecting care: HTN, CAD, Arrhythmia and Neurological disorder
*Radiology
Radiology exam reviewed: preliminary read by ED provider (Obstruction series shows mild to moderate stool within the rectosigmoid region otherwise unremarkable. No obstruction, clear lung mcgovern.)
*Pulse Oximetry
Patient hypoxic: no
*EKG
Interpreted by ED Provider?: Yes
Comparison EKG: no changes (Unchanged from previous December 2023)
Rate: normal
Rhythm: sinus
[place]: normal axis
QRS Pattern: right bundle branch block
Ischemia: no ischemia
*Cost Analyst Interpretation
Rate: normal
Interpretation: normal
Rhythm: sinus
*Critical Care Note
Total Time (30-74mins, 75-104mins- exclusive of procedures): Not Applicable
Update Note
Update Note:
02/06/2024 0326 AM
Pacemaker interrogation shows no evidence of arrhythmia. Pacemaker functioning normally, as programmed.
02/06/2024 0555 AM
Labs show stable chronic kidney disease. Minimally elevated white blood cell count but normal H&H. Troponin is negative.
Obstruction series shows mild stool at rectum/distal sigmoid but no obstruction and no significant stool burden throughout the colon. Clear lung mcgovern.
He has been given an enema and has passed a small soft formed stool. Abdomen remains soft and nontender.
does note that patient has had a chronically poor appetite, mild ongoing anxiety and was evaluated by PCP yesterday, started on Lexapro.
Recommend initiation of a fiber supplement such as Senokot versus a once daily MiraLAX but at this point no evidence of significant stool burden, no fecal impaction. Abdomen is soft and nontender.
Will discharge to home.
Prompt follow-up with PCP.
ED Attending Note
-
Portions of this chart may have been created with voice recognition software.� Occasional wrong word or��sound alike� substitutions may have occurred due to the inherent limitations of voice recognition software.
Discharge Plan
Departure
Patient Disposition: Home (Routine Discharge)
Date of Disposition: 02/06/24
Time of Disposition: 05:52
Patient with high blood pressure during this ER visit?: No
Condition: Good
Discharge Problem:
mild constipation, Vasovagal episode, CKD (chronic kidney disease) stage 4, GFR 15-29 ml/min
Instructions: Constipation, Adult (DC), Near Fainting (DC)
Prescriptions:
No Action
aspirin 81 mg Tablet,Chewable
81 mg PO HS
sennosides [Senna Laxative] 8.6 mg Tablet
17.2 mg PO NOON 30 Days Qty: 60 0RF
carvedilol 3.125 mg Tablet
3.125 mg PO BID 30 Days Qty: 60 0RF
calcitriol 0.25 mcg Capsule
0.5 mcg PO Q48H 30 Days Qty: 30 0RF
docusate sodium 100 mg Capsule
100 mg PO BID 30 Days Qty: 60 0RF
midodrine 5 mg Tablet
10 mg PO BID@0700,1200 30 Days Qty: 120 0RF
carbidopa-levodopa 25-100 mg Tablet
1 tab PO TID @ 0800,1200,1700 30 Days Qty: 90 0RF
multivitamin with folic acid [Tab-A-Alejandro] 400 mcg Tablet
1 tab PO DAILY 30 Days Qty: 30 0RF
cyanocobalamin (vitamin B-12) 1,000 mcg Tablet
1,000 mcg PO DAILY 30 Days Qty: 30 0RF
ondansetron HCl 4 mg Tablet
4 mg PO Q8HPRN PRN (Reason: nausea) 5 Days Qty: 10 0RF
atorvastatin 40 mg Tablet
40 mg PO HS Qty: 0 0RF
lamotrigine 150 mg Tablet
150 mg PO BID Qty: 0 0RF
lacosamide 100 mg Tablet
100 mg PO HS Qty: 0 0RF
amlodipine 5 mg Tablet
5 mg PO DAILY@1700 60 Days Qty: 60 0RF
lacosamide 50 mg Tablet
50 mg PO DAILY Qty: 0 0RF
warfarin [Jantoven] 1 mg tablet
1.5 mg PO DAILY Qty: 60 0RF
Referrals:
Matthew Ingram MD [Family Provider] - Call in 1-3 days for appt
Interventions
Interventions:
*Risk Screen - Suicide Last Done: 02/06/24 02:14
*General Assessment Last Done: 02/06/24 02:14
*Neglect/Abuse Screening Last Done: 02/06/24 02:14
ED- Fall Risk Assessment Last Done: 02/06/24 02:14
ED- Cardiac Assessment Last Done: 02/06/24 02:19
ED- Neurological Assessment Last Done: 02/06/24 02:14
Discharge Date and Time
Print Language: JAPANESE
[2024-02-06 03:18] VITALS: BP 105/54
[2024-02-06 03:21] LABS: Troponin I 0.013 ng/ml
[2024-02-06 04:41] VITALS: BP 119/82
== END 2024-02-06 06:43 | disposition home or self-care (01) ==
LOC: EMR 02:10
PROVIDERS: EMERGENCY PHYSICIAN Emergency Medicine; FAMILY PHYSICIAN Family Medicine
DX: R55 Syncope and collapse (principal); K59.00 Constipation, unspecified; I12.9 Hypertensive chronic kidney disease with stage 1 through stage 4 chronic kidney disease, or unspecified chronic kidney disease; N18.4 Chronic kidney disease, stage 4 (severe); E78.00 Pure hypercholesterolemia, unspecified; I25.10 Atherosclerotic heart disease of native coronary artery without angina pectoris; F41.9 Anxiety disorder, unspecified
CPT/HCPCS: 99285; 93288; 74022; 80053; 84484; 85025; 93005

== ENCOUNTER → 2024-02-06 02:15 | Outpatient (REF) | payer MEDICARE, OTHER, SELFPAY ==
[2024-02-06 16:55] LABS: Urine Albumin 1+ (Neg - Trace); Urine Bilirubin Negative (Negative); Urine Character Very Cloudy (Clear); Urine Color Yellow; Urine Glucose Negative (Negative); Urine Ketone Negative (Negative); Urine Leukocyte 2+ (Negative); Urine Nitrite Positive (Negative); Urine Occult Blood 2+ (Negative); Urine Urobilinogen Negative (Neg - 1+); Urine pH 6.5 (5.0-9.0)
[2024-02-06 17:00] LABS: Urine Bacteria Many (Negative); Urine Squamous Cell 0-2 /LPF (Few); Urine White Cell >100 /HPF (0-5); Urine White Cell Cast 0-2 /LPF
== END ==
LOC: CLAB 02:15
PROVIDERS: ATTENDING PHYSICIAN Family Medicine; OTHER PHYSICIAN Specialist
DX: N39.0 Urinary tract infection, site not specified (principal)
CPT/HCPCS: 81003; 81015; 87077; 87086; 87186

== ENCOUNTER 2024-04-02 15:35 | Outpatient (RCR) | payer MEDICARE, OTHER, SELFPAY | END 2024-04-02 23:59 | disposition home or self-care (01) | LOC: ROT 15:35 | PROVIDERS: ATTENDING PHYSICIAN Physical Medicine & Rehabilitation; FAMILY PHYSICIAN Family Medicine | DX: R54 Age-related physical debility (principal); G20.C Parkinsonism, unspecified; R26.89 Other abnormalities of gait and mobility; G40.89 Other seizures; R41.841 Cognitive communication deficit; R47.89 Other speech disturbances; Z73.6 Limitation of activities due to disability | CPT/HCPCS: 92507; 92523; 96125; 97110; 97112; 97116; 97163; 97167; 97530; 97535 ==

== ENCOUNTER 2024-04-30 13:22 | Outpatient (RCR) | payer MEDICARE, OTHER, SELFPAY | END 2024-04-30 23:59 | disposition home or self-care (01) | LOC: ROT 13:22 | PROVIDERS: ATTENDING PHYSICIAN Physical Medicine & Rehabilitation; FAMILY PHYSICIAN Family Medicine | DX: G20.C Parkinsonism, unspecified (principal); G40.89 Other seizures; R47.89 Other speech disturbances; R47.02 Dysphasia; R41.841 Cognitive communication deficit; Z73.6 Limitation of activities due to disability; R54 Age-related physical debility | CPT/HCPCS: 92507; 97110; 97112; 97116; 97129; 97130; 97530; 97535 ==

== ENCOUNTER 2024-06-01 13:51 | Outpatient (RCR) | payer MEDICARE, OTHER, SELFPAY | END 2024-06-01 23:59 | disposition home or self-care (01) | LOC: ROT 13:51 | PROVIDERS: ATTENDING PHYSICIAN Physical Medicine & Rehabilitation; FAMILY PHYSICIAN Family Medicine | DX: G20.C Parkinsonism, unspecified (principal); G40.89 Other seizures; R47.89 Other speech disturbances; R47.02 Dysphasia; R41.841 Cognitive communication deficit; R54 Age-related physical debility; Z73.6 Limitation of activities due to disability; R26.89 Other abnormalities of gait and mobility | CPT/HCPCS: 92507; 97110; 97112; 97116; 97129; 97130; 97530; 97535 ==

== ENCOUNTER 2024-06-11 11:52 | Emergency (ER) | payer MEDICARE, OTHER, SELFPAY ==
[2024-06-11 11:54] VITALS: BP 104/64
[2024-06-11 12:12] VITALS: BP 119/53
--- NOTE | 2024-06-11 13:24 | ED.GENMED ---
History of Present Illness
General
Chief Complaint: Blood Pressure Problem
Source: patient and spouse
Exam Limitations: none
Time Seen by Provider: 06/11/24 13:18
Nursing documentation reviewed up to this point in time: agreed with
History of Present Illness
History of Present Illness:
83-year-old male with past medical history of seizures previous PE currently on Coumadin presenting from PT where they took her blood pressure systolic 76 he denies any symptoms at the time does have a history of low blood pressure does take
midodrine as needed. Upon arrival here no symptoms
Past History
Past History
ED Past Medical History: CAD, HTN, Hypercholesterolemia, Seizures, Other (PE, DVT, UTI, BPH) and Other (Self catheterizes his bladder)
ED Past Surgical History: Appendectomy, Orthopedic, Tonsilectomy and Urological
Social History
Tobacco: Non-smoker
Alcohol: None
Drug: None
Personal:
Living: with family
Employment: Retired
Family History
Family History: Hypertension
Review of Systems
Review of Systems
Allergies reviewed?: Yes
All Other Systems: ROS reviewed and negative except as documented in HPI and ROS
Phy Exam
Physical Exam
Physical Exam:
GENERAL: Alert , in no apparent distress
EYE: pupils equal and reactive
NECK: Supple, no significant adenopathy.
ENT: o/p clr, mmm.
CARDIAC: Regular rate and rhythm .
LUNGS: Clear breath sounds bilaterally, no acute respiratory distress, no wheezes/rales/rhonchi
ABDOMEN: Soft, without focal tenderness, no r/g, no cvat
NEUROLOGICAL: Alert and oriented, no focal neuro deficits
SKIN: Warm and dry, skin intact.
MUSCULOSKELETAL: No edema, well perfused.
PSYCH: Normal and appropriate interaction.
I clarified
Course
Vital Signs
Initial and Last Documented VS:
Initial Vital Signs
Temp Pulse Resp BP Pulse Ox
97.4 F 65 20 104/64 95
06/11/24 11:54 06/11/24 11:54 06/11/24 11:54 06/11/24 11:54 06/11/24 11:54
Last Documented Vital Signs
Temp Pulse Resp BP Pulse Ox
97.4 F 65 20 119/53 96
06/11/24 11:54 06/11/24 11:54 06/11/24 11:54 06/11/24 12:12 06/11/24 12:15
MDM/Problems Addressed
MDM/Problems Addressed:
83-year-old male presenting to the emergency department today with concerns of a low blood pressure reading at PT. Here he is asymptomatic blood pressure normal range. Does take midodrine as needed. Feels well would like to leave feel this is
reasonable considering asymptomatic normal blood pressure multiple times here return precautions given.
*Critical Care Note
Total Time (30-74mins, 75-104mins- exclusive of procedures): Not Applicable
ED Attending Note
-
Portions of this chart may have been created with voice recognition software.� Occasional wrong word or��sound alike� substitutions may have occurred due to the inherent limitations of voice recognition software.
Discharge Plan
Departure
Patient Disposition: Home (Routine Discharge)
Date of Disposition: 06/11/24
Time of Disposition: 13:25
Patient with high blood pressure during this ER visit?: No
Condition: Good
Covid-19: Not Applicable
Discharge Problem:
Low blood pressure reading
Instructions: BLOOD PRESSURE
Prescriptions:
No Action
aspirin 81 mg Tablet,Chewable
81 mg PO HS
sennosides [Senna Laxative] 8.6 mg Tablet
17.2 mg PO NOON 30 Days Qty: 60 0RF
carvedilol 3.125 mg Tablet
3.125 mg PO BID 30 Days Qty: 60 0RF
calcitriol 0.25 mcg Capsule
0.5 mcg PO Q48H 30 Days Qty: 30 0RF
docusate sodium 100 mg Capsule
100 mg PO BID 30 Days Qty: 60 0RF
midodrine 5 mg Tablet
10 mg PO BID@0700,1200 30 Days Qty: 120 0RF
carbidopa-levodopa 25-100 mg Tablet
1 tab PO TID @ 0800,1200,1700 30 Days Qty: 90 0RF
multivitamin with folic acid [Tab-A-Alejandro] 400 mcg Tablet
1 tab PO DAILY 30 Days Qty: 30 0RF
cyanocobalamin (vitamin B-12) 1,000 mcg Tablet
1,000 mcg PO DAILY 30 Days Qty: 30 0RF
ondansetron HCl 4 mg Tablet
4 mg PO Q8HPRN PRN (Reason: nausea) 5 Days Qty: 10 0RF
atorvastatin 40 mg Tablet
40 mg PO HS Qty: 0 0RF
lamotrigine 150 mg Tablet
150 mg PO BID Qty: 0 0RF
lacosamide 100 mg Tablet
100 mg PO HS Qty: 0 0RF
amlodipine 5 mg Tablet
5 mg PO DAILY@1700 60 Days Qty: 60 0RF
lacosamide 50 mg Tablet
50 mg PO DAILY Qty: 0 0RF
warfarin [Jantoven] 1 mg tablet
1.5 mg PO DAILY Qty: 60 0RF
Activity Restrictions/Additional Instructions:
You came to the emergency department today with concerns of a low blood pressure reading at outpatient rehab.. Here you had a reassuring assessment. Please keep a close eye on this at home and follow-up closely with your outpatient doctors.
Return to the emergency department for any worsening, new or concerning symptoms.
Interventions
Interventions:
*Risk Screen - Suicide Last Done: 06/11/24 11:54
*General Assessment Last Done: 06/11/24 11:54
*Neglect/Abuse Screening Last Done: 06/11/24 11:54
*Nursing Disposition Last Done: 06/11/24 14:01
ED- Cardiac Assessment Last Done: 06/11/24 12:17
ED- Neurological Assessment Last Done: 06/11/24 12:17
ED- Pulmonary Assessment Last Done: 06/11/24 12:17
Discharge Date and Time
Discharge Date/Time: 06/11/24 14:01
Print Language: MALTESE
== END 2024-06-11 14:01 | disposition home or self-care (01) ==
LOC: EMR 11:52
PROVIDERS: EMERGENCY PHYSICIAN Emergency Medicine; FAMILY PHYSICIAN Family Medicine
DX: I95.9 Hypotension, unspecified (principal); I25.10 Atherosclerotic heart disease of native coronary artery without angina pectoris; I10 Essential (primary) hypertension; E78.00 Pure hypercholesterolemia, unspecified; N40.0 Benign prostatic hyperplasia without lower urinary tract symptoms; Z79.01 Long term (current) use of anticoagulants; Z82.49 Family history of ischemic heart disease and other diseases of the circulatory system; Z86.711 Personal history of pulmonary embolism; Z86.718 Personal history of other venous thrombosis and embolism; Z87.440 Personal history of urinary (tract) infections; Z90.49 Acquired absence of other specified parts of digestive tract
CPT/HCPCS: 99282

== ENCOUNTER 2024-07-01 12:55 | Outpatient (RCR) | payer MEDICARE, OTHER, SELFPAY | END 2024-07-01 23:59 | disposition home or self-care (01) | LOC: ROT 12:55 | PROVIDERS: ATTENDING PHYSICIAN Physical Medicine & Rehabilitation; FAMILY PHYSICIAN Family Medicine | DX: G20.C Parkinsonism, unspecified (principal); G40.89 Other seizures; R47.89 Other speech disturbances; R47.02 Dysphasia; R41.841 Cognitive communication deficit; Z73.6 Limitation of activities due to disability; R54 Age-related physical debility | CPT/HCPCS: 92507; 97110; 97112; 97116; 97129; 97130; 97530; 97535 ==

== ENCOUNTER 2024-07-08 13:07 | Outpatient (RCR) | payer MEDICARE, OTHER, SELFPAY | END 2024-07-08 23:59 | disposition home or self-care (01) | LOC: ROT 13:07 | PROVIDERS: ATTENDING PHYSICIAN Physical Medicine & Rehabilitation; FAMILY PHYSICIAN Family Medicine | DX: G20.C Parkinsonism, unspecified (principal); R26.89 Other abnormalities of gait and mobility; G40.89 Other seizures; R47.89 Other speech disturbances; R47.02 Dysphasia; R41.841 Cognitive communication deficit; Z73.6 Limitation of activities due to disability; R54 Age-related physical debility | CPT/HCPCS: 97110; 97112; 97129; 97130; 97530; 97535 ==

== ENCOUNTER 2024-07-12 23:17 | Inpatient (IN) | payer MEDICARE, OTHER, SELFPAY ==
[2024-07-12 21:36] VITALS: BP 138/63; BMI 29.2
[2024-07-12 21:37] VITALS: BP 138/63
[2024-07-12 22:00] VITALS: BP 126/68
[2024-07-12 22:08] LABS: % Basophils 0.1 % (0-2); % Eosinophils 0.1 % (0-6); % Immature Granulocytes 1.1 % (0-0.5); % Lymphocytes 2.4 % (20.5-51.1); % Neutrophils 95.3 % (42.2-75.2); Absolute Immature Granulocytes 0.1 10^3/uL (0-0.05); Absolute Lymphocytes 0.2 10^3/uL (1.2-3.4); Absolute Monocytes 0.1 10^3/uL (0.1-0.6); Absolute Neutrophils 7.8 10^3/uL (1.4-6.5); Hematocrit 36.4 % (39.0-52.0); Hemoglobin 11.9 g/dL (13.0-18.0); Mean Corp Hgb Conc. 32.7 g/dL (33.0-37.0); Mean Corpuscular Hgb 24.5 pg (27.0-31.0); Mean Corpuscular Volume 75.1 fL (80.0-94.0); Mean Platelet Volume 9.7 fL (7.4-10.4); Nucleated Red Blood Cells % 0 % (-); Platelet Count 203 10^3/uL (130-400); Red Blood Cell Count 4.85 10^6/uL (4.70-6.10); Red Cell Dist. Width 14.5 % (11.5-14.5); Urine Albumin 1+ (Neg - Trace); Urine Bilirubin Negative (Negative); Urine Character Clear (Clear); Urine Color Yellow; Urine Glucose Negative (Negative); Urine Ketone Negative (Negative); Urine Leukocyte 2+ (Negative); Urine Nitrite Negative (Negative); Urine Occult Blood 4+ (Negative); Urine Specific Gravity 1.015 (<1.030); Urine Urobilinogen Negative (Neg - 1+); White Blood Cell Count 8.2 10^3/uL (4.8-10.8)
[2024-07-12 22:13] LABS: Urine Squamous Cell 0-2 /LPF (Few)
[2024-07-12 22:15] LABS: Urine Bacteria Moderate (Negative)
[2024-07-12 22:16] LABS: Urine White Cell >100 /HPF (0-5)
--- NOTE | 2024-07-12 22:21 | ED.GENMED ---
History of Present Illness
General
Chief Complaint: Urinary Symptoms
Source: patient and other (Triage note)
Exam Limitations: none
Time Seen by Provider: 07/12/24 21:50
History of Present Illness
History of Present Illness:
This is a 84 year old male that is brought in by ambulance with c/o possible UTI. Attempted to call but no response. Patient states that he straight caths 4 times daily and they think patient has a UTI. Denies any fever, chills, chest pain,
SOB, abd pain, nausea, vomiting, diarrhea, headache, dizziness.
Spoke with patient . States that the patient did not feel good 2 days ago and then he slept and felt better. Then today he started again to not feel well and he was very weak. States that he did not have a fever at home.
Past History
Past History
ED Past Medical History: CAD, Cancer (Skin CA), HTN, Hypercholesterolemia, Seizures, Other (PE, DVT, UTI, Urinary retention Straight caths 4 times daily, BPH, Hyperparathyroidism) and Other (Self catheterizes his bladder)
ED Past Surgical History: Appendectomy, Cardiac (Pacemaker), Orthopedic (Right wrist surgery, ), Tonsilectomy, Urological (Prostatectomy) and Other (IVC filter)
Social History
Tobacco: Non-smoker
Alcohol: None
Drug: None
Personal:
Living: with family
Employment: Retired
Family History
Family History: Hypertension
Review of Systems
Review of Systems
All Other Systems: ROS reviewed and negative except as documented in HPI and ROS
Constitutional: Reports no symptoms; Denies fever or chills
EENT: Reports no symptoms
Respiratory: Reports no symptoms; Denies cough or trouble breathing
Cardiac: Denies chest pain
ABD/GI: Reports no symptoms; Denies abdominal pain, nausea, vomiting or diarrhea
: Reports other (straight caths)
Musculoskeletal: Reports no symptoms
Skin: Reports no symptoms
Neurological: Reports no symptoms; Denies dizzy or headache
Psychiatric: Reports no symptoms
Phy Exam
General Physical Exam
General Presentation: no apparent distress
General age: appears stated age
General Skin: warm and dry
General Habitus: elderly
General Mental: other (Patient is slow to answer, )
General Hydration: dry mucous membranes
ENT Exam
ENT Exam: TM's normal, pharynx normal and neck supple
Eye Exam
Eye Exam: EOMI
Cardiovascular Exam
Cardiovascular Exam: regular rate/rhythm, normal peripheral pulses and other (Murmur)
Pulmonary Exam
Pulmonary Exam: lungs clear, no respiratory distress, no rales, chest non tender, no crackles, no rhonchi, no wheezing and no cough
Gastrointestinal Exam
Gastrointestinal Exam: normal bowel sounds, non tender, soft, no organomegaly, no pulsatile mass and non distended
Musculoskeletal Exam
Musculoskeletal Exam: full ROM and edema (slight ankle edema non pitting)
Skin Exam
Skin Exam: normal color, warm/dry, no rash and no petechia
Psychiatric Exam
Psychiatric Exam: normal mood/affect
Course
Orders/Labs/Results
Orders:
Orders
07/12/24 21:52
Electrocardiogram (*1) Urgent
Reason for Study: Other
Other Reason for Exam: Possible Sepsis
EKG- Treatment ONCE
Straight cath- Treatment ONCE
07/12/24 21:53
Complete Blood Count/With Diff Urgent
Comprehensive Metabolic Panel Urgent
Urinalysis Reflex To Culture Urgent
Date Specimen was Collected: 07/12/24
Time Specimen was Collected: 21:52
Urine Microscopic Reflex Cult Urgent
Urine Culture Urgent
SIMONE Source: U
Specimen Description:
Date Specimen was Collected: 07/12/24
Time Specimen was Collected: 21:52
07/12/24 22:11
0.9% Sodium Chloride 1000 ml [Nss] 1,000 ml IV BOLUS
07/12/24 22:25
COVID-19 Antigen Urgent
Source: Nasal Swab
Lactic Acid Urgent
07/12/24 22:28
CefTRIAXone [Rocephin] 1,000 mg IV NOW STA
07/12/24 23:09
Admit/Transfer Patient As Directed
Co-Sign Provider:
Level of Care: Inpatient admission
Assign to:: Medical/Surgical
Physician / Group: curtis
Diagnosis: sepsis uti
Reason for Hospitalization: sepsis uti
Expected length of stay greater than two midnights?: Yes
ELOS- Estimated Length of Stay in days: 2
I certify the patient meets the requirements for IP care: Yes
PRN Pain Medication Management As Directed
May give lesser potent ordered pain med per pt: Yes
preference::
Protocol:: Medication orders for pain may be administered in a
manner that supports deferring to patient preference
when the pt is:
- Requesting an ordered lesser potent pain medication.
Least to most potent pain medications are defined
as: acetaminophen < NSAID < tramadol < opioids
(morphine, oxycodone, hydromorphone).
- Requesting a lesser dose of the same medication IF
ORDERED.
- Requesting a less intrusive route of administration
if both routes are prescribed by the provider (PO <
IV).
07/12/24 23:10
Code Status As Directed
Resuscitation Status: Full Code
Abnormal Lab Results
07/12/24
21:53
Hgb 11.9 L g/dL
(13.0-18.0)
Hct 36.4 L %
(39.0-52.0)
MCV 75.1 L fL
(80.0-94.0)
MCH 24.5 L pg
(27.0-31.0)
MCHC 32.7 L g/dL
(33.0-37.0)
Abs Immat Gran (auto) 0.1 H 10^3/uL
(0-0.05)
Absolute Neuts (auto) 7.8 H 10^3/uL
(1.4-6.5)
Absolute Lymphs (auto) 0.2 L 10^3/uL
(1.2-3.4)
Immature Gran % 1.1 H %
(0-0.5)
Neutrophils % 95.3 H %
(42.2-75.2)
Lymphocytes % 2.4 L %
(20.5-51.1)
Monocytes % 1.0 L %
(1.7-9.3)
Carbon Dioxide 20 L mmol/L
(22-30)
BUN 40 H mg/dl
(9-20)
Creatinine 2.7 H mg/dL
(0.7-1.3)
Glucose 118 H mg/dl
(70-99)
Calcium 7.8 L mg/dl
(8.4-10.2)
Total Protein 6.2 L g/dl
(6.3-8.2)
Ur Occult Blood Reflex 4+ A
(Negative)
Leukocyte Esterase Rfl 2+ A
(Negative)
Urine RBC 7-10 A /HPF
(0-2)
Urine WBC (Reflex) >100 A /HPF
(0-5)
Urine Bacteria (Reflex) Moderate A
(Negative)
Urine Albumin (Reflex) 1+ A
(Neg - Trace)
07/12/24 21:53
07/12/24 21:53
H/H slightly low. Urine positive for infection. Chronic renal insufficiency, Hyperglycemia, Hypocalcemia. carbon dioxide slightly low. COVID negative
Vital Signs
Initial and Last Documented VS:
Initial Vital Signs
Temp Pulse Resp BP Pulse Ox
100.7 F H 89 16 138/63 95
07/12/24 21:36 07/12/24 21:36 07/12/24 21:36 07/12/24 21:36 07/12/24 21:36
Last Documented Vital Signs
Temp Pulse Resp BP Pulse Ox
100.7 F H 97 21 143/77 94
07/12/24 21:36 07/12/24 22:30 07/12/24 22:30 07/12/24 22:30 07/12/24 22:30
MDM/Problems Addressed
Differential Diagnosis Includes:
UTI, COVID
MDM/Problems Addressed:
This is a 84 year old male that is brought in by ambulance with possible UTI. Told that patient feels that he has a UTI. Patient denies any fever at home and thinks he took Tylenol
Will check labs, Urine, Given IV fluids and medicate with antibiotic if infection.
Chronic conditions affecting care: Other (straight caths 4 times daily. )
Acute Exacerbation and/or Progression of Chronic Illness:
Chronic history of urinary retention and straight caths 4 times daily.
*Pulse Oximetry
Patient hypoxic: no
*EKG
Interpreted by ED Provider?: NA
Rate: EKG- N/A
*Sales And Marketing Vice President Interpretation
Rate: normal
Heart Rate: 93
Rhythm: sinus
*Critical Care Note
Total Time (30-74mins, 75-104mins- exclusive of procedures): Not Applicable
ED Attending Note
-
Portions of this chart may have been created with voice recognition software.� Occasional wrong word or��sound alike� substitutions may have occurred due to the inherent limitations of voice recognition software.
Discharge Plan
Departure
Patient Disposition: Admit
Date of Disposition: 07/12/24
Time of Disposition: 22:44
Admit to: Med/Surg
Presentation/result/management discussed w/ accepting MD/DO: Hospitalist
Patient with high blood pressure during this ER visit?: Yes
Condition: Good
Covid-19: Negative COVID-19
Discharge Problem:
Fever, Urinary tract infection
Interventions
Interventions:
*Risk Screen - Suicide Last Done: 07/12/24 21:36
*General Assessment Last Done: 07/12/24 21:36
*Neglect/Abuse Screening Last Done: 07/12/24 21:36
ED- Fall Risk Assessment Last Done: 07/12/24 21:36
ED-Male Genitourinary Assessment Last Done: 07/12/24 21:36
[2024-07-12] MEDS: NSS 1000 IV (22:26)
[2024-07-12 22:30] VITALS: BP 143/77
[2024-07-12 22:30] LABS: ALT (SGPT) < 10 U/L (0-50); AST (SGOT) 21 U/L (17-59); Albumin 3.5 g/dl (3.5-5.0); Alkaline Phosphatase 110 U/L (38-126); Blood Urea Nitrogen 40 mg/dl (9-20); Calcium 7.8 mg/dl (8.4-10.2); Carbon Dioxide 20 mmol/L (22-30); Chloride 103 mmol/L (98-107); Estimated Creatinine Clearance 22 ml/min; Glucose 118 mg/dl (70-99); Potassium 3.8 mmol/L (3.5-5.1); Sodium 137 mmol/L (135-145); Total Bilirubin 0.7 mg/dl (0.2-1.3); Total Protein 6.2 g/dl (6.3-8.2); eGFR 22.53
[2024-07-12] MEDS: ROCEPHIN 1000 MG IV (22:30)
[2024-07-12 22:47] LABS: Lactic Acid 1.6 mmol/L (0.7-2.0)
[2024-07-12 22:59] LABS: COVID-19 Antigen Negative (Negative)
[2024-07-12 23:00] VITALS: BP 124/103
--- NOTE | 2024-07-12 23:11 | HPS.HSE ---
Family Physician
-
Family Physician: Matthew Ingram
Chief Complaint
-
chills, confusion
History of Present Illness
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
hypotension, right subclavian stenosis, strep pyogenes bacteremia, hyperlipidemia, CAD, chronic urinary retention and self catheterizes, chronic UTI, hyperparathyroidism, obstructive uropathy, CKD 4, BPH, presenting with confusion and chills. He
[facility] concern for [facility]TI.
Patient is unsure why he has come to the hospital but endorses confusion and chills. He denies nausea vomiting or abdominal pain or diarrhea. He denies any urinary symptoms. He self catheterizes 4 times a day.
He denies smoking or alcohol use.
Medical History
Past Medical History
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
Past Surgical History: Reports Other ( Appendectomy, Cardiac (Pacemaker), Orthopedic (Right wrist surgery, ), Tonsilectomy, Urological (Prostatectomy) and Other (IVC filter))
Social History
Tobacco: Non-smoker
Alcohol: None
Drug: None
Family History
Family History: Not pertinent
Allergies / Home Medications
Allergies reflects when Allergies were last updated in [employer].
Home Medications with original date entered in [employer]
Allergy/Medication List:
Allergies
Allergy/AdvReac Type Severity Reaction Status Date / Time
ciprofloxacin [From Cipro] Allergy chills;general Verified 07/12/24 21:36
malaise
furosemide [From Lasix] Allergy Unknown Verified 07/12/24 21:36
Home Medications
aspirin 81 mg chewable tablet 81 mg PO HS 12/23/23
atorvastatin 40 mg tablet 40 mg PO HS cholesterol #0 tabs 01/15/24
calcitriol 0.25 mcg capsule 0.5 mcg (2 x 0.25 mcg) PO Q48H Kidney Disease 30 days #30 caps 01/15/24
carbidopa 25 mg-levodopa 100 mg tablet 1 tab PO TID @ 0800,1200,1700 Neurological Condition 30 days #90 tabs 01/15/24
carvedilol 3.125 mg tablet 3.125 mg PO BID 30 days #60 tabs 01/15/24
cyanocobalamin (vitamin B-12) 1,000 mcg tablet 1,000 mcg PO DAILY 30 days #30 tabs 01/15/24
docusate sodium 100 mg capsule 100 mg PO BID 30 days #60 caps 01/15/24
lacosamide 100 mg tablet 100 mg PO HS seizure #0 tabs 01/15/24
lamotrigine 150 mg tablet 150 mg PO BID Seizures #0 tabs 01/15/24
midodrine 5 mg tablet 10 mg (2 x 5 mg) PO BID@0700,1200 30 days #120 tabs 01/15/24
multivitamin with folic acid 400 mcg tablet (Tab-A-Alejandro) 1 tab PO DAILY 30 days #30 tabs 01/15/24
ondansetron HCl 4 mg tablet 4 mg PO Q8HPRN PRN nausea 5 days #10 tabs 01/15/24
sennosides 8.6 mg tablet (Senna Laxative) 17.2 mg (2 x 8.6 mg) PO NOON 30 days #60 tabs 01/15/24
amlodipine 5 mg tablet 5 mg PO DAILY@1700 60 days #60 tabs 01/16/24
lacosamide 50 mg tablet 50 mg PO DAILY Seizures #0 tabs 01/16/24
warfarin 1 mg tablet (Jantoven) 1.5 mg (1.5 x 1 mg) PO DAILY #60 tabs 01/16/24
Review of Systems
-
History Source: Patient
A 12 point ROS was completed and negative except as noted: Yes
Constitutional: Reports No Symptoms
EENT: Reports No Symptoms
Respiratory: Reports No Symptoms
Cardiac: Reports No Symptoms
Abdomen/GI: Reports No Symptoms
: Reports No Symptoms
Musculoskeletal: Reports No Symptoms
Skin: Reports No Symptoms
Neurological: Reports No Symptoms
Endocrine: Reports No Symptoms
Hematologic/Lymphatic: Reports No Symptoms
Psych: Reports No Symptoms
Physical Exam
Vital Signs
Vital Signs
Temp Pulse Resp BP Pulse Ox
100.7 F H 97 21 143/77 94
07/12/24 21:36 07/12/24 22:30 07/12/24 22:30 07/12/24 22:30 07/12/24 22:30
Physical Exam
General: Well Developed, Well Nourished and No Apparent Distress
HEENT: NormoCephalic, Moist mucous membranes and Atraumatic
Respiratory: Clear
Cardiac: S1/S2 and Regular Rhythm; No Murmur or Rub
GI: Soft, Non Tender, Non Distended and Normal Bowel Sounds; No Organomegaly
Rectal: Deferred by Provider
Musculoskeletal: No Clubbing, No Cyanosis and No Edema
Skin: No Rash
Neuro: Nonfocal/grossly intact
Laboratory Results
-
07/12/24 21:53
07/12/24 21:53
Laboratory Results
Lactic Acid 1.6 mmol/L (0.7-2.0) 07/12/24 22:25
Total Bilirubin 0.7 mg/dl (0.2-1.3) 07/12/24 21:53
AST 21 U/L (17-59) 07/12/24 21:53
ALT < 10 U/L (0-50) 07/12/24 21:53
Alkaline Phosphatase 110 U/L (38-126) 07/12/24 21:53
Data Reviewed
-
Lab Data: Labs Reviewed by me
Old Records: Reviewed
Impression/Plan
-
IMPRESSION:
PLAN:
# Sepsis (fever, tachycardia) secondary to UTI secondary to self-catheterizations
-Prior urine culture showed Klebsiella/Citrobacter, E. coli
-Most recent cultures are sensitive to ceftriaxone
-Await culture
-Check blood culture
-IV fluids
-Ceftriaxone
Chronic urinary retention secondary to neurogenic bladder requiring self-catheterizations
History of BPH status post TURP
-continue self catheterizing QID
Seizure history
-Continue lacosamide, Lamictal
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
-Continue carbidopa-levodopa
Tachybradycardia syndrome with pacemaker in 2022
-Continue Coreg
History of pulmonary embolism with RV thrombus in 2010
-On Coumadin
History of DVT
Essential hypertension
-Continue amlodipine
Orthostatic hypotension
-Continue midodrine
CKD 4
-Continue calcitriol
-Renal function at baseline
Hyperlipidemia
Hyperparathyroidism
CAD
-Continue aspirin, statin
History of strep pyogenes bacteremia
Constipation
Full code
DVT prophylaxis�Coumadin
Regular diet
[2024-07-12 23:30] VITALS: BP 125/85
[2024-07-13 00:12] VITALS: BP 131/70; BMI 28.0
--- NOTE | 2024-07-13 00:12 | PTCARENOTE ---
Pt arrived onto floor @0012. Pt able to walk into room w/ 2 person assist. Pt with no complaints of pain or SOB at this time. Pt oriented to room and call burciaga; will continue to monitor
[2024-07-13] MEDS: NSS 1000 IV ×2 (01:51→12:06)
[2024-07-13] MEDS: ROCALTROL 0.5 MCG PO (01:51)
[2024-07-13] MEDS: ProAmatine 10 MG PO ×2 (06:24→12:17)
[2024-07-13 07:07] LABS: % Basophils 0.2 % (0-2); % Immature Granulocytes 0.8 % (0-0.5); % Lymphocytes 2.3 % (20.5-51.1); % Monocytes 4.8 % (1.7-9.3); % Neutrophils 91.9 % (42.2-75.2); Absolute Immature Granulocytes 0.1 10^3/uL (0-0.05); Absolute Lymphocytes 0.3 10^3/uL (1.2-3.4); Absolute Monocytes 0.6 10^3/uL (0.1-0.6); Hematocrit 37.4 % (39.0-52.0); Hemoglobin 11.9 g/dL (13.0-18.0); Mean Corp Hgb Conc. 31.8 g/dL (33.0-37.0); Mean Corpuscular Hgb 24.4 pg (27.0-31.0); Mean Corpuscular Volume 76.8 fL (80.0-94.0); Mean Platelet Volume 10.2 fL (7.4-10.4); Nucleated Red Blood Cells % 0 % (-); Platelet Count 230 10^3/uL (130-400); Red Blood Cell Count 4.87 10^6/uL (4.70-6.10); Red Cell Dist. Width 14.6 % (11.5-14.5)
[2024-07-13 07:26] LABS: ALT (SGPT) < 10 U/L (0-50); AST (SGOT) 20 U/L (17-59); Albumin 3.3 g/dl (3.5-5.0); Alkaline Phosphatase 72 U/L (38-126); Blood Urea Nitrogen 37 mg/dl (9-20); Calcium 7.5 mg/dl (8.4-10.2); Carbon Dioxide 21 mmol/L (22-30); Chloride 106 mmol/L (98-107); Estimated Creatinine Clearance 22 ml/min; Glucose 115 mg/dl (70-99); Potassium 4.6 mmol/L (3.5-5.1); Sodium 140 mmol/L (135-145); Total Bilirubin 0.5 mg/dl (0.2-1.3); Total Protein 6.1 g/dl (6.3-8.2); eGFR 21.57
[2024-07-13 07:36] VITALS: BP 154/77
[2024-07-13] MEDS: COLACE 100 MG PO ×2 (08:24→21:17)
[2024-07-13] MEDS: COREG 3.125 MG PO ×2 (08:24→21:18)
[2024-07-13] MEDS: COUMADIN 1.5 MG PO (08:24)
[2024-07-13] MEDS: LAMICTAL 150 MG PO ×2 (08:25→21:17)
[2024-07-13] MEDS: SINEMET 25-100 PO ×3 (08:26→12:18)
[2024-07-13] MEDS: VITAMIN B-12 1000 MCG PO (08:26)
[2024-07-13] MEDS: VIMPAT 50 MG PO (08:26)
[2024-07-13] MEDS: THERAGRAN 1 TABLET PO (08:26)
[2024-07-13] MEDS: SENOKOT 17.2 MG PO (12:17)
[2024-07-13 14:27] LABS: INR 3.45; PT 34.7 Sec (11.4-14.6)
--- NOTE | 2024-07-13 14:33 | W.PN.HOSP.TC ---
Today's Communication/Plan
-
f/u cultures
IVF
abx
Assessment / Plan
Assessment / Plan
Physical Exam
General: Well Developed, Well Nourished and No Apparent Distress
HEENT: NormoCephalic, Moist mucous membranes and Atraumatic
Respiratory: Clear
Cardiac: S1/S2 and Regular Rhythm; No Murmur or Rub
GI: Soft, Non Tender, Non Distended and Normal Bowel Sounds; No Organomegaly
Rectal: Deferred by Provider
Musculoskeletal: No Clubbing, No Cyanosis and No Edema
Skin: No Rash
Neuro: Nonfocal/grossly intact
# Severe Sepsis (fever, tachycardia, AMS) secondary to UTI secondary to self-catheterizations
-Prior urine culture showed Klebsiella/Citrobacter, E. coli
-Most recent cultures are sensitive to ceftriaxone
-Await culture
-Check blood culture
-IV fluids
-Ceftriaxone
#Acute Metabolic Encephalopathy
-2/2 to uti
-resolved
-see plan above
Chronic urinary retention secondary to neurogenic bladder requiring self-catheterizations
History of BPH status post TURP
-continue self catheterizing QID
Seizure history
-Continue lacosamide, Lamictal
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
-Continue carbidopa-levodopa
Tachybradycardia syndrome with pacemaker in 2022
-Continue Coreg
History of pulmonary embolism with RV thrombus in 2010
-On Coumadin
-f/u INR
History of DVT
Essential hypertension
-Continue amlodipine
Orthostatic hypotension
-Continue midodrine
CKD 4
-Continue calcitriol
-Renal function at baseline
Hyperlipidemia
Hyperparathyroidism
CAD
-Continue aspirin, statin
History of strep pyogenes bacteremia
Constipation
Full code
DVT prophylaxis�Coumadin
Regular diet
Anticipated Discharge: 24 - 48 hours
Subjective/Interval History
-
Date of Service: July 13, 2024
Mental status improved
Objective Data
-
Labs:
Laboratory Results
07/13/24 07/13/24
06:18 13:53
WBC 12.0 H
Hgb 11.9 L
Hct 37.4 L
Plt Count 230
PT Pending
INR Pending
Sodium 140
Potassium 4.6
Chloride 106
Carbon Dioxide 21 L
BUN 37 H
Creatinine 2.8 H
Glucose 115 H
Calcium 7.5 L
Total Bilirubin 0.5
AST 20
ALT < 10
Alkaline Phosphatase 72
Vital Signs:
Vital Signs
Temp Pulse Resp BP Pulse Ox
98.4 F 66 20 93/63 98
07/13/24 07:36 07/13/24 12:17 07/13/24 07:36 07/13/24 12:17 07/13/24 10:53
I&O
07/12/24 07/13/24 07/14/24
06:59 06:59 06:59
Intake Total 300 / 300
Output Total 650 / 650
Balance -350 / -350
Review of Systems
-
History Source: Patient
All other systems: Not reviewed unless documented
Data Reviewed
-
Labs: Labs Reviewed by me
[2024-07-13 15:25] VITALS: BP 125/64
[2024-07-13] MEDS: LR 1000 IV (15:58)
[2024-07-13] MEDS: NORVASC 5 MG PO (16:00)
[2024-07-13] MEDS: SINEMET 25-100 1 TABLET PO (16:04)
--- NOTE | 2024-07-13 16:41 | CM ---
paper mill manager reviewed patient's chart and met with patient and patient lives with his spouse in a 2 story home with stair glide to 2nd floor, patient is independent with adl's and uses a walker with ambulation.
Pharmacy: [facility]
PCP: Dr. Ingram
Plan; Home with spouse no needs when stable.
[2024-07-13] MEDS: VIMPAT 100 MG PO (21:25)
[2024-07-13] MEDS: ROCEPHIN 1000 MG IV (21:25)
[2024-07-13] MEDS: LIPITOR 40 MG PO (21:25)
[2024-07-13] MEDS: LOW STRENGTH ASPIRIN 81 MG PO (21:25)
[2024-07-13 23:07] VITALS: BP 139/66
[2024-07-14] MEDS: LR 1000 IV ×2 (04:56→16:23)
[2024-07-14] MEDS: ProAmatine 10 MG PO ×2 (06:08→12:38)
[2024-07-14 07:23] VITALS: BP 142/95
[2024-07-14] MEDS: SINEMET 25-100 1 TABLET PO ×3 (07:43→16:23)
[2024-07-14] MEDS: VIMPAT 50 MG PO (07:44)
[2024-07-14] MEDS: VITAMIN B-12 1000 MCG PO (07:45)
[2024-07-14] MEDS: THERAGRAN 1 TABLET PO (07:45)
[2024-07-14] MEDS: COLACE 100 MG PO ×2 (07:45→20:31)
[2024-07-14] MEDS: COREG 3.125 MG PO ×2 (07:46→20:32)
[2024-07-14] MEDS: LAMICTAL 150 MG PO ×2 (07:46→20:32)
[2024-07-14 07:57] LABS: Hematocrit 38.4 % (39.0-52.0); Hemoglobin 12.3 g/dL (13.0-18.0); Mean Corpuscular Hgb 25.1 pg (27.0-31.0); Mean Corpuscular Volume 78.4 fL (80.0-94.0); Mean Platelet Volume 10.6 fL (7.4-10.4); Platelet Count 187 10^3/uL (130-400); Red Cell Dist. Width 14.7 % (11.5-14.5); White Blood Cell Count 11.6 10^3/uL (4.8-10.8)
[2024-07-14 08:01] LABS: INR 3.46; PT 34.9 Sec (11.4-14.6)
[2024-07-14 08:31] LABS: ALT (SGPT) < 10 U/L (0-50); AST (SGOT) 23 U/L (17-59); Albumin 3.3 g/dl (3.5-5.0); Alkaline Phosphatase 70 U/L (38-126); Blood Urea Nitrogen 34 mg/dl (9-20); Calcium 7.6 mg/dl (8.4-10.2); Carbon Dioxide 19 mmol/L (22-30); Chloride 108 mmol/L (98-107); Estimated Creatinine Clearance 24 ml/min; Glucose 89 mg/dl (70-99); Potassium 4.3 mmol/L (3.5-5.1); Sodium 142 mmol/L (135-145); Total Bilirubin 0.3 mg/dl (0.2-1.3); Total Protein 6.2 g/dl (6.3-8.2); eGFR 24.72
--- NOTE | 2024-07-14 11:22 | CM ---
Chart reviewed and plan is to home no needs when stable.
Plan; Home with spouse no needs.
[2024-07-14] MEDS: SENOKOT 17.2 MG PO (12:38)
--- NOTE | 2024-07-14 13:26 | PTCARENOTE ---
Vomited after lunch- undigested food, He told me this happened yesterday after dinner also. He was upright and out of bed. Said he has no history of this. Hospitalist notified.
--- NOTE | 2024-07-14 14:10 | W.PN.HOSP.TC ---
Today's Communication/Plan
-
cont abx
f/u cultures
speech eval for dysphagia
Assessment / Plan
Assessment / Plan
Physical Exam
General: Well Developed, Well Nourished and No Apparent Distress
HEENT: NormoCephalic, Moist mucous membranes and Atraumatic
Respiratory: Clear
Cardiac: S1/S2 and Regular Rhythm; No Murmur or Rub
GI: Soft, Non Tender, Non Distended and Normal Bowel Sounds; No Organomegaly
Rectal: Deferred by Provider
Musculoskeletal: No Clubbing, No Cyanosis and No Edema
Skin: No Rash
Neuro: Nonfocal/grossly intact
# Severe Sepsis (fever, tachycardia, AMS) secondary to UTI secondary to self-catheterizations - GNB
-Prior urine culture showed Klebsiella/Citrobacter, E. coli
-Most recent cultures are sensitive to ceftriaxone
-Await culture
-Check blood culture
-IV fluids
-Ceftriaxone
#Acute Metabolic Encephalopathy
-2/2 to uti
-resolved
-see plan above
Chronic urinary retention secondary to neurogenic bladder requiring self-catheterizations
History of BPH status post TURP
-continue self catheterizing QID
Vomiting
-repeated episode today
-speech eval for dysphagia
Seizure history
-Continue lacosamide, Lamictal
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
-Continue carbidopa-levodopa
Tachybradycardia syndrome with pacemaker in 2022
-Continue Coreg
History of pulmonary embolism with RV thrombus in 2010
-On Coumadin
-f/u INR
History of DVT
Essential hypertension
-Continue amlodipine
Orthostatic hypotension
-Continue midodrine
CKD 4
-Continue calcitriol
-Renal function at baseline
Hyperlipidemia
Hyperparathyroidism
CAD
-Continue aspirin, statin
History of strep pyogenes bacteremia
Constipation
Full code
DVT prophylaxis�Coumadin
Regular diet
Anticipated Discharge: Within 24 hours
Subjective/Interval History
-
Date of Service: July 14, 2024
vomited out lunch otherwise no acute events overnight.
Objective Data
-
Labs:
Laboratory Results
07/14/24
07:37
WBC 11.6 H
Hgb 12.3 L
Hct 38.4 L
Plt Count 187
PT 34.9 H
INR 3.46
Sodium 142
Potassium 4.3
Chloride 108 H
Carbon Dioxide 19 L
BUN 34 H
Creatinine 2.5 H
Glucose 89
Calcium 7.6 L
Total Bilirubin 0.3
AST 23
ALT < 10
Alkaline Phosphatase 70
Vital Signs:
Vital Signs
Temp Pulse Resp BP Pulse Ox
98.2 F 70 18 142/95 98
07/14/24 07:23 07/14/24 07:23 07/14/24 07:23 07/14/24 07:23 07/14/24 07:23
I&O
07/13/24 07/14/24 07/15/24
06:59 06:59 06:59
Intake Total 300 / 300 960 / 960
Output Total 650 / 650 1050 / 1050 450 / 450
Balance -350 / -350 -90 / -90 -450 / -450
Review of Systems
-
History Source: Patient
All other systems: Not reviewed unless documented
Physical Exam
-
General: Well Developed, Well Nourished and No Apparent Distress
HEENT: Normocephalic and Atraumatic
Respiratory: Rhonchi
Cardiac: S1/S2
GI: Soft
Data Reviewed
-
Labs: Labs Reviewed by me
--- NOTE | 2024-07-14 15:11 | PTOTSP ---
Dysphagia Evaluation
Oral/pharyngeal stages of swallowing suspected to be WFL.
Recommend:
1. Regular, Thin Liquids
2. Medications as best tolerated
3. General aspiration and reflux precautions
4. No further dysphagia therapy warranted. If regurgitation persists consider GI consult.
[2024-07-14 15:26] VITALS: BP 150/87
[2024-07-14] MEDS: NORVASC 5 MG PO (16:23)
[2024-07-14 20:31] VITALS: BP 158/85
[2024-07-14] MEDS: VIMPAT 100 MG PO (21:07)
[2024-07-14] MEDS: LIPITOR 40 MG PO (21:07)
[2024-07-14] MEDS: LOW STRENGTH ASPIRIN 81 MG PO (21:07)
[2024-07-14] MEDS: ROCEPHIN 1000 MG IV (21:07)
[2024-07-14 23:09] VITALS: BP 141/81
[2024-07-15] MEDS: ROCALTROL 0.5 MCG PO (01:45)
[2024-07-15 07:28] VITALS: BP 124/75
[2024-07-15 07:51] LABS: INR 3.31; PT 33.6 Sec (11.4-14.6)
[2024-07-15 08:01] LABS: Hematocrit 36.1 % (39.0-52.0); Hemoglobin 11.7 g/dL (13.0-18.0); Mean Corp Hgb Conc. 32.4 g/dL (33.0-37.0); Mean Corpuscular Hgb 25.2 pg (27.0-31.0); Mean Corpuscular Volume 77.6 fL (80.0-94.0); Mean Platelet Volume 10.1 fL (7.4-10.4); Platelet Count 200 10^3/uL (130-400); Red Blood Cell Count 4.65 10^6/uL (4.70-6.10); Red Cell Dist. Width 14.6 % (11.5-14.5); White Blood Cell Count 8.9 10^3/uL (4.8-10.8)
[2024-07-15 08:21] LABS: ALT (SGPT) < 10 U/L (0-50); AST (SGOT) 20 U/L (17-59); Albumin 3.3 g/dl (3.5-5.0); Alkaline Phosphatase 66 U/L (38-126); Blood Urea Nitrogen 28 mg/dl (9-20); Calcium 7.8 mg/dl (8.4-10.2); Carbon Dioxide 24 mmol/L (22-30); Chloride 105 mmol/L (98-107); Estimated Creatinine Clearance 29 ml/min; Glucose 94 mg/dl (70-99); Potassium 4.4 mmol/L (3.5-5.1); Sodium 140 mmol/L (135-145); Total Bilirubin 0.5 mg/dl (0.2-1.3); eGFR 30.47
[2024-07-15] MEDS: ProAmatine 10 MG PO ×2 (08:53→13:41)
[2024-07-15] MEDS: THERAGRAN 1 TABLET PO (08:55)
[2024-07-15] MEDS: VITAMIN B-12 1000 MCG PO (08:56)
[2024-07-15] MEDS: COLACE 100 MG PO ×2 (08:56→21:21)
[2024-07-15] MEDS: SINEMET 25-100 1 TABLET PO ×3 (08:56→16:58)
[2024-07-15] MEDS: COREG 3.125 MG PO ×2 (08:56→21:20)
[2024-07-15] MEDS: LAMICTAL 150 MG PO ×2 (08:57→21:21)
[2024-07-15] MEDS: VIMPAT 50 MG PO (08:59)
--- NOTE | 2024-07-15 12:12 | CM ---
Addendum entered by Shabana Zhou 07/15/24 16:21:
Patient was seen by PT/OT and recommendations are for skilled placement, case work aide met with patient and spouse and they are not agreeable to skilled placement, case work aide offered [facility] and [facility], patient
and spouse are requesting [facility], referral sent to [facility] acute [facility]. 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
Plan: referral sent to [facility] as requested by patient and spouse.
Original Note:
Chart reviewed will wait on PT/OT evaluations and recommendations to assist with discharge planning. Plan was to home with spouse.
Plan; Await PT/OT evaluations and recommendations.
[2024-07-15] MEDS: SENOKOT 17.2 MG PO (13:41)
[2024-07-15 15:10] VITALS: BP 146/71
[2024-07-15 15:21] VITALS: BP 152/76; PULSE 72; O2SAT 99
--- NOTE | 2024-07-15 15:45 | W.PN.HOSP.TC ---
Today's Communication/Plan
-
cont iv abx
f/u INR, hold coumadin
Dispo Planning
Assessment / Plan
Assessment / Plan
Physical Exam
General: Well Developed, Well Nourished and No Apparent Distress
HEENT: NormoCephalic, Moist mucous membranes and Atraumatic
Respiratory: Clear
Cardiac: S1/S2 and Regular Rhythm; No Murmur or Rub
GI: Soft, Non Tender, Non Distended and Normal Bowel Sounds; No Organomegaly
Rectal: Deferred by Provider
Musculoskeletal: No Clubbing, No Cyanosis and No Edema
Skin: No Rash
Neuro: Nonfocal/grossly intact
# Severe Sepsis (fever, tachycardia, AMS) secondary to UTI secondary to self-catheterizations - GNB
-K. Pneumoniae
- Cont ceftriaxone
-abx course 10 days
#Acute Metabolic Encephalopathy
-2/2 to uti
-resolved
-see plan above
Chronic urinary retention secondary to neurogenic bladder requiring self-catheterizations
History of BPH status post TURP
-continue self catheterizing QID
Vomiting
-repeated episode today
-speech eval for dysphagia: no dysphagia noted
Seizure history
-Continue lacosamide, Lamictal
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
-Continue carbidopa-levodopa
Tachybradycardia syndrome with pacemaker in 2022
-Continue Coreg
History of pulmonary embolism with RV thrombus in 2010
Supratherapeutic INR
-Holding Coumadin
-f/u INR
History of DVT
Essential hypertension
-Continue amlodipine
Orthostatic hypotension
-Continue midodrine
CKD 4
-Continue calcitriol
-Renal function at baseline
Hyperlipidemia
Hyperparathyroidism
CAD
-Continue aspirin, statin
History of strep pyogenes bacteremia
Constipation
Full code
DVT prophylaxis�Coumadin
Regular diet
DC ready, CM aware
Anticipated Discharge: Within 24 hours
Subjective/Interval History
-
Date of Service: July 15, 2024
No acute events overnight
Objective Data
-
Labs:
Laboratory Results
07/15/24
06:42
WBC 8.9
Hgb 11.7 L
Hct 36.1 L
Plt Count 200
PT 33.6 H
INR 3.31
Sodium 140
Potassium 4.4
Chloride 105
Carbon Dioxide 24
BUN 28 H
Creatinine 2.1 H
Glucose 94
Calcium 7.8 L
Total Bilirubin 0.5
AST 20
ALT < 10
Alkaline Phosphatase 66
Vital Signs:
Vital Signs
Temp Pulse Resp BP Pulse Ox
98.1 F 76 18 146/71 98
07/15/24 15:10 07/15/24 15:10 07/15/24 15:10 07/15/24 15:10 07/15/24 15:10
I&O
07/14/24 07/15/24 07/16/24
06:59 06:59 06:59
Intake Total 960 / 960 1380 / 1380
Output Total 1050 / 1050 1900 / 1900
Balance -90 / -90 -520 / -520
Review of Systems
-
History Source: Patient
All other systems: Not reviewed unless documented
Data Reviewed
-
Labs: Labs Reviewed by me
[2024-07-15 16:08] VITALS: BP 172/88
[2024-07-15] MEDS: NORVASC 5 MG PO (16:58)
[2024-07-15] MEDS: ROCEPHIN 1000 MG IV (21:20)
[2024-07-15] MEDS: STERILE WATER FOR INJECTION 10 ML IV (21:20)
[2024-07-15] MEDS: VIMPAT 100 MG PO (21:20)
[2024-07-15] MEDS: LOW STRENGTH ASPIRIN 81 MG PO (21:21)
[2024-07-15] MEDS: LIPITOR 40 MG PO (21:21)
[2024-07-15 23:15] VITALS: BP 157/76
[2024-07-16 06:09] VITALS: BP 157/107
[2024-07-16] MEDS: ProAmatine PO ×2 (06:09→12:08)
[2024-07-16] MEDS: COLACE 100 MG PO (07:20)
[2024-07-16] MEDS: COREG 3.125 MG PO (07:20)
[2024-07-16] MEDS: LAMICTAL 150 MG PO (07:21)
[2024-07-16] MEDS: THERAGRAN 1 TABLET PO (07:23)
[2024-07-16] MEDS: SINEMET 25-100 1 TABLET PO ×2 (07:23→12:10)
[2024-07-16] MEDS: VIMPAT 50 MG PO (07:23)
[2024-07-16] MEDS: VITAMIN B-12 1000 MCG PO (07:23)
[2024-07-16 07:50] VITALS: BP 179/83
[2024-07-16 08:08] LABS: Hematocrit 39.1 % (39.0-52.0); Hemoglobin 12.3 g/dL (13.0-18.0); Mean Corp Hgb Conc. 31.5 g/dL (33.0-37.0); Mean Corpuscular Hgb 24.9 pg (27.0-31.0); Mean Corpuscular Volume 79.1 fL (80.0-94.0); Mean Platelet Volume 9.9 fL (7.4-10.4); Platelet Count 224 10^3/uL (130-400); Red Blood Cell Count 4.94 10^6/uL (4.70-6.10); Red Cell Dist. Width 14.6 % (11.5-14.5); White Blood Cell Count 8.2 10^3/uL (4.8-10.8)
[2024-07-16 08:10] LABS: INR 2.67; PT 28.8 Sec (11.4-14.6)
[2024-07-16 08:33] LABS: ALT (SGPT) < 10 U/L (0-50); AST (SGOT) 20 U/L (17-59); Albumin 3.5 g/dl (3.5-5.0); Alkaline Phosphatase 77 U/L (38-126); Blood Urea Nitrogen 23 mg/dl (9-20); Calcium 8.1 mg/dl (8.4-10.2); Carbon Dioxide 27 mmol/L (22-30); Chloride 105 mmol/L (98-107); Estimated Creatinine Clearance 29 ml/min; Glucose 98 mg/dl (70-99); Sodium 144 mmol/L (135-145); Total Bilirubin 0.5 mg/dl (0.2-1.3); Total Protein 6.4 g/dl (6.3-8.2); eGFR 30.47
--- NOTE | 2024-07-16 10:17 | PTCARENOTE ---
07/16- Patient's stated he should not be on Lamotrigine or Vimpat d/t his Neurologist at [place] weaning him off of both, a few months ago. Neither medication is in patient's Med Rec. Notified Physician.
--- NOTE | 2024-07-16 10:30 | CM ---
Addendum entered by Neela Mendoza 07/16/24 12:03:
IMM benefit explained to spouse at bedside; form signed @ [id number]
Original Note:
Met with patient and at bedside to discuss discharge planning
Explained that referral to [facility] for rehab was declined. List of SNF options offered, declined.
Preference is home health services for VN, PT/OT, Speech with VNA; referral sent to Home Health liaison via [place] [facility]; referral accepted
will transport patient home
Plan: discharge to home today with home health services
--- NOTE | 2024-07-16 10:54 | VNURNOTE ---
Home Health Liaison met with patient and Jessica at bedside to discuss [facility] nurse/therapy, visits, schedule and homebound status. Patient is agreeable and understands that visits at home will be 2-3 x per week to assess and teach medical
management. [facility] brochure provided with contact information. Patient is aware that [facility] will contact them for start of care in 1-2 days after discharge from .
[facility] referral completed in [facility].
[2024-07-16] MEDS: SENOKOT 17.2 MG PO (12:10)
--- NOTE | 2024-07-16 12:20 | W.PN.HOSP.TC ---
Addendum entered and electronically signed by Jose Maurer MD 07/17/24 15:18:
[id number]
Original Note:
Today's Communication/Plan
-
switch to cefdinir to complete 10 day course total
resume coumadin, adjust as needed depending on INR outpatient
f/u pcp, urology outpatient
Assessment / Plan
Assessment / Plan
Physical Exam
General: Well Developed, Well Nourished and No Apparent Distress
HEENT: NormoCephalic, Moist mucous membranes and Atraumatic
Respiratory: Clear
Cardiac: S1/S2 and Regular Rhythm; No Murmur or Rub
GI: Soft, Non Tender, Non Distended and Normal Bowel Sounds; No Organomegaly
Rectal: Deferred by Provider
Musculoskeletal: No Clubbing, No Cyanosis and No Edema
Skin: No Rash
Neuro: Nonfocal/grossly intact
# Severe Sepsis (fever, tachycardia, AMS) secondary to UTI secondary to self-catheterizations - GNB
-K. Pneumoniae
- Cont ceftriaxone
-abx course 10 days - switch to cefdinir on dc for additional 7 days
#Acute Metabolic Encephalopathy
-2/2 to uti
-resolved
-see plan above
Chronic urinary retention secondary to neurogenic bladder requiring self-catheterizations
History of BPH status post TURP
-continue self catheterizing QID
Vomiting
-repeated episode today
-speech eval for dysphagia: no dysphagia noted
Seizure history
-Continue lacosamide, Lamictal
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
-Continue carbidopa-levodopa
Tachybradycardia syndrome with pacemaker in 2022
-Continue Coreg
History of pulmonary embolism with RV thrombus in 2010
Supratherapeutic INR
-resume coumadin
-f/u INR outpatient and titrate as necessary
History of DVT
see above
Essential hypertension
-Continue amlodipine
Orthostatic hypotension
-Continue midodrine
CKD 4
-Continue calcitriol
-Renal function at baseline
Hyperlipidemia
Hyperparathyroidism
CAD
-Continue aspirin, statin
History of strep pyogenes bacteremia
Constipation
Full code
DVT prophylaxis�Coumadin
Regular diet
DC ready, CM aware
More than 30 minutes spent in discharge including
Final examination of the patient
Summarizing hospital stay
Instructions for continuing care to all relevant caregivers
Preparation of discharge records, prescriptions, and referral forms
Total time spent (35 in minutes):
Anticipated Discharge: Today
Subjective/Interval History
-
Date of Service: July 16, 2024
Doing well, tolerating diet
Objective Data
-
Labs:
Laboratory Results
07/16/24
06:50
WBC 8.2
Hgb 12.3 L
Hct 39.1
Plt Count 224
PT 28.8 H
INR 2.67
Sodium 144
Potassium 5.0
Chloride 105
Carbon Dioxide 27
BUN 23 H
Creatinine 2.1 H
Glucose 98
Calcium 8.1 L
Total Bilirubin 0.5
AST 20
ALT < 10
Alkaline Phosphatase 77
Vital Signs:
Vital Signs
Temp Pulse Resp BP Pulse Ox
97.4 F 89 18 170/89 98
07/16/24 07:50 07/16/24 12:08 07/16/24 07:50 07/16/24 12:08 07/16/24 07:50
I&O
07/15/24 07/16/24 07/17/24
06:59 06:59 06:59
Intake Total 1380 / 1380 1540 / 1540
Output Total 1900 / 1900 2049
Balance -520 / -520 -510 / -510
Review of Systems
-
History Source: Patient
All other systems: Not reviewed unless documented
Data Reviewed
-
Labs: Labs Reviewed by me
--- NOTE | 2024-07-16 12:44 | W.DS.TRANS ---
DC Summary - [employer]
-
Discharge Instructions:
Discharge Diagnosis/Procedures Severe Sepsis (fever, tachycardia, AMS)
secondary to UTI
Diet Low Fat,Low Cholesterol
Activity As tolerated
Blood Work F/u INR in 2-3 days and adjust coumadin as
necessary
Instructions:
Stand-Alone Forms:
Changes to Home Medications: Yes
Discharge Medications:
DC Medications w/original date entered in [facility]
atorvastatin 40 mg tablet (Lipitor) 40 mg PO HS 07/15/24
carbidopa 25 mg-levodopa 100 mg tablet 1 tab PO TID 07/15/24
carvedilol 12.5 mg tablet (Coreg) 12.5 mg PO BID 07/15/24
escitalopram oxalate 10 mg tablet (Lexapro) 10 mg PO DAILY 07/15/24
midodrine 5 mg tablet 5 mg PO TIDPRN PRN low bp 07/15/24
sennosides 8.6 mg tablet (senna) 8.6 mg PO Q48H@1200 07/15/24
cefdinir 300 mg capsule 300 mg PO Q12H 7 days #14 caps 07/16/24
multivitamin with folic acid 400 mcg tablet (Tab-A-Alejandro) 1 tab PO DAILY #0 tabs 07/16/24
warfarin 1 mg tablet (Jantoven) 1.5 mg (1.5 x 1 mg) PO QPM #0 tabs 07/16/24
Home Medication Changes
cefdinir 300 mg capsule 300 mg PO Q12H 7 days #14 caps 07/16/24
multivitamin with folic acid 400 mcg tablet (Tab-A-Alejandro) 1 tab PO DAILY #0 tabs 07/16/24
warfarin 1 mg tablet (Jantoven) 1.5 mg (1.5 x 1 mg) PO QPM #0 tabs 07/16/24
Pending Results: No
[2024-07-16 13:17] VITALS: BP 170/89
== END 2024-07-16 14:30 | disposition home health service (06) | DRG 698 ==
LOC: 4 WEST ACU 23:17
PROVIDERS: Clinical Nurse Specialist Family Health; ADMITTING PHYSICIAN Hospitalist; ATTENDING PHYSICIAN Internal Medicine; EMERGENCY PHYSICIAN Emergency Medicine; FAMILY PHYSICIAN Family Medicine
DX: T83.518A Infection and inflammatory reaction due to other urinary catheter, initial encounter (principal); A41.9 Sepsis, unspecified organism; G93.41 Metabolic encephalopathy; R65.20 Severe sepsis without septic shock; N39.0 Urinary tract infection, site not specified; N18.4 Chronic kidney disease, stage 4 (severe); G40.909 Epilepsy, unspecified, not intractable, without status epilepticus; I12.9 Hypertensive chronic kidney disease with stage 1 through stage 4 chronic kidney disease, or unspecified chronic kidney disease; I49.5 Sick sinus syndrome; B96.1 Klebsiella pneumoniae [K. pneumoniae] as the cause of diseases classified elsewhere; Y84.6 Urinary catheterization as the cause of abnormal reaction of the patient, or of later complication, without mention of misadventure at the time of the procedure; N40.1 Benign prostatic hyperplasia with lower urinary tract symptoms; N13.9 Obstructive and reflux uropathy, unspecified; N31.9 Neuromuscular dysfunction of bladder, unspecified; R33.8 Other retention of urine; E78.00 Pure hypercholesterolemia, unspecified; E21.3 Hyperparathyroidism, unspecified; K59.00 Constipation, unspecified; I25.10 Atherosclerotic heart disease of native coronary artery without angina pectoris; I95.1 Orthostatic hypotension; R79.1 Abnormal coagulation profile; Z79.01 Long term (current) use of anticoagulants; Z79.82 Long term (current) use of aspirin; Z79.899 Other long term (current) drug therapy; Z85.828 Personal history of other malignant neoplasm of skin; Z86.711 Personal history of pulmonary embolism; Z86.718 Personal history of other venous thrombosis and embolism; Z86.19 Personal history of other infectious and parasitic diseases; Z90.79 Acquired absence of other genital organ(s); Z95.0 Presence of cardiac pacemaker
CPT/HCPCS: 51701; 80053; 81003; 81015; 83605; 85025; 85027; 85610; 87040; 87077; 87086; 87147; 87186; 87811; 92610; 93005; 96361; 96374; 97162; 97166; 99285

== ENCOUNTER 2024-08-03 16:12 | Outpatient (RCR) | payer MEDICARE, OTHER, SELFPAY | END 2024-08-03 23:59 | disposition home or self-care (01) | LOC: RPT 16:12 | PROVIDERS: ATTENDING PHYSICIAN Family Medicine | DX: R41.82 Altered mental status, unspecified (principal); R26.89 Other abnormalities of gait and mobility; Z73.6 Limitation of activities due to disability | CPT/HCPCS: 96125; 97110; 97112; 97163; 97167; 97530; 97535 ==

== ENCOUNTER 2024-08-31 13:02 | Outpatient (RCR) | payer MEDICARE, OTHER, SELFPAY | END 2024-08-31 23:59 | disposition home or self-care (01) | LOC: RPT 13:02 | PROVIDERS: ATTENDING PHYSICIAN Family Medicine | DX: G20.C Parkinsonism, unspecified (principal); G40.89 Other seizures; R47.89 Other speech disturbances; R47.02 Dysphasia; R41.841 Cognitive communication deficit; R41.82 Altered mental status, unspecified; R41.81 Age-related cognitive decline; Z73.6 Limitation of activities due to disability; R26.89 Other abnormalities of gait and mobility | CPT/HCPCS: 97110; 97112; 97116; 97129; 97130; 97530; 97535; 97537 ==

== ENCOUNTER 2024-08-31 14:02 | Emergency (ER) | payer MEDICARE, OTHER, SELFPAY ==
[2024-08-31 14:11] VITALS: BP 97/51
[2024-08-31 14:58] LABS: % Basophils 0.5 % (0-2); % Eosinophils 4.3 % (0-6); % Immature Granulocytes 0.3 % (0-0.5); % Lymphocytes 29.1 % (20.5-51.1); % Monocytes 10.7 % (1.7-9.3); % Neutrophils 55.1 % (42.2-75.2); Absolute Eosinophils 0.3 10^3/uL (0-0.7); Absolute Lymphocytes 2.3 10^3/uL (1.2-3.4); Absolute Monocytes 0.8 10^3/uL (0.1-0.6); Absolute Neutrophils 4.3 10^3/uL (1.4-6.5); Hematocrit 36.9 % (39.0-52.0); Hemoglobin 11.5 g/dL (13.0-18.0); Mean Corp Hgb Conc. 31.2 g/dL (33.0-37.0); Mean Corpuscular Volume 76.9 fL (80.0-94.0); Mean Platelet Volume 9.6 fL (7.4-10.4); Nucleated Red Blood Cells % 0 % (-); Platelet Count 240 10^3/uL (130-400); Red Cell Dist. Width 15.2 % (11.5-14.5); White Blood Cell Count 7.7 10^3/uL (4.8-10.8)
[2024-08-31 15:09] LABS: ALT (SGPT) 17 U/L (0-50); AST (SGOT) 25 U/L (17-59); Albumin 3.7 g/dl (3.5-5.0); Alkaline Phosphatase 59 U/L (38-126); Blood Urea Nitrogen 44 mg/dl (9-20); Calcium 7.6 mg/dl (8.4-10.2); Carbon Dioxide 25 mmol/L (22-30); Chloride 105 mmol/L (98-107); Glucose 82 mg/dl (70-99); Potassium 4.6 mmol/L (3.5-5.1); Sodium 141 mmol/L (135-145); Total Bilirubin 0.6 mg/dl (0.2-1.3); Total Protein 6.6 g/dl (6.3-8.2); eGFR 19.86
[2024-08-31 15:44] VITALS: BP 118/60
[2024-08-31 16:00] VITALS: BP 98/60
--- NOTE | 2024-08-31 17:10 | ED.GENMED ---
History of Present Illness
General
Chief Complaint: Blood Pressure Problem
Source: patient
Exam Limitations: none
Time Seen by Provider: 08/31/24 16:01
Nursing documentation reviewed up to this point in time: agreed with
History of Present Illness
History of Present Illness:
84-year-old male past medical history of seizures previous PE and chronic low blood pressure takes midodrine. Presenting to the emergency department today after PT saw that his blood pressure was in the 90s over 50s. He claims that he is
asymptomatic no chest pain shortness of breath or additional concerns. He did drink slightly less water than usual over the past 24 hours.
Past History
Past History
ED Past Medical History: CAD, Cancer (Skin CA), HTN, Hypercholesterolemia, Seizures, Other (PE, DVT, UTI, Urinary retention Straight caths 4 times daily, BPH, Hyperparathyroidism) and Other (Self catheterizes his bladder)
ED Past Surgical History: Appendectomy, Cardiac (Pacemaker), Orthopedic (Right wrist surgery, ), Tonsilectomy, Urological (Prostatectomy) and Other (IVC filter)
Social History
Tobacco: Non-smoker
Alcohol: None
Drug: None
Personal:
Living: with family
Employment: Retired
Family History
Family History: Hypertension
Review of Systems
Review of Systems
Allergies reviewed?: Yes
All Other Systems: ROS reviewed and negative except as documented in HPI and ROS
Phy Exam
Physical Exam
Physical Exam:
GENERAL: Alert , in no apparent distress
EYE: pupils equal and reactive
NECK: Supple, no significant adenopathy.
ENT: o/p clr, mmm.
CARDIAC: Regular rate and rhythm .
LUNGS: Clear breath sounds bilaterally, no acute respiratory distress, no wheezes/rales/rhonchi
ABDOMEN: Soft, without focal tenderness, no r/g, no cvat
NEUROLOGICAL: Alert and oriented, no focal neuro deficits
SKIN: Warm and dry, skin intact.
MUSCULOSKELETAL: No edema, well perfused.
PSYCH: Normal and appropriate interaction.
Course
Orders/Labs/Results
Orders:
Orders
08/31/24 14:15
Electrocardiogram (*1) Urgent
Reason for Study: Fatigue / Weakness
EKG- Treatment ONCE
08/31/24 14:47
CHEM 20 [Comprehensive Metabolic Panel] Urgent
Complete Blood Count/With Diff Urgent
Abnormal Lab Results
08/31/24
14:47
Hgb 11.5 L g/dL
(13.0-18.0)
Hct 36.9 L %
(39.0-52.0)
MCV 76.9 L fL
(80.0-94.0)
MCH 24.0 L pg
(27.0-31.0)
MCHC 31.2 L g/dL
(33.0-37.0)
RDW 15.2 H %
(11.5-14.5)
Absolute Monos (auto) 0.8 H 10^3/uL
(0.1-0.6)
Monocytes % 10.7 H %
(1.7-9.3)
BUN 44 H mg/dl
(9-20)
Creatinine 3.0 H mg/dL
(0.7-1.3)
Calcium 7.6 L mg/dl
(8.4-10.2)
08/31/24 14:47
08/31/24 14:47
Vital Signs
Initial and Last Documented VS:
Initial Vital Signs
Temp Pulse Resp BP Pulse Ox
98.2 F 66 16 97/51 98
08/31/24 14:11 08/31/24 14:11 08/31/24 14:11 08/31/24 14:11 08/31/24 14:11
Last Documented Vital Signs
Temp Pulse Resp BP Pulse Ox
98.2 F 66 16 98/60 98
08/31/24 14:11 08/31/24 14:11 08/31/24 14:11 08/31/24 16:00 08/31/24 14:11
MDM/Problems Addressed
MDM/Problems Addressed:
84-year-old male presenting to the emergency department today with concerns of low blood pressure at PT of 90s over 50s. He denies any symptoms at this point no chest pain shortness of breath feels well. Does take midodrine for chronic low blood
pressure as an outpatient. Here labs showing slightly elevated BUN and creatinine from his baseline. He does claim he is been drinking slightly less fluids than usual he drank fluids here with improving blood pressure. I reassessment patient was
walking around the room and requesting to leave he claims that he feels asymptomatic and has no concerns at this point it was explained to him that he should keep a close eye on his pressure and follow-up closely and return for any worsening
symptoms. He demonstrated understanding and agreement.
*Critical Care Note
Total Time (30-74mins, 75-104mins- exclusive of procedures): Not Applicable
ED Attending Note
-
Portions of this chart may have been created with voice recognition software.� Occasional wrong word or��sound alike� substitutions may have occurred due to the inherent limitations of voice recognition software.
Discharge Plan
Departure
Patient Disposition: Home (Routine Discharge)
Date of Disposition: 08/31/24
Time of Disposition: 17:10
Patient with high blood pressure during this ER visit?: No
Condition: Good
Covid-19: Not Applicable
Discharge Problem:
Low blood pressure
Instructions: BLOOD PRESSURE
Prescriptions:
No Action
atorvastatin [Lipitor] 40 mg Tablet
40 mg PO HS
sennosides [senna] 8.6 mg Tablet
8.6 mg PO Q48H@1200
midodrine 5 mg Tablet
5 mg PO TIDPRN PRN (Reason: low bp)
carbidopa-levodopa 25-100 mg Tablet
1 tab PO TID
escitalopram oxalate [Lexapro] 10 mg Tablet
10 mg PO DAILY
carvedilol [Coreg] 12.5 mg Tablet
12.5 mg PO BID
warfarin [Jantoven] 1 mg Tablet
1.5 mg PO QPM Qty: 0 0RF
multivitamin with folic acid [Tab-A-Alejandro] 400 mcg Tablet
1 tab PO DAILY Qty: 0 0RF
cefdinir 300 mg capsule
300 mg PO Q12H 7 Days Qty: 14 0RF
Referrals:
Matthew Ingram MD [Family Provider] -
Activity Restrictions/Additional Instructions:
You came to the emergency department today with concerns of an episode of low blood pressure. Here you have a reassuring assessment. There may be a slight evidence of dehydration. Please make sure you are staying hydrated in the future follow
close with the primary care doctor. Return to the emergency department for any worsening, new or concerning symptoms.
Interventions
Interventions:
*Risk Screen - Suicide Last Done: 08/31/24 14:11
*Neglect/Abuse Screening Last Done: 08/31/24 14:11
ED- Cardiac Assessment Last Done: 08/31/24 15:48
ED- Neurological Assessment Last Done: 08/31/24 15:48
ED- Pulmonary Assessment Last Done: 08/31/24 15:48
Discharge Date and Time
Print Language: PRYDEINIG
== END 2024-08-31 17:24 | disposition home or self-care (01) ==
LOC: EMR 14:02
PROVIDERS: Emergency Medicine; EMERGENCY PHYSICIAN Emergency Medicine; FAMILY PHYSICIAN Family Medicine
DX: R03.1 Nonspecific low blood-pressure reading (principal); R56.9 Unspecified convulsions; I25.10 Atherosclerotic heart disease of native coronary artery without angina pectoris; E78.00 Pure hypercholesterolemia, unspecified; I10 Essential (primary) hypertension; N40.1 Benign prostatic hyperplasia with lower urinary tract symptoms; R33.8 Other retention of urine; E21.3 Hyperparathyroidism, unspecified; Z95.0 Presence of cardiac pacemaker; Z79.899 Other long term (current) drug therapy; Z90.79 Acquired absence of other genital organ(s); Z86.711 Personal history of pulmonary embolism; Z86.718 Personal history of other venous thrombosis and embolism; Z85.828 Personal history of other malignant neoplasm of skin; Z87.440 Personal history of urinary (tract) infections; Z88.1 Allergy status to other antibiotic agents; Z88.8 Allergy status to other drugs, medicaments and biological substances
CPT/HCPCS: 99283; 80053; 85025; 93005

== ENCOUNTER 2024-09-21 12:55 | Outpatient (RCR) | payer MEDICARE, OTHER, SELFPAY | END 2024-09-21 23:59 | disposition home or self-care (01) | LOC: RPT 12:55 | PROVIDERS: ATTENDING PHYSICIAN Family Medicine | DX: G20.C Parkinsonism, unspecified (principal); G40.89 Other seizures; R47.89 Other speech disturbances; R47.02 Dysphasia; R41.841 Cognitive communication deficit; Z73.6 Limitation of activities due to disability; R41.82 Altered mental status, unspecified; R26.89 Other abnormalities of gait and mobility | CPT/HCPCS: 97110; 97112; 97129; 97130; 97530; 97535 ==

== ENCOUNTER 2025-02-21 21:08 | Observation (INO) | payer MEDICARE, OTHER, SELFPAY ==
[2025-02-21 19:06] VITALS: BP 164/92
[2025-02-21 19:12] LABS: Glucose - Point of Care 180 mg/dl (70-99)
[2025-02-21 19:16] VITALS: BP 139/89
--- NOTE | 2025-02-21 19:20 | ED.CVA ---
History of Present Illness
General
Chief Complaint: CVA/TIA Symptoms
Source: patient and spouse (States he had some difficulty speaking last night, and then got worse an hour ago.)
Exam Limitations: none
Time Seen by Provider: 02/21/25 19:13
Nursing documentation reviewed up to this point in time: agreed with
Onset of Stroke Symptoms
Onset of symptoms known: Yes
Date of onset of symptoms: 02/20/25
History of Present Illness
History of Present Illness:
84-year-old male presents emerged part due to difficulty speaking over the last hour, however patient's spouse states he had some yesterday as well. He denies any chest pain or shortness of breath.
Past History
Past History
ED Past Medical History: Arrthythmia (Atrial fibrillation), CAD, Cancer (Skin CA), HTN, Hypercholesterolemia, Seizures, Other (PE, DVT, UTI, Urinary retention Straight caths 4 times daily, BPH, Hyperparathyroidism) and Other (Self catheterizes his
bladder)
ED Past Surgical History: Appendectomy, Cardiac (Pacemaker), Orthopedic (Right wrist surgery, ), Tonsilectomy, Urological (Prostatectomy) and Other (IVC filter)
Social History
Tobacco: Non-smoker
Alcohol: None
Drug: None
Personal:
Living: with family
Employment: Retired
Family History
Family History: Hypertension
Review of Systems
Review of Systems
Allergies reviewed?: Yes
All Other Systems: Not applicable
Constitutional: Reports no symptoms
EENT: Reports no symptoms
Respiratory: Reports no symptoms
Cardiac: Reports no symptoms
ABD/GI: Reports no symptoms
: Reports no symptoms
Musculoskeletal: Reports no symptoms
Skin: Reports no symptoms
Neurological: Reports other (Difficulty speaking)
Endocrine: Reports no symptoms
Hematologic/Lymphatic: Reports no symptoms
Psychiatric: Reports no symptoms
Phy Exam
Physical Exam
Physical Exam:
Physical Exam
General: no apparent distress, not acutely ill
Neck: supple. no meningeal signs. normal posterior pharynx
Heart: s1/s2 regular rate and rhythm, no murmur. equal radial
pulses.
HEENT: Pupils equal round reactive to light, EOMI
Lungs: no acute respiratory distress. clear bilaterally
Abdomen: normal bowel sounds. not tender. no CVAT
Neuro: alert and oriented. no focal neurological deficits cranial nerves II through XII intact, except mild expressive aphasia
Skin: no rash
Psychiatric: well kept. interactive and cooperative
Extremities: no edema. no calf tenderness. negative homans. good distal pulses
Scores
NIH Stroke Score
Level of Consciousness: 0 - Alert
LOC Questions: 0-Answers both correctly
LOC Commands: 0-Performs both correctly
Best Horizontal Gaze: 0-Normal
Visual [place]reto: 0=Normal, no visual loss
Facial Palsy: 0=Normal, symmetrical
Motor - Right Arm: 0=No drift 10 seconds
Motor - Left Arm: 0=No drift 10 seconds
Motor - Right Le-No drift 5 seconds
Motor - Left Le-No drift 5 seconds
Limb Ataxia: 0-Absent
Sensation: 0-Normal
Best Language: 1-Mild aphasia
Dysarthria: 0-Normal
Extinction and Inattention: 0-No abnormality
Total Score:: 1
Course
Orders/Labs/Results
Orders:
Orders
02/21/25 Dinner
Regular
At Your Request: Limited Participation
Does patient need a safe tray?: No
02/21/25 19:20
Electrocardiogram (*1) Urgent
Reason for Study: Tachycardia
CT HEAD STROKE ALERT W/o Cont Urgent
Comment:
Reason For Exam: expressive aphasia since last night
EKG- Treatment ONCE
IV Insert/Care/Rem.- Treatment PRN
02/21/25 19:22
Basic Metabolic Panel Urgent
Complete Blood Count/With Diff Urgent
Glycohemoglobin (HgbA1c) Urgent
PT/INR [Prothrombin Time] Urgent
PTT Urgent
02/21/25 19:27
CT HEAD/NECK ANG STROKE ALERT Urgent
Comment:
Reason For Exam: expressive aphasia
02/21/25 20:04
Cardiovascular Evaluation Urgent
Comment: ADD ON
Hep Liver [Jzzji-[id number]] Urgent
Potassium Urgent
02/21/25 20:55
Admit/Transfer Patient As Directed
Co-Sign Provider:
Level of Care: Observation services
Assign to:: Telemetry
Physician / Group: curtis
Diagnosis: tia
Reason for Telemetry: CVA/TIA
Date to Stop Telemetry: 02/24/25
Time to Stop Telemetry: 11:00
Code Status As Directed
Resuscitation Status: Do not resuscitate
Reached after discussion with pt or family/Healthcare POA: Yes
DNR Bracelet Application ONCE
PRN Pain Medication Management As Directed
May give lesser potent ordered pain med per pt: Yes
preference::
Protocol:: Medication orders for pain may be administered in a
manner that supports deferring to patient preference
when the pt is:
- Requesting an ordered lesser potent pain medication.
Least to most potent pain medications are defined
as: acetaminophen < NSAID < tramadol < opioids
(morphine, oxycodone, hydromorphone).
- Requesting a lesser dose of the same medication IF
ORDERED.
- Requesting a less intrusive route of administration
if both routes are prescribed by the provider (PO <
IV).
02/21/25 21:40
Midodrine [ProAmatine] 5 mg PO TIDPRN PRN
02/21/25 21:40
NEUROLOGY CONSULT Routine
Consulting Provider: Funmilayo Capone
Was physician already notified: Yes
MRI Brain [MR Brain Without Contrast] Routine
Comment:
Reason For Exam: aphasia
Recent pill cam endoscopy?: No
Activity As Directed
Activity Level: As Tolerated
Pneumatic Compression Sleeves As Directed
Type: Knee high
Straight Cath As Directed
Frequency: q6h
Patient may straight cath themselves: Yes
Vital Signs As Directed
Frequency: Per unit guidelines
DX Deep Vein Thrombosis Video Routine
02/21/25 22:00
Calcitriol [Rocaltrol] 0.5 mcg PO Q48H
02/22/25 06:00
Complete Blood Count/With Diff IN AM
Comprehensive Metabolic Panel IN AM
PT/INR [Prothrombin Time] IN AM
02/22/25 08:00
Cyanocobalamin [Vitamin B-12] 1,000 mcg PO DAILY
Escitalopram Oxalate [Lexapro] 10 mg PO DAILY
FOLic ACID [Folvite] 0.4 mg PO DAILY
02/22/25 18:00
Atorvastatin [Lipitor] 40 mg PO QPM
02/24/25 11:00
DC Protocol for Telemetry ONCE
Abnormal Lab Results
02/21/25 02/21/25 02/21/25
19:11 19:22 20:04
Hgb 12.5 L g/dL
(13.0-18.0)
MCV 74.8 L fL
(80.0-94.0)
MCH 23.7 L pg
(27.0-31.0)
MCHC 31.7 L g/dL
(33.0-37.0)
RDW 15.5 H %
(11.5-14.5)
PT 26.2 H Sec
(11.4-14.6)
APTT 40.1 H Sec
(23.4-35.0)
Chloride 108 H mmol/L
(98-107)
BUN 44 H mg/dl
(9-20)
Creatinine 3.1 H mg/dL
(0.7-1.3)
Glucose 168 H mg/dl
(70-99)
Calcium 7.8 L mg/dl
(8.4-10.2)
Total Protein 6.2 L g/dl
(6.3-8.2)
POC Glucose 180 H mg/dl
(70-99)
02/21/25 19:22
02/21/25 20:04
Vital Signs
Initial and Last Documented VS:
Initial Vital Signs
Temp Pulse Resp BP Pulse Ox
97.3 F 84 18 164/92 99
02/21/25 19:06 02/21/25 19:06 02/21/25 19:06 02/21/25 19:06 02/21/25 19:06
Last Documented Vital Signs
Temp Pulse Resp BP Pulse Ox
98.1 F 71 21 154/94 100
02/21/25 21:51 02/21/25 21:51 02/21/25 21:51 02/21/25 21:51 02/21/25 21:51
MDM/Problems Addressed
Differential Diagnosis Includes:
Intracranial hemorrhage, CVA
MDM/Problems Addressed:
84-year-old male with acute CVA, expressive aphasia.
Chronic conditions affecting care: Neurological disorder (Seizures) and Other (PE)
Acute Exacerbation and/or Progression of Chronic Illness: Neurological disorder (Seizures) and Other (PE)
*Radiology
Radiology exam reviewed: radiology read reviewed (CT head no acute findings, CT head and neck angiography shows stenosis at right external carotid artery, stenosis at right vertebral artery, left cervical artery)
*Pulse Oximetry
Patient hypoxic: no
*EKG
Interpreted by ED Provider?: Yes
EKG Intrepretation Date: 02/21/25
EKG Intrepretation Time: 19:39
Interpretation: abnormal
Comparison EKG: no comparison EKG present
Heart Rate: 74
Rate: normal
Rhythm: sinus
[place]: normal axis
Interval: normal interval
QRS Pattern: right bundle branch block
Ischemia: no ischemia
*[employer] Interpretation
Rate: normal
Interpretation: normal
Heart Rate: 70
Rhythm: sinus
*Critical Care Note
Total Time (30-74mins, 75-104mins- exclusive of procedures): 31
comment:
Critical care statement: A total of 31 minutes of critical care time was provided for this patient. This includes management of unstable vital signs, evaluation of the patient at bedside, reviewing the patient's pertinent medical records, discussion
with consultants, review of old EKGs and review of pertinent medical records. This time with separate from time utilized to perform the aforementioned documented procedures
Data Reviewed
Prescriptions/Medications Considered But Not Given:
TNK indicated
Patient Management
Social determinants of health affecting care: Living situation and Strong social support
Discussion with other providers: Hospitalist and Comic Book Writer (Neurology)
Escalation/DeEscalation of care consider admission/obs:
Admit indicated
ED Attending Note
-
Portions of this chart may have been created with voice recognition software.� Occasional wrong word or��sound alike� substitutions may have occurred due to the inherent limitations of voice recognition software.
Discharge Plan
Departure
Patient Disposition: Admit
Date of Disposition: 02/21/25
Time of Disposition: 20:21
Admit to: Telemetry
Presentation/result/management discussed w/ accepting MD/DO: Hospitalist
Patient with high blood pressure during this ER visit?: Yes
Condition: Fair
Discharge Problem:
Acute cerebrovascular accident (CVA)
Interventions
Interventions:
*Risk Screen - Suicide Last Done: 02/21/25 19:06
*General Assessment Last Done: 02/21/25 19:06
*Neglect/Abuse Screening Last Done: 02/21/25 19:06
*ED- Fall Risk Assessment Last Done: 02/21/25 19:19
*ED COVID-19 Vaccine History Last Done: 02/21/25 19:19
*Nursing Disposition Last Done: 02/21/25 21:29
ED- Cardiac Assessment Last Done: 02/21/25 19:58
ED- Neurological Assessment Last Done: 02/21/25 19:58
ED- Pulmonary Assessment Last Done: 02/21/25 19:58
Discharge Date and Time
Discharge Date/Time: 02/21/25 21:35
[2025-02-21 19:30] LABS: % Basophils 0.7 % (0-2); % Eosinophils 3.2 % (0-6); % Immature Granulocytes 0.1 % (0-0.5); % Lymphocytes 38.3 % (20.5-51.1); % Monocytes 7.6 % (1.7-9.3); % Neutrophils 50.1 % (42.2-75.2); Absolute Basophils 0.1 10^3/uL (0-0.2); Absolute Eosinophils 0.3 10^3/uL (0-0.7); Absolute Lymphocytes 3.1 10^3/uL (1.2-3.4); Absolute Monocytes 0.6 10^3/uL (0.1-0.6); Hematocrit 39.4 % (39.0-52.0); Hemoglobin 12.5 g/dL (13.0-18.0); Mean Corp Hgb Conc. 31.7 g/dL (33.0-37.0); Mean Corpuscular Hgb 23.7 pg (27.0-31.0); Mean Corpuscular Volume 74.8 fL (80.0-94.0); Mean Platelet Volume 9.6 fL (7.4-10.4); Nucleated Red Blood Cells % 0 % (-); Platelet Count 255 10^3/uL (130-400); Red Blood Cell Count 5.27 10^6/uL (4.70-6.10); Red Cell Dist. Width 15.5 % (11.5-14.5); White Blood Cell Count 8.1 10^3/uL (4.8-10.8)
[2025-02-21 19:41] LABS: PT 26.2 Sec (11.4-14.6)
[2025-02-21 19:43] LABS: APTT 40.1 Sec (23.4-35.0)
[2025-02-21 19:49] LABS: Blood Urea Nitrogen 44 mg/dl (9-20); Calcium 7.8 mg/dl (8.4-10.2); Carbon Dioxide 23 mmol/L (22-30); Chloride 108 mmol/L (98-107); Estimated Creatinine Clearance 19 ml/min; Glucose 168 mg/dl (70-99); Sodium 142 mmol/L (135-145); eGFR 19.09
[2025-02-21 20:00] VITALS: BP 132/78
[2025-02-21 20:48] LABS: ALT (SGPT) 13 U/L (0-50); AST (SGOT) 19 U/L (17-59); Albumin 3.5 g/dl (3.5-5.0); Alkaline Phosphatase 67 U/L (38-126); Direct Bilirubin 0.2 mg/dl (0.0-0.4); Potassium 4.3 mmol/L (3.5-5.1); Total Bilirubin 0.6 mg/dl (0.2-1.3); Total Protein 6.2 g/dl (6.3-8.2)
--- NOTE | 2025-02-21 20:58 | HPS.HSE ---
Family Physician
-
Family Physician: Matthew Ingram
Chief Complaint
-
aphasia
History of Present Illness
84-year-old male past medical history of neurogenic bladder/chronic urinary retention requiring self-catheterization, BPH status post TURP, seizure history, possible Parkinson's disease with cognitive concerns, tachybradycardia syndrome with
pacemaker, pulmonary embolism with RV thrombus in 2010 on Coumadin, DVT, hypertension, orthostatic hypotension, CKD 4, hyperlipidemia, hyperparathyroidism, CAD, strep pyogenes bacteremia, constipation, presenting with speaking nonsense an hour prior
to arrival. This lasted for half an hour.
As per his it also happened last night for about an hour. No other symptoms. No headache, blurry vision, vertigo, numbness or tingling, difficulty speaking, gait dysfunction.
Patient has a history of carotid stenosis and vascular intervention was attempted twice but could not be performed previously.
He denies smoking or alcohol use.
Medical History
Past Medical History
Past Medical History: Reports Other (neurogenic bladder/chronic urinary retention requiring self-catheterization, BPH status post TURP, seizure history, possible Parkinson's disease with cognitive concerns, tachybradycardia syndrome with pacemaker,
pulmonary embolism with RV thrombus in 2010 on Coumadin, DVT, hypertension, orthostatic )
Past Surgical History: Reports Tonsilectomy (Appendectomy, Cardiac (Pacemaker), Orthopedic (Right wrist surgery, ), Tonsilectomy, Urological (Prostatectomy) and Other (IVC filter))
Social History
Tobacco: Non-smoker
Alcohol: None
Drug: None
Family History
Family History: Not pertinent
Allergies / Home Medications
Allergies reflects when Allergies were last updated in [employer].
Home Medications with original date entered in [employer]
Allergy/Medication List:
Allergies
Allergy/AdvReac Type Severity Reaction Status Date / Time
ciprofloxacin [From Cipro] Allergy chills;general Verified 08/31/24 14:14
malaise
furosemide [From Lasix] Allergy Unknown Verified 08/31/24 14:14
Home Medications
atorvastatin 40 mg tablet (Lipitor) 40 mg PO QPM 07/15/24
escitalopram oxalate 10 mg tablet (Lexapro) 10 mg PO DAILY 07/15/24
midodrine 5 mg tablet 5 mg PO TIDPRN PRN low bp 07/15/24
calcitriol 0.5 mcg capsule 0.5 mcg PO Q48H 02/21/25
cyanocobalamin (vitamin B-12) 1,000 mcg tablet 1,000 mcg PO DAILY 02/21/25
folic acid 400 mcg tablet 0.4 mg PO DAILY 02/21/25
warfarin 2 mg tablet 2 mg PO QPM 02/21/25
Review of Systems
-
History Source: Patient
A 12 point ROS was completed and negative except as noted: Yes
Constitutional: Reports No Symptoms
EENT: Reports No Symptoms
Respiratory: Reports No Symptoms
Cardiac: Reports No Symptoms
Abdomen/GI: Reports No Symptoms
: Reports No Symptoms
Musculoskeletal: Reports No Symptoms
Skin: Reports No Symptoms
Neurological: Reports See HPI
Endocrine: Reports No Symptoms
Hematologic/Lymphatic: Reports No Symptoms
Psych: Reports No Symptoms
Physical Exam
Vital Signs
Vital Signs
Temp Pulse Resp BP Pulse Ox
97.3 F 65 17 139/89 100
02/21/25 19:06 02/21/25 20:00 02/21/25 20:00 02/21/25 19:16 02/21/25 20:00
Physical Exam
General: Well Developed, Well Nourished and No Apparent Distress
HEENT: NormoCephalic, Moist mucous membranes and Atraumatic
Respiratory: Clear
Cardiac: S1/S2 and Regular Rhythm; No Murmur or Rub
GI: Soft, Non Tender, Non Distended and Normal Bowel Sounds; No Organomegaly
Rectal: Deferred by Provider
Musculoskeletal: No Clubbing, No Cyanosis and No Edema
Skin: No Rash
Neuro: Nonfocal/grossly intact
Laboratory Results
-
02/21/25 19:22
02/21/25 20:04
Laboratory Results
PT 26.2 Sec (11.4-14.6) H 02/21/25 19:22
INR 2.40 02/21/25 19:22
APTT 40.1 Sec (23.4-35.0) H 02/21/25 19:22
Total Bilirubin 0.6 mg/dl (0.2-1.3) 02/21/25 20:04
AST 19 U/L (17-59) 02/21/25 20:04
ALT 13 U/L (0-50) 02/21/25 20:04
Alkaline Phosphatase 67 U/L (38-126) 02/21/25 20:04
Data Reviewed
-
Lab Data: Labs Reviewed by me
Old Records: Reviewed
Impression/Plan
-
IMPRESSION:
PLAN:
# Aphasia secondary to likely TIA
-NIH of 1 due to mild aphasia, now completely resolved
- CT head shows no acute abnormality
- CTA head and neck shows severe high-grade nonocclusive stenosis at the origin of the right external carotid artery, calcified plaque at the origin proximal right vertebral artery with high-grade nonocclusive stenosis, occlusion of the left
cervical vertebral artery possibly related to dissection or thrombus
- Hold Coumadin, INR of 2.4
- Check A1c and lipid panel
-Continue statin
- MRI brain
- Neurology consulted
#Carotid artery stenosis
- Vascular interventions attempted twice before without success
Chronic urinary retention secondary to neurogenic bladder requiring self-catheterizations
History of BPH status post TURP
-continue self catheterizing QID
Seizure history
-Continue lacosamide, Lamictal
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
-Continue carbidopa-levodopa
Tachybradycardia syndrome with pacemaker in 2022
-Continue Coreg
History of pulmonary embolism with RV thrombus in 2010
-On Coumadin
History of DVT
- Hold Coumadin
Essential hypertension
-Continue amlodipine
Orthostatic hypotension
-Continue midodrine
CKD 4
Hypocalcemia
-Continue calcitriol
-Renal function at baseline
Hyperlipidemia
- Continue statin
Hyperparathyroidism
CAD
-Continue aspirin, statin
History of strep pyogenes bacteremia
Constipation
Anxiety/depression
- Continue Lexapro
DNR/DNI
DVT prophylaxis�SCD
Regular diet
[2025-02-21 21:01] VITALS: BP 168/78
[2025-02-21 21:51] VITALS: BP 154/94; BMI 30.2
--- NOTE | 2025-02-21 22:00 | PTCARENOTE ---
Received patient from ER. stable vitals. No pain. NIH- 2. SR in 80s with PACs. POC reviewed with patient
[2025-02-21 22:51] LABS: HDL Cholesterol 47 mg/dl; LDL Cholesterol, Calculated 45 mg/dl; Total Cholesterol 109 mg/dl (50-199); Triglyceride 86 mg/dl (10-149); Very Low Density Lipoprotein 17 mg/dl (0-30)
[2025-02-21 23:55] VITALS: BP 131/79
[2025-02-22] VITALS (9 sets, daily range): BP systolic 130–180; BP diastolic 71–109; PULSE 90
[2025-02-22 06:47] LABS: INR 2.22; PT 24.7 Sec (11.4-14.6)
[2025-02-22 06:55] LABS: % Basophils 0.9 % (0-2); % Eosinophils 4.3 % (0-6); % Immature Granulocytes 0.3 % (0-0.5); % Monocytes 9.8 % (1.7-9.3); % Neutrophils 50.7 % (42.2-75.2); Absolute Basophils 0.1 10^3/uL (0-0.2); Absolute Eosinophils 0.3 10^3/uL (0-0.7); Absolute Lymphocytes 2.6 10^3/uL (1.2-3.4); Absolute Monocytes 0.8 10^3/uL (0.1-0.6); Absolute Neutrophils 3.9 10^3/uL (1.4-6.5); Hematocrit 39.4 % (39.0-52.0); Hemoglobin 12.4 g/dL (13.0-18.0); Mean Corp Hgb Conc. 31.5 g/dL (33.0-37.0); Mean Corpuscular Hgb 23.6 pg (27.0-31.0); Mean Platelet Volume 9.6 fL (7.4-10.4); Nucleated Red Blood Cells % 0 % (-); Platelet Count 230 10^3/uL (130-400); Red Blood Cell Count 5.25 10^6/uL (4.70-6.10); Red Cell Dist. Width 15.4 % (11.5-14.5); White Blood Cell Count 7.8 10^3/uL (4.8-10.8)
[2025-02-22 07:10] LABS: ALT (SGPT) 13 U/L (0-50); AST (SGOT) 21 U/L (17-59); Alkaline Phosphatase 78 U/L (38-126); Blood Urea Nitrogen 40 mg/dl (9-20); Calcium 7.9 mg/dl (8.4-10.2); Carbon Dioxide 21 mmol/L (22-30); Chloride 110 mmol/L (98-107); Estimated Creatinine Clearance 22 ml/min; Glucose 88 mg/dl (70-99); Sodium 143 mmol/L (135-145); Total Bilirubin 0.8 mg/dl (0.2-1.3); eGFR 19.86
--- NOTE | 2025-02-22 07:11 | CON.NEURO ---
Consultation
Order
Date of Consultation: 02/22/25
Requesting Provider: Katie Leon MD
Reason for Consult: TIA
Neurology Consultation Note.
HPI: This is an 84-year-old RH man who presented to [facility] on 02/21/2025 with language dysfunction. According to EMR patient had an episode of Wernicke's aphasia lasting for half an hour.
Mr. Clements does not recall the episode but reports that his observed him 'gibbering' and 'not being clear' while talking during supper last night.
The patient has limited recollection of the events leading up to his hospital admission. He remembers working on his computer and eating supper while talking, but has no memory of the speech difficulties his observed. No reports of change in
vision, strength and sensation.
Mr. Clements hs history of focal epilepsy(2021), managed with Lamictal 150 mg once a day and Vimpat 50 mg twice daily in the past.
ER VS: 164/92, 84, afebrile
EKG: NSR
PDMP: Lacosamide 50 Mg�180 tablets filled in on 11/13/2023.
Labs: INR 2.4, LDL 45, Normal WBCs, platelets, sodium, glucose, creatinine�3.0
CT head wo contrast/CTA head/neck-cervical vert occlusion, severe right FELECIA, right vert stenosis, moderate to severe chronic microvascular white matter ischemic disease.
Brain MRI wo erlinda(08/15/2023)5 small foci of decreased signal intensity on susceptibility weighted images, compatible with small foci of old microhemorrhage. Mild to moderate diffuse atrophy. Moderate T2 and FLAIR white matter hyperintensities,
commonly seen with aging and usually attributed to small vessel ischemic disease. 2 mm focus of CSF signal intensity in the right thalamus, which could represent old lacunar infarct versus a prominent perivascular space. Tortuosity of the basilar
artery resulting in mild to moderate compression of the central and left anterior aspect of the larisa.
A EEG(11/21/2023)-left temporal lobe sharps. No EEG correlates to captured event of yawning and poor responsiveness.
PMH: Focal epilepsy, DVT/PE, lupus anticoagulant, protein C deficiency, SSS, CAD, parkinsonism/orthostatic hypotension, DLP, CKD, BPH/obstructive uropathy, neurogenic bladder, ambulatory dysfunction
PSH: IVC filter, PPM, appendectomy, tonsillectomy, TURP
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
FH: Not contributory to current presenting
All: Furosemide, ciprofloxacin
ROS:Constitutional: Negative. Negative for chills, fever and unexpected weight change.
HENT: Positive for hearing impairment
Eyes: Negative. Negative for photophobia, pain and visual disturbance.
Respiratory: Negative for cough, choking and shortness of breath.
Cardiovascular: Negative for chest pain, palpitations and leg swelling.
Gastrointestinal: Negative for abdominal pain and vomiting.
Endocrine: Negative. Negative for cold intolerance.
Genitourinary: Negative for dysuria, flank pain and urgency.
Musculoskeletal: Negative for back pain, gait problem, neck pain and neck stiffness.
Skin: Negative for rash.
Allergic/Immunologic: Negative. Negative for immunocompromised state.
Neurological: Positive for transient aphasia, chronic confusion
Psychiatric/Behavioral: Negative for behavioral problems, confusion and hallucinations.
General: Well developed. In no acute distress.
Cardio: Regular rate and rhythm without murmur. Extremities are without cyanosis or edema.
Neuro:
Mental Status: Alert, oriented to month. '23', '19..' Impaired attention. Follows simple requests.
Cranial Nerves: Pupils are equally round. EOMs full. BTT BL No ptosis. No nystagmus. V1-V3 intact to light touch and pinprick bilaterally, symmetric. Face symmetric. Poor hearing AU. The palate elevated well. SCMs and traps 5/5. Tongue
midline. No dysarthria.
Motor: No pronator drift. Lower extremities�antigravity. Distal strength�4. No clonus.
Reflexes: 1 in UE, 0 in LEs
Sensory: Absent vibration at the toes
Coordination: No dysmetria or tremor.
Gait: deferred
Assessment and Plan:
I. Focal seizure, less likely TIA
II. Left temporal epilepsy
III. Multifactorial encephalopathy (epileptic, vascular, neurodegenerative?)
IV. Intracranial atherosclerosis
V. Distal symmetric sensory polyneuropathy
-Continue Telemetry monitoring
- Avoid cerebral hypoperfusion,
-Please obtain medical records from [facility]
-Please restart home dose of AED
-Left a message for patient's spouse with request to return my call to obtain collateral history
-DVT prophylaxis.
Please check urinalysis
I personally reviewed all radiology and labs along with past medical records pertinent to current medical problems. Total time spent in patient care is 60 minutes.
Thank you for allowing us to participate in the care of this patient. We will continue to follow. Please do not hesitate to contact us with any questions or concerns.
Subjective/Objective
Subjective Data
Date of Service: February 22, 2025
Objective Data
Vital Signs
Temp Pulse Resp BP Pulse Ox
36.6 C 83 20 151/98 97
02/22/25 03:29 02/22/25 03:29 02/22/25 03:29 02/22/25 04:03 02/22/25 03:29
Lab Results
02/22/25 06:11
02/22/25 06:11
PT 24.7 Sec (11.4-14.6) H 02/22/25 06:11
INR 2.22 02/22/25 06:11
APTT 40.1 Sec (23.4-35.0) H 02/21/25 19:22
Sodium 143 mmol/L (135-145) 02/22/25 06:11
Potassium 5.0 mmol/L (3.5-5.1) 02/22/25 06:11
BUN 40 mg/dl (9-20) H 02/22/25 06:11
Glucose 88 mg/dl (70-99) 02/22/25 06:11
Calcium 7.9 mg/dl (8.4-10.2) L 02/22/25 06:11
LDL Cholesterol, Calc Cancelled 02/21/25 21:40
Patient Allergies
ciprofloxacin [From Cipro] Allergy (Verified 08/31/24 14:14)
chills;general malaise
furosemide [From Lasix] Allergy (Verified 08/31/24 14:14)
Unknown
Medications
-
Active Medications
Generic Name Dose Route Start Last Admin
Trade Name Freq PRN Reason Stop Dose Admin
Atorvastatin Calcium 40 mg 02/22/25 18:00
Atorvastatin (Lipitor) 40 Mg Tablet PO 03/22/25 17:59
QPM DAMIR
Calcitriol 0.5 mcg 02/22/25 22:00
Calcitriol 0.25 Microgram Capsule PO 03/22/25 21:59
Q48H DAMIR
Cyanocobalamin 1,000 mcg 02/22/25 08:00
Cyanocobalamin 1,000 Mcg Tablet PO 03/22/25 07:59
DAILY DAMIR
Escitalopram Oxalate 10 mg 02/22/25 08:00
Escitalopram 10 Mg Tablet PO 03/22/25 07:59
DAILY DAMIR
Folic Acid 0.4 mg 02/22/25 08:00
Folic Acid 0.4 Mg Tablet PO 03/22/25 07:59
DAILY DAMIR
Midodrine 5 mg 02/21/25 21:40
Midodrine 5 Mg Tablet PO 03/21/25 21:39
TIDPRN PRN
low bp
Home Medications
�Medication �Instructions �Recorded
atorvastatin 40 mg tablet (Lipitor) 40 mg PO QPM 07/15/24
escitalopram oxalate 10 mg tablet 10 mg PO DAILY 07/15/24
(Lexapro)
midodrine 5 mg tablet 5 mg PO TIDPRN PRN low bp 07/15/24
calcitriol 0.5 mcg capsule 0.5 mcg PO Q48H 02/21/25
cyanocobalamin (vitamin B-12) 1,000 mcg PO DAILY 02/21/25
1,000 mcg tablet
folic acid 400 mcg tablet 0.4 mg PO DAILY 02/21/25
warfarin 2 mg tablet 2 mg PO QPM 02/21/25
Vital Signs and Labs
-
Vital Signs and Labs:
Vital Signs
Temp Pulse Resp BP Pulse Ox
36.6 C 83 20 151/98 97
02/22/25 03:29 02/22/25 03:29 02/22/25 03:29 02/22/25 04:03 02/22/25 03:29
Lab Results
02/22/25 06:11
02/22/25 06:11
PT 24.7 Sec (11.4-14.6) H 02/22/25 06:11
INR 2.22 02/22/25 06:11
APTT 40.1 Sec (23.4-35.0) H 02/21/25 19:22
Sodium 143 mmol/L (135-145) 02/22/25 06:11
Potassium 5.0 mmol/L (3.5-5.1) 02/22/25 06:11
BUN 40 mg/dl (9-20) H 02/22/25 06:11
Glucose 88 mg/dl (70-99) 02/22/25 06:11
Calcium 7.9 mg/dl (8.4-10.2) L 02/22/25 06:11
LDL Cholesterol, Calc Cancelled 02/21/25 21:40
Medications
-
Medications:
Generic Name Dose Route Start Last Admin
Trade Name Freq PRN Reason Stop Dose Admin
Atorvastatin Calcium 40 mg 02/22/25 18:00
Atorvastatin (Lipitor) 40 Mg Tablet PO 03/22/25 17:59
QPM DAMIR
Calcitriol 0.5 mcg 02/22/25 22:00
Calcitriol 0.25 Microgram Capsule PO 03/22/25 21:59
Q48H DAMIR
Cyanocobalamin 1,000 mcg 02/22/25 08:00
Cyanocobalamin 1,000 Mcg Tablet PO 03/22/25 07:59
DAILY DAMIR
Escitalopram Oxalate 10 mg 02/22/25 08:00
Escitalopram 10 Mg Tablet PO 03/22/25 07:59
DAILY DAMIR
Folic Acid 0.4 mg 02/22/25 08:00
Folic Acid 0.4 Mg Tablet PO 03/22/25 07:59
DAILY DAMIR
Midodrine 5 mg 02/21/25 21:40
Midodrine 5 Mg Tablet PO 03/21/25 21:39
TIDPRN PRN
low bp
Home Medications
-
Home Medications
atorvastatin 40 mg tablet (Lipitor) 40 mg PO QPM 07/15/24
escitalopram oxalate 10 mg tablet (Lexapro) 10 mg PO DAILY 07/15/24
midodrine 5 mg tablet 5 mg PO TIDPRN PRN low bp 07/15/24
calcitriol 0.5 mcg capsule 0.5 mcg PO Q48H 02/21/25
cyanocobalamin (vitamin B-12) 1,000 mcg tablet 1,000 mcg PO DAILY 02/21/25
folic acid 400 mcg tablet 0.4 mg PO DAILY 02/21/25
warfarin 2 mg tablet 2 mg PO QPM 02/21/25
[2025-02-22] MEDS: FOLVITE 0.4 MG PO (07:54)
[2025-02-22] MEDS: LEXAPRO 10 MG PO (07:54)
[2025-02-22] MEDS: VITAMIN B-12 1000 MCG PO (07:54)
[2025-02-22 08:37] LABS: Glycohemoglobin (HgbA1c) 5.9 % (4.0-5.6)
--- NOTE | 2025-02-22 08:41 | W.PN.HOSP.TC ---
Addendum entered and electronically signed by Toan Moe MD 02/23/25 15:13:
Read, reviewed, and agree. See same day progress note for additional details. Time spent reviewing records in EMR, med rec, consults, notes, d/w consultants, nursing, family
Original Note:
Today's Communication/Plan
-
Brain MRI pending
Appreciate neurology input
Assessment / Plan
Assessment / Plan
# Difficulty with speech
- His observed him 'gibbering' and 'not being clear' while talking that lasted for ~15 mins
- Unclear etiology, TIA vs stroke
- Now completely resolved
- CT head shows no acute abnormality
- CTA head and neck shows severe high-grade nonocclusive stenosis at the origin of the right external carotid artery, calcified plaque at the origin proximal right vertebral artery with high-grade nonocclusive stenosis, occlusion of the left
cervical vertebral artery possibly related to dissection or thrombus
- Coumadin was initially held, resume today
- HbA1c 5.9 and LDL 45
- Continue statin
- MRI brain pending
- Neurology input appreciated
# Carotid artery stenosis
- Vascular interventions attempted twice before without success
# Chronic urinary retention secondary to neurogenic bladder requiring self-catheterizations
# History of BPH status post TURP
- Continue self catheterizing QID
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
- Patient is following up as outpatient with [facility]
# Tachybradycardia syndrome with pacemaker in 2022
# History of pulmonary embolism with RV thrombus in 2010
- Coumadin was initially held, resume today
# Essential hypertension
- Not on any home meds
- Avoid cerebral hypoperfusion
- Started hydralazine prn
# Orthostatic hypotension
- Continue midodrine prn
# CKD 4
# Hypocalcemia
- Continue calcitriol
- Renal function at baseline
Hyperlipidemia
- Continue statin
# Hyperparathyroidism
# Anxiety/depression
- Continue Lexapro
DNR/DNI
DVT prophylaxis�SCD
Regular diet
Anticipated Discharge: 24 - 48 hours
Subjective/Interval History
-
Date of Service: February 22, 2025
Objective Data
-
Labs:
Laboratory Results
02/21/25 02/22/25
20:04 06:11
WBC 7.8
Hgb 12.4 L
Hct 39.4
Plt Count 230
PT 24.7 H
INR 2.22
Sodium 143
Potassium 4.3 5.0
Chloride 110 H
Carbon Dioxide 21 L
BUN 40 H
Creatinine 3.0 H
Glucose 88
Calcium 7.9 L
Total Bilirubin 0.6 0.8
AST 19 21
ALT 13 13
Alkaline Phosphatase 67 78
Vital Signs:
Vital Signs
Temp Pulse Resp BP Pulse Ox
97.8 F 93 20 179/109 98
02/22/25 07:19 02/22/25 07:19 02/22/25 07:19 02/22/25 07:19 02/22/25 07:19
I&O
02/21/25 02/22/25 02/23/25
06:59 06:59 06:59
Output Total 1050 / 1050
Balance -1050 / -1050
--- NOTE | 2025-02-22 11:29 | W.PN.UPDATE ---
Update Note
Progress Note Update
According to Ms. Clements the patient has had 2 episodes of language dysfunction. The first episode occurred two nights ago during supper, lasting approximately one hour. A second episode occurred the following night, prompting an ER visit.
The speech disturbances are characterized by incoherent speech, described as 'gibberish'. During the most recent episode, the patient had confusion, attempting to use a pen to butter his toast. This is a new symptom for the patient, distinct from
previous 'spells' last year where he would appear unresponsive at the kitchen table.
According to Ms. Clements patient was taken off of AED at [facility].
Funmilayo Capone M.D.
--- NOTE | 2025-02-22 12:58 | CM ---
Attempted to meet with patient to obtain information for assistance, however, patient was not in room and was still at CT scan. Placed a call to patient's however there was no answer. Placed a call to patient's son who answered and was able to
provide information. Patient lives with his in a two story home with one step to enter. He is mostly independent with his ADLs and personal care however his is able to assist when he needs it. She does all of the cooking, cleaning, laundry
and dish room worker. She drives and can get patient to his appointments and does all of the shopping
He has grab bars in the shower, a shower chair, w/c walker, raised toilet seats. He has had VN in the past. He has been to [facility] as well as had VN services but is not current.
Patient has a prescription plan and uses, Matthew Ingram.
Patient's PCP is, Matthew ingram.
Plan: Patient's son is hopeful that patient will be able to get back home as he has an upcoming appointment. Will watch for needs.
--- NOTE | 2025-02-22 14:10 | EEG.RPT ---
Electroencephalogram Report
Recording
Date of EE02/22/25
Type of EEG: Routine
Length of EEG recordin minutes
Done with Video Recording: Yes
Patient Status: Inpatient
Recording Conditions: Awake and Drowsy
Hyperventilation Performed: No
Photic Stimulation Performed: Yes
Report
LESS THAN 1 HOUR EEG REPORT
LESS THAN 1 HOUR EEG INTERPRETATION:
Likely unremarkable EEG for age
CLINICAL CORRELATION:
Although normative values have not been established for a person of this advanced age, the patient�s symmetry of the background suggested that this study was unremarkable.
A normal EEG does not rule out a diagnosis of epilepsy. If clinical suspicion for seizure persists, a prolonged recording may be warranted.
Clinical correlation is advised.
METHODS:
A 21 channel digitized electroencephalogram (EEG) was performed using the 10/20 international system of electrode placement and one-lead of ECG recorded. Persyst quantitative EEG analysis was performed.
ELECTROENCEPHALOGRAPHER IMPRESSION(S):
Quality of study
Good
Background
There was an unremarkable anterior-posterior voltage gradient of alpha frequency.
With eye opening the background activity changed to a low voltage mixture of frequencies.
There were no significant asymmetries of background activity noted.
Sleep
Drowsiness present
Photic Stimulation
No driving
ECG
Normal sinus rhythm
[2025-02-22] MEDS: LIPITOR 40 MG PO (17:06)
[2025-02-22] MEDS: COUMADIN 2 MG PO (17:06)
[2025-02-22 17:42] LABS: Urine Albumin 3+ (Neg - Trace); Urine Bilirubin Negative (Negative); Urine Character Slightly Cloudy (Clear); Urine Color Yellow; Urine Glucose Negative (Negative); Urine Ketone Negative (Negative); Urine Leukocyte 3+ (Negative); Urine Nitrite Negative (Negative); Urine Occult Blood 3+ (Negative); Urine Urobilinogen Negative (Neg - 1+)
[2025-02-22 18:02] LABS: Urine Bacteria Many (Negative); Urine White Cell >100 /HPF (0-5)
[2025-02-22] MEDS: ROCALTROL 0.5 MCG PO (20:56)
[2025-02-23 03:55] VITALS: BP 162/105
[2025-02-23] MEDS: APRESOLINE 10 MG IV (05:05)
[2025-02-23 06:26] LABS: Hematocrit 40.3 % (39.0-52.0); Hemoglobin 12.6 g/dL (13.0-18.0); Mean Corp Hgb Conc. 31.3 g/dL (33.0-37.0); Mean Corpuscular Hgb 23.2 pg (27.0-31.0); Mean Corpuscular Volume 74.4 fL (80.0-94.0); Mean Platelet Volume 9.1 fL (7.4-10.4); Platelet Count 225 10^3/uL (130-400); Red Blood Cell Count 5.42 10^6/uL (4.70-6.10); Red Cell Dist. Width 15.4 % (11.5-14.5)
--- NOTE | 2025-02-23 07:46 | W.PN.NEURO.1 ---
Today's Communication / Plan
-
.
Subjective/Objective
Subjective Data
Date of Service: February 23, 2025
Neurology follow-up note.
24-hour events: Transiently hypertensive up to 191/109, afebrile.
Mr. Clements reports no complaints. No recurrent episodes of language dysfunction,
Routine EEG(02/22/2025) was unremarkable
A EEG(11/21/2023)-left temporal lobe sharps. No EEG correlates to captured event of yawning and poor responsiveness.
PMH: Focal epilepsy, DVT/PE, lupus anticoagulant, protein C deficiency, SSS, CAD, parkinsonism/orthostatic hypotension, DLP, CKD, BPH/obstructive uropathy, neurogenic bladder, ambulatory dysfunction
PSH: IVC filter, PPM, appendectomy, tonsillectomy, TURP
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
FH: Not contributory to current presenting
All: Furosemide, ciprofloxacin
ROS:Constitutional: Negative. Negative for chills, fever and unexpected weight change.
HENT: Positive for hearing impairment
Eyes: Negative. Negative for photophobia, pain and visual disturbance.
Respiratory: Negative for cough, choking and shortness of breath.
Cardiovascular: Negative for chest pain, palpitations and leg swelling.
Gastrointestinal: Negative for abdominal pain and vomiting.
Endocrine: Negative. Negative for cold intolerance.
Genitourinary: Negative for dysuria, flank pain and urgency.
Musculoskeletal: Negative for back pain, gait problem, neck pain and neck stiffness.
Skin: Negative for rash.
Allergic/Immunologic: Negative. Negative for immunocompromised state.
Neurological: Positive for transient aphasia, chronic confusion
Psychiatric/Behavioral: Negative for behavioral problems, confusion and hallucinations.
General: Well developed. In no acute distress.
Cardio: Regular rate and rhythm without murmur. Extremities are without cyanosis or edema.
Neuro:
Mental Status: Alert, oriented to ' February 272023.' Impaired attention. Follows simple requests. No hemineglect.
Cranial Nerves: Pupils are equally round. EOMs full. BTT BL No ptosis. No nystagmus. V1-V3 intact to light touch and pinprick bilaterally, symmetric. Face symmetric. Poor hearing AU. The palate elevated well. SCMs and traps 5/5. Tongue
midline. No dysarthria.
Motor: No pronator drift. Lower extremities�antigravity. Distal strength�5/5. No clonus.
Coordination: No dysmetria or tremor.
Gait: deferred
Assessment and Plan:
I. Recurrent aphasia. Differential diagnosis includes epileptic versus neurodegenerative.
II. Left temporal epilepsy
III. Multifactorial encephalopathy (epileptic, vascular, neurodegenerative)
IV. Intracranial atherosclerosis
V. Distal symmetric sensory polyneuropathy
- Continue Telemetry monitoring
- Avoid cerebral hypoperfusion
- Brain MRI without erlinda (scheduled at noon)
- Please obtain medical records from [facility]
- prophylaxis.
Please check urinalysis
I personally reviewed all radiology and labs along with past medical records pertinent to current medical problems. Total time spent in patient care is 35 minutes.
Thank you for allowing us to participate in the care of this patient. We will continue to follow. Please do not hesitate to contact us with any questions or concerns.
Objective Data
Vital Signs
Temp Pulse Resp BP Pulse Ox
36.6 C 78 20 191/109 97
02/23/25 03:55 02/23/25 05:05 02/23/25 03:55 02/23/25 05:05 02/23/25 03:55
Lab Results
02/23/25 06:16
02/22/25 06:11
PT 24.7 Sec (11.4-14.6) H 02/22/25 06:11
INR 2.22 02/22/25 06:11
APTT 40.1 Sec (23.4-35.0) H 02/21/25 19:22
Sodium 143 mmol/L (135-145) 02/22/25 06:11
Potassium 5.0 mmol/L (3.5-5.1) 02/22/25 06:11
BUN 40 mg/dl (9-20) H 02/22/25 06:11
Glucose 88 mg/dl (70-99) 02/22/25 06:11
Calcium 7.9 mg/dl (8.4-10.2) L 02/22/25 06:11
LDL Cholesterol, Calc Cancelled 02/21/25 21:40
Patient Allergies
ciprofloxacin [From Cipro] Allergy (Verified 08/31/24 14:14)
chills;general malaise
furosemide [From Lasix] Allergy (Verified 08/31/24 14:14)
Unknown
Vital Signs and Labs
-
Vital Signs and Labs:
Vital Signs
Temp Pulse Resp BP Pulse Ox
36.4 C 96 18 161/85 98
02/23/25 08:05 02/23/25 08:05 02/23/25 08:05 02/23/25 08:05 02/23/25 08:35
Lab Results
02/23/25 06:16
02/22/25 06:11
PT 21.9 Sec (11.4-14.6) H 02/23/25 08:04
INR 1.90 02/23/25 08:04
APTT 40.1 Sec (23.4-35.0) H 02/21/25 19:22
Sodium 143 mmol/L (135-145) 02/22/25 06:11
Potassium 5.0 mmol/L (3.5-5.1) 02/22/25 06:11
BUN 40 mg/dl (9-20) H 02/22/25 06:11
Glucose 88 mg/dl (70-99) 02/22/25 06:11
Calcium 7.9 mg/dl (8.4-10.2) L 02/22/25 06:11
LDL Cholesterol, Calc Cancelled 02/21/25 21:40
Medications
-
Medications:
Generic Name Dose Route Start Last Admin
Trade Name Freq PRN Reason Stop Dose Admin
Atorvastatin Calcium 40 mg 02/22/25 18:00 02/22/25 17:06
Atorvastatin (Lipitor) 40 Mg Tablet PO 03/22/25 17:59 40 mg
QPM DAMIR Administration
Calcitriol 0.5 mcg 02/22/25 22:00 02/22/25 20:56
Calcitriol 0.25 Microgram Capsule PO 03/22/25 21:59 0.5 mcg
Q48H DAMIR Administration
Cyanocobalamin 1,000 mcg 02/22/25 08:00 02/23/25 08:39
Cyanocobalamin 1,000 Mcg Tablet PO 03/22/25 07:59 1,000 mcg
DAILY DAMIR Administration
Escitalopram Oxalate 10 mg 02/22/25 08:00 02/23/25 08:39
Escitalopram 10 Mg Tablet PO 03/22/25 07:59 10 mg
DAILY DAMIR Administration
Folic Acid 0.4 mg 02/22/25 08:00 02/23/25 08:39
Folic Acid 0.4 Mg Tablet PO 03/22/25 07:59 0.4 mg
DAILY DAMIR Administration
Hydralazine HCl 10 mg 02/22/25 09:47 02/23/25 05:05
Hydralazine 20 Mg/Ml Vial IV 03/22/25 09:46 10 mg
Q4HPRN PRN Administration
hypertension
Midodrine 5 mg 02/21/25 21:40
Midodrine 5 Mg Tablet PO 03/21/25 21:39
TIDPRN PRN
low bp
Warfarin Sodium 2 mg 02/22/25 18:00 02/22/25 17:06
Warfarin 2 Mg Tablet PO 02/27/25 17:59 2 mg
QPM DAMIR Administration
Home Medications
-
Home Medications
atorvastatin 40 mg tablet (Lipitor) 40 mg PO QPM High Cholesterol 07/15/24
escitalopram oxalate 10 mg tablet (Lexapro) 10 mg PO DAILY Mental Health/Anxiety 07/15/24
midodrine 5 mg tablet 5 mg PO TIDPRN PRN low bp 07/15/24
calcitriol 0.5 mcg capsule 0.5 mcg PO Q48H 02/21/25
cyanocobalamin (vitamin B-12) 1,000 mcg tablet 1,000 mcg PO DAILY B-12 deficiency 02/21/25
folic acid 400 mcg tablet 0.4 mg PO DAILY Supplement 02/21/25
warfarin 2 mg tablet 2 mg PO QPM HX PE 201002/21/25
[2025-02-23 08:05] VITALS: BP 161/85
[2025-02-23] MEDS: VITAMIN B-12 1000 MCG PO (08:39)
[2025-02-23] MEDS: FOLVITE 0.4 MG PO (08:39)
[2025-02-23] MEDS: LEXAPRO 10 MG PO (08:39)
[2025-02-23 08:55] LABS: PT 21.9 Sec (11.4-14.6)
[2025-02-23 11:36] VITALS: BP 149/74
--- NOTE | 2025-02-23 14:10 | W.PN.HOSP.TC ---
Addendum entered and electronically signed by Lexy Whiteny MD, Resident 02/23/25 16:52:
Patient to have [facility] check INR for 02/24/25, 02/25/25, 02/26/25 and send results to family doctor, Dr. Mtathew Ingram.
Addendum entered and electronically signed by Toan Moe MD 02/23/25 15:15:
Seen and examined. No new complaints. No acute overnight events.
I discussed this case briefly with neurology via TT and MRI did not show any acute abnormalities EEG did show left temporal sharp signals and recurrent aphasia with some evidence of postictal as it was noted that he was using a pencil to put butter
on his toast. Still have not received pen notes. Neurology is favoring to start low-dose Keppra.
I reviewed with him already that he is not allowed to drive and he has verbally understood this
DC home with outpatient neuro follow up
Original Note:
Today's Communication/Plan
-
MRI brain unremarkable
Outpatient follow-up with neurology
Stable for discharge
Assessment / Plan
Assessment / Plan
# Difficulty with speech
- His observed him 'gibbering' and 'not being clear' while talking that lasted for ~15 mins
- Unclear etiology, TIA vs stroke
- Now completely resolved
- CT head shows no acute abnormality
- CTA head and neck shows severe high-grade nonocclusive stenosis at the origin of the right external carotid artery, calcified plaque at the origin proximal right vertebral artery with high-grade nonocclusive stenosis, occlusion of the left
cervical vertebral artery possibly related to dissection or thrombus
- HbA1c 5.9 and LDL 45
- Continue statin
- Coumadin restarted yesterday, INR 1.90 today --> repeat INR outpt
- MRI brain no acute intracranial abnormality, mild atrophy with sequela of moderate small vessel ischemic disease, similar to prior.
- Neurology following
- EEG unremarkable
- Stable for discharge today, recommend outpatient follow-up with neurology
# Carotid artery stenosis
- Vascular interventions attempted twice before without success
# Asymptomatic bacteriuria
# Chronic urinary retention secondary to neurogenic bladder requiring self-catheterizations
# History of BPH status post TURP
- Continue self catheterizing QID
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
- Patient is following up as outpatient with [facility]
# Tachybradycardia syndrome with pacemaker in 2022
# History of pulmonary embolism with RV thrombus in 2010
- Coumadin was initially held, resume today
# Essential hypertension
- Not on any home meds
- Avoid cerebral hypoperfusion
- Started hydralazine prn
# Orthostatic hypotension
- Continue midodrine prn
# CKD 4
# Hypocalcemia
- Continue calcitriol
- Renal function at baseline
Hyperlipidemia
- Continue statin
# Hyperparathyroidism
# Anxiety/depression
- Continue Lexapro
DNR/DNI
DVT prophylaxis - coumadin
Regular diet
Anticipated Discharge: Today
Subjective/Interval History
-
Date of Service: February 23, 2025
Objective Data
-
Labs:
Laboratory Results
02/23/25 02/23/25
06:16 08:04
WBC 8.0
Hgb 12.6 L
Hct 40.3
Plt Count 225
PT 21.9 H
INR 1.90
Vital Signs:
Vital Signs
Temp Pulse Resp BP Pulse Ox
97.9 F 84 18 149/74 98
02/23/25 11:36 02/23/25 11:36 02/23/25 11:36 02/23/25 11:36 02/23/25 11:36
I&O
02/22/25 02/23/25 02/24/25
06:59 06:59 06:59
Intake Total 920 / 920
Output Total 1050 / 1050 2250 / 2250 500 / 500
Balance -1050 / -1050 -1330 / -1330 -500 / -500
Review of Systems
-
History Source: Patient
Constitutional: Reports No Symptoms
EENT: Reports No Symptoms Reported
Respiratory: Reports No Symptoms
Cardiac: Reports No Symptoms
Abdomen/GI: Reports No Symptoms
Breast: Reports No Symptoms
Genitourinary: Reports No Symptoms
Musculoskeletal: Reports No Symptoms
Skin: Reports No Symptoms
Neuro: Reports No Symptoms
Endocrine: Reports No Symptoms
Hematologic / Lymphatic: Reports No Symptoms
Physical Exam
-
General: Well Developed, Well Nourished, No Apparent Distress and Comfortable
HEENT: Normocephalic
Respiratory: Clear to Auscultation
Cardiac: Regular Rhythm and S1/S2
GI: Soft, Nontender, Nondistended and Normal Bowel Sounds
Genito-urinary: No Costovertebral Tender
Musculoskeletal: No Clubbing, No Cyanosis and No Edema
Skin: Warm
Neuro: Awake, Alert, Oriented and AO x 3
Hematologic / Lymphatic: No Lymphadenopathy
Psych: Calm
--- NOTE | 2025-02-23 14:45 | CM ---
Received notification of d/c from attending. Indication is for home with [facility]N services. Met with patient and his who stated that she can support patient at home. They are agreeable to [facility]N and want [facility]. Referral made. Patient's can transport
patient home.
Plan: Case management will continue to follow and assist with discharge planning. Home with VN.
--- NOTE | 2025-02-23 15:03 | VNURNOTE ---
Reached out to patient's cell phone- no answer. Called patient's spouse's cell- no answer. Left message explaining [facility] services. Patient last had [facility] in Jul 2024. Left [facility] liaison contact number in case questions. [facility] referral
placed in [facility].
[2025-02-23 15:25] VITALS: BP 145/116; BP 160/90; PULSE 91; O2SAT 92
[2025-02-23 15:51] VITALS: BP 115/63
--- NOTE | 2025-02-23 16:21 | PTCARENOTE ---
pr AAO x3, LUU; OOB in room/ambulated in lr with PT/minimal assistance; carole well, no c/o weakness/dizziness. Speech clear, no aphasia noted. VSS. Telemetry:NSR with PAC;s. On room air- pulse ox 96%, no SOB noted. Abd large, soft, carole PO
well. Pt straight caths self q 6 hrs for mod amts urine. Resting in bed at present, no c/o. Will continue to monitor.
--- NOTE | 2025-02-23 16:52 | W.DCSUMMARY ---
Discharge Summary
Discharge Data
Date of Admission: 02/21/25
Date of Discharge: 02/23/25
-
Pending Results: No
Hospital Course
Discharging Physician : Dr. Lexy Flannery, Dr. Toan Moe
Disposition : Home with [facility]
Primary care physician : Dr. Matthew Ingram
Principal Discharge diagnosis :
Aphasia
Intracranial atherosclerosis
Possible seizure
Asymptomatic bacteriuria
Hypertension
Chronic Discharge diagnosis :
Chronic urinary retention
Possible Parkinson's disease
History of pulmonary embolism/DVT
Orthostatic hypotension
Chronic kidney disease stage IV
Hyperlipidemia
Hyperparathyroidism
Anxiety/depression
History of benign prostatic hyperplasia status post TURP
Hospital Course :
84-year-old right-handed male with past medical history as above who presented to ED with language dysfunction. According to EMR, patient had an episode of Wernicke's aphasia lasting for half an hour. Mr. Clements does not recall the episode but
reports that his observed him 'gibbering' and 'not being clear' while talking during supper the night prior.
# Aphasia, difficulty with speech
- Unclear etiology, possible seizure vs TIA
- Completely resolved within the next day
- CT head showed no acute abnormality
- CTA head and neck showed severe high-grade nonocclusive stenosis at the origin of the right external carotid artery, calcified plaque at the origin proximal right vertebral artery with high-grade nonocclusive stenosis, occlusion of the left
cervical vertebral artery possibly related to dissection or thrombus
- HbA1c 5.9 and LDL 45
- Coumadin was initially held, resumed later
- MRI brain no acute intracranial abnormality, mild atrophy with sequela of moderate small vessel ischemic disease, similar to prior.
- Neurology recommended starting low-dose Keppra given left temporal sharps on EEG, discharged on Keppra 500 mg 3 times daily
- Recommended outpatient follow-up with neurology
- Discussed with patient that he is not allowed to drive due to possible seizure
# Asymptomatic bacteriuria
# Carotid artery stenosis
- Vascular interventions attempted twice before without success
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
- Patient is following up as outpatient with [facility]
# History of pulmonary embolism with RV thrombus in 2010
- Coumadin was initially held, resumed later
- INR 1.90 on day of discharge --> visiting nurse to check INR daily x3 days after discharge and send results to family doctor
# Essential hypertension
- Not on any home meds
- Avoided cerebral hypoperfusion
- Started hydralazine prn
- Recommended outpatient follow-up with PCP/cardiology for blood pressure management
# CKD 4
# Hypocalcemia
- Renal function at baseline
# Tachybradycardia syndrome with pacemaker in 2022
# Orthostatic hypotension
# Hyperlipidemia
# Hyperparathyroidism
# Anxiety/depression
- No changes were made to home meds otherwise
Important imaging findings :
Brain MRI (02/23/25):
No acute intracranial abnormality noted.
Mild atrophy with sequelae of moderate small vessel ischemic disease, similar in appearance to prior.
Head neck CTA (02/21/25):
No significant plaque, stenosis, occlusion, or dissection of the right common carotid artery or internal carotid artery. Severe high-grade nonocclusive stenosis at the origin of the right EXTERNAL carotid artery.
Calcified plaque at the origin and proximal right vertebral artery with high-grade nonocclusive stenosis.
No significant plaque, stenosis, occlusion, or dissection of the left common carotid or internal carotid artery.
There is occlusion of the left cervical vertebral artery, age indeterminate. Exact etiology uncertain, possibly related to dissection or thrombosis. There is either retrograde flow from the right vertebral artery/basilar artery versus distal
reconstitution of the intradural left vertebral artery.
Calcified and noncalcified plaque of the cavernous internal carotid arteries, right greater than left; numerous foci of right cavernous ICA high-grade nonocclusive stenoses.
No cerebral artery significant plaque, stenosis, thrombus, or occlusion.
Head CT (02/21/25):
Stable. No acute intracranial abnormality noted.
EEG (02/22/25):
Likely unremarkable EEG for age
Discharge Plan
-
Patient Disposition: Home with Home Care
Discharge Diagnosis/Procedures: Aphasia, intracranial atherosclerosis, possible seizure, asymptomatic bacteriuria, chronic urinary retention, possible Parkinson's disease, history of pulmonary embolism/DVT, hypertension, orthostatic hypotension,
chronic kidney disease stage IV, hyperlipidemia, hyperparathyroidism, anxiety/depression, history of benign prostatic hyperplasia status post TURP
Condition: Fair
Diet: As tolerated
Activity: As tolerated
Driving Restrictions: No driving
Blood Work: INR next week
Referrals:
Matthew Ingram MD [Family Provider] -
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 Your visiting nurse will check your INR 02/24/35, 02/25/25, 02/26/25 and have the results sent to your
family doctor.
You were restarted on an anti-seizure medication this admission given your previous EEG findings. You should follow-up with your neurologist as outpatient for further evaluation.
Prescriptions:
New
levetiracetam 500 mg Tablet
500 mg PO BID Qty: 60 0RF
Continued
atorvastatin [Lipitor] 40 mg Tablet
40 mg PO QPM
midodrine 5 mg Tablet
5 mg PO TIDPRN MDD hypotension PRN (Reason: low bp)
escitalopram oxalate [Lexapro] 10 mg Tablet
10 mg PO DAILY
warfarin 2 mg Tablet
2 mg PO QPM
cyanocobalamin (vitamin B-12) 1,000 mcg Tablet
1,000 mcg PO DAILY
folic acid 400 mcg Tablet
0.4 mg PO DAILY
calcitriol 0.5 mcg capsule
0.5 mcg PO Q48H
Discharge Orders:
Discharge Patient (As Directed); Ordered 02/23/25
Ordered By: Lexy Whitney
Discharge Date and Time
Print Language: MOHAWK
--- NOTE | 2025-02-23 17:01 | CM ---
Placed a call to patient's spouse however had to leave a voice mail. Attempted to talk to patient however he is too confused. Will attempt family again tomorrow.
[2025-02-23] MEDS: COUMADIN PO (17:42)
[2025-02-23] MEDS: LIPITOR PO (17:43)
== END 2025-02-23 18:13 | disposition home or self-care (01) ==
LOC: 4 EAST ACU 21:08
PROVIDERS: ADMITTING PHYSICIAN Hospitalist; ATTENDING PHYSICIAN Hospitalist; CONSULT PHYSICIAN Psychiatry & Neurology Neurology; EMERGENCY PHYSICIAN Emergency Medicine; FAMILY PHYSICIAN Family Medicine
DX: G40.109 Localization-related (focal) (partial) symptomatic epilepsy and epileptic syndromes with simple partial seizures, not intractable, without status epilepticus (principal); R47.01 Aphasia; Z66 Do not resuscitate; Z79.01 Long term (current) use of anticoagulants; I12.9 Hypertensive chronic kidney disease with stage 1 through stage 4 chronic kidney disease, or unspecified chronic kidney disease; I95.1 Orthostatic hypotension; E83.51 Hypocalcemia; I25.10 Atherosclerotic heart disease of native coronary artery without angina pectoris; Z79.899 Other long term (current) drug therapy; Z79.82 Long term (current) use of aspirin; K59.00 Constipation, unspecified; F41.9 Anxiety disorder, unspecified; F32.A Depression, unspecified; G93.49 Other encephalopathy
CPT/HCPCS: 70450; 70496; 70498; 70551; 80048; 80053; 80061; 80076; 81003; 81015; 82962; 83036; 84132; 85025; 85027; 85610; 85730; 87077; 87086; 87186; 93005; 95816; 97116; 97162; 97530; 99291; G0378; Q9967

== ENCOUNTER → 2025-04-21 10:39 | Outpatient (REF) | payer MEDICARE, OTHER, SELFPAY | LOC: HWRAD 10:39 | PROVIDERS: ATTENDING PHYSICIAN Internal Medicine Cardiovascular Disease; FAMILY PHYSICIAN Family Medicine | DX: R09.89 Other specified symptoms and signs involving the circulatory and respiratory systems (principal) | CPT/HCPCS: 93880 ==